=== PATIENT | female | born 1965 | race Caucasian/White ===

== ENCOUNTER 2019-02-07 20:24 | Inpatient (IN) | payer MEDICAID, SELFPAY ==
[2019-02-07 20:27] VITALS: BP 121/75; PULSE 89; RESP 16; TEMP 36.8; O2SAT 100; BMI 13.4
[2019-02-07 20:48] VITALS: BP 118/61; PULSE 85; RESP 13; O2SAT 96
[2019-02-07 21:01] LABS: Bedside Glucose > 500 mg/dL (70-110)
--- NOTE | 2019-02-07 21:29 | EKG12_ITS ---
Test Reason : Blood Pressure : / mmHG Vent. Rate : 074 BPM Atrial Rate : 074 BPM P-R Int : 138 ms QRS Dur : 074 ms QT Int : 354 ms P-R-T Axes : 085 -16 -35 degrees QTc Int : 392 ms Normal sinus rhythm Biatrial enlargement Septal infarct , age undetermined Abnormal ECG Confirmed by LEWIS NICOLAS, DIVYA ([id number]), communications editor BRYON LIU ([id number]) on 02/09/2019 10:47:04 AM Referred By: Caty Alvarez Confirmed By:JODY SAUCEDO MD
--- NOTE | 2019-02-07 21:52 | ED.VISSUMM ---
- ER Visit Summary Date of Service: 02/07/19 Chief Complaint: Weakness History of Present Illness: The patient is a 54 F who presents emerged part with generalized weakness. She has a history of type 2 diabetes diagnosed in 2013 and tells me that she is out of her insulin. She has been off for several weeks because she lost her insurance. She recently moved from [place] to [facility]. She notes progressive weakness. She notes that she now has thrush in her mouth. She has had some nausea and vomiting for the past several days. Polyuria and polydipsia. She has been unable to eat. She states all of her troubles began in 2008 when she had a gallbladder surgery. She states she cannot gain any weight. Patient is a heavy smoker and admits to recreational methamphetamine use. She does not have a primary care physician anymore. Physical Examination: Afebrile vital signs are stable Gen: Patient is cachectic Head: Normocephalic atraumatic Eyes: Perrl EOMI ENT: TMs clear no rhinorrhea dry mucous membranes. Evidence of thrush in the oropharynx Neck: Supple no lymphadenopathy no JVD nontender CVS: Regular rate rhythm no murmurs normal S1-S2 Respiratory: No distress clear to auscultation bilaterally chest nontender Abdomen: Soft nontender nondistended normal bowel sounds no masses Back: Nontender Extremity: Nontender no edema Skin: Normal color no rash Neuro: alert orientated ?3 CN II-XII intact normal strength sensation Psych: Tearful Test Results: EKG shows a normal sinus rhythm and rate is 74. Sodium 123. Chloride of 86. Glucose of 827. BUN 26 with creatinine 1.07 transaminases are slightly elevated ALT 212 AST of 80 alk phos 45. Troponin negative ketones negative. Chest x-ray is emphysematous changes. Urine drug screen was obtained. Emergency Department Course and Treatment: In speaking with the patient she has never had an HIV test. She consents to having one performed. Patient received IV fluids and nystatin. She was also started on insulin drip. Social work was contacted. Plan will be admission into the hospital. Impression: 1. Hyperosmolar hyperglycemic state 2. Thrush This note was generated with [employer] dictation software. It may contain incorrect words, spelling, and punctuation that were not noted in review of the chart prior to signing ED Disposition - Plan for ED Patient: Referrals: Judy Roque MD [Primary Care Provider] -
--- NOTE | 2019-02-07 21:57 | CM.ED ---
Social Work Assessment Referral Date: 02/07/19 Date of Assessment: 02/07/19 Informant: NURSING AND DR. HALL Reason for Consult: RESOURCES- SELF PAY, NO PCP Information obtained from: PATIENT Living Arrangements: PATIENT REPORTS LIVES HOME WITH [facility] IN A 2 STORY HOME WITH 1ST FLOOR SET UP. DME: DIABETIC SUPPLIES Employment/Financial: UNEMPLOYED/ PATIENT REPORTS HAD [employer] PREVIOUSLY AND LOST IT. PATIENT UNSURE WHY SHE LOST HER INSURANCE. Supports: PATIENT REPORTS GOOD SUPPORT FROM EX- Social/Family Stressors: PATIENT HAS NOT HAD INSULIN IN WEEKS, NO INSURANCE, NO PCP. Mental Health History: PATIENT ADMITS TO HX OF ANXIETY AND DEPRESSION. PATIENT STATES WAS TREATED WITH MEDICATION AT ONE POINT AND THEN STOPPED TAKING MEDICATION ON HER OWN. Substance Abuse History: PATIENT REPORTS HX OF METH USE. PATIENT STATES I SELF MEDICATE. PATIENT REPORTS LAST USE MIGHT HAVE BEEN A FEW WEEKS AGO. Interventions: SOCIAL SERVICE ASSESSMENT EDUCATION ON MEDICAID. PATIENT PROVIDED WITH MEDICAID CONTACT NUMBER TO DISCUSS COVERAGE. PATIENT GIVEN RESOURCES ON LOCAL PRIMARY CARE, FREE CLINIC, AND PEOPLE TO PEOPLE. Assessment: PATIENT IS A 54 FEMALE WHO PRESENTS TO ED WITH GENERAL ILLNESS. PATIENT REPORTS HAS BEEN DECLINING FOR SEVERAL YEARS AND HAS BEEN FEELING WORSE. PATIENT STATES LIVES HOME WITH EX IN A 2 STORY HOME. PATIENT STATES LOST INSURANCE AND HAS NOT BEEN ABLE TO AFFORD INSULIN. DISCUSSED MEDICAID AND PATIENT WAS PROVIDED WITH CONTACT NUMBER TO RE-APPLY. PATIENT GIVEN INFORMATION ON FREE CLINIC, LOCAL PCP'S, AND PEOPLE TO PEOPLE. DISCUSSED PATIENT'S MENTAL HEALTH. PATIENT REPORTS HX OF ANXIETY AND DEPRESSION AND STATES WAS TREATED WITH MEDICATION AT ONE TIME. PATIENT REPORTS TO RECENT HX OF METH USE. PATIENT BELIEVES LAST USE TO HAVE BEEN A FEW WEEKS AGO. PATIENT STATES HAS BEEN TRYING TO EAT SMALL PORTIONS OF FOOD, BUT HAS ISSUES WITH KEEPING THE FOOD DOWN. EMOTIONAL SUPPORT PROVIDED. UPDATED DR. HALL ON THIS WORKER'S ASSESSMENT AND RESOURCES PROVIDED. ANTICIPATE ADMISSION. PLAN: TBD- RESOURCES PROVIDED.
[2019-02-07 21:59] LABS: Bacteria 0 SEEN /hpf (None Seen); Mucous, Urine 0 SEEN /hpf (<or=2+); Red Blood Cells-Urine 0 SEEN /hpf (0-5); Squamous Epithelial Cells - UA 0 SEEN /hpf (5-10); White Blood Cells 0 SEEN /hpf (0-5)
--- NOTE | 2019-02-07 22:00 | RAD_ITS ---
STUDY: X-RAY CHEST REASON FOR EXAM: Female, 54 years old. Nausea and vomiting. Loss of appetite. Dehydration and recent weight loss. TECHNIQUE: PA and lateral views of the chest. COMPARISON: None. FINDINGS: There is hyperinflation of the lungs consistent with chronic obstructive lung disease (COPD). No acute infiltrate or mass. There is no demonstrated pleural abnormality. Normal size heart. Normal mediastinum and karsten. Normal visualized pulmonary arteries. Normal visualized aortic arch and descending thoracic aorta. There are diffuse degenerative changes of the visualized thoracic spine. Normal visualized ribs, clavicles, and shoulders. There is no demonstrated abnormality of the visualized soft tissue structures of the upper abdomen. RAD/Chest PA and Lateral IMPRESSION: Question COPD without acute cardiopulmonary disease. Electronically Signed: Manjinder Rosario DO at 22:21 EDT Tel [phone], Service support ,
[2019-02-07 22:03] LABS: Absolute Lymphocyte Count 1.44 X10^3/ul (0.83-4.51); Absolute Neutrophil Count 8.4 X10^3/uL (2.0-7.7); Basophil# 0.02 X10^3/uL; Basophil% 0.2 % (0-1); Eosinophil# 0.04 X10^3/uL; Eosinophils% 0.4 % (0-5); Hematocrit 39.5 % (37-47); Hemoglobin 13.7 g/dl (12.0-15.0); Lymphocyte # 1.44 X10^3/ul (4.0); Lymphocyte % 13.2 % (19-41); Mean Corp Hgb Conc 34.7 g/gl (32-36); Mean Corpuscular Volume 89.4 fL (81-99); Mean Platelet Vol. 12.1 fl (6.2-12.0); Monocyte# 0.94 X10^3/uL; Monocyte% 8.6 % (0-10); Neutrophil # 8.43 X10^3/uL (2.7-7.7); Neutrophil % 77.2 % (47-70); Platelet Count 217 K/mm3 (150-450); RBC Distribution Width CV 13.2 % (11.6-14.6); RBC Distribution Width SD 42.5 fl (35.1-43.9); Red Blood Count 4.42 M/mm3 (4.2-5.4); White Blood Count 10.9 K/mm3 (4.4-11.0)
[2019-02-07 22:05] LABS: Color, Urine Straw (Yellow); Glucose, Dipstick 1000 mg/dl (Normal); Ketone-Dipstick 50 mg/dl (Negative); Leukocyte Esterase-Dipstick Negative /ul (Negative); Nitrite-Dipstick Negative (Negative); Occult Blood-Urine Negative /ul (Negative); Protein-Dipstick Negative (Negative); Urine Bilirubin Dipstick Negative (Negative); Urine Clarity Clear (Clear); Urine Urobilinogen Normal (Normal)
[2019-02-07 22:05] LABS: POSITIVE COUNT NO; POSITIVE DIFFERENTIAL NO; POSITIVE MORPHOLOGY NO
[2019-02-07 22:19] VITALS: BP 115/50; PULSE 72; RESP 17; O2SAT 100
[2019-02-07] MEDS: 0.9% Normal Saline 1,000 ML 999 ML IV (22:19)
[2019-02-07 22:26] LABS: AST(SGOT) 80 U/L (15-37); Alanine Aminotransfer ALT/SGPT 212 U/L (13-56); Albumin, Serum 3.5 g/dL (3.2-5.0); Alkaline Phosphatase 485 U/L (45-117); Anion Gap 10 (5-15); BUN 26 mg/dL (7-18); BUN/Creat Ratio 24.3 RATIO (10-20); Bilirubin, Direct 0.16 mg/dL (0.00-0.30); Calcium,Total 9.1 mg/dL (8.5-10.1); Chloride 86 mmol/L (98-107); Creatinine, Serum 1.07 mg/dL (0.55-1.02); EST Glomerular Filtration Rate 57 mL/min (>60); Est Glom Filt Rate - Afr Amer 69 mL/min (>60); Estimated Creatinine Clearance 31.69 ml/min; Globulin 3.5 g/dL (2.2-4.2); Glucose 827 mg/dL (74-106); Magnesium 1.9 mg/dL (1.6-2.6); Potassium 4.1 mmol/L (3.5-5.1); Sodium Level 123 mmol/L (136-145)
--- NOTE | 2019-02-07 22:26 | ED.RN ---
notified Dr. Schofield of glucose 827
[2019-02-07 23:03] VITALS: BP 121/77; PULSE 77; RESP 22; O2SAT 99
[2019-02-07 23:08] LABS: Amphetamine Urine VISTA NEGATIVE (<1000 ng/mL); Barbiturate Urine VISTA NEGATIVE (< 200 ng/mL); Benzodiazepine Urine VISTA NEGATIVE (< 200 ng/mL); Cocaine Urine VISTA NEGATIVE (< 300 ng/mL); Ecstacy Urine VISTA NEGATIVE (< 500 ng/mL); Methadone Urine VISTA NEGATIVE (< 300 ng/mL); PCP Urine VISTA NEGATIVE (< 25 ng/mL); THC Urine VISTA NEGATIVE (< 50 ng/mL); Vista UDS pH Range 5
[2019-02-07 23:11] LABS: HIV - WCH Non-Reactive (Nonreactive)
[2019-02-07 23:11] LABS: Bedside Glucose > 500 mg/dL (70-110)
[2019-02-07] MEDS: NYSTATIN 500,000 UNIT/5 ML UDC 500000 UNIT PO (23:13)
--- NOTE | 2019-02-07 23:44 | HP.PCM_ITS ---
Problem List (1) Oral thrush Status: Acute (2) Hyperglycemic hyperosmolar state Status: Acute (3) Smoking addiction Status: Chronic (4) COPD (chronic obstructive pulmonary disease) Status: Chronic (5) Uncontrolled type 2 diabetes mellitus Status: Chronic History of Present Illness Date of Admission: 02/07/19 Chief Complaint: Weakness. The patient is a 54 year old F with past medical history as mentioned above presented to the emergency room because of generalized weakness. The patient is a very poor informant and was not able to provide detailed history. She has a history of type 2 diabetes mellitus diagnosed 2013, has been taking insulin but because she lost her insurance, she has been off insulin for several weeks and she did not see her PCP in almost 2 years. She has a history of hypertension and according to the patient, she has been on treatment and also she has not been taking her medication for long time. Her main presenting complaint today was generalized weakness that has been going on for 2 weeks and today she was not able to stand up because of profound weakness which was progressive. She complained of nausea and vomiting for the past several days, got worse yesterday, associated with polyuria and thirst and without aggravating or relieving factors. She has not been able to eat or drink for the last couple of days. She complains of oral thrush as well. She is a longtime smoker and she is currently smokes around one pack daily and she admitted using methamphetamine occasionally. In the emergency department, her vital signs were stable. Her routine blood work was remarkable for sodium of 123, BUN of 26, creatinine of one 0.7, glucose was 827, serum bicarb was 27 anion gap was 10. LFT revealed normal direct and direct bilirubin, elevated liver transaminases as well as alkaline phosphatase. EKG revealed normal sinus rhythm without evidence of acute ischemic changes. Troponin was negative. Urine analysis reviewed, no evidence of acute infection. Urine drug screen was negative. Acetone level was negative. HIV 1 and 2 antibodies were nonreactive. Chest x-ray showed no acute findings. She is being admitted for hyperglycemic hyperosmolar state, dehydration, hyponatremia, elevated LFT and oral thrush. 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 - *Family History Maternal History Items: No pertinent history, - - No coronary artery disease Paternal History Items: No pertinent history, - - No coronary artery disease Review of Systems Constitutional: Reports: Anorexia, Weakness, Fatigue. Denies: Chills, Fever Eyes: Denies: Blurred vision, Double vision, Drainage, Redness HEENT: Denies: Difficulty Hearing, Ear Pain, Eye Pain, Nasal Congestion, Sore Throat Cardiovascular: Denies: Chest Pain, Claudication, Chest Pressure, Edema, Heaviness, Palpitations, Syncope Respiratory: Denies: Cough, Pleuritic Pain, Shortness of Breath, Sputum production, Wheezing Gastrointestinal: Reports: Nausea, Vomiting. Denies: Abdominal Pain, Constipation, Diarrhea Genitourinary: Denies: Dysuria, Frequency, Hematuria Musculoskeletal: Denies: Arm Pain, Back Pain, Foot Pain Skin: Denies: Dryness, Rash Neurological: Denies: Balance problems, Double vision, Change in Speech, Slurred speech, Confusion, Focal weakness, Headaches, Incoordination Psychiatric: Denies: Anxiety, Depression Endocrine: Denies: Change in Body Habitus, Polydipsia, Polyuria VTE Information - Inpt Only VTE Present on Admission: No VTE Mechan Device Prophylaxis: None VTE Pharm Prophylaxis ordered?: Yes - Physical Exam General: Alert, Oriented x3, Cooperative, No apparent distress HEENT: Atraumatic, PERRLA, EOMI, Normocephalic Oral: Moist Mucosa, - - Diffuse oral thrush. Neck: Supple, No JVD, Negative Carotid Bruits, Trachea Midline, Thyroid Normal Size and Texture Lungs: Clear to auscultation, Normal air movement, No rhonchi, No wheeze, No rales, Diminished Cardiovascular: Regular rate, Regular Rhythm, Normal S1, Normal S2, No murmurs, PMI Normal Abdomen: Soft, Non Tender, Non-Distended, No Hepato-splenomegaly Extremities: No clubbing, No cyanosis, No edema Skin: No rashes, No breakdown Lymphatic: No Cervical, Supraclavicular, or Inguinal Adenopathy Neurological: Cranial nerves II-XII grossly intact, Motor Exam 5/5 strength throughout Psych/Mental Status: Flat Affect, Alert and oriented to time, place, person, mood and affect Vital Signs Temp Pulse Resp BP Pulse Ox 98.3 F 77 22 H 121/77 H 99 02/07/19 20:27 02/07/19 23:03 02/07/19 23:03 02/07/19 23:03 02/07/19 23:03 Oxygen Delivery Method Room Air Weight: 73 lb 10.15 oz Body Mass Index (BMI) 13.4 Finger Stick Blood Glucose 600 Laboratory Tests Past 24 Hrs 02/07/19 02/07/19 02/07/19 21:45 21:45 21:55 WBC 10.9 RBC 4.42 Hgb 13.7 Hct 39.5 MCV 89.4 MCH 31.0 MCHC 34.7 RDW 13.2 RDW Differential 42.5 Plt Count 217 MPV 12.1 H Immature Gran % (Auto) 0.400 Neut % (Auto) 77.2 H Lymph % (Auto) 13.2 L Preston % (Auto) 8.6 Eos % (Auto) 0.4 Baso % (Auto) 0.2 Absolute Neuts (auto) 8.4 H Absolute Lymphs (auto) 1.44 Total Counted Not Reportable Sodium Potassium Chloride Carbon Dioxide Anion Gap BUN Creatinine Estim Creat Clear Calc Est GFR (MDRD) Af Amer Est GFR (MDRD) Non-Af BUN/Creatinine Ratio Glucose Calcium Magnesium Total Bilirubin Direct Bilirubin AST ALT Alkaline Phosphatase Troponin I Total Protein Albumin Globulin Urine Color Straw Urine Clarity Clear Urine pH 6.0 Ur Specific [place] 1.010 Urine Protein Negative Urine Glucose (UA) 1000 H Urine Ketones 50 H Urine Occult Blood Negative Urine Nitrite Negative Urine Bilirubin Negative Urine Urobilinogen Normal Ur Leukocyte Esterase Negative Urine RBC 0 SEEN Urine WBC 0 SEEN Ur Squamous Epith Cells 0 SEEN Urine Bacteria 0 SEEN Urine Mucus 0 SEEN Urine Opiates Screen NEGATIVE Urine Methadone Screen NEGATIVE Ur Barbiturates Screen NEGATIVE Ur Phencyclidine Scrn NEGATIVE Ur Amphetamines Screen NEGATIVE U Methamphetamin-MDMA NEGATIVE U Benzodiazepines Scrn NEGATIVE Urine Cocaine Screen NEGATIVE U Cannabinoids Screen NEGATIVE Ur Drug Screen Comment Acetone Level HIV 1&2 Antibody 02/07/19 02/07/19 02/07/19 21:55 21:55 21:55 WBC RBC Hgb Hct MCV MCH MCHC RDW RDW Differential Plt Count MPV Immature Gran % (Auto) Neut % (Auto) Lymph % (Auto) Preston % (Auto) Eos % (Auto) Baso % (Auto) Absolute Neuts (auto) Absolute Lymphs (auto) Total Counted Sodium 123 L Potassium 4.1 Chloride 86 L Carbon Dioxide 27.0 Anion Gap 10 BUN 26 H Creatinine 1.07 H Estim Creat Clear Calc 31.69 Est GFR (MDRD) Af Amer 69 Est GFR (MDRD) Non-Af 57 L BUN/Creatinine Ratio 24.3 H Glucose 827 H* Calcium 9.1 Magnesium 1.9 Total Bilirubin 0.40 Direct Bilirubin 0.16 AST 80 H ALT 212 H Alkaline Phosphatase 485 H Troponin I < 0.015 Total Protein 7.0 Albumin 3.5 Globulin 3.5 Urine Color Urine Clarity Urine pH Ur Specific [place] Urine Protein Urine Glucose (UA) Urine Ketones Urine Occult Blood Urine Nitrite Urine Bilirubin Urine Urobilinogen Ur Leukocyte Esterase Urine RBC Urine WBC Ur Squamous Epith Cells Urine Bacteria Urine Mucus Urine Opiates Screen Urine Methadone Screen Ur Barbiturates Screen Ur Phencyclidine Scrn Ur Amphetamines Screen U Methamphetamin-MDMA U Benzodiazepines Scrn Urine Cocaine Screen U Cannabinoids Screen Ur Drug Screen Comment Acetone Level NEGATIVE HIV 1&2 Antibody Non-Reactive POC Glucose 02/07/19 02/07/19 22:52 20:42 POC Glucose > 500 H* > 500 H* Clinical Impression(s) from Imaging Studies Chest X-Ray 02/07/19 22:00 IMPRESSION: Question COPD without acute cardiopulmonary disease. Electronically Signed: Manjinder Rosario DO at 22:21 EDT Tel [phone], Service support , Assessment/Plan All Active Problems Oral thrush (Acute) Hyperglycemic hyperosmolar state (Acute) This is a 54 years old female patient presented to the emergency room because of weakness, nausea and vomiting and she was found to have hyperglycemic hyperosmolar state, hyponatremia, dehydration, oral thrush and elevated LFTs and she is being admitted for treatment. #1 hyperglycemic hyperosmolar state: Blood sugar is 827. Serum bicarb is 27 anion gap is 10. Acetone level is negative. Patient started on insulin drip. This is because of noncompliance, patient has been off oxygen for several weeks because she lost her insurance. Chest x-ray and urinalysis were unremarkable. Plan: Admit to ICU, keep on n.p.o., continue IV insulin drip, BMP every 4 hours, Accu-Cheks per protocol every 1 hour, IV fluids with potassium replacement, repeat CBC and BMP tomorrow morning, hemoglobin A1c, consult nutrition, critical care consult, PT OT evaluation and treatment. #2 oral thrush: She has extensive oral thrush. HIV 1 and 2 were nonreactive. Plan: Start oral nystatin suspension 4 times a day. #3 dehydration/hyponatremia: Secondary to hyperosmolar state. BUN is 26, creatinine 1.07. Sodium is 123 which is likely due to pseudohyponatremia secondary to hyperglycemia. Plan as above, IV fluids with normal saline in place for placement, repeat BMP tomorrow morning. #4 elevated LFT: Pancreatitis, denies any right upper quadrant abdominal pain, she had a cholecystectomy. Patient admitted using methamphetamines. HIV was nonreactive. Plan: Hepatitis serology, repeat LFT tomorrow morning. #5 uncontrolled type 1 diabetes mellitus: Plan as above, patient has been off insulin for several weeks. Will check A1c and TSH. #6 hypertension: Blood pressure stable, patient has not been taking her medication for several weeks. Plan to monitor for now. #7 DVT prophylaxis: Subcu Lovenox. This note was generated with [employer] dictation software. It may contain incorrect words, spelling, and punctuation that were not noted in checking the note before signing. Code Visit Inpatient E&M: 41795 Init Hosp L3
[2019-02-07 23:55] VITALS: BMI 14.3; BMI 14.4
[2019-02-08] VITALS (25 sets, daily range): BP systolic 94–154; BP diastolic 46–84; PULSE 64–95; RESP 9–23; TEMP 36.3–37.4; O2SAT 96–100
[2019-02-08 00:16] LABS: Bedside Glucose 470 mg/dL (70-110)
[2019-02-08] MEDS: 0.9% NaCl Peripheral Flush Adult/Peds IV ×2 (00:17→18:13)
[2019-02-08 01:02] LABS: Hemoglobin A1c 15.5 % (4.2-6.3)
[2019-02-08 01:05] LABS: Anion Gap 8 (5-15); BUN 22 mg/dL (7-18); BUN/Creat Ratio 27.1 RATIO (10-20); Calcium,Total 7.8 mg/dL (8.5-10.1); Chloride 100 mmol/L (98-107); Creatinine, Serum 0.81 mg/dL (0.55-1.02); EST Glomerular Filtration Rate 78 mL/min (>60); Est Glom Filt Rate - Afr Amer 95 mL/min (>60); Estimated Creatinine Clearance 44.62 ml/min; Glucose 481 mg/dL (74-106); Potassium 3.2 mmol/L (3.5-5.1); Sodium Level 133 mmol/L (136-145); Thyroid Stim Hormone (TSH) 0.31 uIU/mL (0.358-3.74)
[2019-02-08 01:07] LABS: Bedside Glucose 396 mg/dL (70-110)
[2019-02-08] MEDS: Potassium Chloride 10mEq/100mL 10 MEQ/100 ML IV.SOLN. 100 MEQ IV BOLUS (02:02)
[2019-02-08 02:06] LABS: Bedside Glucose 314 mg/dL (70-110)
[2019-02-08 03:15] LABS: Bedside Glucose 289 mg/dL (70-110)
[2019-02-08 04:31] LABS: Bedside Glucose 250 mg/dL (70-110)
[2019-02-08 04:38] LABS: Absolute Lymphocyte Count 1.91 X10^3/ul (0.83-4.51); Absolute Neutrophil Count 6.4 X10^3/uL (2.0-7.7); Basophil# 0.03 X10^3/uL; Basophil% 0.3 % (0-1); Eosinophil# 0.11 X10^3/uL; Eosinophils% 1.2 % (0-5); Hemoglobin 11.9 g/dl (12.0-15.0); Lymphocyte # 1.91 X10^3/ul (4.0); Lymphocyte % 20.1 % (19-41); Mean Corpuscular Hgb 31.1 pg (27.0-32.0); Mean Corpuscular Volume 88.8 fL (81-99); Mean Platelet Vol. 11.7 fl (6.2-12.0); Monocyte% 10.5 % (0-10); Neutrophil # 6.38 X10^3/uL (2.7-7.7); Neutrophil % 67.3 % (47-70); Platelet Count 182 K/mm3 (150-450); RBC Distribution Width SD 40.6 fl (35.1-43.9); Red Blood Count 3.83 M/mm3 (4.2-5.4); White Blood Count 9.5 K/mm3 (4.4-11.0)
[2019-02-08 04:39] LABS: International Normalized Ratio 0.9
[2019-02-08 04:44] LABS: POSITIVE COUNT NO; POSITIVE DIFFERENTIAL NO; POSITIVE MORPHOLOGY NO
[2019-02-08 04:51] LABS: AST(SGOT) 52 U/L (15-37); Alanine Aminotransfer ALT/SGPT 148 U/L (13-56); Albumin, Serum 2.6 g/dL (3.2-5.0); Alkaline Phosphatase 325 U/L (45-117); Anion Gap 8 (5-15); BUN 18 mg/dL (7-18); BUN/Creat Ratio 32.6 RATIO (10-20); Calcium,Total 7.3 mg/dL (8.5-10.1); Chloride 107 mmol/L (98-107); Creatinine, Serum 0.55 mg/dL (0.55-1.02); EST Glomerular Filtration Rate 122 mL/min (>60); Est Glom Filt Rate - Afr Amer 148 mL/min (>60); Estimated Creatinine Clearance 65.72 ml/min; Globulin 2.5 g/dL (2.2-4.2); Glucose 255 mg/dL (74-106); Potassium 3.6 mmol/L (3.5-5.1); Protein, Total 5.1 g/dL (6.4-8.2); Sodium Level 142 mmol/L (136-145)
[2019-02-08 05:10] LABS: Bedside Glucose 265 mg/dL (70-110)
[2019-02-08 06:10] LABS: Bedside Glucose 245 mg/dL (70-110)
--- NOTE | 2019-02-08 07:09 | CON.PCM_ITS ---
Problem List (1) Oral thrush Status: Acute (2) Hyperglycemic hyperosmolar state Status: Acute (3) Smoking addiction Status: Chronic (4) COPD (chronic obstructive pulmonary disease) Status: Suspected Qualifiers: COPD type: emphysema Emphysema type: centrilobular Qualified Code(s): J43.2 - Centrilobular emphysema (5) Uncontrolled type 2 diabetes mellitus Status: Chronic Reason for Consult Date of Consultation: 02/08/19 Reason for Consultation: Hyperosmolar non-ketosis History of Present Illness: The patient is a 54 year old F, with past medical history listed below, who presented to [facility] on 02/07/2019 secondary to a a sensation of generalized weakness. Patient does have a history of type 2 diabetes mellitus that was diagnosed in 2013 and states that she has had issues over the last month with obtaining insulin. Patient recently moved from [place] to [facility] and stated she had some issues with her Medicaid. Patient had some nausea and vomiting over the last couple days along with polyuria and polydipsia. Patient states she is been unable to eat secondary to the nausea and vomiting. Patient is a heavy smoker and does admit to recreational methamphetamine use. Patient does not have a primary care physician. In the emergency room, patient was noted to be significantly dehydrated with oral thrush. Patient had a glucose of 827 with creatinine of 1.07 and sodium of 123. Troponins were negative and chest x-ray showed only hyperinflation. Patient did have an HIV test performed secondary to the oral thrush. Patient was also placed on an insulin drip and admitted to the intensive care unit for further monitoring. Since being in the intensive care unit, patient states that she is much improved. Patient states she still feels fatigued, but overall the nausea has completely resolved and she just feels sore. Patient denies any headache, meningismus, change in cough or shortness of breath. Patient has not had any recent URIs. Patient states that she was compliant with insulin prior to her insurance issues. Patient does report that Lantus did not work well for me in the past. Patient states she has attempted to rectify her Medicaid situation, but has been unsuccessful to this point. Review of systems otherwise negative x10 systems. Past Medical History Past Medical History (Chronic Problems): Chronic Problems Smoking addiction (Chronic) Uncontrolled type 2 diabetes mellitus (Chronic) Allergies diphenhydramine [From Benadryl] Allergy (Verified 02/07/19 20:27) Hives Surgical History: cholecystectomy, hysterectomy Psychiatric History: No pertinent psych hx COUNSELING CENTER DIRECTOR History: No pertinent COUNSELING CENTER DIRECTOR history Lives: Spouse/ Significant Other Smoking Status: Current every day smoker Tobacco Use: Cigarettes Alcohol: None Drugs: - - Methamphetamine. - *Family History Maternal History Items: No pertinent history, - - No coronary artery disease Paternal History Items: No pertinent history, - - No coronary artery disease Review of Systems Comment: See HPI Objective: Chest x-ray was personally reviewed and showed no acute infiltrate, but hyperinflation. - Physical Exam General: Alert, Oriented x3, Cooperative, No apparent distress, - - Cachectic. Appears older than stated age. HEENT: Atraumatic, PERRLA, EOMI, Normocephalic, - - No scleral icterus or injection noted. Oral: Dry Mucosa, - - Thrush present Neck: Supple, No JVD, No Nodes, Trachea Midline Lungs: No rhonchi, No wheeze, No rales, Diminished, - - Symmetric expansion. No dullness to percussion. Cardiovascular: Regular rate, Regular Rhythm, Normal S1, Normal S2, No murmurs, No rub noted, No Gallop Abdomen: Bowel Sounds Present, Soft, Non Tender, Non-Distended Extremities: No cyanosis, No edema, Capillary Refill Less than 3 Seconds, Clubbing Skin: No rashes, No breakdown Musculoskeletal: No Tenderness to Palpation of Joints or Extremities Lymphatic: No Cervical, Supraclavicular, or Inguinal Adenopathy Neurological: Cranial nerves II-XII grossly intact, Neuro grossly intact, Motor Exam 5/5 strength throughout Psych/Mental Status: Alert and oriented to time, place, person, mood and affect Vital Signs Temp Pulse Resp BP Pulse Ox 37.0 C 79 9 L 116/63 100 02/08/19 04:00 02/08/19 06:00 02/08/19 06:00 02/08/19 06:00 02/08/19 06:00 Oxygen Delivery Method Room Air Weight: 36.8 kg Body Mass Index (BMI) 14.3 Finger Stick Blood Glucose 245 Intake and Output for Last 24 Hours 02/06/19 02/07/19 02/08/19 23:59 23:59 23:59 Intake Total 983.6 / 983.6 Balance 983.6 / 983.6 Laboratory Tests Past 24 Hrs 02/07/19 02/07/19 02/07/19 21:45 21:45 21:55 WBC 10.9 RBC 4.42 Hgb 13.7 Hct 39.5 MCV 89.4 MCH 31.0 MCHC 34.7 RDW 13.2 RDW Differential 42.5 Plt Count 217 MPV 12.1 H Immature Gran % (Auto) 0.400 Neut % (Auto) 77.2 H Lymph % (Auto) 13.2 L [place] % (Auto) 8.6 Eos % (Auto) 0.4 Baso % (Auto) 0.2 Absolute Neuts (auto) 8.4 H Absolute Lymphs (auto) 1.44 Total Counted Not Reportable PT INR Sodium Potassium Chloride Carbon Dioxide Anion Gap BUN Creatinine Estim Creat Clear Calc Est GFR (MDRD) Af Amer Est GFR (MDRD) Non-Af BUN/Creatinine Ratio Glucose Hemoglobin A1c Calcium Magnesium Total Bilirubin Direct Bilirubin AST ALT Alkaline Phosphatase Troponin I Total Protein Albumin Globulin Albumin/Globulin Ratio TSH Urine Color Straw Urine Clarity Clear Urine pH 6.0 Ur Specific [place] 1.010 Urine Protein Negative Urine Glucose (UA) 1000 H Urine Ketones 50 H Urine Occult Blood Negative Urine Nitrite Negative Urine Bilirubin Negative Urine Urobilinogen Normal Ur Leukocyte Esterase Negative Urine RBC 0 SEEN Urine WBC 0 SEEN Ur Squamous Epith Cells 0 SEEN Urine Bacteria 0 SEEN Urine Mucus 0 SEEN Urine Opiates Screen NEGATIVE Urine Methadone Screen NEGATIVE Ur Barbiturates Screen NEGATIVE Ur Phencyclidine Scrn NEGATIVE Ur Amphetamines Screen NEGATIVE U Methamphetamin-MDMA NEGATIVE U Benzodiazepines Scrn NEGATIVE Urine Cocaine Screen NEGATIVE U Cannabinoids Screen NEGATIVE Ur Drug Screen Comment Acetone Level Hep Bs Antigen Hep B Core IgM Ab Hepatitis C Antibody HIV 1&2 Antibody 02/07/19 02/07/19 02/07/19 21:55 21:55 21:55 WBC RBC Hgb Hct MCV MCH MCHC RDW RDW Differential Plt Count MPV Immature Gran % (Auto) Neut % (Auto) Lymph % (Auto) [place] % (Auto) Eos % (Auto) Baso % (Auto) Absolute Neuts (auto) Absolute Lymphs (auto) Total Counted PT INR Sodium 123 L Potassium 4.1 Chloride 86 L Carbon Dioxide 27.0 Anion Gap 10 BUN 26 H Creatinine 1.07 H Estim Creat Clear Calc 31.69 Est GFR (MDRD) Af Amer 69 Est GFR (MDRD) Non-Af 57 L BUN/Creatinine Ratio 24.3 H Glucose 827 H* Hemoglobin A1c Calcium 9.1 Magnesium 1.9 Total Bilirubin 0.40 Direct Bilirubin 0.16 AST 80 H ALT 212 H Alkaline Phosphatase 485 H Troponin I < 0.015 Total Protein 7.0 Albumin 3.5 Globulin 3.5 Albumin/Globulin Ratio TSH Urine Color Urine Clarity Urine pH Ur Specific [place] Urine Protein Urine Glucose (UA) Urine Ketones Urine Occult Blood Urine Nitrite Urine Bilirubin Urine Urobilinogen Ur Leukocyte Esterase Urine RBC Urine WBC Ur Squamous Epith Cells Urine Bacteria Urine Mucus Urine Opiates Screen Urine Methadone Screen Ur Barbiturates Screen Ur Phencyclidine Scrn Ur Amphetamines Screen U Methamphetamin-MDMA U Benzodiazepines Scrn Urine Cocaine Screen U Cannabinoids Screen Ur Drug Screen Comment Acetone Level NEGATIVE Hep Bs Antigen Hep B Core IgM Ab Hepatitis C Antibody HIV 1&2 Antibody Non-Reactive 02/07/19 02/07/19 02/07/19 21:55 21:55 21:55 WBC RBC Hgb Hct MCV MCH MCHC RDW RDW Differential Plt Count MPV Immature Gran % (Auto) Neut % (Auto) Lymph % (Auto) [place] % (Auto) Eos % (Auto) Baso % (Auto) Absolute Neuts (auto) Absolute Lymphs (auto) Total Counted PT INR Sodium Potassium Chloride Carbon Dioxide Anion Gap BUN Creatinine Estim Creat Clear Calc Est GFR (MDRD) Af Amer Est GFR (MDRD) Non-Af BUN/Creatinine Ratio Glucose Hemoglobin A1c 15.5 H Calcium Magnesium Total Bilirubin Direct Bilirubin AST ALT Alkaline Phosphatase Troponin I Total Protein Albumin Globulin Albumin/Globulin Ratio TSH Urine Color Urine Clarity Urine pH Ur Specific [place] Urine Protein Urine Glucose (UA) Urine Ketones Urine Occult Blood Urine Nitrite Urine Bilirubin Urine Urobilinogen Ur Leukocyte Esterase Urine RBC Urine WBC Ur Squamous Epith Cells Urine Bacteria Urine Mucus Urine Opiates Screen Urine Methadone Screen Ur Barbiturates Screen Ur Phencyclidine Scrn Ur Amphetamines Screen U Methamphetamin-MDMA U Benzodiazepines Scrn Urine Cocaine Screen U Cannabinoids Screen Ur Drug Screen Comment Acetone Level Hep Bs Antigen Pending Hep B Core IgM Ab Pending Hepatitis C Antibody Pending HIV 1&2 Antibody 02/08/19 02/08/19 02/08/19 00:10 04:20 04:20 WBC 9.5 RBC 3.83 L Hgb 11.9 L Hct 34.0 L MCV 88.8 MCH 31.1 MCHC 35.0 RDW 13.0 RDW Differential 40.6 Plt Count 182 MPV 11.7 Immature Gran % (Auto) 0.600 Neut % (Auto) 67.3 Lymph % (Auto) 20.1 [place] % (Auto) 10.5 H Eos % (Auto) 1.2 Baso % (Auto) 0.3 Absolute Neuts (auto) 6.4 Absolute Lymphs (auto) 1.91 Total Counted Not Reportable PT 12.0 INR 0.9 Sodium 133 L Potassium 3.2 L Chloride 100 Carbon Dioxide 25.0 Anion Gap 8 BUN 22 H Creatinine 0.81 Estim Creat Clear Calc 44.62 Est GFR (MDRD) Af Amer 95 Est GFR (MDRD) Non-Af 78 BUN/Creatinine Ratio 27.1 H Glucose 481 H* Hemoglobin A1c Calcium 7.8 L Magnesium Total Bilirubin Direct Bilirubin AST ALT Alkaline Phosphatase Troponin I Total Protein Albumin Globulin Albumin/Globulin Ratio TSH 0.31 L Urine Color Urine Clarity Urine pH Ur Specific [place] Urine Protein Urine Glucose (UA) Urine Ketones Urine Occult Blood Urine Nitrite Urine Bilirubin Urine Urobilinogen Ur Leukocyte Esterase Urine RBC Urine WBC Ur Squamous Epith Cells Urine Bacteria Urine Mucus Urine Opiates Screen Urine Methadone Screen Ur Barbiturates Screen Ur Phencyclidine Scrn Ur Amphetamines Screen U Methamphetamin-MDMA U Benzodiazepines Scrn Urine Cocaine Screen U Cannabinoids Screen Ur Drug Screen Comment Acetone Level Hep Bs Antigen Hep B Core IgM Ab Hepatitis C Antibody HIV 1&2 Antibody 02/08/19 04:20 WBC RBC Hgb Hct MCV MCH MCHC RDW RDW Differential Plt Count MPV Immature Gran % (Auto) Neut % (Auto) Lymph % (Auto) [place] % (Auto) Eos % (Auto) Baso % (Auto) Absolute Neuts (auto) Absolute Lymphs (auto) Total Counted PT INR Sodium 142 Potassium 3.6 Chloride 107 Carbon Dioxide 27.0 Anion Gap 8 BUN 18 Creatinine 0.55 Estim Creat Clear Calc 65.72 Est GFR (MDRD) Af Amer 148 Est GFR (MDRD) Non-Af 122 BUN/Creatinine Ratio 32.6 H Glucose 255 H Hemoglobin A1c Calcium 7.3 L Magnesium Total Bilirubin 0.30 Direct Bilirubin AST 52 H ALT 148 H Alkaline Phosphatase 325 H Troponin I Total Protein 5.1 L Albumin 2.6 L Globulin 2.5 Albumin/Globulin Ratio 1.0 TSH Urine Color Urine Clarity Urine pH Ur Specific [place] Urine Protein Urine Glucose (UA) Urine Ketones Urine Occult Blood Urine Nitrite Urine Bilirubin Urine Urobilinogen Ur Leukocyte Esterase Urine RBC Urine WBC Ur Squamous Epith Cells Urine Bacteria Urine Mucus Urine Opiates Screen Urine Methadone Screen Ur Barbiturates Screen Ur Phencyclidine Scrn Ur Amphetamines Screen U Methamphetamin-MDMA U Benzodiazepines Scrn Urine Cocaine Screen U Cannabinoids Screen Ur Drug Screen Comment Acetone Level Hep Bs Antigen Hep B Core IgM Ab Hepatitis C Antibody HIV 1&2 Antibody POC Glucose 02/08/19 02/08/19 02/08/19 05:57 05:03 04:18 POC Glucose 245 H 265 H 250 H 02/08/19 02/08/19 02/08/19 03:06 02:00 01:01 POC Glucose 289 H 314 H 396 H 02/07/19 02/07/19 02/07/19 23:53 22:52 20:42 POC Glucose 470 H* > 500 H* > 500 H* Clinical Impression(s) from Imaging Studies Chest X-Ray 02/07/19 22:00 IMPRESSION: Question COPD without acute cardiopulmonary disease. Electronically Signed: Manjinder Rosario DO at 22:21 EDT Tel [phone], Service support , Assessment/Plan RECOMMENDATIONS: 1. Transition from insulin drip to Lantus 2. Consult social work for medication issues 3. Okay to continue current bag of IV fluids then discontinue 4. Reinitiate p.o. diet 5. Potential discharge later today IMPRESSIONS: 1. Hyperglycemic hyperosmolar state secondary to insulin noncompliance Patient reports a barrier to compliance secondary to insurance issues. Patient states she has not been able to use insulin in over a month, but hemoglobin A1c of 15.5 indicates poor control prior to the last month. P atient's blood sugar is acceptable at this time, so will initiate subcu insulin. Social work will be consulted for medication issues. Patient does need to establish with a primary care physician. 2. Oral thrush Patient reportedly does not use any inhaled corticosteroids. Patient does have significantly elevated blood sugars, which may have led to this condition. Patient can continue with nystatin. HIV negative. Patient is not reporting any odynophagia to suggest candidal esophagitis. 3. Uncontrolled diabetes mellitus/hypertension/elevated LFT/protein calorie malnutrition Complicates care, management, recovery and prognosis. Likely reinitiate baseline medications in a stepwise fashion. Unclear if patient is developing pulmonary cachexia versus malnutrition secondary to decreased p.o. given social issues. Case management and social work will be involved. Code Visit Inpatient E&M: 47104 Init Hosp L2
--- NOTE | 2019-02-08 07:36 | PCM.PN.HOSP ---
Subjective: Patient was seen and examined. Admitted last night with [facility]. Blood sugars have remained uncontrolled. Patient states she ran out of insulin. Case management, drug abuse social worker, pharmacist consulted. Prescriptions written for 1 month free medications written out. Patient's blood sugars remain uncontrolled. HbA1c is 15.5, will continue to keep patient overnight for better blood glucose control prior to discharge. She denied any dizziness or palpitations or shortness of breath. She complains of feeling foggy Vitals/I&O's: Vital Signs Temp Pulse Resp BP Pulse Ox 98.6 F 68 14 94/64 100 02/08/19 04:00 02/08/19 07:00 02/08/19 07:00 02/08/19 07:00 02/08/19 07:00 Oxygen Delivery Method Room Air Weight: 36.8 kg Body Mass Index (BMI) 14.3 Finger Stick Blood Glucose 245 Intake and Output for Last 24 Hours 02/06/19 02/07/19 02/08/19 23:59 23:59 23:59 Intake Total 983.6 / 983.6 Balance 983.6 / 983.6 General: Alert, Oriented x3, Cooperative, No apparent distress HEENT: Atraumatic, PERRLA, EOMI, Normocephalic Oral: Moist Mucosa Neck: Supple, No JVD, Negative Carotid Bruits Lungs: Clear to auscultation, Normal air movement Cardiovascular: Regular rate, Regular Rhythm, Normal S1, Normal S2, No murmurs Abdomen: Bowel Sounds Present, Soft, Non Tender, Non-Distended, No Hepato-splenomegaly Extremities: No edema Skin: No rashes, No breakdown Musculoskeletal: No Tenderness to Palpation of Joints or Extremities Lymphatic: No Cervical, Supraclavicular, or Inguinal Adenopathy Neurological: Cranial nerves II-XII grossly intact Psych/Mental Status: Normal Affect, Appropriate Laboratory Results 02/07/19 20:42: POC Glucose > 500 H* 02/07/19 21:45: Urine Color Straw, Urine Clarity Clear, Urine pH 6.0, Ur Specific [place] 1.010, Urine Protein Negative, Urine Glucose (UA) 1000 H, Urine Ketones 50 H, Urine Occult Blood Negative, Urine Nitrite Negative, Urine Bilirubin Negative, Urine Urobilinogen Normal, Ur Leukocyte Esterase Negative, Urine RBC 0 SEEN, Urine WBC 0 SEEN, Ur Squamous Epith Cells 0 SEEN, Urine Bacteria 0 SEEN, Urine Mucus 0 SEEN 02/07/19 21:45: Urine Opiates Screen NEGATIVE, Urine Methadone Screen NEGATIVE, Ur Barbiturates Screen NEGATIVE, Ur Phencyclidine Scrn NEGATIVE, Ur Amphetamines Screen NEGATIVE, U Methamphetamin-MDMA NEGATIVE, U Benzodiazepines Scrn NEGATIVE, Urine Cocaine Screen NEGATIVE, U Cannabinoids Screen NEGATIVE, Ur Drug Screen Comment 02/07/19 21:55: WBC 10.9, RBC 4.42, Hgb 13.7, Hct 39.5, MCV 89.4, MCH 31.0, MCHC 34.7, RDW 13.2, RDW Differential 42.5, Plt Count 217, MPV 12.1 H, Immature Gran % (Auto) 0.400, Neut % (Auto) 77.2 H, Lymph % (Auto) 13.2 L, [place] % (Auto) 8.6, Eos % (Auto) 0.4, Baso % (Auto) 0.2, Absolute Neuts (auto) 8.4 H, Absolute Lymphs (auto) 1.44, Total Counted Not Reportable 02/07/19 21:55: Sodium 123 L, Potassium 4.1, Chloride 86 L, Carbon Dioxide 27.0, Anion Gap 10, BUN 26 H, Creatinine 1.07 H, Estim Creat Clear Calc 31.69, Est GFR (MDRD) Af Amer 69, Est GFR (MDRD) Non-Af 57 L, BUN/Creatinine Ratio 24.3 H, Glucose 827 H*, Calcium 9.1, Magnesium 1.9, Total Bilirubin 0.40, Direct Bilirubin 0.16, AST 80 H, ALT 212 H, Alkaline Phosphatase 485 H, Troponin I < 0.015, Total Protein 7.0, Albumin 3.5, Globulin 3.5 02/07/19 21:55: Acetone Level NEGATIVE 02/07/19 21:55: HIV 1&2 Antibody Non-Reactive 02/07/19 21:55: Hemoglobin A1c 15.5 H 02/07/19 21:55: Hep B Core IgM Ab Pending 02/07/19 21:55: Hep Bs Antigen Pending, Hepatitis C Antibody Pending 02/07/19 22:52: POC Glucose > 500 H* 02/07/19 23:53: POC Glucose 470 H* 02/08/19 00:10: Sodium 133 L, Potassium 3.2 L, Chloride 100, Carbon Dioxide 25.0, Anion Gap 8, BUN 22 H, Creatinine 0.81, Estim Creat Clear Calc 44.62, Est GFR (MDRD) Af Amer 95, Est GFR (MDRD) Non-Af 78, BUN/Creatinine Ratio 27.1 H, Glucose 481 H*, Calcium 7.8 L, TSH 0.31 L 02/08/19 01:01: POC Glucose 396 H 02/08/19 02:00: POC Glucose 314 H 02/08/19 03:06: POC Glucose 289 H 02/08/19 04:18: POC Glucose 250 H 02/08/19 04:20: WBC 9.5, RBC 3.83 L, Hgb 11.9 L, Hct 34.0 L, MCV 88.8, MCH 31.1, MCHC 35.0, RDW 13.0, RDW Differential 40.6, Plt Count 182, MPV 11.7, Immature Gran % (Auto) 0.600, Neut % (Auto) 67.3, Lymph % (Auto) 20.1, [place] % (Auto) 10.5 H, Eos % (Auto) 1.2, Baso % (Auto) 0.3, Absolute Neuts (auto) 6.4, Absolute Lymphs (auto) 1.91, Total Counted Not Reportable 02/08/19 04:20: PT 12.0, INR 0.9 02/08/19 04:20: Sodium 142, Potassium 3.6, Chloride 107, Carbon Dioxide 27.0, Anion Gap 8, BUN 18, Creatinine 0.55, Estim Creat Clear Calc 65.72, Est GFR (MDRD) Af Amer 148, Est GFR (MDRD) Non-Af 122, BUN/Creatinine Ratio 32.6 H, Glucose 255 H, Calcium 7.3 L, Total Bilirubin 0.30, AST 52 H, ALT 148 H, Alkaline Phosphatase 325 H, Total Protein 5.1 L, Albumin 2.6 L, Globulin 2.5, Albumin/Globulin Ratio 1.0 02/08/19 05:03: POC Glucose 265 H 02/08/19 05:57: POC Glucose 245 H Current Medications Acetaminophen (Tylenol) 650 mg PO Q6H PRN PRN PRN Reason: Mild Pain (1-3)/Temp > 100.7 F Albuterol Sulfate (Ventolin Aerosols) 2.5 mg INHALATION Q4H PRN PRN PRN Reason: Shortness of breath, wheezing Dextrose (D50w Syringe) 0 gm IV X1 PRN; Protocol PRN Reason: Hypoglycemia Enoxaparin Sodium (Lovenox) 40 mg SC DAILY CHRISTINA Glucagon () 1 mg IM .X1 PRN PRN Reason: Hypoglycemia Sodium Chloride () 1,000 mls @ 999 mls/hr IV .Q1H1M ONE Last Admin: 02/07/19 22:19 Dose: 999 mls/hr Documented by: Insulin Human Lispro 100 unit/ (Sodium Chloride) 100 mls @ 3.34 mls/hr IV .[id number] [facility]; Protocol Last Admin: 02/07/19 22:55 Dose: 3.34 mls/hr Documented by: Potassium Chloride/Sodium Chloride () 1,000 mls @ 100 mls/hr IV .Q10H CHRISTINA Last Admin: 02/08/19 00:17 Dose: 100 mls/hr Documented by: Sodium Chloride () 250 mls @ 15 mls/hr IV .[id number] PRN PRN Reason: SALINE FLUSH Insulin Glargine (Lantus (Bkc)) 15 units SC DAILY [facility] Last Admin: 02/08/19 06:54 Dose: 15 u Documented by: Insulin Human Lispro (Humalog Kwikpen (Bkc)) 0 unit SC ACHS [facility]; Protocol Nystatin (Nystatin) 500,000 unit PO 4X/DAY [facility] Ondansetron HCl (Zofran) 4 mg IV Q8H PRN PRN PRN Reason: NAUSEA/VOMITING Sodium Chloride () 5 - 15 ml IV UD PRN PRN Reason: SALINE FLUSH Last Admin: 02/08/19 00:17 Dose: 10 ml Documented by: Medical Necessity - Tobacco Use Smoking Status: Current every day smoker Tobacco Use: Cigarettes Assessment/Plan All Active Problems Oral thrush (Acute) Hyperglycemic hyperosmolar state (Acute) 54-year-old female past medical history of type 2 DM admitted with nausea, vomiting and generalized weakness and found to have HHS and hyponatremia. 1. HHS, and known type 2 DM, on insulin, noncompliance with insulin, sugars improved but not controlled, HgbA1c is 15.5 Plan: Continue on Lantus 40 units daily, pre-meal lispro 5 units 3 times daily, medium to high insulin sliding scale, dietitian to educate, monitor vitals closely 2. Oral thrush, HIV 1 and 2-, on oral nystatin, continue same 3. Pseudohyponatremia/dehydration secondary to HHS, resolved\\ 4. Hypokalemia, transient, replaced 5. Elevated liver function test, history of cholecystectomy, HIV negative, hepatitis screen negative, aspirin and salicylate levels negative we will trend LFTs 6. Hypertension, not on medication, continue to monitor 7. DVT PPx- Lovenox SC 8. Disposition: Discharge possibly tomorrow Code Visit Inpatient E&M: 59639 Subs Hosp L2
[2019-02-08] MEDS: Enoxaparin 40 MG/0.4 ML Syringe SC (08:29)
[2019-02-08] MEDS: NYSTATIN 500,000 UNIT/5 ML UDC 500000 UNIT PO ×4 (08:30→22:32)
[2019-02-08 08:35] LABS: Acetaminophen (Tylenol) Level < 2.0 ug/mL (10.0-30.0); Salicylate < 1.7 mg/dL (2.8-20.0)
[2019-02-08 09:12] LABS: Hepatitis B Surface Antigen Non-Reactive (Nonreactive)
--- NOTE | 2019-02-08 09:31 | PCM.DC ---
- Discharge Diagnoses Reason(s) for Visit for Discharge Instructions: Elevated blood glucose You will use the following diet at home:: Calorie/Carbohydrate Controlled (specify 1200, 1400, etc), Cardiac Your food should be the consistency of: Regular Your liquids should be the consistency of: Regular/Thin Discharge Activity: Return to Normal Activity Weight Bearing Status: Weight bearing as tolerated Pending Tests on Discharge: Continue to Allergies/Adverse Reactions: Allergies diphenhydramine [From Benadryl] Allergy (Verified 02/07/19 20:27) Hives Medications to take at Discharge Acetaminophen [Tylenol Tablet] 650 mg PO Q6H PRN PRN tab 02/08/19 Glucerna Shake 120 ml PO 4X/DAY #120 liquid 02/08/19 Insulin Glargine [Lantus SoloStar Pen] 40 units SUBCUT DAILY #1 pen 02/08/19 Insulin Lispro [Humalog KwikPen] 5 unit SUBCUT TIDAC #1 insuln.pen 02/08/19 Nystatin 500,000 unit PO 4X/DAY #1 bottle 02/08/19 The following prescriptions were given: Glucerna Shake 120 ml PO 4X/DAY #120 liquid Transmission Status: Received by [facility] Insulin Lispro [Humalog KwikPen] 5 unit SUBCUT TIDAC #1 insuln.pen Transmission Status: Pending to [facility] Insulin Glargine [Lantus SoloStar Pen] 40 units SUBCUT DAILY #1 pen Transmission Status: Pending to [facility] Nystatin 500,000 unit PO 4X/DAY #1 bottle Transmission Status: Received by [facility] Orders to be completed after discharge: Glucometer Location: None Selected Primary Care Physician: Judy Roque MD [STAFF PHYSICIAN] - Please follow up with your Primary Care Physician in: within 1-2 weeks Test Results: Test results from this visit will be discussed in further detail at your follow-up appointment, if applicable. Proposed Discharge Date: 02/08/19
--- NOTE | 2019-02-08 09:39 | US_ITS ---
STUDY: ABDOMINAL ULTRASOUND - RIGHT UPPER QUADRANT REASON FOR VISIT: Female, 54 years old. Elevated LFTs TECHNIQUE: Ultrasound evaluation of the right upper quadrant was performed with real-time and static rodney-scale imaging. TECHNICAL QUALITY: Adequate. COMPARISON: None. FINDINGS: Liver: The liver measures 14 cm. There is normal echogenicity of the liver. The bile ducts are within normal limits. There is hepatic color flow. The direction of portal flow is hepatopetal. There is no demonstrated mass lesion. Gallbladder: Removed. Common Bile Duct (C.B.D.): The common bile duct measures 6 mm. Pancreas: Normal size of the head, body and tail of the pancreas. There is normal echogenicity of the pancreas. There is no demonstrated pancreatic mass or cyst. Right Kidney: Normal size of the right kidney. The right kidney measures 11 cm. Normal renal cortex. There is no demonstrated renal mass or cyst. There is no right hydronephrosis. US/Liver IMPRESSION: Normal right upper quadrant ultrasound examination. Status post cholecystectomy. Electronically Signed: Parth Rascon, at 18:40 EDT Tel , Service support ,
--- NOTE | 2019-02-08 09:39 | CASEMGMT ---
TESSY MONTESINOS Assessment Presentation: Hyperglycemic hyperosmolar state. Blood Glucose 827 Intro role of CM and purpose of RN YAMEL assessment to patient in ICU. Pt is alert, oriented and able to participate. Pt appears to have difficulty with complex decisions and instructions. TESSY MONTESINOS spoke with pt re: importance of checking blood sugars. Pt has glucometer and Dr. Kumar will give script for glucometer strips. Pt will fill this @ [facility] and states cost is approximately $15.00. Demographics, PCP and Pharmacy verified- see PCP note below. Pt plans to return to address listed where she is living @ present. PCP: Lise Garcia, RAS @ [facility] in [place]. Pt had Dr. Browning listed, but has not established with [facility] in [place]. Per their office, pt would need to apply as new pt. TESSY MONTESINOS made appointment with [place] office where pt has been seen in past and appt made. Tuesday,02/19/19 @ 11:30. Copy with address and telephone # given to patient and explained she can change to Dr. Browning as new pt. TESSY MONTESINOS also explained if pt considers Dr. Lau, [facility] transportation can provide ride to providers associated with hospital. Specialists: none Preferred Pharmacy: [facility]. Medications will be self pay. SW will evaluate need for [facility] assistance for medications on dc. Insurance: Self Pay. Pt did not change from [place] Medicaid to [facility]. Pt states I just didn't get to it. TESSY MONTESINOS let pt know SW will be speaking with her re: this and what CM can assist with. Discussed importance of physician f/u and being able to take medications which would be covered under her medicaid. Prescription Benefit: None LNOK: Ex , [address] Living Arrangements: Lives with family in [place]. Pt states she is independent and does not need assist with ADL. Transportation: Brochure given for [facility] assistance and explained. DME: glucometer. Pt needs strips- script will be provided. HHC: none Patient DC goals: Return to [place] Home. DC PLAN: Home. Appt made for f/u. Script for glucometer strips will be given, Pharmacy assist for home going medications, SW assisting with [facility] application information. TESSY MONTESINOS Phone # given to pt and explained if she has questions after dc, TESSY MONTESINOS will assist. Tayler SAVAGE RN ACM
[2019-02-08 12:01] LABS: Bedside Glucose 476 mg/dL (70-110)
--- NOTE | 2019-02-08 12:01 | CASEMGMT ---
Social Work Referral received as pt has no insurance. Per pt, she did have Medicaid but not currently. Phone call to [facility] and pt did not submit her renewal paperwork in November and therefore case has been closed. SW met with pt and explained the above SW assisted pt in completing new application. PT does not have all needed information. Instructions have been given on areas that need completed and address and hours of [facility] as pt has moved to [facility]. Pt is agreeable to complete and submit application as soon as she returns home. Pt unable to afford prescriptions at this time. [facility] prescription assistance program to be utilized. Form completed and sent to outpt pharmacy and pharmacy called and notified. Dr. Xie states she will escribe needed scripts. No further SW needs. EMILIE Rios
[2019-02-08] MEDS: Insulin Lispro 100 UNIT/ML INSULN.PEN SC ×3 (12:31→22:32)
[2019-02-08] MEDS: Glucerna Shake 120 ML LIQUID PO ×3 (13:33→22:31)
[2019-02-08 14:41] LABS: Bedside Glucose > 500 mg/dL (70-110)
--- NOTE | 2019-02-08 14:44 | PCM.DC.SUM ---
Discharge Date and Diagnosis Date of Admission: 02/07/19 Date of Discharge: 02/08/19 - Primary Discharge Diagnosis HHS Uncontrolled type 2 DM Hypokalemia Pseudohyponatremia - Secondary Discharge Diagnosis Chronic Problems Smoking addiction (Chronic) Uncontrolled type 2 diabetes mellitus (Chronic) Hospital Course and Treatment Imaging Results: 02/08/19 09:39 Liver [US] Urgent Clinical Impression(s) from Imaging Studies Chest X-Ray 02/07/19 22:00 IMPRESSION: Question COPD without acute cardiopulmonary disease. Electronically Signed: Manjinder Rosario DO at 22:21 EDT Tel [phone], Service support , None Operations: None Procedures: None Summary of Care Provided: 54-year-old female past medical history of type 2 DM admitted with nausea, vomiting and generalized weakness and found to have HHS and hyponatremia. Patient had moved from [facility] to [facility] and had run out of insurance as well as medications. She was yet to be re-instated in Medicaid. Patient was found also to have oral thrush, and then started on oral nystatin. She was then managed initially in ICU on insulin drip with improvement in his sugar. HbA1c is 15.5. She was discharged on Lantus 40 units daily as well as pre-meal lispro 5 units 3 times daily. Dietitian saw the patient did the patient. Of note is that she had transient elevation in her liver enzymes which are trending. She was given a list of primary care doctors and she will follow-up with one within 1 to 2 weeks. She was advised to keep a log of her blood sugars. Patient received assistance with medications from the Pharmacy with forensic social worker/case management assistance. Subjective: The day of discharge, patient was seen and examined. Denies any new complaints. She was eager to be discharged. - Physical Exam General: Alert, Oriented x3, Cooperative, No apparent distress HEENT: Atraumatic, PERRLA, EOMI, Normocephalic Neck: Supple Lungs: Clear to auscultation, Normal air movement Cardiovascular: Regular rate, Regular Rhythm, Normal S1, Normal S2, No murmurs Abdomen: Bowel Sounds Present, Soft, Non Tender, Non-Distended, No Hepato-splenomegaly Extremities: No edema Skin: No rashes, No breakdown Musculoskeletal: No Tenderness to Palpation of Joints or Extremities Lymphatic: No Cervical, Supraclavicular, or Inguinal Adenopathy Neurological: Cranial nerves II-XII grossly intact, Neuro grossly intact Psych/Mental Status: Normal Affect, Appropriate Vital Signs Temp Pulse Resp BP Pulse Ox 97.9 F 80 16 127/46 H 100 02/08/19 12:00 02/08/19 12:00 02/08/19 12:00 02/08/19 12:00 02/08/19 12:00 Oxygen Delivery Method Room Air Weight: 36.8 kg Body Mass Index (BMI) 14.3 Finger Stick Blood Glucose 245 Intake and Output for Last 24 Hours 02/06/19 02/07/19 02/08/19 23:59 23:59 23:59 Intake Total 1683.6 / 1683.6 Output Total 2 / 2 Balance 1681.6 / 1681.6 Laboratory Tests Past 24 Hrs 02/07/19 02/07/19 02/07/19 21:45 21:45 21:55 WBC 10.9 RBC 4.42 Hgb 13.7 Hct 39.5 MCV 89.4 MCH 31.0 MCHC 34.7 RDW 13.2 RDW Differential 42.5 Plt Count 217 MPV 12.1 H Immature Gran % (Auto) 0.400 Neut % (Auto) 77.2 H Lymph % (Auto) 13.2 L [place] % (Auto) 8.6 Eos % (Auto) 0.4 Baso % (Auto) 0.2 Absolute Neuts (auto) 8.4 H Absolute Lymphs (auto) 1.44 Total Counted Not Reportable PT INR Sodium Potassium Chloride Carbon Dioxide Anion Gap BUN Creatinine Estim Creat Clear Calc Est GFR (MDRD) Af Amer Est GFR (MDRD) Non-Af BUN/Creatinine Ratio Glucose Hemoglobin A1c Calcium Magnesium Total Bilirubin Direct Bilirubin AST ALT Alkaline Phosphatase Troponin I Total Protein Albumin Globulin Albumin/Globulin Ratio TSH Urine Color Straw Urine Clarity Clear Urine pH 6.0 Ur Specific [place] 1.010 Urine Protein Negative Urine Glucose (UA) 1000 H Urine Ketones 50 H Urine Occult Blood Negative Urine Nitrite Negative Urine Bilirubin Negative Urine Urobilinogen Normal Ur Leukocyte Esterase Negative Urine RBC 0 SEEN Urine WBC 0 SEEN Ur Squamous Epith Cells 0 SEEN Urine Bacteria 0 SEEN Urine Mucus 0 SEEN Salicylates Urine Opiates Screen NEGATIVE Urine Methadone Screen NEGATIVE Acetaminophen Ur Barbiturates Screen NEGATIVE Ur Phencyclidine Scrn NEGATIVE Ur Amphetamines Screen NEGATIVE U Methamphetamin-MDMA NEGATIVE U Benzodiazepines Scrn NEGATIVE Urine Cocaine Screen NEGATIVE U Cannabinoids Screen NEGATIVE Ur Drug Screen Comment Acetone Level Hep Bs Antigen Hep B Core IgM Ab Hepatitis C Antibody HIV 1&2 Antibody 02/07/19 02/07/19 02/07/19 21:55 21:55 21:55 WBC RBC Hgb Hct MCV MCH MCHC RDW RDW Differential Plt Count MPV Immature Gran % (Auto) Neut % (Auto) Lymph % (Auto) [place] % (Auto) Eos % (Auto) Baso % (Auto) Absolute Neuts (auto) Absolute Lymphs (auto) Total Counted PT INR Sodium 123 L Potassium 4.1 Chloride 86 L Carbon Dioxide 27.0 Anion Gap 10 BUN 26 H Creatinine 1.07 H Estim Creat Clear Calc 31.69 Est GFR (MDRD) Af Amer 69 Est GFR (MDRD) Non-Af 57 L BUN/Creatinine Ratio 24.3 H Glucose 827 H* Hemoglobin A1c Calcium 9.1 Magnesium 1.9 Total Bilirubin 0.40 Direct Bilirubin 0.16 AST 80 H ALT 212 H Alkaline Phosphatase 485 H Troponin I < 0.015 Total Protein 7.0 Albumin 3.5 Globulin 3.5 Albumin/Globulin Ratio TSH Urine Color Urine Clarity Urine pH Ur Specific [place] Urine Protein Urine Glucose (UA) Urine Ketones Urine Occult Blood Urine Nitrite Urine Bilirubin Urine Urobilinogen Ur Leukocyte Esterase Urine RBC Urine WBC Ur Squamous Epith Cells Urine Bacteria Urine Mucus Salicylates Urine Opiates Screen Urine Methadone Screen Acetaminophen Ur Barbiturates Screen Ur Phencyclidine Scrn Ur Amphetamines Screen U Methamphetamin-MDMA U Benzodiazepines Scrn Urine Cocaine Screen U Cannabinoids Screen Ur Drug Screen Comment Acetone Level NEGATIVE Hep Bs Antigen Hep B Core IgM Ab Hepatitis C Antibody HIV 1&2 Antibody Non-Reactive 02/07/19 02/07/19 02/07/19 21:55 21:55 21:55 WBC RBC Hgb Hct MCV MCH MCHC RDW RDW Differential Plt Count MPV Immature Gran % (Auto) Neut % (Auto) Lymph % (Auto) [place] % (Auto) Eos % (Auto) Baso % (Auto) Absolute Neuts (auto) Absolute Lymphs (auto) Total Counted PT INR Sodium Potassium Chloride Carbon Dioxide Anion Gap BUN Creatinine Estim Creat Clear Calc Est GFR (MDRD) Af Amer Est GFR (MDRD) Non-Af BUN/Creatinine Ratio Glucose Hemoglobin A1c 15.5 H Calcium Magnesium Total Bilirubin Direct Bilirubin AST ALT Alkaline Phosphatase Troponin I Total Protein Albumin Globulin Albumin/Globulin Ratio TSH Urine Color Urine Clarity Urine pH Ur Specific [place] Urine Protein Urine Glucose (UA) Urine Ketones Urine Occult Blood Urine Nitrite Urine Bilirubin Urine Urobilinogen Ur Leukocyte Esterase Urine RBC Urine WBC Ur Squamous Epith Cells Urine Bacteria Urine Mucus Salicylates Urine Opiates Screen Urine Methadone Screen Acetaminophen Ur Barbiturates Screen Ur Phencyclidine Scrn Ur Amphetamines Screen U Methamphetamin-MDMA U Benzodiazepines Scrn Urine Cocaine Screen U Cannabinoids Screen Ur Drug Screen Comment Acetone Level Hep Bs Antigen Non-Reactive Hep B Core IgM Ab Pending Hepatitis C Antibody Pending HIV 1&2 Antibody 02/08/19 02/08/19 02/08/19 00:10 04:20 04:20 WBC 9.5 RBC 3.83 L Hgb 11.9 L Hct 34.0 L MCV 88.8 MCH 31.1 MCHC 35.0 RDW 13.0 RDW Differential 40.6 Plt Count 182 MPV 11.7 Immature Gran % (Auto) 0.600 Neut % (Auto) 67.3 Lymph % (Auto) 20.1 [place] % (Auto) 10.5 H Eos % (Auto) 1.2 Baso % (Auto) 0.3 Absolute Neuts (auto) 6.4 Absolute Lymphs (auto) 1.91 Total Counted Not Reportable PT 12.0 INR 0.9 Sodium 133 L Potassium 3.2 L Chloride 100 Carbon Dioxide 25.0 Anion Gap 8 BUN 22 H Creatinine 0.81 Estim Creat Clear Calc 44.62 Est GFR (MDRD) Af Amer 95 Est GFR (MDRD) Non-Af 78 BUN/Creatinine Ratio 27.1 H Glucose 481 H* Hemoglobin A1c Calcium 7.8 L Magnesium Total Bilirubin Direct Bilirubin AST ALT Alkaline Phosphatase Troponin I Total Protein Albumin Globulin Albumin/Globulin Ratio TSH 0.31 L Urine Color Urine Clarity Urine pH Ur Specific [place] Urine Protein Urine Glucose (UA) Urine Ketones Urine Occult Blood Urine Nitrite Urine Bilirubin Urine Urobilinogen Ur Leukocyte Esterase Urine RBC Urine WBC Ur Squamous Epith Cells Urine Bacteria Urine Mucus Salicylates Urine Opiates Screen Urine Methadone Screen Acetaminophen Ur Barbiturates Screen Ur Phencyclidine Scrn Ur Amphetamines Screen U Methamphetamin-MDMA U Benzodiazepines Scrn Urine Cocaine Screen U Cannabinoids Screen Ur Drug Screen Comment Acetone Level Hep Bs Antigen Hep B Core IgM Ab Hepatitis C Antibody HIV 1&2 Antibody 02/08/19 02/08/19 04:20 07:55 WBC RBC Hgb Hct MCV MCH MCHC RDW RDW Differential Plt Count MPV Immature Gran % (Auto) Neut % (Auto) Lymph % (Auto) [place] % (Auto) Eos % (Auto) Baso % (Auto) Absolute Neuts (auto) Absolute Lymphs (auto) Total Counted PT INR Sodium 142 Potassium 3.6 Chloride 107 Carbon Dioxide 27.0 Anion Gap 8 BUN 18 Creatinine 0.55 Estim Creat Clear Calc 65.72 Est GFR (MDRD) Af Amer 148 Est GFR (MDRD) Non-Af 122 BUN/Creatinine Ratio 32.6 H Glucose 255 H Hemoglobin A1c Calcium 7.3 L Magnesium Total Bilirubin 0.30 Direct Bilirubin AST 52 H ALT 148 H Alkaline Phosphatase 325 H Troponin I Total Protein 5.1 L Albumin 2.6 L Globulin 2.5 Albumin/Globulin Ratio 1.0 TSH Urine Color Urine Clarity Urine pH Ur Specific [place] Urine Protein Urine Glucose (UA) Urine Ketones Urine Occult Blood Urine Nitrite Urine Bilirubin Urine Urobilinogen Ur Leukocyte Esterase Urine RBC Urine WBC Ur Squamous Epith Cells Urine Bacteria Urine Mucus Salicylates < 1.7 L Urine Opiates Screen Urine Methadone Screen Acetaminophen < 2.0 L Ur Barbiturates Screen Ur Phencyclidine Scrn Ur Amphetamines Screen U Methamphetamin-MDMA U Benzodiazepines Scrn Urine Cocaine Screen U Cannabinoids Screen Ur Drug Screen Comment Acetone Level Hep Bs Antigen Hep B Core IgM Ab Hepatitis C Antibody HIV 1&2 Antibody POC Glucose 02/08/19 02/08/19 02/08/19 14:35 11:55 05:57 POC Glucose > 500 H* 476 H* 245 H 02/08/19 02/08/19 02/08/19 05:03 04:18 03:06 POC Glucose 265 H 250 H 289 H 02/08/19 02/08/19 02/07/19 02:00 01:01 23:53 POC Glucose 314 H 396 H 470 H* 02/07/19 02/07/19 22:52 20:42 POC Glucose > 500 H* > 500 H* Discharge Diet: Low fat/ Low Cholesterol, 2000 mg Sodium Diet, Carb Control Diet Discharge Activity: Return to Normal Activity Weight Bearing Status: Weight bearing as tolerated Home Medications: Medications to take at Discharge Acetaminophen [Tylenol Tablet] 650 mg PO Q6H PRN PRN tab 02/08/19 Glucerna Shake 120 ml PO 4X/DAY #120 liquid 02/08/19 Insulin Glargine [Lantus SoloStar Pen] 40 units SUBCUT DAILY #1 pen 02/08/19 Insulin Lispro [Humalog KwikPen] 5 unit SUBCUT TIDAC #1 insuln.pen 02/08/19 Nystatin 500,000 unit PO 4X/DAY #1 bottle 02/08/19 Following Prescrptions Were Given to Patient: Glucerna Shake 120 ml PO 4X/DAY #120 liquid Transmission Status: Received by [facility] Insulin Lispro [Humalog KwikPen] 5 unit SUBCUT TIDAC #1 insuln.pen Transmission Status: Received by [facility] Insulin Glargine [Lantus SoloStar Pen] 40 units SUBCUT DAILY #1 pen Transmission Status: Received by [facility] Nystatin 500,000 unit PO 4X/DAY #1 bottle Transmission Status: Received by [facility] Other Amb Orders: Glucometer Location: None Selected Primary Care Physician: Judy Roque MD [STAFF PHYSICIAN] - Please follow up with your Primary Care Physician in: within 1-2 weeks Please Follow Up With: Lise Garcia NP-C When: Tuesday Disposition: Home Minutes spent on discharge:: 55 Patient Condition:: Stable Medical Necessity - Tobacco Use Smoking Status: Current every day smoker Tobacco Use: Cigarettes Meaningful Use Info Meaningful Use Diagnoses (Choose all that apply): None applicable Code Visit Inpatient E&M: 01741 Disch Hosp
[2019-02-08] MEDS: Insulin Lispro 100 UNIT/ML INSULN.PEN 10 UNIT SC ×2 (15:22→16:51)
[2019-02-08 16:00] LABS: Bedside Glucose 489 mg/dL (70-110)
[2019-02-08 16:17] LABS: Free T3 0.7 pg/mL (2.18-3.98); T4 Free Direct 0.61 ng/dL (0.76-1.46)
[2019-02-08 23:05] LABS: Bedside Glucose 385 mg/dL (70-110)
[2019-02-09 03:00] VITALS: PULSE 62
[2019-02-09 04:20] VITALS: BP 112/70; PULSE 69; RESP 16; TEMP 36.5; O2SAT 100
[2019-02-09 06:55] LABS: Bedside Glucose 275 mg/dL (70-110)
[2019-02-09 07:00] VITALS: PULSE 72
[2019-02-09 07:32] VITALS: O2SAT 99
[2019-02-09] MEDS: Insulin Lispro 100 UNIT/ML INSULN.PEN SC ×4 (08:25→11:43)
[2019-02-09] MEDS: NYSTATIN 500,000 UNIT/5 ML UDC 500000 UNIT PO (08:26)
[2019-02-09] MEDS: Enoxaparin 40 MG/0.4 ML Syringe SC (08:26)
[2019-02-09] MEDS: Glucerna Shake 120 ML LIQUID PO (08:29)
[2019-02-09 08:48] VITALS: BP 132/77; PULSE 75; RESP 16; TEMP 36.9; O2SAT 100
[2019-02-09 11:16] LABS: Hepatitis B Core AB IgM Negative (Negative)
[2019-02-09 11:50] LABS: Bedside Glucose 430 mg/dL (70-110)
[2019-02-11 11:35] LABS: Hepatitis C Antibody Non-Reactive (Nonreactive)
== END 2019-02-09 13:37 | disposition home or self-care (01) | DRG 638 ==
LOC: ED 21:35 → ICU 02-08 02:57 → PCU 02-08 17:33
PROVIDERS: Admitting Provider Hospitalist; Emergency Provider Emergency Medicine; Family Provider Nurse Practitioner Family; PCP Nurse Practitioner Family; Referring Provider Hospitalist; Visit Provider Internal Medicine
DX: E11.00 Type 2 diabetes mellitus with hyperosmolarity without nonketotic hyperglycemic-hyperosmolar coma (NKHHC) (principal); E87.1 Hypo-osmolality and hyponatremia; B37.0 Candidal stomatitis; R64 Cachexia; Z68.1 Body mass index [BMI] 19.9 or less, adult; E46 Unspecified protein-calorie malnutrition; E86.0 Dehydration; I10 Essential (primary) hypertension; E87.6 Hypokalemia; R79.89 Other specified abnormal findings of blood chemistry; F17.210 Nicotine dependence, cigarettes, uncomplicated; E11.65 Type 2 diabetes mellitus with hyperglycemia; T38.3X6A Underdosing of insulin and oral hypoglycemic [antidiabetic] drugs, initial encounter; Z91.120 Patient's intentional underdosing of medication regimen due to financial hardship; Z90.49 Acquired absence of other specified parts of digestive tract
CPT/HCPCS: 71046; 76705; 80048; 80053; 80076; 80307; 80329; 81001; 82009; 82962; 83036; 83735; 84439; 84443; 84481; 84484; 85025; 85610; 86703; 86705; 86803; 87340; 93005; 97802; 99285; 99406; J7030; A4216; G0480

== ENCOUNTER 2021-08-30 09:58 | Inpatient (IN) | payer MEDICAID, SELFPAY ==
[2021-08-30] VITALS (11 sets, daily range): BP systolic 107–150; BP diastolic 56–79; PULSE 79–96; RESP 14–21; TEMP 36.3–37.1; O2SAT 94–99; BMI 12.3; BMI 12.4
--- NOTE | 2021-08-30 10:00 | EKG12_ITS ---
Test Reason : HG Blood Pressure : / mmHG Vent. Rate : 086 BPM Atrial Rate : 086 BPM P-R Int : 144 ms QRS Dur : 076 ms QT Int : 368 ms P-R-T Axes : 086 059 207 degrees QTc Int : 440 ms Normal sinus rhythm Septal infarct , age undetermined Abnormal ECG Confirmed by DEE NICOLAS, BRADLEY ([id number]), editor news TOMY BARROW ([id number]) on 08/31/2021 1:01:03 PM Referred By: LEXUS Confirmed By:BRADLEY PRICE MD
--- NOTE | 2021-08-30 10:04 | EDS_ITS ---
HPI History of Present Illness Chief Complaint: Hypoglycemia Detail of Chief Complaint: Unresponsive Informant: patient and EMS Narrative Narrative: Patient presents via EMS after being called for unresponsive patient. They noted her initial blood sugar was in the low 20s. They gave her dextrose which increased her blood sugar to 120s but she remained unresponsive and they were bagging in route to the hospital. Just prior to arrival at the ER they rechecked her sugar and it dropped back. As they were rolling into the emergency room patient is blinking her eyes and trying to become more responsive. She is able to tell me her name and age. Patient does tell nursing staff that she had a positive home COVID test sometime in the last 2 weeks. [facility] Medical History COPD (chronic obstructive pulmonary disease) Diabetes Home Medications acetaminophen 650 mg PO Q6H PRN PRN tab 02/08/19 [Rx Last Taken Unknown] insulin glargine 40 units SUBCUT DAILY #1 pen 02/08/19 [Rx Last Taken Unknown] insulin lispro 5 unit SUBCUT TIDAC #1 insuln.pen 02/08/19 [Rx Last Taken Unknown] nut.tx.gluc.intol,lac-free,soy 120 ml PO 4X/DAY #120 liquid 02/08/19 [Rx Last Taken Unknown] nystatin 500,000 unit PO 4X/DAY #1 bottle 02/08/19 [Rx Last Taken Unknown] Allergy/AdvReac Type Severity Reaction Status Date / Time diphenhydramine Allergy Hives Verified 08/30/21 09:59 [From Benadryl] Social History Smoking Status: Current every day smoker tobacco type: cigarettes and e- cigarettes ROS ROS ED Review of Systems ROS Unobtainable: other Details: Limited due to confusion. Patient denies pain or shortness of breath. EXAM Physical Exam Const Vital Signs: 08/30/21 10:00 08/30/21 10:07 08/30/21 10:08 Temperature 97.3 F L 97.3 F L Temperature Source Temporal Temporal Pulse Rate 86 87 Respiratory Rate 21 H 21 H Respiratory Effort Normal Non-Labored Blood Pressure 141/72 H 141/72 H Blood Pressure Mean 95 95 Pulse Ox 98 99 Oxygen Delivery Method Room Air Room Air Positive cachectic General Appearance ED: cachectic Nutritional Appearance: cachectic Neck supple Lymph Lymphatic: other Chest Wall inspection of chest normal and palpation of chest normal Resp normal respiratory effort and clear to auscultation bilaterally Cardio regular rate and regular rhythm GI non-tender Palpation: soft Neuro Neuro Narrative: Moves all 4 extremities to command. Sensorium / Orientation: alert Psych Psych Narrative: Sleepy but arouses to voice and answers questions. MDM MDM MDM Narrative Medical decision making narrative: Patient was started on D5 normal saline at 60 mls per hour. She is given a diet tray. EKG, chest x-ray, lab work obtained. Rapid COVID test ordered. Lab Data Attestation: I reviewed the patient's lab results. Labs: Laboratory Results - last 24 hr 08/30/21 08/30/21 08/30/21 10:10 10:10 10:10 WBC 20.2 H RBC 3.55 L Hgb 11.2 L Hct 33.8 L MCV 95.2 MCH 31.5 MCHC 33.1 RDW Std Deviation 51.6 H RDW Coeff of Danie 15.1 H Plt Count 392 MPV 10.7 Immature Gran % (Auto) 0.600 Neut % (Auto) 89.0 H Lymph % (Auto) 5.7 L [place] % (Auto) 4.4 Eos % (Auto) 0.1 Baso % (Auto) 0.2 Absolute Neuts (auto) 18.0 H Absolute Lymphs (auto) 1.15 Nucleated RBC % 0 Sodium 142 Potassium 2.7 L* Chloride 102 Carbon Dioxide 35.0 H Anion Gap 5 BUN 34 H Creatinine 0.60 Estim Creat Clear Calc 52.23 Est GFR (MDRD) Af Amer 132 Est GFR (MDRD) Non-Af 109 BUN/Creatinine Ratio 56.3 H Glucose 92 Calcium 9.0 Magnesium 1.8 Total Bilirubin 0.20 Direct Bilirubin 0.15 AST 114 H ALT 286 H Alkaline Phosphatase 1139 H Total Protein 6.6 Albumin 2.1 L Globulin 4.5 H POC Glucose 08/30/21 11:13 WBC RBC Hgb Hct MCV MCH MCHC RDW Std Deviation RDW Coeff of Danie Plt Count MPV Immature Gran % (Auto) Neut % (Auto) Lymph % (Auto) [place] % (Auto) Eos % (Auto) Baso % (Auto) Absolute Neuts (auto) Absolute Lymphs (auto) Nucleated RBC % Sodium Potassium Chloride Carbon Dioxide Anion Gap BUN Creatinine Estim Creat Clear Calc Est GFR (MDRD) Af Amer Est GFR (MDRD) Non-Af BUN/Creatinine Ratio Glucose Calcium Magnesium Total Bilirubin Direct Bilirubin AST ALT Alkaline Phosphatase Total Protein Albumin Globulin POC Glucose 111 H Radiography Chest X-Ray - ED: 1 View, Read by ED Physician and - (Hyperinflation with no focal infiltrate.) Diagnostic Testing: Clinical Impression(s) from Imaging Studies Chest X-Ray 08/30/21 10:30 IMPRESSION: COPD changes. No active pulmonary disease. Electronically Signed: Jamal Song, at 11:08 EST Tel , Service support , EKG Initial EKG: Attestation: I personally reviewed and interpreted this EKG as follows: Interpretation: Sinus Rhythm (Sinus at 86 with no acute ischemia.) Treatment and Re-Evaluation Comments:: Patient's white blood cell count is elevated at 20.2. 89% neutrophils noted. Chemistry studies significant for low potassium at 2.7. Magnesium is normal at 1.8. Renal function is normal. ALT, AST, alk phos significantly elevated. She has had elevations in these labs in the past, but not to this degree. Last lab work was obtained 2 and half years ago. Patient's blood sugar was 90 on blood work. In spite of the D5 normal saline and eating a breakfast tray, her repeat blood sugar was 111. She will remain on D5 normal saline. Discharge Plan Dx/Rx/DC Orders Clinical Impression: Hypoglycemia, Acute hypokalemia Disposition Disposition: Acute Care Hospital [facility]
[2021-08-30 10:24] LABS: Absolute Lymphocyte Count 1.15 X10^3/uL (0.83-4.51); Basophil# 0.04 X10^3/uL; Basophil% 0.2 % (0-1); Eosinophil# 0.03 X10^3/uL; Eosinophils% 0.1 % (0-5); Hematocrit 33.8 % (37-47); Hemoglobin 11.2 g/dL (12.0-15.0); Lymphocyte # 1.15 X10^3/ul (0.83-4.51); Lymphocyte % 5.7 % (19-41); Mean Corp Hgb Conc 33.1 g/dL (32-36); Mean Corpuscular Hgb 31.5 pg (27.0-32.0); Mean Corpuscular Volume 95.2 fL (81-99); Mean Platelet Vol. 10.7 fl (6.2-12.0); Monocyte# 0.89 X10^3/uL; Monocyte% 4.4 % (0-10); NRBC Flagged by Analyzer 0 % (0-5); Neutrophil # 17.95 X10^3/uL (2.7-7.7); Platelet Count 392 K/mm3 (150-450); RBC Distribution Width CV 15.1 % (11.6-14.6); RBC Distribution Width SD 51.6 fl (35.1-43.9); Red Blood Count 3.55 M/mm3 (4.2-5.4); White Blood Count 20.2 K/mm3 (4.4-11.0)
[2021-08-30] MEDS: Dextrose 5%/0.9% NaCl 1,000 ML 60 ML IV (10:28)
--- NOTE | 2021-08-30 10:30 | RAD_ITS ---
STUDY: X-RAY CHEST REASON FOR EXAM: Female, 56 years old. Shortness of breath TECHNIQUE: Single AP portable view of the chest. COMPARISON: 02/07/2019 FINDINGS: There is hyperinflation of the lungs consistent with chronic obstructive lung disease (COPD). Well-defined nodular densities overlying both midlung zones likely representing the nipple shadows. No focal infiltrate is seen. There is no demonstrated pleural abnormality. Normal size heart. Normal mediastinum and krasten. Normal visualized pulmonary arteries. Normal visualized aortic arch and descending thoracic aorta. Normal visualized thoracic spine. Normal visualized ribs, clavicles, and shoulders. There is no demonstrated abnormality of the visualized soft tissue structures of the upper abdomen. RAD/Chest 1 View (Portable) IMPRESSION: COPD changes. No active pulmonary disease. Electronically Signed: Jamal Song, at 11:08 EST Tel , Service support ,
[2021-08-30 10:51] LABS: AST(SGOT) 114 U/L (15-37); Alanine Aminotransfer ALT/SGPT 286 U/L (13-56); Albumin, Serum 2.1 g/dL (3.2-5.0); Alkaline Phosphatase 1139 U/L (45-117); Anion Gap 5 (5-15); BUN 34 mg/dL (7-18); BUN/Creat Ratio 56.3 RATIO (10-20); Bilirubin, Direct 0.15 mg/dL (0.00-0.30); Chloride 102 mmol/L (98-107); EST Glomerular Filtration Rate 109 mL/min (>60); Est Glom Filt Rate - Afr Amer 132 mL/min (>60); Estimated Creatinine Clearance 52.23 ml/min; Globulin 4.5 g/dL (2.2-4.2); Glucose 92 mg/dL (74-106); Protein, Total 6.6 g/dL (6.4-8.2); Sodium Level 142 mmol/L (136-145)
[2021-08-30 10:52] LABS: Potassium 2.7 mmol/L (3.5-5.1)
[2021-08-30 11:26] LABS: Bedside Glucose 111 mg/dL (70-110)
[2021-08-30 11:27] LABS: Magnesium 1.8 mg/dL (1.6-2.6)
--- NOTE | 2021-08-30 11:53 | HP.PCM.HOS_ITS ---
HPI - General General Date of Admission: 08/30/21 HPI Narrative SARWAT LEY, is a 56 F with a PMH as outlined who presented via the ED on 08/30/2021 with a complaint of altered mental status. Her family couldnt wake her up this morning, so EMS was called and she was found to be hypoglycemic, with blood sugar down in the 20s. She admitted to a significant weight loss in the last few months. She said she has also been having some pain with eating, and feels like food gets stuck in her throat. Review of systems otherwise negative. Vitals were BP of 143/56, DC of 87, RR of 16 and temp of 98.7F, wth her saturating at 99% on room air. CBC showed hemoglobin of 11.2 with WBC of 20.2 and platelets of 392. Chemistry showed sodium of 142 with potassium of 2.7 and creatinine of 0.6 with AST of 114, ALT of 286 and ALP of 1139. Hepatitis panel was ordered and was pending at time of discharge. She was given 50% dextrose, but blood sugars didn come up and she remained unresponsive. She was brought in to the ED, and she started being more responsive. She was started on D5 normal saline in the ED and she was able to eat a good meal in the ED as well. She has been admitted to be managed for hypoglycemia likely due to insulin use as well as patient not eating much as well as abnormal liver enzymes. Of note, I requested the ED physician to do a CT of the abdomen and pelvis in light of elevated liver enzymes and this showed irregular right lung middle lobe density which could reflect atelectasis and tumor could not be excluded. She also had pneumobilia which was unchanged and nonspecific fluid-filled small bowel loops without evidence of bowel obstruction. She has been admitted and managed for hypoglycemia as well as elevated liver enzymes with a possible liver mass. [facility] Medical History (Updated 08/30/21 @ 16:[address] Caryn Hernandez MD) Anxiety COPD (chronic obstructive pulmonary disease) Depression Diabetes Hypertension Smoker Substance abuse Home Medications acetaminophen 650 mg PO Q6H PRN PRN tab 02/08/19 [Rx Last Taken Unknown] insulin glargine 40 units SUBCUT DAILY #1 pen 02/08/19 [Rx Last Taken Unknown] insulin lispro 5 unit SUBCUT TIDAC #1 insuln.pen 02/08/19 [Rx Last Taken Unknown] nut.tx.gluc.intol,lac-free,soy 120 ml PO 4X/DAY #120 liquid 02/08/19 [Rx Last Taken Unknown] albuterol sulfate 1 - 2 puff INHALATION Q6H PRN PRN 08/30/21 [History Last Taken Unknown] empagliflozin [Jardiance] 25 mg PO DAILY 08/30/21 [History Last Taken Unknown] lisinopril 10 mg PO DAILY 08/30/21 [History Last Taken Unknown] sertraline 50 mg PO DAILY 08/30/21 [History Last Taken Unknown] Allergy/AdvReac Type Severity Reaction Status Date / Time diphenhydramine Allergy Hives Verified 08/30/21 09:59 [From Jake] Social History Smoking Status: Current every day smoker tobacco type: cigarettes and e- cigarettes ROS Constitutional Constitutional: Reports anorexia, change in weight, fatigue, malaise and weakness; Denies chills or fever(s) Eyes Eyes: Denies change in vision ENT HEENT: Reports dysphagia; Denies headache(s), nasal congestion or sore throat Cardiovascular Cardiovascular: Denies chest pain, dyspnea on exertion, edema, lightheadedness, orthopnea, palpitations, paroxysmal nocturnal dyspnea or rapid heart rate Respiratory/Chest Respiratory/Chest: Denies cough, dyspnea, hemoptysis, productive cough, shortnes s of breath at rest or shortness of breath with exertion Gastrointestinal Gastrointestinal: Reports abdominal pain and nausea; Denies constipation, diarrhea, dyspepsia, hematemesis, hematochezia, loose stools or vomiting Genitourinary Genitourinary: Denies burning urination Musculoskeletal Musculoskeletal: Denies back pain or joint pain Neurologic Neurologic: Denies confusion, dizziness, focal weakness, headache(s) or numbness Psychiatric Psychiatric: Denies anxiety or depression Endocrine Endocrinology: Denies change in body appearance Hematologic/Lymphatic Hematologic/Lymphatic: Denies anemia Vital Signs Vital Signs Vital Signs: 08/30/21 10:00 08/30/21 10:07 08/30/21 10:08 Temperature 97.3 F L 97.3 F L Temperature Source Temporal Temporal Pulse Rate 86 87 Respiratory Rate 21 H 21 H Respiratory Effort Normal Non-Labored Blood Pressure 141/72 H 141/72 H Blood Pressure Mean 95 95 Pulse Ox 98 99 Oxygen Delivery Method Room Air Room Air Weight Weight: 69 lb 10.657 oz Body Mass Index (BMI) 12.3 Physical Exam Const alert and oriented x3 Constitutional Narrative: Patient is very cachectic, flat affect. HEENT normocephalic, head/scalp atraumatic and hearing grossly normal bilaterally HEENT Narrative: dry mucosal membranes Eyes PERRL, EOMs intact bilaterally and conjunctivae normal Neck no lymphadenopathy, supple and no JVD Resp normal respiratory effort, no retractions, no use of accessory muscles and clear to auscultation bilaterally Auscultation: crackles Cardio regular rate, regular rhythm, S1 normal heart sound, S2 normal heart sound and no murmurs GI normal to inspection, nondistended, normoactive bowel sounds and soft to palpation Results Lab / Micro Data Result Diagrams: 08/30/21 10:10 08/30/21 10:10 Labs: Laboratory Results - last 24 hr 08/30/21 10:10: WBC 20.2 H, RBC 3.55 L, Hgb 11.2 L, Hct 33.8 L, MCV 95.2, MCH 31.5, MCHC 33.1, RDW Std Deviation 51.6 H, RDW Coeff of Danie 15.1 H, Plt Count 392, MPV 10.7, Immature Gran % (Auto) 0.600, Neut % (Auto) 89.0 H, Lymph % (Auto) 5.7 L, Laurel % (Auto) 4.4, Eos % (Auto) 0.1, Baso % (Auto) 0.2, Absolute Neuts (auto) 18.0 H, Absolute Lymphs (auto) 1.15, Nucleated RBC % 0 08/30/21 10:10: Sodium 142, Potassium 2.7 L*, Chloride 102, Carbon Dioxide 35.0 H, Anion Gap 5, BUN 34 H, Creatinine 0.60, Estim Creat Clear Calc 52.23, Est GFR (MDRD) Af Amer 132, Est GFR (MDRD) Non-Af 109, BUN/Creatinine Ratio 56.3 H, Glucose 92, Calcium 9.0, Total Bilirubin 0.20, Direct Bilirubin 0.15, AST 114 H, ALT 286 H, Alkaline Phosphatase 1139 H, Total Protein 6.6, Albumin 2.1 L, Globulin 4.5 H 08/30/21 10:10: Magnesium 1.8 08/30/21 11:13: POC Glucose 111 H Micro: Microbiology 08/30/21 11:20 Nasal Secretion SARS-CoV-2 Antigen (Rapid) - Final Radiology Impression Chest X-Ray 08/30/21 10:30 IMPRESSION: COPD changes. No active pulmonary disease. Electronically Signed: Jamal Song, at 11:08 EST Tel , Service support , Assessment & Plan Assessment/Plan (1) Hypoglycemia: (2) Acute hypokalemia: (3) Transaminitis: PLAN: #Acute metabolic encephalopathy due to hypoglycemia * Patient admits to not eating and drinking well recently but still taking her insulin. Was noted to be profoundly hypoglycemic when the EMS arrived with blood sugar in the 20s. * She did respond to dextrose administration and is now on 5% normal saline dextrose infusion * Was also able to eat a good meal in the ED. * Admit to PCU. Hold insulin. Continue D5 NS administration. * Check A1c. Consult elementary educator and top executive. * #Hypokalemia: Potassium is 2.7. Will replace and trend. Check magnesium #Transaminitis * Liver enzymes markedly deranged and shows an obstructive pattern. However total bilirubin is not elevated. CT of the abdomen and pelvis showed a 3 cm irregular heterogeneous density versus mass in the right middle lobe of the lung which is new since previous exam * will get CT of the chest to evaluate. * GI consulted in light of abnormal liver enzymes, patient;s complaint of dysphagia and remarkable weight loss. * spoke to Dr Friend; will keep NPO past midnight. * #Severe malnutrition * Patient's BMI is only 12 and she weighs only 68 pounds. She admits to profound weight loss but cannot give a time period Within which she has lost so much weight. * GI consulted. * consult nutrition. * #Type 2 diabetes mellitus: hold insulin and Jardiance in light of severe h ypoglycemia. Check A1C. Continue with D5NS infusion. #Hypertension: On lisinopril #DEpression: on sertraline DVT prophylaxis: lovenox 30mg sc daily Code status: DNRCCA no intubation * Patient counseled extensively about different types of CODE STATUS including full code, DNR CCA and DNR CCA. Patient elects to be DNRCCA no intubation and stated that she wouldn want CPR, or want to be intubated * Total [id number] time 18 minutes. Charges/Coding Visit Charges Inpatient E&M: 58103 Init Hosp L3 Multi Select Codes Hospitalists' Procedures Procedures: 69665 Advncd Care Plan 30 Min
--- NOTE | 2021-08-30 11:58 | CT_ITS ---
STUDY: CT ABDOMEN AND PELVIS WITH CONTRAST REASON FOR EXAM: Female, 56 years old. Abnormal LFTs RADIATION DOSAGE (If Supplied By Facility): CTDIvol = ( 8.68 ) mGy, DLP = ( 188.07 ) mGycm TECHNIQUE: Transaxial images were obtained from the dome of the diaphragm to the symphysis pubis without oral contrast. IV 100mL Isovue-300 was administered. Sagittal and coronal images were reconstructed. Individualized dose optimization techniques were used for this CT. COMPARISON: 08/05/2016. FINDINGS: 3 cm irregular heterogeneous density/mass in the right middle lobe new since the previous exam. Tumor cannot be excluded. The visualized portions of the heart are within normal limits. Normal liver. The gallbladder is not visualized. Pneumobilia in the left lobe of the unchanged. Small lesion in the anterior spleen could represent small cyst. Normal pancreas. Normal bilateral adrenal glands. Normal right kidney. Normal left kidney. Suboptimal enhancement due to arterial phase of scanning. Distended stomach. Nonspecific fluid-filled small bowel loops. No evidence of small bowel obstruction. Fecal retention. Suboptimal evaluation due to lack of intra-abdominal fat and without oral contrast. There is non-visualization of the appendix. There is diffuse atherosclerotic calcification of the abdominal aorta, without a demonstrated aneurysm. Normal inferior vena cava. Normal retroperitoneum. Normal urinary bladder. Irregular soft tissues of the buttock regions could be positional Normal abdominal wall. No demonstrated acute osseous changes. CT/Abdomen/Pelvis W IV Cont ONLY IMPRESSION: 1. Irregular right middle lobe density could reflect atelectasis. Tumor can''t be excluded. Correlation with CT scan of the chest and PET scan are recommended. 2. Pneumobilia unchanged. 3. Nonspecific fluid-filled small bowel loops without evidence of bowel obstruction. 4. No focal acute inflammatory process. Electronically Signed: Jamal Song, at 12:59 EST Tel , Service support ,
[2021-08-30] MEDS: Potassium Chloride 10mEq/100mL 10 MEQ/100 ML IV.SOLN. 100 MEQ IV BOLUS ×4 (12:01→15:23)
[2021-08-30 15:40] LABS: Bedside Glucose 124 mg/dL (70-110)
--- NOTE | 2021-08-30 17:15 | CON.PCM.GI_ITS ---
HPI Consult Data Date of Consult: 08/30/21 HPI Narrative HPI Narrative: SARWAT LEY, is a 56 F who presents from home after being found unresponsive. She was discovered to have severe hypoglycemia with a blood sugar into the 20s. 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 She does have a history of substance abuse in the past. She is she was diagnosed with diabetes 10 years ago and she has been losing weight ever since. She said prior to her diagnosis of diabetes her mother was diagnosed with lung cancer and it really affected her. She also says that due to her inability to swallow solids she has stopped eating. She only eats 1 meal a day and is mostly at night. She has not eaten solid food in several months. She says that she is lost about 75 pounds. Currently her BMI is 12.5 and she weighs approximately 68 pounds. Biochemical analysis in ED did discover severely elevated alkaline phosphatase with an increase in transaminitis. CT scan had shown a lung mass along with pneumobilia. She she says that she has never had any ERCP. [facility] Medical History (Updated 08/30/21 @ 17:[address] Ernst Friend, DO) Anxiety COPD (chronic obstructive pulmonary disease) Depression Diabetes Hypertension Smoker Substance abuse Home Medications acetaminophen 650 mg PO Q6H PRN PRN tab 02/08/19 [Rx Last Taken Unknown] insulin glargine 40 units SUBCUT DAILY #1 pen 02/08/19 [Rx Last Taken Unknown] insulin lispro 5 unit SUBCUT TIDAC #1 insuln.pen 02/08/19 [Rx Last Taken Unknown] nut.tx.gluc.intol,lac-free,soy 120 ml PO 4X/DAY #120 liquid 02/08/19 [Rx Last Taken Unknown] albuterol sulfate 1 - 2 puff INHALATION Q6H PRN PRN 08/30/21 [History Last Taken Unknown] empagliflozin [Jardiance] 25 mg PO DAILY 08/30/21 [History Last Taken Unknown] lisinopril 10 mg PO DAILY 08/30/21 [History Last Taken Unknown] sertraline 50 mg PO DAILY 08/30/21 [History Last Taken Unknown] Allergy/AdvReac Type Severity Reaction Status Date / Time diphenhydramine Allergy Hives Verified 08/30/21 09:59 [From Jake] Social History Smoking Status: Current every day smoker tobacco type: cigarettes and e- cigarettes ROS Review of Systems ROS Unobtainable: other Constitutional Constitutional: Reports weight loss; Denies fatigue, fever(s), poor appetite or weight gain ENT HEENT: Denies mouth lesions Cardiovascular Cardiovascular: Denies abdominal bloating, abdominal edema or abdominal pain Respiratory/Chest Respiratory/Chest: Denies change in mental status, change in phlegm color, chest congestion or chest tightness Gastrointestinal Gastrointestinal: Denies belching, bloating, change in bowel habits, change in stool character, chewing difficulty, coffee ground emesis, constipation, cramping, diarrhea, dyspepsia, dysphagia, early satiety, excessive flatus, fecal incontinence, heartburn, hematemesis, hematochezia, hemorrhoids, loose stools, melena, nausea, odynophagia, rectal bleeding, tenesmus, vomiting or weight changes Genitourinary Genitourinary: Denies abdominal discomfort, burning urination or itching Musculoskeletal Musculoskeletal: Reports as per HPI; Denies muscle weakness or myalgias Integumentary Integumentary: Denies jaundice Neurologic Neurologic: Denies lack of coordination or weakness Psychiatric Psychiatric: Denies confusion, depression, memory loss, mood swings, paranoia or suicidal ideation Endocrine Endocrinology: Denies systems reviewed and no addt'l complaints, except as documented Hematologic/Lymphatic Hematologic/Lymphatic: Denies anemia, easy bleeding, easy bruising or lymphadenopathy Allergic/Immunologic Allergic/Immunologic: Denies systems reviewed and no addt'l complaints, except as documented Physical Exam Const alert General Appearance: cooperative Orientation / Consciousness: oriented to person HEENT hearing grossly normal bilaterally Head and Scalp: normal to inspection Face and Sinus: face symmetric Nose: external nose normal Mouth: oral and palatal mucosa normal Eyes conjunctivae normal General Eye: normal appearance of both eyes Neck full ROM General: normal visual inspection Lymph Lymphatic: no lymphadenopathy noted Chest inspection of chest normal and palpation of chest normal Chest: symmetrical chest wall rise Resp normal respiratory effort Effort and Inspection: able to speak in complete sentences Cardio regular rate GI non-distended Percussion: normal to percussion Rectal Exam: deferred Neuro Speech: speech normal Gait (Neuro): normal gait Lab / Micro Data Result Diagrams: 08/30/21 10:10 08/30/21 10:10 Labs: Laboratory Results - last 24 hr 08/30/21 10:10: WBC 20.2 H, RBC 3.55 L, Hgb 11.2 L, Hct 33.8 L, MCV 95.2, MCH 31.5, MCHC 33.1, RDW Std Deviation 51.6 H, RDW Coeff of Danie 15.1 H, Plt Count 392, MPV 10.7, Immature Gran % (Auto) 0.600, Neut % (Auto) 89.0 H, Lymph % (Auto) 5.7 L, [place]ette % (Auto) 4.4, Eos % (Auto) 0.1, Baso % (Auto) 0.2, Absolute Neuts (auto) 18.0 H, Absolute Lymphs (auto) 1.15, Nucleated RBC % 0 08/30/21 10:10: Sodium 142, Potassium 2.7 L*, Chloride 102, Carbon Dioxide 35.0 H, Anion Gap 5, BUN 34 H, Creatinine 0.60, Estim Creat Clear Calc 52.23, Est GFR (MDRD) Af Amer 132, Est GFR (MDRD) Non-Af 109, BUN/Creatinine Ratio 56.3 H, Glucose 92, Calcium 9.0, Total Bilirubin 0.20, Direct Bilirubin 0.15, AST 114 H, ALT 286 H, Alkaline Phosphatase 1139 H, Total Protein 6.6, Albumin 2.1 L, Globulin 4.5 H 08/30/21 10:10: Magnesium 1.8 08/30/21 11:13: POC Glucose 111 H 08/30/21 15:36: POC Glucose 124 H Micro: Microbiology 08/30/21 11:20 Nasal Secretion SARS-CoV-2 Antigen (Rapid) - Final Radiology Impression Chest X-Ray 08/30/21 10:30 IMPRESSION: COPD changes. No active pulmonary disease. Electronically Signed: Jamal Song, at 11:08 EST Tel , Service support , Abdomen/Pelvis CT 08/30/21 11:58 IMPRESSION: 1. Irregular right middle lobe density could reflect atelectasis. Tumor can''t be excluded. Correlation with CT scan of the chest and PET scan are recommended. 2. Pneumobilia unchanged. 3. Nonspecific fluid-filled small bowel loops without evidence of bowel obstruction. 4. No focal acute inflammatory process. Electronically Signed: Jamal Song, at 12:59 EST Tel , Service support , Assessment & Plan Assessment/Plan (1) Dysphagia: PLAN: The differential diagnosis and smoker with esophageal dysphagia would be Benavides's esophagus progressing to adenocarcinoma of the esophagus, Alethea esophagitis, esophageal stricture, eosinophilic esophagitis or squamous cell carcinoma. She has agreed to undergo EGD with possible dilation and biopsy of the esophagus. (2) Transaminitis: PLAN: Elevated alkaline phosphatase. Differential diagnosis would be primary bili cirrhosis or primary sclerosing cholangitis, alkaline phosphatase also comes from the lung, small bowel, placenta and bone. She also could have severe osteoporosis or bone metastasis from a possible underlying lung cancer. 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 Also she has never had a colonoscopy and does not want one at this time. Charges/Coding Visit Charges Inpatient E&M: 84678 Init Hosp L3
[2021-08-30] MEDS: Enoxaparin 30 MG/0.3 ML Syringe SC (18:20)
[2021-08-31] VITALS (21 sets, daily range): BP systolic 90–154; BP diastolic 36–80; PULSE 78–98; RESP 14–18; TEMP 36.2–36.9; O2SAT 91–100; BMI 12.4
--- NOTE | 2021-08-31 | ESO_PTH ---
PATIENT: SARWAT LEY LOC: [facility] U#:[id number] AGE/SX: 56/F ROOM: [facility] RE08/30/[address]: Dr. Ld Gonsalez MD : 1965 BED: 1 DIS: 09/07/2021 SPEC #: [id number] RECD: 08/31/21 13:36 STATUS: JEANNETTE REQ #: [id number] RICARDO: 08/31/21 00:[address]: Klever Carrasco DEPT: SURGICAL PATHOLOGY RECD BY: Arley Mcqueen ENTERED: 09/01/21 08:23 SP TYPE: ESOPH BX OTHR DR: MD Dr. Nikos Evans MD Danielle Byler, COMMODITY MANAGEMENT SPECIALIST-C Tissues: A - Esophagus, NOS B - Duodenum, NOS Procedures: Special Stain Group I Surgery Specimen Level IV GMS Stain (control) Comments: @ Ordering doctor for SUIV edited from to @ by PRANAV at 09/01/21 1423 @ Submitting doctor edited from to @ by VICENTEOD at 09/01/21 1423 HEADER OPERATION: EGD ([facility] [place]) PRE-OP DIAGNOSIS: Dysphagia, transaminitis, weight loss TISSUE SUBMITTED: A ? Distal esophagus biopsy, B ? Duodenum biopsy MICROSCOPIC DIAGNOSIS A. Distal esophagus, biopsy: Fragments of squamous mucosa with focal ulceration, moderate acute and chronic inflammation. See comment. B. Duodenum, biopsy: Fragments of duodenal mucosa, no pathologic diagnosis. SJ:michelle 09/02/2021 COMMENT A. Special stain for fungi shows numerous organisms (yeast and pseudohyphae), consistent with Alethea species; matched control is appropriate. MICROSCOPIC DESCRIPTION Slides are reviewed. GROSS DESCRIPTION A - Received in fixative is one container labeled with the patient's name and designated distal esophagus. The specimen consists of multiple irregular fragments of light mercer soft tissue that in aggregate measure 0.6 x 0.5 x 0.1 cm. The specimen is totally submitted in one cassette. B - Received in fixative is one container labeled with the patient's name and designated duodenum. The specimen consists of multiple irregular fragments of light mercer soft tissue that in aggregate measure 1 x 0.4 x 0.1 cm. The specimen is totally submitted in one cassette. / SJ:rg 09/01/2021 TC:2 CPT: 13083 x2, 27053
[2021-08-31 00:16] LABS: Bedside Glucose 206 mg/dL (70-110)
[2021-08-31] MEDS: Dextrose 5%/0.9% NaCl 1,000 ML 60 ML IV ×2 (05:49→15:10)
[2021-08-31 05:51] LABS: Bedside Glucose 72 mg/dL (70-110)
--- NOTE | 2021-08-31 05:55 | CT_ITS ---
HISTORY: right lung nodule EXAMINATION: CT Chest W/O Contrast Injection TECHNIQUE: Helically acquired images were obtained of the chest, without IV contrast. A radiation dose optimization technique was used for this scan. COMPARISON: Contrast-enhanced CT abdomen and pelvis from one day prior. FINDINGS: LUNGS, PLEURA AND LARGE AIRWAYS: Hyperexpanded lungs with centrilobular and paraseptal emphysematous changes. Biapical lung scarring. Multifocal bilateral patchy groundglass alveolar opacities present with several nodular and ill-defined patchy foci of airspace consolidation. Largest foci of consolidation are located within inferior right middle lobe and posteromedial left lower lobe. Airways are patent. No significant pleural effusion. No pneumothorax. HEART AND PERICARDIUM: Heart size within normal limits. Trace pericardial effusion. VESSELS: Thoracic aorta is not dilated. Scattered atherosclerotic calcifications. MEDIASTINUM AND KENNETH: No pathologically enlarged mediastinal or hilar lymph nodes. Small amount of gas and fluid within proximal esophagus, not significantly dilated. OTHER SOFT TISSUES: Patient appears cachectic. Visualized thyroid gland is unremarkable. UPPER ABDOMEN: Mild residual intrahepatic pneumobilia, improved. Heterogeneous dense residual nephrograms with no hydronephrosis (partially imaged kidneys). Sutures adjacent to distal stomach. BONES: No acute findings. CT/Chest without Contrast IMPRESSION: 1. Pulmonary emphysema with multifocal bilateral pulmonary airspace disease and patchy consolidation. Favor infectious process but pulmonary malignancy not excluded. Recommend clinical correlation and follow-up to document clearing. If findings persist or worsen, suggest further evaluation with PET/CT. 2. Residual nephrograms. Correlate with renal function. 3. Other nonurgent findings within body of report. Individualized dose optimization techniques were used for this CT. at 0622 Reported and signed by: Helder Duque MD Electronically Signed: Helder Duque MD at 6:21 EST Tel , Service support ,
[2021-08-31 06:43] LABS: Absolute Lymphocyte Count 1.66 X10^3/uL (0.83-4.51); Absolute Neutrophil Count 11.2 X10^3/uL (2.0-7.7); Basophil# 0.03 X10^3/uL; Basophil% 0.2 % (0-1); Eosinophil# 0.14 X10^3/uL; Hematocrit 31.9 % (37-47); Hemoglobin 10.4 g/dL (12.0-15.0); Lymphocyte # 1.66 X10^3/ul (0.83-4.51); Lymphocyte % 11.6 % (19-41); Mean Corp Hgb Conc 32.6 g/dL (32-36); Mean Corpuscular Hgb 31.8 pg (27.0-32.0); Mean Corpuscular Volume 97.6 fL (81-99); Monocyte# 1.14 X10^3/uL; NRBC Flagged by Analyzer 0 % (0-5); Neutrophil # 11.21 X10^3/uL (2.7-7.7); Neutrophil % 78.6 % (47-70); Platelet Count 333 K/mm3 (150-450); RBC Distribution Width CV 15.1 % (11.6-14.6); RBC Distribution Width SD 53.9 fl (35.1-43.9); Red Blood Count 3.27 M/mm3 (4.2-5.4); White Blood Count 14.3 K/mm3 (4.4-11.0)
[2021-08-31 07:23] LABS: ALB/GLOB Ratio 0.5 RATIO (0.9-2.4); AST(SGOT) 215 U/L (15-37); Alanine Aminotransfer ALT/SGPT 285 U/L (13-56); Albumin, Serum 1.9 g/dL (3.2-5.0); Alkaline Phosphatase 1111 U/L (45-117); Anion Gap 5 (5-15); BUN 27 mg/dL (7-18); BUN/Creat Ratio 55.7 RATIO (10-20); Calcium,Total 8.3 mg/dL (8.5-10.1); Chloride 107 mmol/L (98-107); Creatinine, Serum 0.48 mg/dL (0.55-1.02); EST Glomerular Filtration Rate 140 mL/min (>60); Est Glom Filt Rate - Afr Amer 170 mL/min (>60); Estimated Creatinine Clearance 63.84 ml/min; Globulin 4.2 g/dL (2.2-4.2); Glucose 73 mg/dL (74-106); Potassium 3.3 mmol/L (3.5-5.1); Protein, Total 6.1 g/dL (6.4-8.2); Sodium Level 141 mmol/L (136-145)
--- NOTE | 2021-08-31 07:46 | NURSING ---
PT WAS IN THE BATHROOM WITH EXTENSION EDUCATOR. PT WENT TO GET OFF THE TOILET AND SLIPPED AND FELL. PT REPORTS HER LEGS ARE WEAK. VSS. DIME SIZED ABRASION NOTED TO LEFT KNEE. BGT 72. NO LOC. PT DENIES C/O . DR PADILLA MADE AWARE AND FALL INVESTIGATION WORKSHEET COMPLETED.
[2021-08-31 08:26] LABS: Bedside Glucose 112 mg/dL (70-110)
[2021-08-31] MEDS: Dextrose 50%-Water 25 GM/50 ML DISP.SYRIN IV (11:55)
--- NOTE | 2021-08-31 12:17 | CASEMGMT ---
This RN CM to room to complete CM assessment and pt is out of dept for testing at this time. CM to follow. SStaten RN CM
[2021-08-31 12:21] LABS: Bedside Glucose 34 mg/dL (70-110)
[2021-08-31 12:21] LABS: Bedside Glucose 229 mg/dL (70-110)
--- NOTE | 2021-08-31 13:22 | OP.EGD_ITS ---
Patient Name: Artis Lane Procedure Date: 08/31/2021 12:45 PM Date of : 1965 Age: 56 Procedure: Upper GI endoscopy Indications: Dysphagia Providers: Klever Carrasco DO Medicines: See the Anesthesia note for documentation of the administered medications Patient Profile: This is a 56 year old female. Refer to note in patient chart for documentation of history and physical. Patient has symptoms of dysphagia with both liquids and solids. The symptoms first began January. Complications: No immediate complications. Procedure: Pre-Anesthesia Assessment: - Prior to the procedure, a History and Physical was performed, and patient medications and allergies were reviewed. The patient is competent. The risks and benefits of the procedure and the sedation options and risks were discussed with the patient. All questions were answered and informed consent was obtained. Patient identification and proposed procedure were verified by the physician in the pre-procedure area. Mental Status Examination: alert and oriented. Airway Examination: normal oropharyngeal airway and neck mobility. Respiratory Examination: clear to auscultation. CV Examination: normal. Prophylactic Antibiotics: The patient does not require prophylactic antibiotics. Prior Anticoagulants: The patient has taken no previous anticoagulant or antiplatelet agents. After reviewing the risks and benefits, the patient was deemed in satisfactory condition to undergo the procedure. The anesthesia plan was to use moderate sedation / analgesia (conscious sedation). Immediately prior to administration of medications, the patient was re-assessed for adequacy to receive sedatives. The heart rate, respiratory rate, oxygen saturations, blood pressure, adequacy of pulmonary ventilation, and response to care were monitored throughout the procedure. The physical status of the patient was re-assessed after the procedure. After obtaining informed consent, the endoscope was passed under direct vision. Throughout the procedure, the patient's blood pressure, pulse, and oxygen saturations were monitored continuously. The Endoscope was introduced through the mouth, and advanced to the second part of duodenum. The upper GI endoscopy was accomplished without difficulty. The patient tolerated the procedure well. Moderate Sedation: Moderate (conscious) sedation was administered by the endoscopy nurse and supervised by the endoscopist. The following parameters were monitored: oxygen saturation, heart rate, blood pressure, and response to care. Total physician intraservice time was 15 minutes. Scope In: 1:01:50 PM Scope Out: 1:13:02 PM Total Procedure Duration Time 0 hours 11 minutes 12 seconds Findings: Diffuse, white plaques were found in the entire esophagus. Biopsies were taken with a cold forceps for histology. Verification of patient identification for the specimen was done. Estimated blood loss was minimal. A moderate Schatzki ring was found in the lower third of the esophagus. A guidewire was placed and the scope was withdrawn. Dilation was performed with a Savary dilator with no resistance at 33 Fr. The dilation site was examined and showed moderate improvement in luminal narrowing. A medium-sized hiatal hernia was present. Diffuse moderately erythematous mucosa without active bleeding and with no stigmata of bleeding was found in the entire duodenum. Biopsies were taken with a cold forceps for histology. Verification of patient identification for the specimen was done. Estimated blood loss was minimal. Impression: - Esophageal plaques were found, consistent with candidiasis. Biopsied. - Moderate Schatzki ring. Dilated. - Medium-sized hiatal hernia. - Erythematous duodenopathy. Biopsied. Recommendation: - [facility] care. - Advance diet as tolerated. - Diflucan (fluconazole) 100 mg PO daily for 2 weeks. - Nystatin suspension 100,000 units PO QID for 2 weeks. - Continue present medications. Procedure Code(s): --- Professional --- 75703, Esophagogastroduodenoscopy, flexible, transoral; with insertion of guide wire followed by passage of dilator(s) through esophagus over guide wire 40097, 59, Esophagogastroduodenoscopy, flexible, transoral; with biopsy, single or multiple 93312, 59, Moderate sedation services provided by the same physician or other qualified health home visit field care manager performing the diagnostic or therapeutic service that the sedation supports, requiring the presence of an independent trained observer to assist in the monitoring of the patient's level of consciousness and physiological status; initial 15 minutes of intraservice time, patient age 5 years or older CPT copyright 2017 [employer]. All rights reserved. The codes documented in this report are preliminary and upon outside cutter review may be revised to meet current compliance requirements. Klever Carrasco DO 08/31/2021 1:22:29 PM This report has been signed electronically. Number of Addenda: 1 Note Initiated On: 08/31/2021 12:45 PM Addendum Number: 1 Addendum Date: 04/22/2022 6:14:44 AM MAC was used instead of moderate sedation for the patient. Klever Carrasco DO 04/22/2022 6:14:48 AM This report has been signed electronically.
--- NOTE | 2021-08-31 13:23 | OP.CCLET_ITS ---
04/22/2022 Connor De La Cruz Re : Upper GI endoscopy procedure for Artis Lane Dear Radha This procedure was performed on Tuesday, August 31, 2021. My impressions and recommendations are as follows: Impressions : - Esophageal plaques were found, consistent with candidiasis. Biopsied. - Moderate Schatzki ring. Dilated. - Medium-sized hiatal hernia. - Erythematous duodenopathy. Biopsied. Recommendations : - Return patient to [facility] for [facility] care. - Advance diet as tolerated. - Diflucan (fluconazole) 100 mg PO daily for 2 weeks. - Nystatin suspension 100,000 units PO QID for 2 weeks. - Continue present medications. My findings are described in the full procedure note, which is enclosed. If I can be of further assistance, please feel free to contact me at . Sincerely, Klever Carrasco, 08/31/2021 1:22:29 PM This report has been signed electronically.
[2021-08-31 13:35] LABS: Bedside Glucose 225 mg/dL (70-110)
[2021-08-31] MEDS: levoFLOXacin 750 MG Tablet PO (15:08)
[2021-08-31] MEDS: Fluconazole 100 MG Tablet PO (15:08)
[2021-08-31] MEDS: NYSTATIN 500,000 UNIT/5 ML UDC 500000 UNIT PO ×3 (15:08→21:00)
--- NOTE | 2021-08-31 15:55 | CASEMGMT ---
TESSY MONTESINOS assessment: Face to Face with patient for initial transition planning/care coordination assessment. TESSY MONTESINOS introduced self and role at [facility], pt voices understanding and consents to assessment. Pt is sitting up in bed in no distress on room air. Pt is A/Ox4 and answers all questions appropriately. Care providers, pharmacy, and demographics verified. Presentation: Unresponsive, blood sugar 26, bagged by EMS Admitting dx: Hypoglycemia, hypokalemia, tranaminitis PCP: Radha Specialists: Eye Preferred [facility]acy: [facility] Insurance: [facility] Prescription Benefit: [facility] Living Will/HPOA: Pt states does not have LW/HPOA and declines AD info. LNOK: Johnathon Lane, ex- Living Arrangements: Pt lives with [id number]-law on main level of 2 story home and states no concerns at home. Pt states is independent with ADL's. Transportation: Pt states is home-bound and ex- gets them what they need. DME/HHC: Pt states no current DME but therapy is recommending [facility] and pt states would like shower chair, states no preference for DME company. Pt states no hx of HHC or SNF. Pt states no concerns with going home at time of discharge. Pt is unemployed. Pt states smokes 1/2 pack cigarettes daily and does not drink ETOH. Pt states no further concerns/needs. CM to follow for therapy recommendations and any further discharge planning/needs. Advised pt to ask for CM if any further questions/concerns/needs arise, voices understanding. Pt Goal: Home Plan: [place] TESSY MONTESINOS
--- NOTE | 2021-08-31 16:13 | PN.HOSP_ITS ---
Subjective Subjective Doing okay after the EGD, she continues to have some shortness of breath and cough does not appear to be requiring any oxygen at the moment. She has been endorsing having a difficulty in swallowing for about the last year and she has repeated issues with thrush. EGD today found what appeared to be candidal esophagitis Objective Data Objective Data Vital Signs: Vital Signs Temp Pulse Resp BP Pulse Ox 97.8 F 81 16 140/69 H 97 08/31/21 14:44 08/31/21 14:44 08/31/21 14:44 08/31/21 14:44 08/31/21 14:44 Oxygen Flow Rate (L/min) 2 Oxygen Delivery Method Room Air Weight: 68 lb 1.965 oz Body Mass Index (BMI) 12.4 Intake & Output: Intake and Output for Last 24 Hours 08/30/21 08/31/21 09/01/21 03:59 03:59 03:59 Intake Total 940 / 940 1561 / 1561 Balance 940 / 940 1561 / 1561 Medical Nutrition Assessment Dietitian: Malnutrition Criteria Met Start: 08/31/21 15:22 Freq: Status: Active Protocol: Document 08/31/21 15:23 SHEILA (Rec: 08/31/21 15:[address] [facility] [id number]) Nutrition Malnutrition Evidence of Malnutrition Exists Yes Malnutrition (severe): Chronic Evidenced By Suboptimal Energy Intake ( Severe),Weight Loss (Severe), Physical Changes (Severe) Clinical Problem Chronic Disease or Condition Related Malnutrition Etiology related to COPD/ smoking addiction and issues swallowing foods making it difficult to consume adequate nutrition to meet est nutritional needs Signs/Symptoms as evidenced by <75% po intake and 47.6% wt loss in past year. Pt is cachectic with obvious fat/muscle loss w/ protruding bones -appears to be severely emaciated. Status Active Problem Recommendation Dietitian Recommendations/Changes Provide full liquid diet to advance as tolerated to Regular. Provide 8 oz ensure enlive ( farheen) w/ meals Provide fortified foods and ensure pudding or magic cup w/ meals. Lab / Micro Data Result Diagrams: 08/31/21 06:19 08/31/21 06:19 Labs: Laboratory Results - last 24 hr 08/30/21 10:01: POC Glucose 112 H 08/31/21 00:06: POC Glucose 206 H 08/31/21 05:43: POC Glucose 72 08/31/21 06:19: WBC 14.3 H, RBC 3.27 L, Hgb 10.4 L, Hct 31.9 L, MCV 97.6, MCH 31.8, MCHC 32.6, RDW Std Deviation 53.9 H, RDW Coeff of Danie 15.1 H, Plt Count 333, MPV 11.0, Immature Gran % (Auto) 0.600, Neut % (Auto) 78.6 H, Lymph % (Auto) 11.6 L, [place] % (Auto) 8.0, Eos % (Auto) 1.0, Baso % (Auto) 0.2, Absolute Neuts (auto) 11.2 H, Absolute Lymphs (auto) 1.66, Nucleated RBC % 0 08/31/21 06:19: Sodium 141, Potassium 3.3 L, Chloride 107, Carbon Dioxide 29.0, Anion Gap 5, BUN 27 H, Creatinine 0.48 L, Estim Creat Clear Calc 63.84, Est GFR (MDRD) Af Amer 170, Est GFR (MDRD) Non-Af 140, BUN/Creatinine Ratio 55.7 H, Glucose 73 L, Calcium 8.3 L, Total Bilirubin 0.40, AST 215 H, ALT 285 H, Alkaline Phosphatase 1111 H, Total Protein 6.1 L, Albumin 1.9 L, Globulin 4.2, Albumin/Globulin Ratio 0.5 L 08/31/21 11:43: POC Glucose 34 L* 08/31/21 12:10: POC Glucose 229 H 08/31/21 13:30: POC Glucose 225 H Micro: Microbiology 08/30/21 11:20 Nasal Secretion SARS-CoV-2 Antigen (Rapid) - Final Radiography Diagnostic Testing: Radiology Impression Chest CT 08/31/21 05:55 IMPRESSION: 1. Pulmonary emphysema with multifocal bilateral pulmonary airspace disease and patchy consolidation. Favor infectious process but pulmonary malignancy not excluded. Recommend clinical correlation and follow-up to document clearing. If findings persist or worsen, suggest further evaluation with PET/CT. 2. Residual nephrograms. Correlate with renal function. 3. Other nonurgent findings within body of report. Individualized dose optimization techniques were used for this CT. at 0622 Reported and signed by: Helder Duque MD Electronically Signed: Helder Duque MD at 6:21 EST Tel , Service support , Physical Exam Const alert, oriented x3 and no apparent distress General Appearance: cooperative Nutritional Appearance: cachectic HEENT normocephalic and moist oral mucous membranes Eyes PERRL, EOMs intact bilaterally and conjunctivae normal Neck supple and no JVD Resp normal respiratory effort, no retractions, no use of accessory muscles and clear to auscultation bilaterally Auscultation: diminished lung sounds; Negative for crackles, rales, rhonchi or wheezes Cardio regular rate, regular rhythm, S1 normal heart sound, S2 normal heart sound and no murmurs GI soft to palpation, non-tender and non-distended; Negative for hepatosplenomegaly Extremity no clubbing, cyanosis or edema Skin no rashes or lesions noted Neuro no focal motor deficits and no sensory deficits noted Psych affect normal Appearance: appropriate Assessment & Plan Assessment/Plan (1) Hypoglycemia: (2) Acute hypokalemia: (3) Transaminitis: PLAN: #Acute metabolic encephalopathy due to hypoglycemia/candidal esophagitis * Patient admits to not eating and drinking well recently but still taking her insulin. Was noted to be profoundly hypoglycemic when the EMS arrived with blood sugar in the 20s. * She did respond to dextrose administration and is now on 5% normal saline dextrose infusion * Was also able to eat a good meal in the ED. * Admit to PCU. Hold insulin. Continue D5 NS administration. * Check A1c. Consult crew team member and palliative care nurse. * Encephalopathy has resolved, will advance her diet and lift any carb controlled restrictions * EGD today with a dilation of a Schatzki's ring, biopsied white plaques cons istent with candidal esophagitis * Will start on p.o. Diflucan as well as nystatin swish and swallow #Hypokalemia: Potassium is 2.7. Will replace and trend. Check magnesium #Transaminitis * Liver enzymes markedly deranged and shows an obstructive pattern. However total bilirubin is not elevated. CT of the abdomen and pelvis showed a 3 cm irregular heterogeneous density versus mass in the right middle lobe of the lung which is new since previous exam * She does have pneumobilia but this appears to be a chronic finding with a nontender abdomen * CT of the chest confirmed CT of the abdomen and pelvis finding * GI consulted in light of abnormal liver enzymes, patient;s complaint of dysphagia and remarkable weight loss. * spoke to Dr Friend * Will start on Levaquin given her history of COPD the possibility of a pneumonia especially given her elevated white count #Severe protein calorie malnutrition * Patient's BMI is only 12 and she weighs only 68 pounds. She admits to profound weight loss but cannot give a time period Within which she has lost so much weight. * GI consulted. * consult nutrition. #Type 2 diabetes mellitus: hold insulin and Jardiance in light of severe hypoglycemia. Check A1C. Continue with D5NS infusion. #Hypertension: On lisinopril #Depression: on sertraline DVT: lovenox Charges/Coding Visit Charges Inpatient E&M: 73568 Subs Hosp L2
--- NOTE | 2021-08-31 16:37 | CHAPLAIN ---
Type of Pastoral Visit _x__ Initial Visit ___ Follow-up Visit ___ On-call Visit ___ General Patient Visit _x__ Spiritual Assessment ___ Family Conference ___ Bereavement ___ Rapid Response ___ Code Blue ___ Other (describe below) Pastoral Care Referral From _x__ Patient ___ Family ___ Nurse ___ Physician ___ Log Hauler ___ Residential Sales Manager ___ Other (describe below) Sacrament/Intervention _x__ Active listening ___ Anointing ___ Holiness ___ Bereavement ___ Communion _x__ Antoinette exploration ___ _x__ Life review _x__ Prayer ___ Reconciliation ___ Sacrament of Sick _x__ Supportive presence ___ Wedding ___ Other (describe below) Pastoral Comments patient has significant questions about her spiritual life and her future when comes to her; long discussion to answer questions and hear her needs; prayer given; patient would like a Bible and one was given to her
[2021-08-31 17:01] LABS: Bedside Glucose 279 mg/dL (70-110)
[2021-09-01] VITALS (10 sets, daily range): BP systolic 109–146; BP diastolic 47–94; PULSE 82–108; RESP 16–22; TEMP 36.6–37.7; O2SAT 93–98
[2021-09-01 00:56] LABS: Bedside Glucose > 500 mg/dL (70-110)
[2021-09-01] MEDS: Insulin Lispro 100 UNIT/ML INSULN.PEN 8 UNIT SC ×2 (01:11→03:50)
[2021-09-01 01:39] LABS: Glucose 710 mg/dL (74-106)
--- NOTE | 2021-09-01 01:52 | PCM.PN.BLA ---
Progress Note With hyperglycemia confirmed by a venous blood blood glucose of 710. A one-time dose of insulin given. Stop dextrose infusion. Repeat Accu-Chek.
[2021-09-01 03:41] LABS: Bedside Glucose > 500 mg/dL (70-110)
[2021-09-01] MEDS: levoFLOXacin 750 MG Tablet PO (06:19)
[2021-09-01 07:00] LABS: Bedside Glucose 298 mg/dL (70-110)
[2021-09-01 07:07] LABS: HEPATITIS B SURFACE AG Negative (Negative); Hepatitis A IgM Antibody Negative (Negative); Hepatitis B Core AB IgM Negative (Negative)
[2021-09-01 07:17] LABS: Absolute Lymphocyte Count 1.36 X10^3/uL (0.83-4.51); Absolute Neutrophil Count 10.7 X10^3/uL (2.0-7.7); Basophil# 0.04 X10^3/uL; Basophil% 0.3 % (0-1); Eosinophil# 0.09 X10^3/uL; Eosinophils% 0.7 % (0-5); Hemoglobin 11.1 g/dL (12.0-15.0); Lymphocyte # 1.36 X10^3/ul (0.83-4.51); Lymphocyte % 10.2 % (19-41); Mean Corp Hgb Conc 32.6 g/dL (32-36); Mean Corpuscular Hgb 32.6 pg (27.0-32.0); Mean Platelet Vol. 10.9 fl (6.2-12.0); Monocyte# 1.06 X10^3/uL; Monocyte% 7.9 % (0-10); NRBC Flagged by Analyzer 0 % (0-5); Neutrophil # 10.68 X10^3/uL (2.7-7.7); Platelet Count 361 K/mm3 (150-450); RBC Distribution Width CV 15.2 % (11.6-14.6); White Blood Count 13.4 K/mm3 (4.4-11.0)
[2021-09-01 07:46] LABS: Anion Gap 6 (5-15); BUN 18 mg/dL (7-18); Calcium,Total 8.5 mg/dL (8.5-10.1); Chloride 104 mmol/L (98-107); Creatinine, Serum 0.69 mg/dL (0.55-1.02); EST Glomerular Filtration Rate 93 mL/min (>60); Est Glom Filt Rate - Afr Amer 113 mL/min (>60); Estimated Creatinine Clearance 44.41 ml/min; Glucose 291 mg/dL (74-106); Magnesium 1.7 mg/dL (1.6-2.6); Phosphorus 2.3 mg/dL (2.5-4.9); Potassium 3.4 mmol/L (3.5-5.1); Sodium Level 139 mmol/L (136-145)
[2021-09-01] MEDS: NYSTATIN 500,000 UNIT/5 ML UDC 500000 UNIT PO ×4 (09:01→20:34)
[2021-09-01] MEDS: Enoxaparin 30 MG/0.3 ML Syringe SC (09:02)
[2021-09-01] MEDS: Fluconazole 100 MG Tablet PO (09:02)
--- NOTE | 2021-09-01 10:36 | CASEMGMT ---
Per therapy, pt would benefit from HHC at discharge. Pt is agreeable to HHC and pt was provided a list of HHC providers including quality and resource use data and consistent with the patient?s preferred geographic region, medical needs, and insurance network. Advised pt to pick several and list in order, voices understanding. Pt also would like [facility] and shower chair/bench and states no preference for DME provider. [facility] is only local provider that carries both and script to be faxed to them once signed by physician. YAMEL to follow for HHC. Alfredo STILL CM
--- NOTE | 2021-09-01 10:37 | PN.HOSP_ITS ---
Subjective Subjective No issues overnight, feels better today. She is eating breakfast and denies any significant pain with swallowing Objective Data Objective Data Vital Signs: Vital Signs Temp Pulse Resp BP Pulse Ox 98.7 F 98 16 146/47 H 98 09/01/21 08:54 09/01/21 08:54 09/01/21 08:54 09/01/21 08:54 09/01/21 10:06 Oxygen Flow Rate (L/min) 2 Oxygen Delivery Method Room Air Weight: 68 lb 1.965 oz Body Mass Index (BMI) 12.4 Intake & Output: Intake and Output for Last 24 Hours 08/31/21 09/01/21 09/02/21 03:59 03:59 03:59 Intake Total 940 / 940 2561 / 2561 Balance 940 / 940 2561 / 2561 Medical Nutrition Assessment Dietitian: Malnutrition Criteria Met Start: 08/31/21 15:22 Freq: Status: Active Protocol: Document 08/31/21 15:23 SHEILA (Rec: 08/31/21 15:23 [facility] [id number]) Nutrition Malnutrition Evidence of Malnutrition Exists Yes Malnutrition (severe): Chronic Evidenced By Suboptimal Energy Intake ( Severe),Weight Loss (Severe), Physical Changes (Severe) Clinical Problem Chronic Disease or Condition Related Malnutrition Etiology related to COPD/ smoking addiction and issues swallowing foods making it difficult to consume adequate nutrition to meet est nutritional needs Signs/Symptoms as evidenced by <75% po intake and 47.6% wt loss in past year. Pt is cachectic with obvious fat/muscle loss w/ protruding bones -appears to be severely emaciated. Status Active Problem Recommendation Dietitian Recommendations/Changes Provide full liquid diet to advance as tolerated to Regular. Provide 8 oz ensure enlive ( farheen) w/ meals Provide fortified foods and ensure pudding or magic cup w/ meals. Lab / Micro Data Result Diagrams: 09/01/21 06:54 09/01/21 06:54 Labs: Laboratory Results - last 24 hr 08/31/21 11:43: POC Glucose 34 L* 08/31/21 12:10: POC Glucose 229 H 08/31/21 13:30: POC Glucose 225 H 08/31/21 16:58: POC Glucose 279 H 09/01/21 00:48: POC Glucose > 500 H* 09/01/21 01:04: Glucose 710 H* 09/01/21 03:36: POC Glucose > 500 H* 09/01/21 06:54: WBC 13.4 H, RBC 3.40 L, Hgb 11.1 L, Hct 34.0 L, MCV 100.0 H, MCH 32.6 H, MCHC 32.6, RDW Std Deviation 56.0 H, RDW Coeff of Danie 15.2 H, Plt Count 361, MPV 10.9, Immature Gran % (Auto) 0.900, Neut % (Auto) 80.0 H, Lymph % (Auto) 10.2 L, [place] % (Auto) 7.9, Eos % (Auto) 0.7, Baso % (Auto) 0.3, Absolute Neuts (auto) 10.7 H, Absolute Lymphs (auto) 1.36, Nucleated RBC % 0 09/01/21 06:54: Sodium 139, Potassium 3.4 L, Chloride 104, Carbon Dioxide 29.0, Anion Gap 6, BUN 18, Creatinine 0.69, Estim Creat Clear Calc 44.41, Est GFR (MDRD) Af Amer 113, Est GFR (MDRD) Non-Af 93, BUN/Creatinine Ratio 26.0 H, Glucose 291 H, Calcium 8.5, Phosphorus 2.3 L, Magnesium 1.7 09/01/21 06:56: POC Glucose 298 H Micro: Microbiology 08/30/21 11:20 Nasal Secretion SARS-CoV-2 Antigen (Rapid) - Final Physical Exam Narrative Const alert, oriented x3 and no apparent distress General Appearance: cooperative Nutritional Appearance: cachectic HEENT normocephalic and moist oral mucous membranes Eyes PERRL, EOMs intact bilaterally and conjunctivae normal Neck supple and no JVD Resp normal respiratory effort, no retractions, no use of accessory muscles and clear to auscultation bilaterally Auscultation: diminished lung sounds; Negative for crackles, rales, rhonchi or wheezes Cardio regular rate, regular rhythm, S1 normal heart sound, S2 normal heart sound and no murmurs GI soft to palpation, non-tender and non-distended; Negative for hepatosplenomegaly Extremity no clubbing, cyanosis or edema Skin no rashes or lesions noted Neuro no focal motor deficits and no sensory deficits noted Psych affect normal Appearance: appropriate Assessment & Plan Assessment/Plan (1) Hypoglycemia: (2) Acute hypokalemia: (3) Transaminitis: PLAN: #Acute metabolic encephalopathy due to hypoglycemia/candidal esophagitis/possible community-acquired pneumonia * Patient admits to not eating and drinking well recently but still taking her insulin. Was noted to be profoundly hypoglycemic when the EMS arrived with blood sugar in the 20s. * She did respond to dextrose administration and is now on 5% normal saline dextrose infusion * Was also able to eat a good meal in the ED. * Episode of hypoglycemia overnight, will place her back on a sliding scale insulin as she does appear to be eating, discontinue her D5 infusion * Check A1c. Consult hematology nurse educator and senior climate advisor. * Encephalopathy has resolved, will advance her diet and lift any carb controlled restrictions * EGD 08/31/2021 with a dilation of a Schatzki's ring, biopsied white plaques consistent with candidal esophagitis * Will start on p.o. Diflucan as well as nystatin swish and swallow #Hypokalemia: We will monitor and replace as well as replacing any magnesium and phosphorus that might be low #Transaminitis * Liver enzymes markedly deranged and shows an obstructive pattern. However total bilirubin is not elevated. CT of the abdomen and pelvis showed a 3 cm irregular heterogeneous density versus mass in the right middle lobe of the lung which is new since previous exam * She does have pneumobilia but this appears to be a chronic finding with a nontender abdomen * CT of the chest confirmed CT of the abdomen and pelvis finding * GI consulted in light of abnormal liver enzymes, patient;s complaint of dysphagia and remarkable weight loss. * spoke to Dr Friend * Will start on Levaquin given her history of COPD the possibility of a pneumonia especially given her elevated white count as well as findings on CT scan #Severe protein calorie malnutrition * Patient's BMI is only 12 and she weighs only 68 pounds. She admits to profound weight loss but cannot give a time period Within which she has lost so much weight. * GI consulted. * consult nutrition. #Type 2 diabetes mellitus: hold insulin and Jardiance in light of severe hypoglycemia. Check A1C. Continue with D5NS infusion. #Hypertension: On lisinopril #Depression: on sertraline DVT: lovenox Charges/Coding Visit Charges Inpatient E&M: 86885 Subs Hosp L2
[2021-09-01 11:45] LABS: Bedside Glucose > 500 mg/dL (70-110)
[2021-09-01] MEDS: Insulin Lispro 100 UNIT/ML INSULN.PEN SC ×3 (11:54→20:32)
[2021-09-01 12:01] LABS: Bedside Glucose > 500 mg/dL (70-110)
--- NOTE | 2021-09-01 15:53 | PCS.PANDOC ---
PANDEMIC DOCUMENTATION INITIATED: Date: 03/30/2021 Time: 190
[2021-09-01] MEDS: Insulin Lispro 100 UNIT/ML INSULN.PEN 10 UNIT SC (16:16)
[2021-09-01 16:26] LABS: Bedside Glucose 324 mg/dL (70-110)
--- NOTE | 2021-09-01 16:46 | CHAPLAIN ---
Type of Pastoral Visit ___ Initial Visit _x__ Follow-up Visit ___ On-call Visit ___ General Patient Visit ___ Spiritual Assessment ___ Family Conference ___ Bereavement ___ Rapid Response ___ Code Blue ___ Other (describe below) Pastoral Care Referral From _x__ Patient ___ Family ___ Nurse ___ Physician ___ Livestock Yard Supervisor ___ Microfabrication Engineer Manager ___ Other (describe below) Sacrament/Intervention _x__ Active listening ___ Anointing ___ Jew ___ Bereavement ___ Communion ___ Antoinette exploration ___ ___ Life review _x__ Prayer ___ Reconciliation ___ Sacrament of Sick _x__ Supportive presence ___ Wedding ___ Other (describe below) Pastoral Comments patient reports her boyfriend of 40 years is cheating on her as she discovered just today; pt is upset and states my parents are gone and I have no one; patient is encouraged to accept further help in the future and let people into her life for assistance; prayer welcomed
[2021-09-01 17:05] LABS: Hep C Antibodies 0.1 s/co ratio (0.0-0.9)
--- NOTE | 2021-09-01 17:25 | PCM.PROGNOTE ---
Subjective Subjective Patient underwent EGD yesterday for severe esophageal dysphagia. She was found to have profound esophageal candidiasis with esophageal stricture that was dilated. She was also found to have very thin mucosa of the stomach and small bowel. Biopsies were taken of the small bowel. She has been significantly hyperglycemic today. She has been eating well today without any trouble swallowing. Objective Data Objective Data Vital Signs: Vital Signs Temp Pulse Resp BP Pulse Ox 99.9 F H 99 16 145/50 H 97 09/01/21 15:00 09/01/21 15:00 09/01/21 15:00 09/01/21 15:00 09/01/21 15:00 Oxygen Flow Rate (L/min) 2 Oxygen Delivery Method Room Air Weight: 68 lb 1.965 oz Body Mass Index (BMI) 12.4 Intake & Output: Intake and Output for Last 24 Hours 08/30/21 08/31/21 09/01/21 23:59 23:59 23:59 Intake Total 740 / 940 1761 / 1761 1824 / 1824 Balance 740 / 940 1761 / 1761 1824 / 1824 Medical Nutrition Assessment Dietitian: Malnutrition Criteria Met Start: 08/31/21 15:22 Freq: Status: Active Protocol: Document 08/31/21 15:23 SHEILA (Rec: 08/31/21 15:23 [facility] [id number]) Nutrition Malnutrition Evidence of Malnutrition Exists Yes Malnutrition (severe): Chronic Evidenced By Suboptimal Energy Intake ( Severe),Weight Loss (Severe), Physical Changes (Severe) Clinical Problem Chronic Disease or Condition Related Malnutrition Etiology related to COPD/ smoking addiction and issues swallowing foods making it difficult to consume adequate nutrition to meet est nutritional needs Signs/Symptoms as evidenced by <75% po intake and 47.6% wt loss in past year. Pt is cachectic with obvious fat/muscle loss w/ protruding bones -appears to be severely emaciated. Status Active Problem Recommendation Dietitian Recommendations/Changes Provide full liquid diet to advance as tolerated to Regular. Provide 8 oz ensure enlive ( farheen) w/ meals Provide fortified foods and ensure pudding or magic cup w/ meals. Lab / Micro Data Result Diagrams: 09/01/21 06:54 09/01/21 06:54 Labs: Laboratory Results - last 24 hr 08/30/21 11:20: Hepatitis A IgM Ab Negative, Hep Bs Antigen Negative, Hep B Core IgM Ab Negative, Hepatitis C Ab (EIA) 0.1 09/01/21 00:48: POC Glucose > 500 H* 09/01/21 01:04: Glucose 710 H* 09/01/21 03:36: POC Glucose > 500 H* 09/01/21 06:54: WBC 13.4 H, RBC 3.40 L, Hgb 11.1 L, Hct 34.0 L, MCV 100.0 H, MCH 32.6 H, MCHC 32.6, RDW Std Deviation 56.0 H, RDW Coeff of Danie 15.2 H, Plt Count 361, MPV 10.9, Immature Gran % (Auto) 0.900, Neut % (Auto) 80.0 H, Lymph % (Auto) 10.2 L, [place] % (Auto) 7.9, Eos % (Auto) 0.7, Baso % (Auto) 0.3, Absolute Neuts (auto) 10.7 H, Absolute Lymphs (auto) 1.36, Nucleated RBC % 0 09/01/21 06:54: Sodium 139, Potassium 3.4 L, Chloride 104, Carbon Dioxide 29.0, Anion Gap 6, BUN 18, Creatinine 0.69, Estim Creat Clear Calc 44.41, Est GFR (MDRD) Af Amer 113, Est GFR (MDRD) Non-Af 93, BUN/Creatinine Ratio 26.0 H, Glucose 291 H, Calcium 8.5, Phosphorus 2.3 L, Magnesium 1.7 09/01/21 06:56: POC Glucose 298 H 09/01/21 11:22: POC Glucose > 500 H* 09/01/21 11:29: POC Glucose > 500 H* 09/01/21 16:04: POC Glucose 324 H Micro: Microbiology 08/30/21 11:20 Nasal Secretion SARS-CoV-2 Antigen (Rapid) - Final Physical Exam Const alert General Appearance: cooperative Orientation / Consciousness: oriented to person HEENT hearing grossly normal bilaterally Head and Scalp: normal to inspection Face and Sinus: face symmetric Nose: external nose normal Mouth: oral and palatal mucosa normal Eyes conjunctivae normal General Eye: normal appearance of both eyes Neck full ROM General: normal visual inspection Lymph Lymphatic: no lymphadenopathy noted Chest inspection of chest normal and palpation of chest normal Chest: symmetrical chest wall rise Resp normal respiratory effort Effort and Inspection: able to speak in complete sentences Cardio regular rate GI non-distended Percussion: normal to percussion Rectal Exam: deferred Neuro Speech: speech normal Gait (Neuro): normal gait Assessment & Plan Assessment/Plan (1) Cachexia: PLAN: Cachexia is likely multifactorial. We are checking her for celiac disease, protein-losing enteropathy with alpha 1 antitrypsin. She should get a nutrition consult along with a prealbumin and urine urea nitrogen. 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 I am concerned that she has not had a colonoscopy and there is the possibility of an underlying malignancy in her lung or colon. As of now the patient does not want to have a colonoscopy. (2) Dysphagia: PLAN: Dysphagia secondary to severe esophageal candidiasis. She should be on nystatin swish and swallow x7 days and fluconazole x14 days (3) Transaminitis: PLAN: Severely elevated alkaline phosphatase. Differential diagnosis does include primary bili cirrhosis, severe vitamin D deficiency, COPD as alkaline phosphatase is made in the bile duct, bone, lungs and small bowel. Charges/Coding Visit Charges Inpatient E&M: 33706 Subs Hosp L3
[2021-09-01 22:00] LABS: Bedside Glucose 363 mg/dL (70-110)
[2021-09-02] VITALS (10 sets, daily range): BP systolic 109–145; BP diastolic 59–71; PULSE 89–113; RESP 16–18; TEMP 36.7–37.6; O2SAT 94–100
[2021-09-02] MEDS: levoFLOXacin 750 MG Tablet PO (06:17)
[2021-09-02 06:30] LABS: Absolute Neutrophil Count 9.3 X10^3/uL (2.0-7.7); Basophil# 0.06 X10^3/uL; Basophil% 0.5 % (0-1); Eosinophil# 0.13 X10^3/uL; Hematocrit 31.2 % (37-47); Hemoglobin 10.1 g/dL (12.0-15.0); Lymphocyte % 13.7 % (19-41); Mean Corp Hgb Conc 32.4 g/dL (32-36); Mean Corpuscular Hgb 31.9 pg (27.0-32.0); Mean Corpuscular Volume 98.4 fL (81-99); Mean Platelet Vol. 10.9 fl (6.2-12.0); Monocyte# 1.22 X10^3/uL; Monocyte% 9.8 % (0-10); NRBC Flagged by Analyzer 0 % (0-5); Neutrophil # 9.25 X10^3/uL (2.7-7.7); Neutrophil % 74.3 % (47-70); Platelet Count 350 K/mm3 (150-450); RBC Distribution Width CV 15.1 % (11.6-14.6); RBC Distribution Width SD 54.2 fl (35.1-43.9); Red Blood Count 3.17 M/mm3 (4.2-5.4); White Blood Count 12.5 K/mm3 (4.4-11.0)
[2021-09-02 06:36] LABS: Bedside Glucose 151 mg/dL (70-110)
[2021-09-02 07:11] LABS: ALB/GLOB Ratio 0.4 RATIO (0.9-2.4); AST(SGOT) 247 U/L (15-37); Alanine Aminotransfer ALT/SGPT 316 U/L (13-56); Albumin, Serum 1.8 g/dL (3.2-5.0); Alkaline Phosphatase 1064 U/L (45-117); Anion Gap 3 (5-15); BUN 20 mg/dL (7-18); Calcium,Total 8.2 mg/dL (8.5-10.1); Chloride 103 mmol/L (98-107); Creatinine, Serum 0.54 mg/dL (0.55-1.02); EST Glomerular Filtration Rate 124 mL/min (>60); Est Glom Filt Rate - Afr Amer 150 mL/min (>60); Estimated Creatinine Clearance 56.75 ml/min; Globulin 4.4 g/dL (2.2-4.2); Glucose 163 mg/dL (74-106); Potassium 3.7 mmol/L (3.5-5.1); Protein, Total 6.2 g/dL (6.4-8.2); Sodium Level 137 mmol/L (136-145)
[2021-09-02] MEDS: Fluconazole 100 MG Tablet PO (08:57)
[2021-09-02] MEDS: Enoxaparin 30 MG/0.3 ML Syringe SC (08:58)
[2021-09-02] MEDS: Insulin Lispro 100 UNIT/ML INSULN.PEN 10 UNIT SC ×3 (08:58→16:40)
[2021-09-02] MEDS: NYSTATIN 500,000 UNIT/5 ML UDC 500000 UNIT PO ×4 (08:58→20:44)
--- NOTE | 2021-09-02 09:31 | CASEMGMT ---
Addendum entered by Arpita Evangelista 09/02/21 13:30: Call back from [facility] and Margarita states that 3 of the 4 [facility]'s that she sent referral to have denied pt and she will let this RN CM know when she hears from the 4th. Referral faxed to [facility] and [facility] at this time. CM to follow. Alfredo STILL CM Addendum entered by Arpita Evangelista 09/02/21 10:29: Call from Nancy De La Cruz at [facility] and she states they do not have any nurses available in pt's area at this time. Alfredo RN YAMEL Addendum entered by Arpita Evangelista 09/02/21 09:59: Call from [facility] and they cannot take [facility] but will forward to their partners who do. CM to follow. Alfredo STILL CM Addendum entered by Arpita Evangelista 09/02/21 09:46: HHC referrals faxed to [facility], [facility], and [facility] for SN, PT/OT. CM to follow. Alfredo STILL CM Original Note: This RN CM to room and pt states no preference for [facility] as long as they are in-network. Pt was provided list but states did not pick any and doesn't care which company, 'as long as they come help me.' CM to fax referrals to [facility] and script for WW/shower chair/bench to [facility]. CM to follow. Alfredo STILL CM
[2021-09-02 11:07] LABS: CPK Total, Creatine Kinase 39 U/L (26-192)
[2021-09-02 11:41] LABS: Bedside Glucose 377 mg/dL (70-110)
[2021-09-02] MEDS: Insulin Lispro 100 UNIT/ML INSULN.PEN SC ×3 (12:14→22:18)
[2021-09-02 12:45] LABS: GGTP 687 U/L (5-55)
--- NOTE | 2021-09-02 14:12 | PN.HOSP_ITS ---
Subjective Subjective Doing well today, she is eating much better, denies any significant pain with swallowing Objective Data Objective Data Vital Signs: Vital Signs Temp Pulse Resp BP Pulse Ox 98.0 F 89 16 109/71 100 09/02/21 09:02 09/02/21 09:02 09/02/21 09:02 09/02/21 09:02 09/02/21 09:02 Oxygen Flow Rate (L/min) 2 Oxygen Delivery Method Room Air Weight: 68 lb 1.965 oz Body Mass Index (BMI) 12.4 Intake & Output: Intake and Output for Last 24 Hours 09/01/21 09/02/21 09/03/21 03:59 03:59 03:59 Intake Total 2561 / 2561 184 / 184 Balance 2561 / 2561 1840 / 1840 Medical Nutrition Assessment Dietitian: Malnutrition Criteria Met Start: 08/31/21 15:22 Freq: Status: Active Protocol: Document 08/31/21 15:23 SHEILA (Rec: 08/31/21 15:23 [facility] [id number]) Nutrition Malnutrition Evidence of Malnutrition Exists Yes Malnutrition (severe): Chronic Evidenced By Suboptimal Energy Intake ( Severe),Weight Loss (Severe), Physical Changes (Severe) Clinical Problem Chronic Disease or Condition Related Malnutrition Etiology related to COPD/ smoking addiction and issues swallowing foods making it difficult to consume adequate nutrition to meet est nutritional needs Signs/Symptoms as evidenced by <75% po intake and 47.6% wt loss in past year. Pt is cachectic with obvious fat/muscle loss w/ protruding bones -appears to be severely emaciated. Status Active Problem Recommendation Dietitian Recommendations/Changes Provide full liquid diet to advance as tolerated to Regular. Provide 8 oz ensure enlive ( farheen) w/ meals Provide fortified foods and ensure pudding or magic cup w/ meals. Lab / Micro Data Result Diagrams: 09/02/21 05:43 09/02/21 05:43 Labs: Laboratory Results - last 24 hr 08/30/21 11:20: Hepatitis A IgM Ab Negative, Hep Bs Antigen Negative, Hep B Core IgM Ab Negative, Hepatitis C Ab (EIA) 0.1 09/01/21 16:04: POC Glucose 324 H 09/01/21 20:31: POC Glucose 363 H 09/02/21 05:43: Sodium 137, Potassium 3.7, Chloride 103, Carbon Dioxide 31.0, Anion Gap 3 L, BUN 20 H, Creatinine 0.54 L, Estim Creat Clear Calc 56.75, Est GFR (MDRD) Af Amer 150, Est GFR (MDRD) Non-Af 124, BUN/Creatinine Ratio 37.0 H, Glucose 163 H, Calcium 8.2 L, Total Bilirubin 0.30, AST 247 H, ALT 316 H, Alkaline Phosphatase 1064 H, Total Protein 6.2 L, Albumin 1.8 L, Globulin 4.4 H, Albumin/Globulin Ratio 0.4 L 09/02/21 05:43: WBC 12.5 H, RBC 3.17 L, Hgb 10.1 L, Hct 31.2 L, MCV 98.4, MCH 31.9, MCHC 32.4, RDW Std Deviation 54.2 H, RDW Coeff of Danie 15.1 H, Plt Count 350, MPV 10.9, Immature Gran % (Auto) 0.700, Neut % (Auto) 74.3 H, Lymph % (Au to) 13.7 L, [place] % (Auto) 9.8, Eos % (Auto) 1.0, Baso % (Auto) 0.5, Absolute Neuts (auto) 9.3 H, Absolute Lymphs (auto) 1.70, Nucleated RBC % 0 09/02/21 05:43: Total Creatine Kinase 39 09/02/21 05:43: GGT 687 H 09/02/21 06:13: POC Glucose 151 H 09/02/21 11:36: POC Glucose 377 H Micro: Microbiology 08/30/21 11:20 Nasal Secretion SARS-CoV-2 Antigen (Rapid) - Final Physical Exam Narrative Const alert, oriented x3 and no apparent distress General Appearance: cooperative Nutritional Appearance: cachectic HEENT normocephalic and moist oral mucous membranes Eyes PERRL, EOMs intact bilaterally and conjunctivae normal Neck supple and no JVD Resp normal respiratory effort, no retractions, no use of accessory muscles and clear to auscultation bilaterally Auscultation: diminished lung sounds; Negative for crackles, rales, rhonchi or wheezes Cardio regular rate, regular rhythm, S1 normal heart sound, S2 normal heart sound and no murmurs GI soft to palpation, non-tender and non-distended; Negative for hepatosplenomegaly Extremity no clubbing, cyanosis or edema Skin no rashes or lesions noted Neuro no focal motor deficits and no sensory deficits noted Psych affect normal Appearance: appropriate Assessment & Plan Assessment/Plan (1) Hypoglycemia: (2) Acute hypokalemia: (3) Transaminitis: PLAN: #Acute metabolic encephalopathy due to hypoglycemia/candidal es ophagitis/possible community-acquired pneumonia * Patient admits to not eating and drinking well recently but still taking her insulin. Was noted to be profoundly hypoglycemic when the EMS arrived with blood sugar in the 20s. * Discontinued D5 normal saline * Consult risk control field representative and salesperson pets and pet supplies. * Encephalopathy has resolved, will advance her diet and lift any carb controlled restrictions * EGD 08/31/2021 with a dilation of a Schatzki's ring, biopsied white plaques consistent with candidal esophagitis * Will start on p.o. Diflucan as well as nystatin swish and swallow * Continue with Levaquin #Hypokalemia: We will monitor and replace as well as replacing any magnesium and phosphorus that might be low #Transaminitis * Liver enzymes markedly deranged and shows an obstructive pattern. However total bilirubin is not elevated. CT of the abdomen and pelvis showed a 3 cm irregular heterogeneous density versus mass in the right middle lobe of the lung which is new since previous exam * She does have pneumobilia but this appears to be a chronic finding with a nontender abdomen * CT of the chest confirmed CT of the abdomen and pelvis finding * GI consulted in light of abnormal liver enzymes, patient;s complaint of dysphagia and remarkable weight loss. * spoke to Dr Friend * Will start on Levaquin given her history of COPD the possibility of a pneumonia especially given her elevated white count as well as findings on CT scan #Severe protein calorie malnutrition * Patient's BMI is only 12 and she weighs only 68 pounds. She admits to profound weight loss but cannot give a time period Within which she has lost so much weight. * GI consulted. * consult nutrition. #Type 2 diabetes mellitus: She will restart on insulin secondary to episodes of hypoglycemia now that she is eating. A1c in 2019 was 15.5 #Hypertension: On lisinopril #Depression: on sertraline DVT: lovenox Charges/Coding Visit Charges Inpatient E&M: 85663 Subs Hosp L2
[2021-09-02 16:45] LABS: Bedside Glucose 437 mg/dL (70-110)
[2021-09-02 17:55] LABS: Hemoglobin A1c > 14.0 % (3.8-5.6)
[2021-09-02 22:35] LABS: Bedside Glucose 397 mg/dL (70-110)
[2021-09-03] VITALS (8 sets, daily range): BP systolic 116–126; BP diastolic 55–65; PULSE 93–112; RESP 16–20; TEMP 37.1–37.5; O2SAT 93–100
[2021-09-03] MEDS: oxyCODONE 5 MG Tablet PO ×2 (01:22→21:07)
[2021-09-03] MEDS: levoFLOXacin 750 MG Tablet PO (06:53)
[2021-09-03 06:55] LABS: Bedside Glucose 223 mg/dL (70-110)
[2021-09-03 07:33] LABS: Absolute Lymphocyte Count 1.79 X10^3/uL (0.83-4.51); Absolute Neutrophil Count 8.8 X10^3/uL (2.0-7.7); Basophil# 0.09 X10^3/uL; Basophil% 0.7 % (0-1); Eosinophil# 0.09 X10^3/uL; Eosinophils% 0.7 % (0-5); Hematocrit 32.9 % (37-47); Hemoglobin 10.4 g/dL (12.0-15.0); Lymphocyte # 1.79 X10^3/ul (0.83-4.51); Lymphocyte % 14.5 % (19-41); Mean Corp Hgb Conc 31.6 g/dL (32-36); Mean Corpuscular Hgb 31.4 pg (27.0-32.0); Mean Corpuscular Volume 99.4 fL (81-99); Mean Platelet Vol. 10.7 fl (6.2-12.0); Monocyte# 1.47 X10^3/uL; Monocyte% 11.9 % (0-10); NRBC Flagged by Analyzer 0 % (0-5); Neutrophil % 71.1 % (47-70); Platelet Count 359 K/mm3 (150-450); RBC Distribution Width CV 15.3 % (11.6-14.6); RBC Distribution Width SD 56.2 fl (35.1-43.9); Red Blood Count 3.31 M/mm3 (4.2-5.4); White Blood Count 12.4 K/mm3 (4.4-11.0)
[2021-09-03 07:58] LABS: Anion Gap 4 (5-15); BUN 23 mg/dL (7-18); BUN/Creat Ratio 33.7 RATIO (10-20); Chloride 103 mmol/L (98-107); Creatinine, Serum 0.68 mg/dL (0.55-1.02); EST Glomerular Filtration Rate 95 mL/min (>60); Est Glom Filt Rate - Afr Amer 115 mL/min (>60); Estimated Creatinine Clearance 50.75 ml/min; Glucose 215 mg/dL (74-106); Magnesium 1.7 mg/dL (1.6-2.6); Potassium 3.7 mmol/L (3.5-5.1); Sodium Level 138 mmol/L (136-145)
[2021-09-03 08:13] LABS: Phosphorus 2.1 mg/dL (2.5-4.9)
[2021-09-03] MEDS: Insulin Lispro 100 UNIT/ML INSULN.PEN 10 UNIT SC ×2 (08:17→11:42)
[2021-09-03] MEDS: Insulin Lispro 100 UNIT/ML INSULN.PEN SC ×3 (08:17→21:08)
[2021-09-03] MEDS: Enoxaparin 30 MG/0.3 ML Syringe SC (08:17)
[2021-09-03] MEDS: Fluconazole 100 MG Tablet PO (08:18)
[2021-09-03] MEDS: NYSTATIN 500,000 UNIT/5 ML UDC 500000 UNIT PO ×4 (08:18→21:28)
--- NOTE | 2021-09-03 11:38 | CASEMGMT ---
Addendum entered by Arpita Evangelista 09/03/21 14:20: CC updated to cancel referral, voices understanding. Alfredo STILL CM Addendum entered by Arpita Evangelista 09/03/21 11:52: [facility] updated pt is now set up with [facility], voices understanding. Alfredo STILL CM Original Note: This RN YAMEL never received calls back from [facility], [facility] or [facility]. Call to [facility] and they state they will call this RN YAMEL back once they review referal that was faxed yesterday. Call to [facility] and after reviewing referral, she states she can accept pt and aware that pt to discharge today. D/C summ/instructions to be faxed to [facility] once obtained. Alfredo STILL CM
[2021-09-03 11:50] LABS: Bedside Glucose 198 mg/dL (70-110)
--- NOTE | 2021-09-03 12:08 | CASEMGMT ---
This RN CM to room to update pt on HHC and pt now states she is not sure that she should go back to living with [id number] because her ex- barely talks to her for 15min/day and 'if you knew how mean she is to me(meaning her [id number]).' Pt states has 3 children but 'they are all pieces of shit and they don't even act like I exist.' This RN CM asks pt where else she could go and pt states 'I don't have anyone or anywhere else to go.' RN CM advised pt that she needs to be at a residence for HHC to be set up, voices understanding. Pt asks about possible shelters and Erika COLLNIS updated, voices understanding. CM to follow. SStaten TESSY MONTESINOS
--- NOTE | 2021-09-03 12:44 | CASEMGMT ---
Per RN CM patient is stating she does not want to go back to where she was living. She did not know where she was going to go. SW met with patient, introduced self and role at [facility]. SW asked patient if she would like phone numbers for [facility] and [facility]. She said she would like the numbers. SW gave both numbers to her and told her she will have to call them. SW will check back in a bit. Selma DOWD
--- NOTE | 2021-09-03 14:32 | DCINST_ITS ---
Discharge Instructions Diet Discharge Diet: Carb Control Diet Activity Discharge Activity: Return to Normal Activity Dressing / Incision Call your doctor if you observe: Fever of 101 or Higher, Shortness of breath, Dizziness, Fainting spells, Swelling in the ankles, Chest pain and Increased palpitations (irregular heartbeat) Follow Up Care Test Results: Test results from this visit will be discussed in further detail at your follow-up appointment, if applicable. Discharge Plan Admission Admit Date/Time: 08/30/21 11:53 Attending Provider: Nikos Padron Primary Care Provider: Lise Garcia NP Discharge Orders/Prescriptions Prescriptions: New fluconazole 100 mg Tablet 100 mg PO DAILY Qty: 10 RF: 0 nystatin 100,000 unit/mL Suspension 500,000 unit PO 4X/DAY 3 Days Qty: 60 RF: 0 levofloxacin 750 mg Tablet 750 mg PO DAILY@0600 Qty: 3 RF: 0 Continued acetaminophen 325 MG tablet 650 mg PO Q6H PRN PRN (Reason: Mild Pain (1-3)/Temp > 100.7 F) RF: 0 nut.tx.gluc.intol,lac-free,soy 120 ML liquid 120 ml PO 4X/DAY Qty: 120 RF: 0 insulin lispro 100 UNIT/ML insulin pen 5 unit subcut TIDAC Qty: 1 RF: 0 insulin glargine 100 UNITS/ML insulin pen 40 units subcut DAILY Qty: 1 RF: 0 lisinopril 10 mg tablet 10 mg PO DAILY RF: 0 albuterol sulfate 90 mcg/actuation HFA aerosol inhaler 1 - 2 puff INHALATION Q6H PRN PRN (Reason: wheezing) RF: 0 sertraline 50 mg tablet 50 mg PO DAILY RF: 0 Jardiance 25 mg tablet 25 mg PO DAILY RF: 0 Referrals / Follow Up: Klever Carrasco DO [STAFF PHYSICIAN] - Within 2 Weeks Lise Garcia NP, [employer] [Primary Care Provider] - Within 1 Week Disposition Disposition (needs filled in before D/C Order can be placed): Home Health Service
--- NOTE | 2021-09-03 14:52 | PCM.DC.SUM ---
Providers Date of Admission: 08/30/21 Primary Care Physician: TINO De La Cruz Consultations 08/30/21 14:42 Consult: Gastroenterology Routine Consulting Provider: Teressa Gastroenterology Reason for Consult: elevated liver enzymes, CT abdomen shows 3 irregular densities in liver EMERGENT Consult: No MD Notified: Yes Date Notified: 08/30/21 Time Notified: 14:42 Method of Notification: Text Reason For Visit: HYPOGLYCEMIA, HYPOKALEMIA, TRANSAMINITIS Diagnosis Discharge Diagnosis (1) Hypoglycemia: Status: Acute Code(s): E16.2 - Hypoglycemia, unspecified (2) Acute hypokalemia: Status: Acute Code(s): E87.6 - Hypokalemia (3) Transaminitis: Status: Acute Code(s): R74.01 - Elevation of levels of liver transaminase levels Medications at Discharge Home Medications acetaminophen 650 mg PO Q6H PRN PRN tab 02/08/19 insulin glargine 40 units SUBCUT DAILY #1 pen 02/08/19 insulin lispro 5 unit SUBCUT TIDAC #1 insuln.pen 02/08/19 nut.tx.gluc.intol,lac-free,soy 120 ml PO 4X/DAY #120 liquid 02/08/19 Jardiance 25 mg PO DAILY 08/30/21 albuterol sulfate 1 - 2 puff INHALATION Q6H PRN PRN 08/30/21 lisinopril 10 mg PO DAILY 08/30/21 sertraline 50 mg PO DAILY 08/30/21 fluconazole 100 mg PO DAILY #10 tab 09/03/21 levofloxacin 750 mg PO DAILY@0600 #3 tab 09/03/21 nystatin 500,000 unit PO 4X/DAY 3 Days #60 ml 09/03/21 Hospital Course Operations None Procedures EGD Summary of Care Provided Minutes Spent on Discharge: 37 Hospital Course: Per HPI: SARWAT LEY, is a 56 F with a PMH as outlined who presented via the ED on 08/30/2021 with a complaint of altered mental status. Her family couldnt wake her up this morning, so EMS was called and she was found to be hypoglycemic, with blood sugar down in the 20s. She admitted to a significant weight loss in the last few months. She said she has also been having some pain with eating, and feels like food gets stuck in her throat. Review of systems otherwise negative. Vitals were BP of 143/56, GA of 87, RR of 16 and temp of 98.7F, wth her saturating at 99% on room air. CBC showed hemoglobin of 11.2 with WBC of 20.2 and platelets of 392. Chemistry showed sodium of 142 with potassium of 2.7 and creatinine of 0.6 with AST of 114, ALT of 286 and ALP of 1139. Hepatitis panel was ordered and was pending at time of discharge. She was given 50% dextrose, but blood sugars didn come up and she remained unresponsive. She was brought in to the ED, and she started being more responsive. She was started on D5 normal saline in the ED and she was able to eat a good meal in the ED as well. She has been admitted to be managed for hypoglycemia likely due to insulin use as well as patient not eating much as well as abnormal liver enzymes. Of note, I requested the ED physician to do a CT of the abdomen and pelvis in light of elevated liver enzymes and this showed irregular right lung middle lobe density which could reflect atelectasis and tumor could not be excluded. She also had pneumobilia which was unchanged and nonspecific fluid-filled small bowel loops without evidence of bowel obstruction. She has been admitted and managed for hypoglycemia as well as elevated liver enzymes with a possible liver mass. Hospital Course: #Acute metabolic encephalopathy due to hypoglycemia/candidal esophagitis/possible community-acquired pneumonia Patient admits to not eating and drinking well recently but still taking her insulin. Was noted to be profoundly hypoglycemic when the EMS arrived with blood sugar in the 20s. Discontinued D5 normal saline Consult healthcare educator and applied anthropologist. Encephalopathy has resolved, will advance her diet and lift any carb controlled restrictions EGD 08/31/2021 with a dilation of a Schatzki's ring, biopsied white plaques consistent with candidal esophagitis Will start on p.o. Diflucan as well as nystatin swish and swallow Continue with Levaquin 09/03/2021: We will continue with Diflucan for another 10 days secondary to her esophageal candidiasis as well as nystatin swish and swallow for another 3 days. We will also continue her Levaquin for the possible community-acquired pneumonia though we do not have any culture data, but given her COPD history, will continue with Levaquin for another 3 days to complete a total course of 7 days. I discussed with her the plan for discharge today she expressed understanding the risk benefits of going home and would like to go home today. #Hypokalemia: We will monitor and replace as well as replacing any magnesium and phosphorus that might be low #Transaminitis Liver enzymes markedly deranged and shows an obstructive pattern. However total bilirubin is not elevated. CT of the abdomen and pelvis showed a 3 cm irregular heterogeneous density versus mass in the right middle lobe of the lung which is new since previous exam She does have pneumobilia but this appears to be a chronic finding with a nontender abdomen CT of the chest confirmed CT of the abdomen and pelvis finding GI consulted in light of abnormal liver enzymes, patient;s complaint of dysphagia and remarkable weight loss. spoke to Dr Friend 09/03/2021: She will need to follow-up with gastroenterology as an outpatient for her abnormal liver function tests at this time she is feeling much better and tolerating a diet and denies any abdominal pain #Severe protein calorie malnutrition Patient's BMI is only 12 and she weighs only 68 pounds. She admits to profound weight loss but cannot give a time period Within which she has lost so much weight. GI consulted. consult nutrition. #Type 2 diabetes mellitus: She will restart on insulin secondary to episodes of hypoglycemia now that she is eating. A1c in 2019 was 15.5, currently greater than 14. We will resume her home insulin regiment and encourage a carb controlled diet with appropriate monitoring. I do recommend that she follow-up with her manager client service as an outpatient #Hypertension: On lisinopril #Depression: on sertraline Physical Exam Narrative Const alert, oriented x3 and no apparent distress General Appearance: cooperative Nutritional Appearance: cachectic HEENT normocephalic and moist oral mucous membranes Eyes PERRL, EOMs intact bilaterally and conjunctivae normal Neck supple and no JVD Resp normal respiratory effort, no retractions, no use of accessory muscles and clear to auscultation bilaterally Auscultation: diminished lung sounds; Negative for crackles, rales, rhonchi or wheezes Cardio regular rate, regular rhythm, S1 normal heart sound, S2 normal heart sound and no murmurs GI soft to palpation, non-tender and non-distended; Negative for hepatosplenomegaly Extremity no clubbing, cyanosis or edema Skin no rashes or lesions noted Neuro no focal motor deficits and no sensory deficits noted Psych affect normal Appearance: appropriate Medical Records Data Medical Nutrition Assessment Dietitian: Malnutrition Criteria Met Start: 08/31/21 15:22 Freq: Status: Active Protocol: Document 09/02/21 15:39 (Rec: 09/02/21 15:39 [id number]) Nutrition Malnutrition Evidence of Malnutrition Exists Yes Malnutrition (severe): Chronic Evidenced By Suboptimal Energy Intake ( Severe),Physical Changes ( Severe) Clinical Problem Chronic Disease or Condition Related Malnutrition Etiology severe, chronic malnutrition r /t inadequate energy intake d/ t esophageal stricture w/ increased nutrient needs d/t COPD Signs/Symptoms as evidenced by severe muscle wasting/fat loss upon physical exam, estimated PO intake meeting <75% of estimated energy needs >3 months, BMI 12 .5 Status Active Problem Recommendation Dietitian Recommendations/Changes Regular diet w/ fortified foods; will limit to 4 CHO servings/meal in effort to improve glycemic control. Will continue Ensure 8oz w/ breakfast and dinner; will offer smoothie, magic cup, or ensure pudding at lunch. Significant risk for refeeding syndrome given severe malnutrition. Will continue to monitor electrolytes. Weight / BMI Weight Weight: 76 lb 11.534 oz Body Mass Index (BMI) 12.4 ABG / Lab / Microbiology Data Result Diagrams: 09/03/21 07:07 09/03/21 07:07 Laboratory: Laboratory Results - last 24 hr 09/02/21 05:43: Hemoglobin A1c > 14.0 H 09/02/21 16:25: POC Glucose 437 H 09/02/21 22:13: POC Glucose 397 H 09/03/21 06:49: POC Glucose 223 H 09/03/21 07:07: WBC 12.4 H, RBC 3.31 L, Hgb 10.4 L, Hct 32.9 L, MCV 99.4 H, MCH 31.4, MCHC 31.6 L, RDW Std Deviation 56.2 H, RDW Coeff of Danie 15.3 H, Plt Count 359, MPV 10.7, Immature Gran % (Auto) 1.100 H, Neut % (Auto) 71.1 H, Lymph % (Auto) 14.5 L, [place] % (Auto) 11.9 H, Eos % (Auto) 0.7, Baso % (Auto) 0.7, Absolute Neuts (auto) 8.8 H, Absolute Lymphs (auto) 1.79, Nucleated RBC % 0 09/03/21 07:07: Sodium 138, Potassium 3.7, Chloride 103, Carbon Dioxide 31.0, Anion Gap 4 L, BUN 23 H, Creatinine 0.68, Estim Creat Clear Calc 50.75, Est GFR (MDRD) Af Amer 115, Est GFR (MDRD) Non-Af 95, BUN/Creatinine Ratio 33.7 H, Glucose 215 H, Calcium 8.0 L, Magnesium 1.7 09/03/21 07:07: Phosphorus 2.1 L 09/03/21 11:40: POC Glucose 198 H Microbiology: Microbiology 08/30/21 11:20 Nasal Secretion SARS-CoV-2 Antigen (Rapid) - Final D/C Instructions Discharge Diet: Carb Control Diet Call your doctor if you observe: Fever of 101 or Higher, Shortness of breath, Dizziness, Fainting spells, Swelling in the ankles, Chest pain and Increased palpitations (irregular heartbeat) Meaningful Use Info Meaningful Use Diagnoses (Choose all that apply): None applicable Discharge Plan Admission Admit Date/Time: 08/30/21 11:53 Attending Provider: Nikos Padron Primary Care Provider: Lise Garcia NP Discharge Orders/Prescriptions Prescriptions: New fluconazole 100 mg Tablet 100 mg PO DAILY Qty: 10 RF: 0 nystatin 100,000 unit/mL Suspension 500,000 unit PO 4X/DAY 3 Days Qty: 60 RF: 0 levofloxacin 750 mg Tablet 750 mg PO DAILY@0600 Qty: 3 RF: 0 Continued acetaminophen 325 MG tablet 650 mg PO Q6H PRN PRN (Reason: Mild Pain (1-3)/Temp > 100.7 F) RF: 0 nut.tx.gluc.intol,lac-free,soy 120 ML liquid 120 ml PO 4X/DAY Qty: 120 RF: 0 insulin lispro 100 UNIT/ML insulin pen 5 unit subcut TIDAC Qty: 1 RF: 0 insulin glargine 100 UNITS/ML insulin pen 40 units subcut DAILY Qty: 1 RF: 0 lisinopril 10 mg tablet 10 mg PO DAILY RF: 0 albuterol sulfate 90 mcg/actuation HFA aerosol inhaler 1 - 2 puff INHALATION Q6H PRN PRN (Reason: wheezing) RF: 0 sertraline 50 mg tablet 50 mg PO DAILY RF: 0 Jardiance 25 mg tablet 25 mg PO DAILY RF: 0 Referrals / Follow Up: Klever Carrasco DO [STAFF PHYSICIAN] - Within 2 Weeks Lise Garcia NP, HEARING THERAPIST-C [Primary Care Provider] - Within 1 Week Disposition Disposition (needs filled in before D/C Order can be placed): Home Health Service Charges/Coding Visit Charges Inpatient E&M: 58791 Disch Hosp
--- NOTE | 2021-09-03 15:04 | CASEMGMT ---
SW has checked back in with patient several times now. Patient asked for hotels in the area and a number for [employer]. SW gave her names, addresses, and phone numbers for 4 local hotels. SW also gave her the phone number for [employer]. SW checked back with patient. Patient cannot get a hold of any of her family members to come and get her. She left voice mails. SW asked patient if she wanted to take a cab. Patient said she does not have any money with her. SW encouraged patient to call [facility] as they are connected with [facility] and they have a housing program. SW will check back again. Selma DOWD
--- NOTE | 2021-09-03 15:57 | PN.HOSP_ITS ---
Subjective Subjective Doing well, no issues overnight Objective Data Objective Data Vital Signs: Vital Signs Temp Pulse Resp BP Pulse Ox 99.1 F 101 H 18 126/65 H 95 09/03/21 14:00 09/03/21 14:59 09/03/21 14:00 09/03/21 14:00 09/03/21 14:00 Oxygen Flow Rate (L/min) 2 Oxygen Delivery Method Room Air Weight: 76 lb 11.534 oz Body Mass Index (BMI) 12.4 Intake & Output: Intake and Output for Last 24 Hours 09/02/21 09/03/21 09/04/21 03:59 03:59 03:59 Intake Total 1841 / 1841 1200 / 1200 Balance 1841 / 1841 1200 / 1200 Medical Nutrition Assessment Dietitian: Malnutrition Criteria Met Start: 08/31/21 15:22 Freq: Status: Active Protocol: Document 09/02/21 15:39 AG (Rec: 09/02/21 15:39 AG [id number]) Nutrition Malnutrition Evidence of Malnutrition Exists Yes Malnutrition (severe): Chronic Evidenced By Suboptimal Energy Intake ( Severe),Physical Changes ( Severe) Clinical Problem Chronic Disease or Condition Related Malnutrition Etiology severe, chronic malnutrition r /t inadequate energy intake d/ t esophageal stricture w/ increased nutrient needs d/t COPD Signs/Symptoms as evidenced by severe muscle wasting/fat loss upon physical exam, estimated PO intake meeting <75% of estimated energy needs >3 months, BMI 12 .5 Status Active Problem Recommendation Dietitian Recommendations/Changes Regular diet w/ fortified foods; will limit to 4 CHO servings/meal in effort to improve glycemic control. Will continue Ensure 8oz w/ breakfast and dinner; will offer smoothie, magic cup, or ensure pudding at lunch. Significant risk for refeeding syndrome given severe malnutrition. Will continue to monitor electrolytes. Lab / Micro Data Result Diagrams: 09/03/21 07:07 09/03/21 07:07 Labs: Laboratory Results - last 24 hr 09/02/21 05:43: Hemoglobin A1c > 14.0 H 09/02/21 16:25: POC Glucose 437 H 09/02/21 22:13: POC Glucose 397 H 09/03/21 06:49: POC Glucose 223 H 09/03/21 07:07: WBC 12.4 H, RBC 3.31 L, Hgb 10.4 L, Hct 32.9 L, MCV 99.4 H, MCH 31.4, MCHC 31.6 L, RDW Std Deviation 56.2 H, RDW Coeff of Danie 15.3 H, Plt Count 359, MPV 10.7, Immature Gran % (Auto) 1.100 H, Neut % (Auto) 71.1 H, Lymph % (Auto) 14.5 L, [place] % (Auto) 11.9 H, Eos % (Auto) 0.7, Baso % (Auto) 0.7, Abs olute Neuts (auto) 8.8 H, Absolute Lymphs (auto) 1.79, Nucleated RBC % 0 09/03/21 07:07: Sodium 138, Potassium 3.7, Chloride 103, Carbon Dioxide 31.0, Anion Gap 4 L, BUN 23 H, Creatinine 0.68, Estim Creat Clear Calc 50.75, Est GFR (MDRD) Af Amer 115, Est GFR (MDRD) Non-Af 95, BUN/Creatinine Ratio 33.7 H, Glucose 215 H, Calcium 8.0 L, Magnesium 1.7 09/03/21 07:07: Phosphorus 2.1 L 09/03/21 11:40: POC Glucose 198 H Micro: Microbiology 08/30/21 11:20 Nasal Secretion SARS-CoV-2 Antigen (Rapid) - Final Physical Exam Narrative Const alert, oriented x3 and no apparent distress General Appearance: cooperative Nutritional Appearance: cachectic HEENT normocephalic and moist oral mucous membranes Eyes PERRL, EOMs intact bilaterally and conjunctivae normal Neck supple and no JVD Resp normal respiratory effort, no retractions, no use of accessory muscles and clear to auscultation bilaterally Auscultation: diminished lung sounds; Negative for crackles, rales, rhonchi or wheezes Cardio regular rate, regular rhythm, S1 normal heart sound, S2 normal heart sound and no murmurs GI soft to palpation, non-tender and non-distended; Negative for hepatosplenomegaly Extremity no clubbing, cyanosis or edema Skin no rashes or lesions noted Neuro no focal motor deficits and no sensory deficits noted Psych affect normal Appearance: appropriate Assessment & Plan Assessment/Plan (1) Hypoglycemia: (2) Acute hypokalemia: (3) Transaminitis: PLAN: #Acute metabolic encephalopathy due to hypoglycemia/candidal esophagitis/possib le community-acquired pneumonia * Patient admits to not eating and drinking well recently but still taking her insulin. Was noted to be profoundly hypoglycemic when the EMS arrived with blood sugar in the 20s. * Discontinued D5 normal saline * Consult informatics educator and debt collector. * Encephalopathy has resolved, will advance her diet and lift any carb controlled restrictions * EGD 08/31/2021 with a dilation of a Schatzki's ring, biopsied white plaques consistent with candidal esophagitis * Will start on p.o. Diflucan as well as nystatin swish and swallow * Continue with Levaquin #Hypokalemia: We will monitor and replace as well as replacing any magnesium and phosphorus that might be low #Transaminitis * Liver enzymes markedly deranged and shows an obstructive pattern. However total bilirubin is not elevated. CT of the abdomen and pelvis showed a 3 cm irregular heterogeneous density versus mass in the right middle lobe of the lung which is new since previous exam * She does have pneumobilia but this appears to be a chronic finding with a nontender abdomen * CT of the chest confirmed CT of the abdomen and pelvis finding * GI consulted in light of abnormal liver enzymes, patient;s complaint of dysphagia and remarkable weight loss. * spoke to Dr Friend #Severe protein calorie malnutrition * Patient's BMI is only 12 and she weighs only 68 pounds. She admits to profound weight loss but cannot give a time period Within which she has lost so much weight. * GI consulted. * consult nutrition. #Type 2 diabetes mellitus: She will restart on insulin secondary to episodes of hypoglycemia now that she is eating. A1c in 2019 was 15.5 #Hypertension: On lisinopril #Depression: on sertraline DVT: lovenox Charges/Coding Visit Charges Inpatient E&M: 28765 Subs Hosp L2
--- NOTE | 2021-09-03 15:58 | CASEMGMT ---
Call to [facility] to notify that pt will not be leaving today, voices understanding. Alfredo STILL CM
--- NOTE | 2021-09-03 16:02 | CASEMGMT ---
SW spoke with patient and she agreed to call [facility]. SW assisted patient in calling [facility]. They asked SW to call back in 15 minutes. SW spoke with patient a little more. She was tearful. Patient states she feels weak. Patient wants to be stronger mentally and physically so she can be on her own. SW asked patient if she feels like harming herself or any thoughts of suicide. Patient stated, Not right now. When asked when was the last time she had these thoughts patient said they come and go. Patient has had these thoughts off and on since she was 14 years old. Patient said she used to have her sons, but she doesn't have them anymore. Patient again brought up that she wants to get stronger. SW asked patient about going to a senior care. Patient was hesitant then she said she would try. SW asked patient if she knows where she would want to go. Patient did not know. SW went over the list with patient and she was agreeable to try [facility]. KARINA called Katt with both of these facilities and left her a message to call SW back. Selma Lee HVAC TECHNICIAN RESIDENTIAL NILE
--- NOTE | 2021-09-03 16:42 | CASEMGMT ---
KARINA called Katt back and she is still meeting with someone. KARINA did fax referral. KARINA will follow up in the am. Selma DOWD
[2021-09-03 17:16] LABS: Bedside Glucose 138 mg/dL (70-110)
[2021-09-03 21:21] LABS: Bedside Glucose 406 mg/dL (70-110)
[2021-09-04] MEDS: oxyCODONE 5 MG Tablet PO (01:23)
[2021-09-04] MEDS: Ondansetron 4 MG/2 ML Vial IV (01:38)
[2021-09-04 01:45] LABS: Bedside Glucose 320 mg/dL (70-110)
--- NOTE | 2021-09-04 01:45 | NURSING ---
DIRECTOR OF USER EXPERIENCE notified this RN that pt stated she couldn't breathe. Pt is sitting up in bed, pt appears anxious. Oxygen saturation 98% on RA. Pt then says my jaw feels like it's going to fall off. Neuro assessment negative, vital signs WNL. PRN oxycodone given. Pt states she feels like she's going to throw up. IV zofran given, cool washcloth provided, hot tea provided. Pt is stable at this time.
[2021-09-04 02:47] VITALS: BP 98/64; PULSE 100; RESP 18; TEMP 37.3; O2SAT 96
[2021-09-04 05:38] LABS: Magnesium 1.6 mg/dL (1.6-2.6); Phosphorus 2.9 mg/dL (2.5-4.9)
[2021-09-04] MEDS: levoFLOXacin 750 MG Tablet PO (06:42)
[2021-09-04 07:39] VITALS: BP 118/54; PULSE 94; RESP 16; TEMP 37.1; O2SAT 97
[2021-09-04] MEDS: Insulin Lispro 100 UNIT/ML INSULN.PEN 10 UNIT SC ×2 (07:42→16:01)
[2021-09-04] MEDS: Insulin Lispro 100 UNIT/ML INSULN.PEN SC ×3 (07:42→21:09)
[2021-09-04 07:46] LABS: Bedside Glucose 187 mg/dL (70-110)
[2021-09-04] MEDS: Fluconazole 100 MG Tablet PO (09:14)
[2021-09-04] MEDS: Enoxaparin 30 MG/0.3 ML Syringe SC (09:14)
[2021-09-04] MEDS: NYSTATIN 500,000 UNIT/5 ML UDC 500000 UNIT PO ×2 (09:14→21:11)
--- NOTE | 2021-09-04 09:35 | CASEMGMT ---
KARINA spoke with Katt from [facility]. Katt said they can take patient at either place, however patient smokes. She can smoke at [facility], but not [facility]. Katt said that because patient's therapy notes are not that bad she would prefer to get insurance authorization. Katt will start the pre-cert now. SW went to patient's room. She was sitting in the chair. Patient asked KARINA to come back after she has had her breakfast. Selma DOWD
--- NOTE | 2021-09-04 10:48 | CASEMGMT ---
SW spoke with patient letting her know that [facility] can take her and they allow smoking. Patient was happy about that. SW let patient know that her insurance has to approve her first. SW will let her know when SW hears more information. Selma Lee BUSSER NILE
[2021-09-04 10:50] LABS: Bedside Glucose 108 mg/dL (70-110)
--- NOTE | 2021-09-04 12:14 | CASEMGMT ---
Addendum entered by Selma Lee 09/04/21 14:39: SW called [facility]. Their regular usp is not accepting patients right now as they had a COVID outbreak. Their emergency usp is open tonight from 6p to Tuesday. Individuals can be at the usp from 6p to 8a the next day. They must leave at 8a and can return 6p that evening. They do get fed a couple of meals. The entrance is on [facility]. Selma DOWD Original Note: KARINA spoke with patient and let her know that if her insurance denies her to go to a shelter she will need to have a back up plan. Patient said she would go to [facility]. KARINA will check in with [facility] regarding the usp. Selma DOWD
[2021-09-04 14:21] VITALS: BP 123/65; PULSE 86; RESP 16; TEMP 36.6; O2SAT 97
--- NOTE | 2021-09-04 16:06 | CASEMGMT ---
Call to [facility] to cancel referral for pt at this time as she will either go to SNF or assisted and not be able to have [facility] set up. Alfredo STILL CM
[2021-09-04 16:10] LABS: Bedside Glucose 464 mg/dL (70-110)
--- NOTE | 2021-09-04 16:49 | CASEMGMT ---
KARINA called Katt at [facility] and left her a voice mail. KARINA then notified patient that we have not heard from insurance. KARINA let patient know that it is possible to get a response tomorrow, but if not SW will see her on Tuesday. Green sheet is on patient's chart in the even Katt from [facility] calls and has approval. Plan: [facility] pending pre-cert. Selma DOWD
--- NOTE | 2021-09-04 17:06 | PN.HOSP_ITS ---
Subjective Subjective Doing well today, no issues overnight. She is eating and gaining some weight we will be adjusting her insulin. Objective Data Objective Data Vital Signs: Vital Signs Temp Pulse Resp BP Pulse Ox 97.8 F 86 16 123/65 H 97 09/04/21 14:21 09/04/21 14:21 09/04/21 14:21 09/04/21 14:21 09/04/21 14:21 Oxygen Flow Rate (L/min) 2 Oxygen Delivery Method Room Air Weight: 80 lb 0.445 oz Body Mass Index (BMI) 12.4 Intake & Output: Intake and Output for Last 24 Hours 09/03/21 09/04/21 09/05/21 03:59 03:59 03:59 Intake Total 1200 / 1200 754 / 754 Balance 1200 / 1200 754 / 754 Medical Nutrition Assessment Dietitian: Malnutrition Criteria Met Start: 08/31/21 15:22 Freq: Status: Active Protocol: Document 09/04/21 13:22 SHEILA (Rec: 09/04/21 13:22 SHEILA [id number]) Nutrition Malnutrition Evidence of Malnutrition Exists Yes Malnutrition (severe): Chronic Evidenced By Suboptimal Energy Intake ( Severe),Weight Loss (Severe), Physical Changes (Severe) Clinical Problem Chronic Disease or Condition Related Malnutrition Etiology severe, chronic malnutrition r /t inadequate energy intake d/ t esophageal stricture w/ increased nutrient needs d/t COPD Signs/Symptoms as evidenced by severe muscle wasting/fat loss upon physical exam, estimated PO intake meeting <75% of estimated energy needs >3 months, BMI 12 .5 Status Active Problem Recommendation Dietitian Recommendations/Changes Regular diet w/ fortified foods; continue to limit to 4 CHO servings/meal in effort to improve glycemic control. Will continue Ensure 8oz w/ breakfast and dinner; will continue to offer smoothie, magic cup, or ensure pudding at lunch. Significant risk for refeeding syndrome given severe malnutrition. Will continue to monitor electrolytes. Lab / Micro Data Result Diagrams: 09/03/21 07:07 09/03/21 07:07 Labs: Laboratory Results - last 24 hr 09/03/21 17:06: POC Glucose 138 H 09/03/21 21:04: POC Glucose 406 H 09/04/21 01:43: POC Glucose 320 H 09/04/21 05:01: Phosphorus 2.9, Magnesium 1.6 09/04/21 07:38: POC Glucose 187 H 09/04/21 10:44: POC Glucose 108 09/04/21 15:59: POC Glucose 464 H* Micro: Microbiology 08/30/21 11:20 Nasal Secretion SARS-CoV-2 Antigen (Rapid) - Final Physical Exam Narrative Const alert, oriented x3 and no apparent distress General Appearance: cooperative Nutritional Appearance: cachectic HEENT normocephalic and moist oral mucous membranes Eyes PERRL, EOMs intact bilaterally and conjunctivae normal Neck supple and no JVD Resp normal respiratory effort, no retractions, no use of accessory muscles and clear to auscultation bilaterally Auscultation: diminished lung sounds; Negative for crackles, rales, rhonchi or wheezes Cardio regular rate, regular rhythm, S1 normal heart sound, S2 normal heart sound and no murmurs GI soft to palpation, non-tender and non-distended; Negative for hepatosplenomegaly Extremity no clubbing, cyanosis or edema Skin no rashes or lesions noted Neuro no focal motor deficits and no sensory deficits noted Psych affect normal Appearance: appropriate Assessment & Plan Assessment/Plan (1) Hypoglycemia: (2) Acute hypokalemia: (3) Transaminitis: PLAN: #Acute metabolic encephalopathy due to hypoglycemia/candidal esophagitis/possible community-acquired pneumonia * Patient admits to not eating and drinking well recently but still taking her insulin. Was noted to be profoundly hypoglycemic when the EMS arrived with blood sugar in the 20s. * Consult nurse emergency and day care supervisor. * Encephalopathy has resolved, will advance her diet and lift any carb controlled restrictions * EGD 08/31/2021 with a dilation of a Schatzki's ring, biopsied white plaques consistent with candidal esophagitis * Continue with p.o. Diflucan as well as nystatin swish and swallow * Continue with Levaquin #Hypokalemia: We will monitor and replace as well as replacing any magnesium and phosphorus that might be low #Transaminitis * Liver enzymes markedly deranged and shows an obstructive pattern. However total bilirubin is not elevated. CT of the abdomen and pelvis showed a 3 cm irregular heterogeneous density versus mass in the right middle lobe of the lung which is new since previous exam * She does have pneumobilia but this appears to be a chronic finding with a nontender abdomen * CT of the chest confirmed CT of the abdomen and pelvis finding * GI consulted in light of abnormal liver enzymes, patient;s complaint of dysphagia and remarkable weight loss. #Severe protein calorie malnutrition * Patient's BMI is only 12 and she weighs only 68 pounds. She admits to profound weight loss but cannot give a time period Within which she has lost so much weight. * GI consulted. * consult nutrition. #Type 2 diabetes mellitus: She will restart on insulin secondary to episodes of hypoglycemia now that she is eating. A1c in 2019 was 15.5 #Hypertension: On lisinopril #Depression: on sertraline DVT: lovenox Charges/Coding Visit Charges Inpatient E&M: 51863 Subs Hosp L2
[2021-09-04 20:20] VITALS: BP 117/63; PULSE 95; RESP 18; TEMP 37.5; O2SAT 95
[2021-09-04 21:20] LABS: Bedside Glucose 322 mg/dL (70-110)
[2021-09-05] VITALS (7 sets, daily range): BP systolic 116–132; BP diastolic 54–73; PULSE 90–95; RESP 12–16; TEMP 36.7–37.6; O2SAT 96–99
[2021-09-05] MEDS: oxyCODONE 5 MG Tablet PO ×3 (00:54→20:57)
[2021-09-05 03:26] LABS: Bedside Glucose > 500 mg/dL (70-110)
[2021-09-05] MEDS: Insulin Lispro 100 UNIT/ML INSULN.PEN 8 UNIT SC (03:34)
[2021-09-05 06:13] LABS: Absolute Lymphocyte Count 1.56 X10^3/uL (0.83-4.51); Absolute Neutrophil Count 6.6 X10^3/uL (2.0-7.7); Basophil# 0.09 X10^3/uL; Basophil% 0.8 % (0-1); Eosinophil# 0.08 X10^3/uL; Eosinophils% 0.7 % (0-5); Hematocrit 29.3 % (37-47); Hemoglobin 9.5 g/dL (12.0-15.0); Lymphocyte # 1.56 X10^3/ul (0.83-4.51); Lymphocyte % 14.5 % (19-41); Mean Corp Hgb Conc 32.4 g/dL (32-36); Mean Corpuscular Hgb 32.4 pg (27.0-32.0); Mean Platelet Vol. 10.5 fl (6.2-12.0); Monocyte# 2.36 X10^3/uL; Monocyte% 21.9 % (0-10); NRBC Flagged by Analyzer 0 % (0-5); Neutrophil # 6.57 X10^3/uL (2.7-7.7); POSITIVE DIFFERENTIAL YES; Platelet Count 315 K/mm3 (150-450); RBC Distribution Width CV 15.7 % (11.6-14.6); RBC Distribution Width SD 56.8 fl (35.1-43.9); Red Blood Count 2.93 M/mm3 (4.2-5.4); White Blood Count 10.8 K/mm3 (4.4-11.0)
[2021-09-05 06:16] LABS: Differential Indicated SCAN CRITERIA MET
[2021-09-05] MEDS: levoFLOXacin 750 MG Tablet PO (06:36)
[2021-09-05 06:37] LABS: Anion Gap 4 (5-15); BUN 27 mg/dL (7-18); BUN/Creat Ratio 39.9 RATIO (10-20); Calcium,Total 8.4 mg/dL (8.5-10.1); Chloride 100 mmol/L (98-107); Creatinine, Serum 0.68 mg/dL (0.55-1.02); EST Glomerular Filtration Rate 96 mL/min (>60); Est Glom Filt Rate - Afr Amer 116 mL/min (>60); Estimated Creatinine Clearance 51.92 ml/min; Glucose 378 mg/dL (74-106); Phosphorus 3.5 mg/dL (2.5-4.9); Potassium 3.9 mmol/L (3.5-5.1); Sodium Level 135 mmol/L (136-145)
[2021-09-05 06:39] LABS: Differential Comment SCANNED
[2021-09-05] MEDS: Insulin Lispro 100 UNIT/ML INSULN.PEN 10 UNIT SC ×3 (07:38→16:48)
[2021-09-05] MEDS: Insulin Lispro 100 UNIT/ML INSULN.PEN SC ×4 (07:38→21:58)
[2021-09-05 08:26] LABS: Bedside Glucose 358 mg/dL (70-110)
[2021-09-05] MEDS: Fluconazole 100 MG Tablet PO (08:43)
[2021-09-05] MEDS: NYSTATIN 500,000 UNIT/5 ML UDC 500000 UNIT PO ×4 (08:43→20:53)
[2021-09-05] MEDS: Enoxaparin 30 MG/0.3 ML Syringe SC (08:43)
[2021-09-05 11:35] LABS: Bedside Glucose 367 mg/dL (70-110)
--- NOTE | 2021-09-05 16:04 | PN.HOSP_ITS ---
Subjective Subjective Doing well, no issues overnight. White count is improving with her antibiotics. She denies any pain with eating and is tolerating the Diflucan and swish and swallow. Objective Data Objective Data Vital Signs: Vital Signs Temp Pulse Resp BP Pulse Ox 98.6 F 93 12 130/63 H 97 09/05/21 13:49 09/05/21 13:49 09/05/21 13:49 09/05/21 13:49 09/05/21 13:49 Oxygen Flow Rate (L/min) 2 Oxygen Delivery Method Room Air Weight: 78 lb 7.753 oz Body Mass Index (BMI) 12.4 Intake & Output: Intake and Output for Last 24 Hours 09/04/21 09/05/21 09/06/21 03:59 03:59 03:59 Intake Total 1314 / 1314 730 / 730 Output Total 0 / 0 Balance 1314 / 1314 730 / 730 Medical Nutrition Assessment Dietitian: Malnutrition Criteria Met Start: 08/31/21 15:22 Freq: Status: Active Protocol: Document 09/04/21 13:22 SHEILA (Rec: 09/04/21 13:22 [facility] [id number]) Nutrition Malnutrition Evidence of Malnutrition Exists Yes Malnutrition (severe): Chronic Evidenced By Suboptimal Energy Intake ( Severe),Weight Loss (Severe), Physical Changes (Severe) Clinical Problem Chronic Disease or Condition Related Malnutrition Etiology severe, chronic malnutrition r /t inadequate energy intake d/ t esophageal stricture w/ increased nutrient needs d/t COPD Signs/Symptoms as evidenced by severe muscle wasting/fat loss upon physical exam, estimated PO intake meeting <75% of estimated energy needs >3 months, BMI 12 .5 Status Active Problem Recommendation Dietitian Recommendations/Changes Regular diet w/ fortified foods; continue to limit to 4 CHO servings/meal in effort to improve glycemic control. Will continue Ensure 8oz w/ breakfast and dinner; will continue to offer smoothie, magic cup, or ensure pudding at lunch. Significant risk for refeeding syndrome given severe malnutrition. Will continue to monitor electrolytes. Lab / Micro Data Result Diagrams: 09/05/21 05:51 09/05/21 05:51 Labs: Laboratory Results - last 24 hr 09/04/21 15:59: POC Glucose 464 H* 09/04/21 21:08: POC Glucose 322 H 09/05/21 03:18: POC Glucose > 500 H* 09/05/21 05:51: Sodium 135 L, Potassium 3.9, Chloride 100, Carbon Dioxide 31.0, Anion Gap 4 L, BUN 27 H, Creatinine 0.68, Estim Creat Clear Calc 51.92, Est GFR (MDRD) Af Amer 116, Est GFR (MDRD) Non-Af 96, BUN/Creatinine Ratio 39.9 H, Glucose 378 H, Calcium 8.4 L, Phosphorus 3.5, Magnesium 2.0 09/05/21 05:51: WBC 10.8, RBC 2.93 L, Hgb 9.5 L, Hct 29.3 L, MCV 100.0 H, MCH 32.4 H, MCHC 32.4, RDW Std Deviation 56.8 H, RDW Coeff of Danie 15.7 H, Plt Count 315, MPV 10.5, Immature Gran % (Auto) 1.100 H, Neut % (Auto) 61.0, Lymph % (Auto) 14.5 L, [place] % (Auto) 21.9 H, Eos % (Auto) 0.7, Baso % (Auto) 0.8, Absolute Neuts (auto) 6.6, Absolute Lymphs (auto) 1.56, Nucleated RBC % 0, Differential Comment SCANNED 09/05/21 07:36: POC Glucose 358 H 09/05/21 11:22: POC Glucose 367 H Micro: Microbiology 08/30/21 11:20 Nasal Secretion SARS-CoV-2 Antigen (Rapid) - Final Physical Exam Narrative Const alert, oriented x3 and no apparent distress General Appearance: cooperative Nutritional Appearance: cachectic HEENT normocephalic and moist oral mucous membranes Eyes PERRL, EOMs intact bilaterally and conjunctivae normal Neck supple and no JVD Resp normal respiratory effort, no retractions, no use of accessory muscles and clear to auscultation bilaterally Auscultation: diminished lung sounds; Negative for crackles, rales, rhonchi or wheezes Cardio regular rate, regular rhythm, S1 normal heart sound, S2 normal heart sound and no murmurs GI soft to palpation, non-tender and non-distended; Negative for hepatosplenomegaly Extremity no clubbing, cyanosis, trace pitting edema Skin no rashes or lesions noted Neuro no focal motor deficits and no sensory deficits noted Psych affect normal Appearance: appropriate Assessment & Plan Assessment/Plan (1) Hypoglycemia: (2) Acute hypokalemia: (3) Transaminitis: PLAN: #Acute metabolic encephalopathy due to hypoglycemia/candidal esophagitis/possible community-acquired pneumonia * Patient admits to not eating and drinking well recently but still taking her insulin. Was noted to be profoundly hypoglycemic when the EMS arrived with blood sugar in the 20s. * Consult plastic hospital products assembler and tours hostess. * Encephalopathy has resolved, will advance her diet and lift any carb controlled restrictions * EGD 08/31/2021 with a dilation of a Schatzki's ring, biopsied white plaques consistent with candidal esophagitis * Continue with p.o. Diflucan as well as nystatin swish and swallow * Continue with Levaquin * Awaiting pre-CERT for SNF placement #Transaminitis * Liver enzymes markedly deranged and shows an obstructive pattern. However total bilirubin is not elevated. CT of the abdomen and pelvis showed a 3 cm irregular heterogeneous density versus mass in the right middle lobe of the lung which is new since previous exam * She does have pneumobilia but this appears to be a chronic finding with a no ntender abdomen * CT of the chest confirmed CT of the abdomen and pelvis finding * GI consulted in light of abnormal liver enzymes, patient;s complaint of dysphagia and remarkable weight loss. #Severe protein calorie malnutrition * Patient's BMI is only 12 and she weighs only 68 pounds. She admits to profound weight loss but cannot give a time period Within which she has lost so much weight. * GI consulted. * consult nutrition. #Type 2 diabetes mellitus: She will restart on insulin secondary to episodes of hypoglycemia now that she is eating. A1c in 2019 was 15.5 #Hypertension: On lisinopril #Depression: on sertraline DVT: lovenox Charges/Coding Visit Charges Inpatient E&M: 51353 Subs Hosp L2
[2021-09-05 16:55] LABS: Bedside Glucose 285 mg/dL (70-110)
--- NOTE | 2021-09-05 19:08 | CM.ED ---
SW Note SW was NOT advised of precert being obtained by [facility]. Thus patient will continue to stay on PCU. Plan: [facility] when precert is obtained Amy DOWD
[2021-09-05 22:06] LABS: Bedside Glucose 281 mg/dL (70-110)
[2021-09-05] MEDS: LORazepam 0.5 MG Tablet PO (23:51)
[2021-09-06 04:00] VITALS: BP 127/67; PULSE 80; PULSE 84; RESP 15; TEMP 37.2; O2SAT 97; O2SAT 98
[2021-09-06] MEDS: levoFLOXacin 750 MG Tablet PO (05:50)
[2021-09-06] MEDS: Insulin Lispro 100 UNIT/ML INSULN.PEN SC ×4 (08:31→21:30)
[2021-09-06] MEDS: Insulin Lispro 100 UNIT/ML INSULN.PEN 10 UNIT SC ×3 (08:32→16:57)
[2021-09-06] MEDS: Enoxaparin 30 MG/0.3 ML Syringe SC (08:32)
[2021-09-06] MEDS: Sertraline 50 MG Tablet PO (08:33)
[2021-09-06] MEDS: NYSTATIN 500,000 UNIT/5 ML UDC 500000 UNIT PO ×2 (08:33→13:31)
[2021-09-06] MEDS: Lisinopril 10 MG Tablet PO (08:33)
[2021-09-06] MEDS: Fluconazole 100 MG Tablet PO (08:35)
[2021-09-06] MEDS: oxyCODONE 5 MG Tablet PO (08:38)
[2021-09-06 08:46] VITALS: BP 138/60; PULSE 95; RESP 16; TEMP 36.7; O2SAT 97
[2021-09-06 08:56] LABS: Bedside Glucose 473 mg/dL (70-110)
[2021-09-06 11:00] LABS: Bedside Glucose > 500 mg/dL (70-110)
[2021-09-06 11:45] LABS: Glucose 543 mg/dL (74-106)
[2021-09-06 13:31] VITALS: BP 105/52; PULSE 93; RESP 18; TEMP 36.6; O2SAT 98
[2021-09-06 13:41] LABS: Bedside Glucose 403 mg/dL (70-110)
--- NOTE | 2021-09-06 16:20 | PN.HOSP_ITS ---
Subjective Subjective Doing well, no issues overnight. She would like nicotine gum today as well. Objective Data Objective Data Vital Signs: Vital Signs Temp Pulse Resp BP Pulse Ox 97.9 F 93 18 105/52 L 98 09/06/21 13:31 09/06/21 13:31 09/06/21 13:31 09/06/21 13:31 09/06/21 13:31 Oxygen Flow Rate (L/min) 2 Oxygen Delivery Method Room Air Weight: 79 lb 5.863 oz Body Mass Index (BMI) 12.4 Intake & Output: Intake and Output for Last 24 Hours 09/05/21 09/06/21 09/07/21 03:59 03:59 03:59 Intake Total 1314 / 1314 1210 / 1210 640 / 640 Output Total 0 / 0 Balance 1314 / 1314 1210 / 1210 640 / 640 Medical Nutrition Assessment Dietitian: Malnutrition Criteria Met Start: 08/31/21 15:22 Freq: Status: Active Protocol: Document 09/04/21 13:22 SHEILA (Rec: 09/04/21 13:22 SHEILA [id number]) Nutrition Malnutrition Evidence of Malnutrition Exists Yes Malnutrition (severe): Chronic Evidenced By Suboptimal Energy Intake ( Severe),Weight Loss (Severe), Physical Changes (Severe) Clinical Problem Chronic Disease or Condition Related Malnutrition Etiology severe, chronic malnutrition r /t inadequate energy intake d/ t esophageal stricture w/ increased nutrient needs d/t COPD Signs/Symptoms as evidenced by severe muscle wasting/fat loss upon physical exam, estimated PO intake meeting <75% of estimated energy needs >3 months, BMI 12 .5 Status Active Problem Recommendation Dietitian Recommendations/Changes Regular diet w/ fortified foods; continue to limit to 4 CHO servings/meal in effort to improve glycemic control. Will continue Ensure 8oz w/ breakfast and dinner; will continue to offer smoothie, magic cup, or ensure pudding at lunch. Significant risk for refeeding syndrome given severe malnutrition. Will continue to monitor electrolytes. Lab / Micro Data Result Diagrams: 09/05/21 05:51 09/06/21 11:15 Labs: Laboratory Results - last 24 hr 09/05/21 16:46: POC Glucose 285 H 09/05/21 21:55: POC Glucose 281 H 09/06/21 08:28: POC Glucose 473 H* 09/06/21 10:53: POC Glucose > 500 H* 09/06/21 11:15: Glucose 543 H* 09/06/21 13:26: POC Glucose 403 H Micro: Microbiology 08/30/21 11:20 Nasal Secretion SARS-CoV-2 Antigen (Rapid) - Final Physical Exam Narrative Const alert, oriented x3 and no apparent distress General Appearance: cooperative Nutritional Appearance: cachectic HEENT normocephalic and moist oral mucous membranes Eyes PERRL, EOMs intact bilaterally and conjunctivae normal Neck supple and no JVD Resp normal respiratory effort, no retractions, no use of accessory muscles and clear to auscultation bilaterally Auscultation: diminished lung sounds; Negative for crackles, rales, rhonchi or wheezes Cardio regular rate, regular rhythm, S1 normal heart sound, S2 normal heart sound and no murmurs GI soft to palpation, non-tender and non-distended; Negative for hepatosplenomegaly Extremity no clubbing, cyanosis, trace pitting edema Skin no rashes or lesions noted Neuro no focal motor deficits and no sensory deficits noted Psych affect normal Appearance: appropriate Assessment & Plan Assessment/Plan (1) Hypoglycemia: (2) Acute hypokalemia: (3) Transaminitis: PLAN: #Acute metabolic encephalopathy due to hypoglycemia/candidal esophagitis/possible community-acquired pneumonia * Patient admits to not eating and drinking well recently but still taking her insulin. Was noted to be profoundly hypoglycemic when the EMS arrived with blood sugar in the 20s. * Consult clinical document improvement educator and surface supply breathing apparatus. * Encephalopathy has resolved, will advance her diet and lift any carb controlled restrictions * EGD 08/31/2021 with a dilation of a Schatzki's ring, biopsied white plaques consistent with candidal esophagitis * Continue with p.o. Diflucan for another 7 days * She completed her Levaquin as well as her nystatin swish and swallow. * Awaiting pre-CERT for SNF placement #Transaminitis * Liver enzymes markedly deranged and shows an obstructive pattern. However total bilirubin is not elevated. CT of the abdomen and pelvis showed a 3 cm irregular heterogeneous density versus mass in the right middle lobe of the lung which is new since previous exam * She does have pneumobilia but this appears to be a chronic finding with a nontender abdomen * CT of the chest confirmed CT of the abdomen and pelvis finding * GI consulted in light of abnormal liver enzymes, patient;s complaint of dysphagia and remarkable weight loss. #Severe protein calorie malnutrition * Patient's BMI is only 12 and she weighs only 68 pounds. She admits to profound weight loss but cannot give a time period Within which she has lost so much weight. * GI consulted. * consult nutrition. #Type 2 diabetes mellitus: She will restart on insulin secondary to episodes of hypoglycemia now that she is eating. A1c in 2019 was 15.5 #Hypertension: On lisinopril #Depression: on sertraline DVT: lovenox Charges/Coding Visit Charges Inpatient E&M: 52800 Subs Hosp L2
[2021-09-06] MEDS: Nicotine Polacrilex 2 MG GUM PO (16:56)
[2021-09-06 16:59] VITALS: BP 116/67; PULSE 86; RESP 14; TEMP 36.6; O2SAT 95
[2021-09-06 17:06] LABS: Bedside Glucose 161 mg/dL (70-110)
[2021-09-06 21:40] LABS: Bedside Glucose 159 mg/dL (70-110)
[2021-09-06 22:05] VITALS: BP 96/80; PULSE 85; RESP 18; TEMP 36.6; O2SAT 97
[2021-09-07 02:35] VITALS: BP 100/72; PULSE 88; RESP 16; TEMP 36.5; O2SAT 98
[2021-09-07 06:00] LABS: Absolute Lymphocyte Count 1.67 X10^3/uL (0.83-4.51); Absolute Neutrophil Count 6.4 X10^3/uL (2.0-7.7); Basophil# 0.06 X10^3/uL; Basophil% 0.6 % (0-1); Eosinophil# 0.07 X10^3/uL; Eosinophils% 0.7 % (0-5); Hemoglobin 9.5 g/dL (12.0-15.0); Lymphocyte # 1.67 X10^3/ul (0.83-4.51); Lymphocyte % 17.5 % (19-41); Mean Corp Hgb Conc 31.7 g/dL (32-36); Mean Corpuscular Hgb 31.8 pg (27.0-32.0); Mean Corpuscular Volume 100.3 fL (81-99); Mean Platelet Vol. 10.7 fl (6.2-12.0); Monocyte# 1.31 X10^3/uL; Monocyte% 13.7 % (0-10); NRBC Flagged by Analyzer 0 % (0-5); Neutrophil # 6.36 X10^3/uL (2.7-7.7); Neutrophil % 66.8 % (47-70); Platelet Count 367 K/mm3 (150-450); RBC Distribution Width CV 15.4 % (11.6-14.6); RBC Distribution Width SD 56.3 fl (35.1-43.9); Red Blood Count 2.99 M/mm3 (4.2-5.4); White Blood Count 9.5 K/mm3 (4.4-11.0)
[2021-09-07 06:56] LABS: ALB/GLOB Ratio 0.3 RATIO (0.9-2.4); AST(SGOT) 69 U/L (15-37); Alanine Aminotransfer ALT/SGPT 127 U/L (13-56); Albumin, Serum 1.6 g/dL (3.2-5.0); Alkaline Phosphatase 773 U/L (45-117); Anion Gap 4 (5-15); BUN 22 mg/dL (7-18); BUN/Creat Ratio 39.1 RATIO (10-20); Calcium,Total 8.1 mg/dL (8.5-10.1); Chloride 100 mmol/L (98-107); Creatinine, Serum 0.56 mg/dL (0.55-1.02); EST Glomerular Filtration Rate 118 mL/min (>60); Est Glom Filt Rate - Afr Amer 143 mL/min (>60); Estimated Creatinine Clearance 63.04 ml/min; Globulin 4.6 g/dL (2.2-4.2); Glucose 165 mg/dL (74-106); Potassium 4.1 mmol/L (3.5-5.1); Protein, Total 6.2 g/dL (6.4-8.2); Sodium Level 136 mmol/L (136-145)
[2021-09-07] MEDS: Insulin Lispro 100 UNIT/ML INSULN.PEN SC ×2 (07:35→12:08)
[2021-09-07] MEDS: Insulin Lispro 100 UNIT/ML INSULN.PEN 10 UNIT SC ×2 (07:35→12:08)
[2021-09-07 07:45] LABS: Bedside Glucose 271 mg/dL (70-110)
[2021-09-07 08:44] VITALS: BP 114/53; PULSE 104; RESP 16; TEMP 37.4; O2SAT 97
[2021-09-07] MEDS: Lisinopril 10 MG Tablet PO (08:49)
[2021-09-07] MEDS: Sertraline 50 MG Tablet PO (08:49)
[2021-09-07] MEDS: Fluconazole 100 MG Tablet PO (08:49)
[2021-09-07] MEDS: Enoxaparin 30 MG/0.3 ML Syringe SC (08:49)
[2021-09-07] MEDS: Ondansetron 4 MG/2 ML Vial IV (08:59)
--- NOTE | 2021-09-07 09:28 | CASEMGMT ---
KARINA called Katt at [facility]. She has not heard from insurance yet. Patient walked even further over the weekend so she may not get approved. KARINA will check with [facility]. [place] DOWD
[2021-09-07] MEDS: Acetaminophen 325 MG Tablet 650 MG PO (09:42)
--- NOTE | 2021-09-07 09:50 | CASEMGMT ---
KARINA received a call from [facility] and she received approval for patient. SW notified physician and Physician Slat Basket Maker Machine. SW notified RN and also asked that she get a rapid COVID test. Await orders. [place] DOWD
--- NOTE | 2021-09-07 10:29 | PCM.TXEXTCAR ---
Diet 08/31/21 18:30 Diet: Regular - General Dietary Modifications:: Fortified Foods Type of Dietary Supplement:: Ensure Enlive Is pt able to select menu?: Yes Diet Comments: 8 oz farheen enlive B&D; MC/MILTON/smoothie@L; not to exceed 4 CHO servings/meal Wound(s) LEFT KNEE: Wound Type: Abrasion Therapies Physical Therapy: Eval and Treat Occupational Therapy: Eval and Treat Speech Therapy: Eval and Treat Problem/Diagnosis (1) Hypoglycemia: Status: Acute (2) Acute hypokalemia: Status: Acute (3) Transaminitis: Status: Acute Allergies/Procedures Done in Hospital Allergies diphenhydramine [From Benadryl] Allergy (Verified 08/30/21 09:59) Hives Type of Care/Length of Stay Estimated LOS: Convalescent Care Less Than 30 days Type of Care Needed: Skilled Rehab Potential: Fair Prognosis: Fair Additional Orders/Day of Discharge Day of Discharge: 09/07/21 Dietary and Speech Recommendations Dietitian Recommendations/Changes: Regular diet w/ fortified foods; continue to limit to 4 CHO servings/meal in effort to improve glycemic control. Will continue Ensure 8oz w/ breakfast and dinner; will continue to offer smoothie, magic cup, or ensure pudding at lunch. Significant risk for refeeding syndrome given severe malnutrition. Will continue to monitor electrolytes. Discharge Plan Admission Admit Date/Time: 08/30/21 11:53 Primary Reason for Your Visit: Confusion due to hypoglycemia. Attending Provider: Ld Gonsalez Primary Care Provider: Lise Garcia ESTHETICIAN AND MANAGER [facility] [facility] Discharge Orders/Prescriptions Prescriptions: Continued acetaminophen 325 MG tablet 650 mg PO Q6H PRN PRN (Reason: Mild Pain (1-3)/Temp > 100.7 F) RF: 0 nut.tx.gluc.intol,lac-free,soy 120 ML liquid 120 ml PO 4X/DAY Qty: 120 RF: 0 insulin lispro 100 UNIT/ML insulin pen 5 unit subcut TIDAC Qty: 1 RF: 0 insulin glargine 100 UNITS/ML insulin pen 40 units subcut DAILY Qty: 1 RF: 0 lisinopril 10 mg tablet 10 mg PO DAILY RF: 0 albuterol sulfate 90 mcg/actuation HFA aerosol inhaler 1 - 2 puff INHALATION Q6H PRN PRN (Reason: wheezing) RF: 0 sertraline 50 mg tablet 50 mg PO DAILY RF: 0 Jardiance 25 mg tablet 25 mg PO DAILY RF: 0 Referrals / Follow Up: Klever Carrasco DO [STAFF PHYSICIAN] - Within 2 Weeks Lise Garcia NP, ESTHETICIAN AND MANAGER [facility] [facility] [Primary Care Provider] - Within 1 Week Disposition Disposition (needs filled in before D/C Order can be placed): Shelter Facility
[2021-09-07 11:21] LABS: Bedside Glucose 403 mg/dL (70-110)
--- NOTE | 2021-09-07 11:39 | CASEMGMT ---
KARINA arranged for patient to get picked up at 130 via wc van by [facility]. KARINA faxed orders, negative COVID test, and olive picker time to Katt with [facility]. KARINA notified RN, patient, and Katt with [facility]. [id number] was completed in [place]. Plan: d/c to [place] under intermediate level of care on a convalescent stay. [facility] transported via wc van. [place] DOWD
--- NOTE | 2021-09-07 12:22 | NURSING ---
Report called to TESSY Akbar at [facility] at this time.
--- NOTE | 2021-09-07 14:37 | DS.PCM_ITS ---
Documented by User: Phu LAKHANI 09/07/21 14:44 Providers Date of Admission: 08/30/21 Primary Care Physician: TINO De La Cruz Consultations 08/30/21 14:42 Consult: Gastroenterology Routine Consulting Provider: Teressa Gastroenterology Reason for Consult: elevated liver enzymes, CT abdomen shows 3 irregular densities in liver EMERGENT Consult: No MD Notified: Yes Date Notified: 08/30/21 Time Notified: 14:42 Method of Notification: Text Reason For Visit: HYPOGLYCEMIA, HYPOKALEMIA, TRANSAMINITIS Diagnosis Discharge Diagnosis (1) Hypoglycemia: Status: Acute Code(s): E16.2 - Hypoglycemia, unspecified (2) Acute hypokalemia: Status: Acute Code(s): E87.6 - Hypokalemia (3) Transaminitis: Status: Acute Code(s): R74.01 - Elevation of levels of liver transaminase levels Medications at Discharge Home Medications acetaminophen 650 mg PO Q6H PRN PRN tab 02/08/19 insulin glargine 40 units SUBCUT DAILY #1 pen 02/08/19 insulin lispro 5 unit SUBCUT TIDAC #1 insuln.pen 02/08/19 nut.tx.gluc.intol,lac-free,soy 120 ml PO 4X/DAY #120 liquid 02/08/19 Jardiance 25 mg PO DAILY 08/30/21 albuterol sulfate 1 - 2 puff INHALATION Q6H PRN PRN 08/30/21 lisinopril 10 mg PO DAILY 08/30/21 sertraline 50 mg PO DAILY 08/30/21 fluconazole [Diflucan] 100 mg PO DAILY #14 tab 09/07/21 nystatin 1 ml PO Q6H #250 ml 09/07/21 Hospital Course Summary of Care Provided Minutes Spent on Discharge: 20 Hospital Course: Patient is a 56-year-old female who was admitted to the hospital on 08/30/2021 for acute metabolic encephalopathy secondary to hypoglycemia. Hypoglycemia is all believed due to poor oral intake, as patient admitted that she had not been eating and drinking well, but still being compliant with her insulin. Patient was given dextrose and insulin was held on admission. Enterprise Software Developer and diabetic counselor was also ordered on admission du e to patient's BMI only being 12 and patient was 68 pounds on admission. EGD was obtained and findings as above. Due to significant esophageal plaques consistent with candidiasis found on EGD, patient was started on regimen of fluconazole and nystatin, biopsies were also taken throughout the duodenum and esophagus. Patient's overall course was complicated by candidal esophagitis as well as possible community-acquired pneumonia, which was treated with 7 days of Levaquin. Fluconazole, nystatin and Levaquin regimens were continued. Due to elevated liver enzymes, CT of the abdomen pelvis was obtained which demonstrated a 3 cm irregular heterogenous mass in the right upper lobe along which was not seen on previous examinations. Patient is to follow-up with Dr. Carrasco within the next 3 months for observation. Patient is to follow-up with primary care provider within the next 2 weeks. Patient seen by Phu Benson PA-C, under the supervision of Dr. Gonsalez. Physical Exam Narrative Patient is a 56-year-old female lying in bed, alert and orient x3. Patient denies development of any new symptoms overnight. Does not appear in acute distress. Const alert, oriented x3 and no apparent distress Nutritional Appearance: cachectic and other HEENT normocephalic, head/scalp atraumatic and hearing grossly normal bilaterally Eyes PERRL, EOMs intact bilaterally and conjunctivae normal Neck no lymphadenopathy, supple and no JVD Resp normal respiratory effort, no retractions and no use of accessory muscles Cardio regular rate, regular rhythm, no murmurs and no JVD GI normal to inspection, nondistended, normoactive bowel sounds, soft to palpation and non-tender Extremity normal to inspection, full ROM and no clubbing, cyanosis or edema Skin no rashes or lesions noted, no wounds and skin turgor normal Neuro CN's II-XII intact bilaterally Psych affect normal Weight / BMI Weight Weight: 78 lb 7.753 oz Body Mass Index (BMI) 12.4 ABG / Lab / Microbiology Data Result Diagrams: 09/07/21 04:55 09/07/21 04:55 Laboratory: Laboratory Results - last 24 hr 09/06/21 16:55: POC Glucose 161 H 09/06/21 21:29: POC Glucose 159 H 09/07/21 04:55: WBC 9.5, RBC 2.99 L, Hgb 9.5 L, Hct 30.0 L, MCV 100.3 H, MCH 31.8, MCHC 31.7 L, RDW Std Deviation 56.3 H, RDW Coeff of Danie 15.4 H, Plt Count 367, MPV 10.7, Immature Gran % (Auto) 0.700, Neut % (Auto) 66.8, Lymph % (Auto) 17.5 L, Yancey % (Auto) 13.7 H, Eos % (Auto) 0.7, Baso % (Auto) 0.6, Absolute Neuts (auto) 6.4, Absolute Lymphs (auto) 1.67, Nucleated RBC % 0 09/07/21 04:55: Sodium 136, Potassium 4.1, Chloride 100, Carbon Dioxide 32.0, Anion Gap 4 L, BUN 22 H, Creatinine 0.56, Estim Creat Clear Calc 63.04, Est GFR (MDRD) Af Amer 143, Est GFR (MDRD) Non-Af 118, BUN/Creatinine Ratio 39.1 H, Glucose 165 H, Calcium 8.1 L, Total Bilirubin 0.40, AST 69 H, ALT 127 H, Alkaline Phosphatase 773 H, Total Protein 6.2 L, Albumin 1.6 L, Globulin 4.6 H, Albumin/Globulin Ratio 0.3 L 09/07/21 07:34: POC Glucose 271 H 09/07/21 11:16: POC Glucose 403 H Microbiology: Microbiology 09/07/21 10:55 Nasal Secretion SARS-CoV-2 Antigen (Rapid) - Final 08/30/21 11:20 Nasal Secretion SARS-CoV-2 Antigen (Rapid) - Final D/C Instructions Discharge Diet: Carb Control Diet Call your doctor if you observe: Fever of 101 or Higher, Shortness of breath, Dizziness, Fainting spells, Swelling in the ankles, Chest pain and Increased palpitations (irregular heartbeat) Meaningful Use Info Meaningful Use Diagnoses (Choose all that apply): None applicable Discharge Plan Admission Admit Date/Time: 08/30/21 11:53 Primary Reason for Your Visit: Confusion due to hypoglycemia. Attending Provider: Ld Gonsalez Primary Care Provider: Lise Garcia NP Discharge Orders/Prescriptions Prescriptions: New fluconazole [Diflucan] 100 mg tablet 100 mg PO DAILY Qty: 14 RF: 0 nystatin 100,000 unit/mL suspension 1 ml PO Q6H Qty: 250 RF: 0 Continued acetaminophen 325 MG tablet 650 mg PO Q6H PRN PRN (Reason: Mild Pain (1-3)/Temp > 100.7 F) RF: 0 nut.tx.gluc.intol,lac-free,soy 120 ML liquid 120 ml PO 4X/DAY Qty: 120 RF: 0 insulin lispro 100 UNIT/ML insulin pen 5 unit subcut TIDAC Qty: 1 RF: 0 insulin glargine 100 UNITS/ML insulin pen 40 units subcut DAILY Qty: 1 RF: 0 lisinopril 10 mg tablet 10 mg PO DAILY RF: 0 albuterol sulfate 90 mcg/actuation HFA aerosol inhaler 1 - 2 puff INHALATION Q6H PRN PRN (Reason: wheezing) RF: 0 sertraline 50 mg tablet 50 mg PO DAILY RF: 0 Jardiance 25 mg tablet 25 mg PO DAILY RF: 0 Referrals / Follow Up: Klever Carrasco DO [STAFF PHYSICIAN] - Within 2 Weeks Lies Garcia NP, CHROME TANNING DRUM OPERATOR-C [Primary Care Provider] - Within 1 Week Disposition Disposition (needs filled in before D/C Order can be placed): [facility] Facility Documented by User: Dr. Ld Gonsalez MD 09/07/21 14:52 Providers Date of Admission: 08/30/21 Reason For Visit: HYPOGLYCEMIA, HYPOKALEMIA, TRANSAMINITIS Medications at Discharge Home Medications acetaminophen 650 mg PO Q6H PRN PRN tab 02/08/19 insulin glargine 40 units SUBCUT DAILY #1 pen 02/08/19 insulin lispro 5 unit SUBCUT TIDAC #1 insuln.pen 02/08/19 nut.tx.gluc.intol,lac-free,soy 120 ml PO 4X/DAY #120 liquid 02/08/19 Jardiance 25 mg PO DAILY 08/30/21 albuterol sulfate 1 - 2 puff INHALATION Q6H PRN PRN 08/30/21 lisinopril 10 mg PO DAILY 08/30/21 sertraline 50 mg PO DAILY 08/30/21 fluconazole [Diflucan] 100 mg PO DAILY #14 tab 09/07/21 nystatin 1 ml PO Q6H #250 ml 09/07/21 Hospital Course Procedures EGD Summary of Care Provided Minutes Spent on Discharge: 40 Hospital Course: This patient was seen in conjunction with Phu Benson PA-C. I have independently interviewed and examined the patient and reviewed pertinent historical, laboratory, and other data. Please refer to Phu Benson PA-C's n ote for details of this patient's presentation, findings, and recommendations. I have reviewed Phu Benson PA-C's note and concur with documented findings. In brief, patient is a 56-year-old lady with severe protein calorie malnutrition with BMI of 14.4 admitted with altered mental status. An assessment of acute metabolic encephalopathy secondary to hypoglycemia with superimposed esophagitis and community-acquired pneumonia made admitted to monitored bed for subsequent management Physical Examination: GENERAL: cooperative HEENT: Atraumatic; EYES; Anicteric, Normal Conjunctiva NECK; supple, normal thyroid, RESPIRATORY: Diminished to auscultation CARDIOVASCULAR: Regular S1 S2, GI: soft, normoactive bowel sounds, : No Renal angle tenderness; EXTREMITIES: No edema, no clubbing, MUSCULOSKELETAL: Significant muscle wasting NEURO: Awake; no lateralizing signs. SKIN: No Rash PSYCH; Flat affect Assessment: 1. Acute metabolic encephalopathy 2. Hypoglycemia 3. Cholecystitis 4. Suspected community-acquired pneumonia 5. Transaminitis 6. Severe protein calorie malnutrition 7. Cachexia 8. Diabetes mellitus type 2 9. Depression 10. Essential hypertension Recommendations: 1. I have discussed the results of my overview and impressions with the patient 2. Options for management were reviewed Total time spent by myself and the advanced practice practitioner evaluating patient, reviewing labs, subsequent management decisions, discussion with patient as well as other providers 40 minutes ( 25 of which was spent by myself) ABG / Lab / Microbiology Data Result Diagrams: 09/07/21 04:55 09/07/21 04:55 Discharge Plan Admission Admit Date/Time: 08/30/21 11:53 Primary Reason for Your Visit: Confusion due to hypoglycemia. Attending Provider: Ld Gonsalez Primary Care Provider: Lise Garcia NP Discharge Orders/Prescriptions Prescriptions: New fluconazole [Diflucan] 100 mg tablet 100 mg PO DAILY Qty: 14 RF: 0 nystatin 100,000 unit/mL suspension 1 ml PO Q6H Qty: 250 RF: 0 Continued acetaminophen 325 MG tablet 650 mg PO Q6H PRN PRN (Reason: Mild Pain (1-3)/Temp > 100.7 F) RF: 0 nut.tx.gluc.intol,lac-free,soy 120 ML liquid 120 ml PO 4X/DAY Qty: 120 RF: 0 insulin lispro 100 UNIT/ML insulin pen 5 unit subcut TIDAC Qty: 1 RF: 0 insulin glargine 100 UNITS/ML insulin pen 40 units subcut DAILY Qty: 1 RF: 0 lisinopril 10 mg tablet 10 mg PO DAILY RF: 0 albuterol sulfate 90 mcg/actuation HFA aerosol inhaler 1 - 2 puff INHALATION Q6H PRN PRN (Reason: wheezing) RF: 0 sertraline 50 mg tablet 50 mg PO DAILY RF: 0 Jardiance 25 mg tablet 25 mg PO DAILY RF: 0 Referrals / Follow Up: Klever Carrasco DO [STAFF PHYSICIAN] - Within 2 Weeks Lise Garcia CHROME TANNING DRUM OPERATOR, CHROME TANNING DRUM OPERATOR-C [Primary Care Provider] - Within 1 Week Disposition Disposition (needs filled in before D/C Order can be placed): [facility] Facility Charges/Coding Visit Charges Inpatient E&M: 68941 Disch Hosp Hospital Course Consultations Consultations: Consultations 08/30/21 14:42 Consult: Gastroenterology Routine Consulting Provider: Teressa Gastroenterology Reason for Consult: elevated liver enzymes, CT abdomen shows 3 irregular densities in liver EMERGENT Consult: No MD Notified: Yes Date Notified: 08/30/21 Time Notified: 14:42 Method of Notification: Text Procedures Procedures: EGD
== END 2021-09-07 14:00 | disposition skilled nursing facility (03) | DRG 420 ==
LOC: ED 11:36 → PCU 16:38
PROVIDERS: Family Medicine; Hospitalist; Internal Medicine Gastroenterology; Admitting Provider Student in an Organized Health Care Education/Training Program; Emergency Provider Emergency Medicine; PCP Nurse Practitioner Family; Visit Provider Internal Medicine
PROC: 0DJ08ZZ Inspection of Upper Intestinal Tract, Via Natural or Artificial Opening Endoscopic (ICD-10-PCS; CPT 43235; principal; 2021-08-31 12:25)
DX: E11.649 Type 2 diabetes mellitus with hypoglycemia without coma (principal); G93.41 Metabolic encephalopathy; E43 Unspecified severe protein-calorie malnutrition; B37.81 Candidal esophagitis; J18.9 Pneumonia, unspecified organism; J44.0 Chronic obstructive pulmonary disease with (acute) lower respiratory infection; K22.2 Esophageal obstruction; J44.9 Chronic obstructive pulmonary disease, unspecified; Z79.4 Long term (current) use of insulin; I10 Essential (primary) hypertension; E87.6 Hypokalemia; F17.210 Nicotine dependence, cigarettes, uncomplicated; K44.9 Diaphragmatic hernia without obstruction or gangrene; E55.9 Vitamin D deficiency, unspecified; R74.01 Elevation of levels of liver transaminase levels; Z66 Do not resuscitate; R13.10 Dysphagia, unspecified; F32.A Depression, unspecified; Z80.1 Family history of malignant neoplasm of trachea, bronchus and lung; Z68.1 Body mass index [BMI] 19.9 or less, adult; R91.8 Other nonspecific abnormal finding of lung field
CPT/HCPCS: 36415; 71045; 71250; 74177; 80048; 80053; 80074; 80076; 82550; 82947; 82962; 82977; 83036; 83735; 84100; 85025; 87426; 88305; 88312; 93005; 97110; 97116; 97162; 97166; 97530; 97535; 97802; 97803; 99285; 99406; J7050; Q9967; A4216; J2405

== ENCOUNTER 2021-11-13 07:53 | Inpatient (IN) | payer MEDICAID, SELFPAY ==
[2021-11-13] VITALS (12 sets, daily range): BP systolic 91–144; BP diastolic 46–82; PULSE 70–95; RESP 16–23; TEMP 35.8–37.2; O2SAT 95–100; BMI 16.0; BMI 13.3
[2021-11-13 08:11] LABS: Bedside Glucose 15 mg/dL (74-106)
--- NOTE | 2021-11-13 08:14 | RAD_ITS ---
STUDY: X-RAY CHEST REASON FOR EXAM: Female, 56 years old. weakness TECHNIQUE: AP COMPARISON: 08/30/2021 FINDINGS: EKG leads project over the chest. Right hemidiaphragm is elevated, new. Mild atelectasis in the left lung base. Rounded nodules overlying the bilateral lung bases likely nipple shadows. There is no demonstrated pleural abnormality. Normal size heart. Normal mediastinum and karsten. Normal visualized pulmonary arteries. Normal visualized aortic arch and descending thoracic aorta. No acute bony process. There is no demonstrated abnormality of the visualized soft tissue structures of the upper abdomen. RAD/Chest 1 View (Portable) IMPRESSION: No airspace consolidation or pleural effusion. Elevated right hemidiaphragm, new. Electronically Signed: London Parks MD (Brooks) at 10:04 EDT ,
--- NOTE | 2021-11-13 08:16 | EDS_ITS ---
HPI History of Present Illness Chief Complaint: Hypoglycemia Informant: patient and EMS Onset/Context/Timing Onset: Today Narrative Narrative: Patient was apparently found seizing this morning with a very low blood sugar. EMS was called. Her blood sugar was 29. They gave her an amp of D 25, came up to 129, and upon arrival to the ER her blood sugar is 15. She is very lethargic and a poor historian as a result. She states though that she has not been ill lately and she felt fine when she went to bed last night, she took her insulins, and she remembers eating something. She has a history of poorly controlled diabetes. [facility] Medical History (Updated 11/13/21 @ 10:[address] Zen Olivares MD) Anxiety COPD (chronic obstructive pulmonary disease) Depression Diabetes Dysphagia Hypertension Smoker Substance abuse Uncontrolled type 2 diabetes mellitus Home Medications acetaminophen 650 mg PO Q6H PRN PRN tab 02/08/19 [Rx Last Taken Unknown] insulin glargine 40 units SUBCUT DAILY #1 pen 02/08/19 [Rx Last Taken Unknown] insulin lispro 5 unit SUBCUT TIDAC #1 insuln.pen 02/08/19 [Rx Last Taken Unknown] nut.tx.gluc.intol,lac-free,soy 120 ml PO 4X/DAY #120 liquid 02/08/19 [Rx Last Taken Unknown] Jardiance 25 mg PO DAILY 08/30/21 [History Last Taken Unknown] albuterol sulfate 1 - 2 puff INHALATION Q6H PRN PRN 08/30/21 [History Last Taken Unknown] lisinopril 10 mg PO DAILY 08/30/21 [History Last Taken Unknown] sertraline 50 mg PO DAILY 08/30/21 [History Last Taken Unknown] fluconazole [Diflucan] 100 mg PO DAILY #14 tab 09/07/21 [Rx Last Taken Unknown] nystatin 1 ml PO Q6H #250 ml 09/07/21 [Rx Last Taken Unknown] Allergy/AdvReac Type Severity Reaction Status Date / Time diphenhydramine Allergy Hives Verified 11/13/21 07:54 [From Benadryl] Social History Smoking Status: Current every day smoker tobacco type: cigarettes and e- cigarettes ROS ROS ED Review of Systems ROS Unobtainable: due to mental status Constitutional Constitutional ED: Reports malaise and weakness Cardiovascular Cardiovascular: Denies chest pain Respiratory/Chest Respiratory/Chest: Denies dyspnea Gastrointestinal Gastrointestinal: Reports nausea EXAM Physical Exam Const Vital Signs: 11/13/21 07:55 11/13/21 08:17 Temperature 96.5 F L Temperature Source Temporal Pulse Rate 78 Respiratory Rate 23 H Respiratory Effort Normal Non-Labored Respiratory Pattern Normal Blood Pressure 143/60 H Blood Pressure Mean 87 Pulse Ox 95 Oxygen Delivery Method Room Air Positive well nourished and well developed Constitutional Narrative: Lethargic. Opens eyes to voice and follows commands. General Appearance ED: well developed and NAD Exam Limitations: altered mental status HEENT Reports moist mucous membranes normocephalic and atraumatic Eyes PERRL and EOMs intact bilaterally Neck full ROM and supple Resp normal respiratory effort and clear to auscultation bilaterally Cardio regular rate, regular rhythm and no murmurs Jugular Venous Distention: Negative for JVD Rate: Negative for tachycardic GI non-tender and non-distended Auscultation: normoactive bowel sounds Palpation: soft Back/Spine no CVA tenderness General Back: other FROM Extremity normal to inspection General Extremety ED: Negative for edema, pulses abnormal or tenderness General Extremity: Negative for edema or pulses abnormal Neuro CN's II-XII intact bilaterally and no sensory deficits noted Neuro Narrative: Moves all 4 extremities, symmetrically weak everywhere Sensorium / Orientation: awake and lethargic Skin no rashes or lesions noted and no wounds MDM MDM MDM Narrative Medical decision making narrative: After getting a bolus of D10 and then starting D5 half-normal saline, patient became much more alert and felt much better, repeat sugar is 123, and her labs are noted. She is severely hypokalemic. IV potassium is ordered. She had CT to ensure she does not have any signs of cerebral edema, it is negative. 1 view chest x-ray on my interpretation negative, radiology in agreement. Plan is to admit her to the hospital for further treatment. Lab Data Attestation: I reviewed the patient's lab results. Labs: Laboratory Results - last 24 hr 11/13/21 11/13/21 11/13/21 08:00 08:00 08:02 WBC 18.0 H RBC 3.94 L Hgb 11.8 L Hct 34.9 L MCV 88.6 MCH 29.9 MCHC 33.8 RDW Std Deviation 42.8 RDW Coeff of Danie 13.2 Plt Count 409 MPV 10.0 Immature Gran % (Auto) 0.700 Neut % (Auto) 77.6 H Lymph % (Auto) 11.5 L [place] % (Auto) 9.0 Eos % (Auto) 0.8 Baso % (Auto) 0.4 Absolute Neuts (auto) 14.0 H Absolute Lymphs (auto) 2.07 Nucleated RBC % 0 Diff Path Review May foll Sodium 143 Potassium 2.0 L* Chloride 105 Carbon Dioxide 34.0 H Anion Gap 4 L BUN 15 Creatinine 0.53 L Estim Creat Clear Calc 74.66 Est GFR (MDRD) Af Amer 152 Est GFR (MDRD) Non-Af 126 BUN/Creatinine Ratio 28.1 H Glucose 23 L* Calcium 7.7 L Total Bilirubin 0.10 L AST 23 ALT 29 Alkaline Phosphatase 360 H Total Protein 6.7 Albumin 2.3 L Globulin 4.4 H Albumin/Globulin Ratio 0.5 L Lipase 33 L POC Glucose 15 L* 11/13/21 11/13/21 08:22 08:49 WBC RBC Hgb Hct MCV MCH MCHC RDW Std Deviation RDW Coeff of Danie Plt Count MPV Immature Gran % (Auto) Neut % (Auto) Lymph % (Auto) [place] % (Auto) Eos % (Auto) Baso % (Auto) Absolute Neuts (auto) Absolute Lymphs (auto) Nucleated RBC % Diff Path Review Sodium Potassium Chloride Carbon Dioxide Anion Gap BUN Creatinine Estim Creat Clear Calc Est GFR (MDRD) Af Amer Est GFR (MDRD) Non-Af BUN/Creatinine Ratio Glucose Calcium Total Bilirubin AST ALT Alkaline Phosphatase Total Protein Albumin Globulin Albumin/Globulin Ratio Lipase POC Glucose 210 H 125 H Radiography Diagnostic Testing: Clinical Impression(s) from Imaging Studies Chest X-Ray 11/13/21 08:14 IMPRESSION: No airspace consolidation or pleural effusion. Elevated right hemidiaphragm, new. Electronically Signed: London Parks MD (Brooks) at 10:04 EDT Reading Location ID and State: [address] [place] [address] , Service support , Brain CT 04/01/22 08:17 IMPRESSION: Chronic involutional changes of the brain. Electronically Signed: Zen Johnson MD at 10:13 EDT Reading Location ID and State: [facility] / [place] , Service support , Rhythm Strip Rhythm Strip: Sinus Rhythm Rate: 75 Ectopy: None EKG Initial EKG: Attestation: I personally reviewed and interpreted this EKG as follows: Interpretation: Sinus Rhythm, No Acute Injury Pattern and Non-Specific ST Changes Discharge Plan Dx/Rx/DC Orders Clinical Impression: Hypoglycemia associated with type 2 diabetes mellitus, Acute hypokalemia, Seizure due to hypoglycemia, Uncontrolled type 2 diabetes mellitus Disposition Disposition: Acute Care Hospital [facility]
--- NOTE | 2021-11-13 08:17 | CT_ITS ---
STUDY: CT BRAIN WITHOUT CONTRAST REASON FOR EXAM: Female, 56 years old. Altered MS. RADIATION DOSAGE (If Supplied By Facility): CTDIvol = ( 44.99 ) mGy, DLP = ( 731.43 ) mGycm TECHNIQUE: Transaxial CT imaging of the brain was performed without administration of intravenous contrast material. Individualized dose optimization techniques were used for this CT. COMPARISON: December 05, 2016. FINDINGS: Normal soft tissue structures. Normal calvarium. There is mild cerebral atrophy with widening of the extra-axial spaces and ventricular dilatation. Normal white matter tracts of the cerebral hemispheres. Normal basal ganglia and thalami. Normal brainstem. Normal cerebellum. There is no intracranial hemorrhage. There are no findings of an acute ischemic infarction. Normal visualized paranasal sinuses. CT/Brain/Head without Contrast IMPRESSION: Chronic involutional changes of the brain. Electronically Signed: Zen Johnson MD at 10:13 EDT ,
--- NOTE | 2021-11-13 08:22 | EKG12_ITS ---
Test Reason : HYPOGLYCEMIC Blood Pressure : / mmHG Vent. Rate : 072 BPM Atrial Rate : 072 BPM P-R Int : 154 ms QRS Dur : 084 ms QT Int : 428 ms P-R-T Axes : 085 040 194 degrees QTc Int : 468 ms Normal sinus rhythm Septal infarct (cited on or before 07-FEB-2019) Non Specific T wave abnormality Abnormal ECG Confirmed by WILLIE NICOLAS, MOOSE ([id number]), design editor PJ SPAIN ([id number]) on 11/17/2021 11:18:02 AM Referred By: ABRAHAN Confirmed By:MOOSE TAPIA MD
[2021-11-13] MEDS: Ondansetron 4 MG/2 ML Vial IV (08:24)
[2021-11-13 08:25] LABS: Absolute Lymphocyte Count 2.07 X10^3/uL (0.83-4.51); Basophil# 0.07 X10^3/uL; Basophil% 0.4 % (0-1); Eosinophil# 0.14 X10^3/uL; Eosinophils% 0.8 % (0-5); Hematocrit 34.9 % (37-47); Hemoglobin 11.8 g/dL (12.0-15.0); Lymphocyte # 2.07 X10^3/ul (0.83-4.51); Lymphocyte % 11.5 % (19-41); Mean Corp Hgb Conc 33.8 g/dL (32-36); Mean Corpuscular Hgb 29.9 pg (27.0-32.0); Mean Corpuscular Volume 88.6 fL (81-99); Monocyte# 1.62 X10^3/uL; NRBC Flagged by Analyzer 0 % (0-5); Neutrophil # 14.01 X10^3/uL (2.7-7.7); Neutrophil % 77.6 % (47-70); POSITIVE DIFFERENTIAL YES; Platelet Count 409 K/mm3 (150-450); RBC Distribution Width CV 13.2 % (11.6-14.6); RBC Distribution Width SD 42.8 fl (35.1-43.9); Red Blood Count 3.94 M/mm3 (4.2-5.4)
[2021-11-13 08:26] LABS: Bedside Glucose 210 mg/dL (74-106)
[2021-11-13 08:30] LABS: Differential Indicated SCAN CRITERIA MET
[2021-11-13] MEDS: Dext 5%-0.45% NS 1,000 ML 200 ML IV ×2 (08:35→14:49)
[2021-11-13 08:54] LABS: ALB/GLOB Ratio 0.5 RATIO (0.9-2.4); AST(SGOT) 23 U/L (15-37); Alanine Aminotransfer ALT/SGPT 29 U/L (13-56); Albumin, Serum 2.3 g/dL (3.2-5.0); Alkaline Phosphatase 360 U/L (45-117); Anion Gap 4 (5-15); BUN 15 mg/dL (7-18); BUN/Creat Ratio 28.1 RATIO (10-20); Calcium,Total 7.7 mg/dL (8.5-10.1); Chloride 105 mmol/L (98-107); Creatinine, Serum 0.53 mg/dL (0.55-1.02); EST Glomerular Filtration Rate 126 mL/min (>60); Est Glom Filt Rate - Afr Amer 152 mL/min (>60); Estimated Creatinine Clearance 74.66 ml/min; Globulin 4.4 g/dL (2.2-4.2); Glucose 23 mg/dL (74-106); Lipase 33 U/L (73-393); Protein, Total 6.7 g/dL (6.4-8.2); Sodium Level 143 mmol/L (136-145)
[2021-11-13 08:55] LABS: Bedside Glucose 125 mg/dL (74-106)
--- NOTE | 2021-11-13 09:14 | ED.RN ---
Pt able to stay awake and eat jerardo crackers. Son at bedside.
--- NOTE | 2021-11-13 10:15 | NURSING ---
DR THOMAS FOR DR GAUTHIER
--- NOTE | 2021-11-13 10:24 | NURSING ---
PCU MARTHA RECURRENT HYPOGLYCEMIA, UNCONTROLLED TYPE 2 DM, HYPOKALEMIA
[2021-11-13] MEDS: Potassium Chloride 10mEq/100mL 10 MEQ/100 ML IV.SOLN. 100 MEQ IV BOLUS (10:37)
[2021-11-13 10:45] LABS: Bedside Glucose 205 mg/dL (74-106)
--- NOTE | 2021-11-13 10:46 | CM.ED ---
RN CM Assessment Introduced role of RN CM to patient Jhonatan Lane #[phone] at bedside.? Patient is alert, oriented and able?to participate in RN CM Assessment. ?Care providers, pharmacy, and demographics verified. Admit Dx: Hypoglycemia Re-Admit: No, was admitted 08/30-09/07/21 for Hypoglycemia, Hypokalemia, Transaminitis and Dc'd to [facility]. Barriers/Issues: None. Patient Evens [place], Ex Johnathon, Patient mother- Whom recently went to go help another family member out all live with patient. PCP: MANAGER BUSINESS PROCESSJasbir Garcia Specialists: None. MANAGER BUSINESS PROCESS manages patient's Diabetes Preferred Pharmacy: [facility] Insurance: [employer] Benefit: Yes? LNOK: Ex Johnathon Lane and evens Lane LW/HPOA: None, AD information with SW rack card provided and informed can complete as an inpatient or outpatient. Living Arrangements:?Lives with evens Israel, Ex Johnathon, and patient mother was living there but not currently there. ADL?s: Patient requires assistance to get up but ambulates independently. Requires assistance in/out of shower but can bathe and dress self. Assistance with Med management and meals. Independent with feeding self and continence. Transportation: Family DME: [employer] HHC: None SNF: [facility] August 2021 Goal: SNF to regain more strength. Aware RNCM and SW will continue to follow. DC PLAN: SNF- will need in network list and to check on preference. SAMMY Arredondo
--- NOTE | 2021-11-13 11:39 | HP.PCM.HOS_ITS ---
HPI - General General Date of Admission: 11/13/21 Date of Service: 11/13/21 Chief Complaint: hypoglycemia HPI Narrative SARWAT LEY, is a 56 F who presents after being found unresponsive. Patient was awake but unresponsive to any stimuli. She eventually came to and EMS was contacted. Blood sugar was noted to be 23. By the time she arrived emergency room she was noted to be 15 but not actively seizing. Patient's family member did not see any obvious seizures but patient was vacant when he had evaluated her. Last night, the patient was feeling well. Patient utilizes a insulin pen and knows how much insulin she administers based on the clicks not by site. She has been doing this for a period of time due to diminished vision due to her diabetes. Patient in the emergency room was given dextrose, potassium and IV fluids. Blood sugars have improved and. Patient has been continued on the D5 drip. [facility] Medical History Anxiety COPD (chronic obstructive pulmonary disease) Depression Diabetes Dysphagia Hypertension Smoker Substance abuse Uncontrolled type 2 diabetes mellitus Home Medications acetaminophen 650 mg PO Q6H PRN PRN tab 02/08/19 [Rx Last Taken Unknown] insulin glargine 40 units SUBCUT DAILY #1 pen 02/08/19 [Rx Last Taken Unknown] insulin lispro 5 unit SUBCUT TIDAC #1 insuln.pen 02/08/19 [Rx Last Taken Unknown] nut.tx.gluc.intol,lac-free,soy 120 ml PO 4X/DAY #120 liquid 02/08/19 [Rx Last Taken Unknown] Jardiance 25 mg PO DAILY 08/30/21 [History Last Taken Unknown] albuterol sulfate 1 - 2 puff INHALATION Q6H PRN PRN 08/30/21 [History Last Taken Unknown] lisinopril 10 mg PO DAILY 08/30/21 [History Last Taken Unknown] sertraline 50 mg PO DAILY 08/30/21 [History Last Taken Unknown] fluconazole [Diflucan] 100 mg PO DAILY #14 tab 09/07/21 [Rx Last Taken Unknown] nystatin 1 ml PO Q6H #250 ml 09/07/21 [Rx Last Taken Unknown] Allergy/AdvReac Type Severity Reaction Status Date / Time diphenhydramine Allergy Hives Verified 11/13/21 07:54 [From [facility]] Social History Smoking Status: Current every day smoker tobacco type: cigarettes and e- cigarettes ROS ROS Narrative Patient has lost considerable weight over the past several months. She does eat but does not eat much. Does have some foul-smelling urine that is concerning for being feculent. Has had diarrhea for the past few days. All review of systems were negative except as mentioned above in the history of present illness and the other review of systems. Vital Signs Vital Signs Vital Signs: 11/13/21 07:55 11/13/21 08:17 11/13/21 08:30 Temperature 35.8 C L Temperature Source Temporal Pulse Rate 78 72 Respiratory Rate 23 H Respiratory Effort Normal Non-Labored Respiratory Pattern Normal Blood Pressure 143/60 H 114/46 L Blood Pressure Mean 87 68 Pulse Ox 95 Oxygen Delivery Method Room Air 11/13/21 09:00 11/13/21 10:00 11/13/21 10:35 Temperature 36.7 C Temperature Source Temporal Pulse Rate 70 76 79 Respiratory Rate 18 18 18 Respiratory Effort Respiratory Pattern Blood Pressure 96/82 H 118/67 91/58 L Blood Pressure Mean 86 84 69 Pulse Ox 98 100 100 Oxygen Delivery Method Room Air Room Air Room Air Weight Weight: 39.9 kg Body Mass Index (BMI) 16.0 Physical Exam Const Constitutional Narrative: Cachectic. Afebrile. Nontoxic. HEENT HEENT Narrative: Temporal wasting. Mucous membranes moist. Eyes Eyes Narrative: No icterus Neck no lymphadenopathy Resp normal respiratory effort, no retractions, no use of accessory muscles and clear to auscultation bilaterally Cardio regular rate, regular rhythm, S1 normal heart sound and S2 normal heart sound GI normal to inspection, nondistended, normoactive bowel sounds, soft to palpation, non-tender and non-distended Extremity normal to inspection Extremity Narrative: Profound muscle wasting throughout Skin no rashes or lesions noted and no wounds Neuro CN's II-XII intact bilaterally and moves all extremities Sensorium / Orientation: awake and alert Motor Exam: strength 5/5 throughout Psych affect normal Results Lab / Micro Data Attestation: I reviewed the patient's lab results. Result Diagrams: 11/13/21 08:00 11/13/21 08:00 Labs: Laboratory Results - last 24 hr 11/13/21 08:00: WBC 18.0 H, RBC 3.94 L, Hgb 11.8 L, Hct 34.9 L, MCV 88.6, MCH 29.9, MCHC 33.8, RDW Std Deviation 42.8, RDW Coeff of Danie 13.2, Plt Count 409, MPV 10.0, Immature Gran % (Auto) 0.700, Neut % (Auto) 77.6 H, Lymph % (Auto) 11.5 L, [place] % (Auto) 9.0, Eos % (Auto) 0.8, Baso % (Auto) 0.4, Absolute Neuts (auto) 14.0 H, Absolute Lymphs (auto) 2.07, Nucleated RBC % 0, Diff Path Review December11/13/21 08:00: Sodium 143, Potassium 2.0 L*, Chloride 105, Carbon Dioxide 34.0 H, Anion Gap 4 L, BUN 15, Creatinine 0.53 L, Estim Creat Clear Calc 74.66, Est GFR (MDRD) Af Amer 152, Est GFR (MDRD) Non-Af 126, BUN/Creatinine Ratio 28.1 H, Glucose 23 L*, Calcium 7.7 L, Total Bilirubin 0.10 L, AST 23, ALT 29, Alkaline Phosphatase 360 H, Total Protein 6.7, Albumin 2.3 L, Globulin 4.4 H, Album in/Globulin Ratio 0.5 L, Lipase 33 L 11/13/21 08:02: POC Glucose 15 L* 11/13/21 08:22: POC Glucose 210 H 11/13/21 08:49: POC Glucose 125 H 11/13/21 10:34: POC Glucose 205 H Rhythm Strip Rhythm Strip: Sinus Rhythm Rate: 75 Ectopy: None EKG Initial EKG: Attestation: I personally reviewed and interpreted this EKG as follows: Prior EKG tracings: available for review EKG Rhythm Intrepretation: Sinus Rhythm Radiology Impression Chest X-Ray 11/13/21 08:14 IMPRESSION: No airspace consolidation or pleural effusion. Elevated right hemidiaphragm, new. Electronically Signed: London Parks MD (Brooks) at 10:04 EDT Reading Location ID and State: [address] [place] [address] , Service support , Brain CT 11/13/21 08:17 IMPRESSION: Chronic involutional changes of the brain. Electronically Signed: Zen Johnson MD at 10:13 EDT , Assessment & Plan Assessment/Plan (1) Hypoglycemia associated with type 2 diabetes mellitus: (2) Acute hypokalemia: (3) Seizure due to hypoglycemia: (4) Cachexia: (5) Weight loss: (6) Transaminitis: PLAN: 1. Hypoglycemia * Iatrogenic due to insulin glargine, and Jardiance. Less likely due to lispro but certainly contributing factor. Compounding this is patient is poor nutritional intake. Patient states that her blood sugars been fine prior to this. I am concerned the patient may have potentially administered too much Lantus as she does advise sound not by site. * Continue with the D5 infusion and once blood sugars have been remained stable then hopefully build to wean that off and then slowly introduce her diabetic regimen. I would hold her Jardiance, however. * Check an A1c to make sure that patient is not chronically low. 2. Seizure * Not witnessed according to the family but patient had what sounds like a postictal period * No additional work-up at this time unless patient does have seizures while her blood sugars are either normal or elevated. 3. Hypokalemia * Replaced the emergency room * Recheck * Check magnesium 4. Severe protein malnutrition * Supplements * Nutritional consult 5. Debility * Due to her chronic medical illnesses and severe protein calorie malnutrition. * PT OT evaluate and treat 6. VTE prophylaxis: Moderate risk. Enoxaparin. 7. CODE STATUS: Addressed with patient. Patient was to be full code. 8. COVID-19 vaccination status: Patient is unvaccinated. Patient states that she did have Covid 19 last year. Did offer the patient the opportunity to receive the Covid and if influenza vaccine if she wished. She did not answer in the affirmative either way. Charges/Coding Visit Charges Inpatient E&M: 37127 Init Hosp L3
--- NOTE | 2021-11-13 12:07 | CASEMGMT ---
Social Work Consult: Possible care home placement Referral source: RN YAMEL Met with patient in room. Introduced self and psychotherapist social worker role. Patient agreeable to speak with this psychotherapist social worker. This psychotherapist social worker broached topic of care home placement. Patient states to be open to care home placement if I need to go. This psychotherapist social worker communicating that therapy will evaluate patient and assess patient need for care home and then referral/plan can be established from there. Patient is open to this psychotherapist social worker providing patient with list of in-network jail facilities in the event that care home is recommended by medical team. This psychotherapist social worker provided patient with list. Patient voices that patient ex-, Johnathon is main person to contact in regards to patient and is okay with medical team talking with Johnathon about discharge plan and patient care. PLAN: SNF vs. Home. Social Work to continue to follow. Terrence BARON, NILE-S
[2021-11-13 13:41] LABS: Anion Gap 5 (5-15); BUN 14 mg/dL (7-18); BUN/Creat Ratio 21.7 RATIO (10-20); Calcium,Total 7.9 mg/dL (8.5-10.1); Chloride 103 mmol/L (98-107); Creatinine, Serum 0.65 mg/dL (0.55-1.02); EST Glomerular Filtration Rate 101 mL/min (>60); Est Glom Filt Rate - Afr Amer 122 mL/min (>60); Estimated Creatinine Clearance 52.02 ml/min; Glucose 112 mg/dL (74-106); Magnesium 1.6 mg/dL (1.6-2.6); Potassium 2.6 mmol/L (3.5-5.1); Sodium Level 140 mmol/L (136-145)
--- NOTE | 2021-11-13 13:58 | EKG12_ITS ---
Test Reason : Blood Pressure : / mmHG Vent. Rate : 084 BPM Atrial Rate : 084 BPM P-R Int : 132 ms QRS Dur : 072 ms QT Int : 380 ms P-R-T Axes : 089 048 268 degrees QTc Int : 449 ms Somatic/Motion Artifact Sinus rhythm with Premature supraventricular complexes Septal infarct , age undetermined , cannot be excluded Abnormal ECG Confirmed by WILLIE NICOLAS, MOOSE ([id number]), news video editor TOMY BARROW ([id number]) on 11/26/2021 1:40:53 PM Referred By: OREN Confirmed By:MOOSE TAPIA MD
[2021-11-13] MEDS: Potassium Chloride Oral Tablet 20 MEQ 40 MEQ PO (14:48)
[2021-11-13] MEDS: Ensure Clear 120 ML Liquid PO ×3 (14:55→21:45)
[2021-11-13 15:03] LABS: Bacteria 0 SEEN /hpf (None Seen); Mucous, Urine 0 SEEN /hpf (<or=2+); White Blood Cells 0 SEEN /hpf (0-5)
[2021-11-13 15:06] LABS: Bedside Glucose 166 mg/dL (74-106)
[2021-11-13 15:08] LABS: Color, Urine Yellow (Yellow); Glucose, Dipstick 1000 mg/dl (Normal); Ketone-Dipstick Negative (Negative); Leukocyte Esterase-Dipstick 25 /ul (Negative); Nitrite-Dipstick Negative (Negative); Occult Blood-Urine 150 /ul (Negative); Protein-Dipstick 15 mg/dl (Negative); Urine Bilirubin Dipstick Negative (Negative); Urine Clarity Clear (Clear); Urine Urobilinogen Normal (Normal)
[2021-11-13 15:39] LABS: Red Blood Cells-Urine 0-5 SEEN /hpf (0-5); Squamous Epithelial Cells - UA 0-5 SEEN /hpf (5-10)
[2021-11-13 16:41] LABS: Bedside Glucose 309 mg/dL (74-106)
[2021-11-13 22:01] LABS: Bedside Glucose 333 mg/dL (74-106)
[2021-11-13] MEDS: Acetaminophen 325 MG Tablet 650 MG PO (23:22)
[2021-11-14] VITALS (9 sets, daily range): BP systolic 143–175; BP diastolic 81–93; PULSE 90–104; RESP 16–18; TEMP 36.9–37.7; O2SAT 96–98
[2021-11-14 06:31] LABS: Absolute Lymphocyte Count 2.04 X10^3/uL (0.83-4.51); Absolute Neutrophil Count 9.2 X10^3/uL (2.0-7.7); Basophil# 0.05 X10^3/uL; Basophil% 0.4 % (0-1); Eosinophil# 0.07 X10^3/uL; Eosinophils% 0.6 % (0-5); Hematocrit 32.4 % (37-47); Hemoglobin 10.7 g/dL (12.0-15.0); Lymphocyte # 2.04 X10^3/ul (0.83-4.51); Lymphocyte % 16.1 % (19-41); Mean Corpuscular Hgb 29.1 pg (27.0-32.0); Mean Platelet Vol. 10.5 fl (6.2-12.0); Monocyte# 1.17 X10^3/uL; Monocyte% 9.2 % (0-10); NRBC Flagged by Analyzer 0 % (0-5); Neutrophil # 9.24 X10^3/uL (2.7-7.7); Neutrophil % 73.1 % (47-70); Platelet Count 369 K/mm3 (150-450); RBC Distribution Width CV 13.2 % (11.6-14.6); RBC Distribution Width SD 42.3 fl (35.1-43.9); Red Blood Count 3.68 M/mm3 (4.2-5.4); White Blood Count 12.7 K/mm3 (4.4-11.0)
[2021-11-14] MEDS: Insulin Lispro 100 UNIT/ML INSULN.PEN SC ×2 (06:38→11:11)
[2021-11-14 06:46] LABS: Bedside Glucose 303 mg/dL (74-106)
[2021-11-14 06:59] LABS: ALB/GLOB Ratio 0.5 RATIO (0.9-2.4); AST(SGOT) 22 U/L (15-37); Alanine Aminotransfer ALT/SGPT 27 U/L (13-56); Albumin, Serum 2.1 g/dL (3.2-5.0); Alkaline Phosphatase 360 U/L (45-117); Anion Gap 4 (5-15); BUN 13 mg/dL (7-18); BUN/Creat Ratio 14.2 RATIO (10-20); Calcium,Total 7.8 mg/dL (8.5-10.1); Chloride 102 mmol/L (98-107); Creatinine, Serum 0.91 mg/dL (0.55-1.02); EST Glomerular Filtration Rate 67 mL/min (>60); Est Glom Filt Rate - Afr Amer 82 mL/min (>60); Estimated Creatinine Clearance 37.16 ml/min; Globulin 4.1 g/dL (2.2-4.2); Glucose 363 mg/dL (74-106); Magnesium 1.9 mg/dL (1.6-2.6); Potassium 3.2 mmol/L (3.5-5.1); Protein, Total 6.2 g/dL (6.4-8.2); Sodium Level 137 mmol/L (136-145)
[2021-11-14] MEDS: Ensure Clear 120 ML Liquid PO ×2 (08:37→13:21)
[2021-11-14] MEDS: Enoxaparin 40 MG/0.4 ML Syringe SC (08:38)
[2021-11-14] MEDS: 0.9% Saline Lock 10 ML Syringe IV ×2 (08:38→20:37)
--- NOTE | 2021-11-14 09:05 | CASEMGMT ---
Addendum entered by Rosa Gallardo 11/14/21 14:25: Notified by Amy COLLINS that pt would like HHC at home. Noted pt did well ambulating with OT this date. TESSY MONTESINOS in to room. Pt lying in bed with son at bedside. Pt states she is agreeable to dcing home. Patient was provided a list of HHC/DME providers including quality and resource use data and consistent with the patient?s preferred geographic region, medical needs, and insurance network. Pt states she does not have preference for DME company for [facility]. She is agreeabl to [employer]. Pt lists [facility] and [facility] for HHC, but denies any real preference. She is aware that TESSY MONTESINOS will work on HHC set up on Tuesday. She states she lives with her ex mil and she is fiesty. She is not sure how long her mil will allow HHC in. Original Note: TESSY MONTESINOS in to pt room, pt sitting up in bed. Discussed how pt did with therapy. She states they got her a walker. Pt states she felt good at [place] and she built her strength up. She states when she went home, it all went straight to [facility]. Pt states she would like to return to [place] for some further therapy post hospital stay. TESSY MONTESINOS to notify SENIOR BUSINESS DEVELOPMENT ANALYST.
[2021-11-14 09:09] LABS: Hemoglobin A1c 9.5 % (3.8-5.6)
[2021-11-14 11:06] LABS: Bedside Glucose 486 mg/dL (74-106)
--- NOTE | 2021-11-14 13:19 | CM.ED ---
SW Note Referral Source: TESSY MONTESINOS Referral Reason: SNF SW spoke with Artis and her ex /contact, Johnathon Lane, (who patient gave SW on 11/13/21 permission to speak to).Artis said that she can either go home or [place]. Artis said that when she left [place] and went home she was supposed to have home health but did not get home health. Patient voiced that if she goes home she would like to have home health. Johnathon said that patient did good on insulin at [facility] but the insurance won't pay for it. Patient said that her doctor said that she called [employer] to get it approved but it has not been approved. Johnathon said that it is like night and day . SW inquired [facility] and Artis and Johnathon said no. SW advised that it may be beneficial to call [employer] and request a child care centre manager. Sw wrote down on paper how to request a child care centre manager. KARINA updated Rosa STILL/YAMEL. Plan: To be determined Amy CURIEL
--- NOTE | 2021-11-14 13:46 | PN.HOSP_ITS ---
Subjective Subjective Complains of intermittent back pain. Objective Data Objective Data Vital Signs: Vital Signs Temp Pulse Resp BP Pulse Ox 37.6 C H 99 18 175/82 H 97 11/14/21 13:17 11/14/21 13:17 11/14/21 13:17 11/14/21 13:17 11/14/21 13:17 Oxygen Delivery Method Room Air Weight: 34.1 kg Body Mass Index (BMI) 13.3 Intake & Output: Intake and Output for Last 24 Hours 11/12/21 11/13/21 11/14/21 23:59 23:59 23:59 Intake Total 2100.67 / 2420.67 1020 / 1020 Balance 2100.67 / 2420.67 1020 / 1020 Medical Nutrition Assessment Dietitian: Malnutrition Criteria Met Start: 11/13/21 13:39 Freq: Status: Active Protocol: Document 11/13/21 13:39 SHEILA (Rec: 11/13/21 13:39 SLA [id number]) Nutrition Malnutrition Evidence of Malnutrition Exists Yes Malnutrition (severe): Chronic Evidenced By Suboptimal Energy Intake ( Severe),Physical Changes ( Severe) Clinical Problem Chronic Disease or Condition Related Malnutrition Etiology severe, chronic malnutrition r /t inadequate energy intake w/ increased energy needs d/t COPD Signs/Symptoms as evidenced by chronically low body wt and failure to gain to healthy wt despite claims of eating good at meals and snacks; severe muscle wasting/fat loss evident in orbital, temporal, clavicle, acromion, and lower extremities per physical exam; BMI 13.3 Status Active Problem Recommendation Dietitian Recommendations/Changes Continue regular diet - fortified foods and 1/2 cup CIB w/ meals Change ONS from ensure enlive to ensure clear per pt request Provide extra snack on meal trays for pt to save and eat between meals Lab / Micro Data Result Diagrams: 11/14/21 05:32 11/14/21 05:32 Labs: Laboratory Results - last 24 hr 11/13/21 14:57: POC Glucose 166 H 11/13/21 15:00: Urine Color Yellow, Urine Clarity Clear, Urine pH 7.0, Ur Specific [place] 1.010, Urine Protein 15 H, Urine Glucose (UA) 1000 H, Urine Ketones Negative, Urine Occult Blood 150 H, Urine Nitrite Negative, Urine Bilirubin Negative, Urine Urobilinogen Normal, Ur Leukocyte Esterase 25 H, Urine RBC 0-5 SEEN, Urine WBC 0 SEEN, Ur Squamous Epith Cells 0-5 SEEN, Urine Bacteria 0 SEEN, Urine Mucus 0 SEEN 11/13/21 16:26: POC Glucose 309 H 11/13/21 21:41: POC Glucose 333 H 11/14/21 05:32: WBC 12.7 H, RBC 3.68 L, Hgb 10.7 L, Hct 32.4 L, MCV 88.0, MCH 29.1, MCHC 33.0, RDW Std Deviation 42.3, RDW Coeff of Danie 13.2, Plt Count 369, MPV 10.5, Immature Gran % (Auto) 0.600, Neut % (Auto) 73.1 H, Lymph % (Auto) 16.1 L, [place] % (Auto) 9.2, Eos % (Auto) 0.6, Baso % (Auto) 0.4, Absolute Neuts (auto) 9.2 H, Absolute Lymphs (auto) 2.04, Nucleated RBC % 0 11/14/21 05:32: Sodium 137, Potassium 3.2 L, Chloride 102, Carbon Dioxide 31.0, Anion Gap 4 L, BUN 13, Creatinine 0.91, Estim Creat Clear Calc 37.16, Est GFR (MDRD) Af Amer 82, Est GFR (MDRD) Non-Af 67, BUN/Creatinine Ratio 14.2, Glucose 363 H, Calcium 7.8 L, Magnesium 1.9, Total Bilirubin 0.20, AST 22, ALT 27, Alkaline Phosphatase 360 H, Total Protein 6.2 L, Albumin 2.1 L, Globulin 4.1, Albumin/Globulin Ratio 0.5 L 11/14/21 05:32: Hemoglobin A1c 9.5 H 11/14/21 06:36: POC Glucose 303 H 11/14/21 10:54: POC Glucose 486 H* Rhythm Strip Rhythm Strip: Sinus Rhythm Rate: 75 Ectopy: None Physical Exam Const alert and no apparent distress Constitutional Narrative: Up at side of bed with therapy. Cachectic. Afebrile. Resp normal respiratory effort, no retractions, no use of accessory muscles and clear to auscultation bilaterally Cardio regular rate, regular rhythm, S1 normal heart sound and S2 normal heart sound GI normal to inspection, nondistended, normoactive bowel sounds, soft to palpation, non-tender and non-distended Extremity normal to inspection Extremity Narrative: no reproducible point tenderness back pain. Neuro Sensorium / Orientation: awake and alert Assessment & Plan Assessment/Plan (1) Hypoglycemia associated with type 2 diabetes mellitus: (2) Acute hypokalemia: (3) Seizure due to hypoglycemia: (4) Cachexia: (5) Weight loss: (6) Transaminitis: PLAN: 1. Hypoglycemia * Resolved * iatrogenic due to insulin glargine, and Jardiance. Less likely due to lispro but certainly contributing factor. Compounding this is patient is poor nutritional intake. Patient states that her blood sugars been fine prior to this. I am concerned the patient may have potentially administered too much Lantus as she does advise sound not by site. * D5 infusion discontinued 2. Seizure * Not witnessed according to the family but patient had what sounds like a postictal period * No additional work-up at this time unless patient does have seizures while her blood sugars are either normal or elevated. * No further events. No additional work-up. 3. Hypokalemia * Replaced the emergency room * Recheck * Check magnesium 4. Severe protein malnutrition * Supplements * Nutritional consult 5. Debility * Due to her chronic medical illnesses and severe protein calorie malnutrition. * PT OT evaluate and treat 6. Diabetes mellitus type 2 * A1c 9.5 * No plan at this time to resume Jardiance * Will resume insulin glargine but I reduced dose for now and lispro. I am concerned that the patient may not be able to adequately see the numbers on her pen and potentially may have administered too much Lantus. This is not definitive but a suspicion but patient is also on Jardiance which will be held. 7. VTE prophylaxis: Moderate risk. Enoxaparin. 8. CODE STATUS: Addressed with patient. Patient was to be full code. 9. COVID-19 vaccination status: Patient is unvaccinated. Patient states that she did have Covid 19 last year. Did offer the patient the opportunity to receive the Covid and if influenza vaccine if she wished. She did not answer in the affirmative either way. Charges/Coding Visit Charges Inpatient E&M: 88388 Subs Hosp L2
--- NOTE | 2021-11-14 14:32 | CASEMGMT ---
TESSY MONTESINOS noted that patient did well today with PT. KARINA advised that patient said that she would like home health at home if discharged home. TESSY Shahty will meet with patient to discuss home health options. KARINA called and left voice mail message for Katt alfaro [place]. KARINA said that at this time the plan is for patient to return home. Plan: Home with Home Health Care Amy CURIEL
[2021-11-14 16:02] LABS: Bedside Glucose > 500 mg/dL (74-106)
[2021-11-14 16:31] LABS: Glucose 616 mg/dL (74-106)
[2021-11-14] MEDS: Insulin Glargine-YFGN 100 UNIT/ML Pen 35 UNIT SC (16:50)
[2021-11-14] MEDS: Insulin Lispro 100 UNIT/ML INSULN.PEN 20 UNIT SC (16:52)
[2021-11-14] MEDS: Acetaminophen 325 MG Tablet 650 MG PO (20:35)
[2021-11-14] MEDS: Ondansetron 4 MG/2 ML Vial IV (20:36)
[2021-11-15] VITALS (8 sets, daily range): BP systolic 129–164; BP diastolic 61–84; PULSE 85–99; RESP 16–20; TEMP 36.8–37.6; O2SAT 96–99
[2021-11-15 01:16] LABS: Bedside Glucose 99 mg/dL (74-106)
[2021-11-15 02:31] LABS: Bedside Glucose 70 mg/dL (74-106)
[2021-11-15 06:31] LABS: Bedside Glucose 62 mg/dL (74-106)
--- NOTE | 2021-11-15 06:40 | NURSING ---
Blood sugar 62, pt given milk and Reyna Dune cookies per pt request.
[2021-11-15 07:26] LABS: Anion Gap 3 (5-15); BUN 15 mg/dL (7-18); BUN/Creat Ratio 26.3 RATIO (10-20); Calcium,Total 8.2 mg/dL (8.5-10.1); Chloride 105 mmol/L (98-107); Creatinine, Serum 0.57 mg/dL (0.55-1.02); EST Glomerular Filtration Rate 116 mL/min (>60); Est Glom Filt Rate - Afr Amer 140 mL/min (>60); Estimated Creatinine Clearance 59.33 ml/min; Glucose 79 mg/dL (74-106); Potassium 2.9 mmol/L (3.5-5.1); Sodium Level 141 mmol/L (136-145)
[2021-11-15 08:10] LABS: Bedside Glucose 79 mg/dL (74-106)
[2021-11-15] MEDS: Enoxaparin 40 MG/0.4 ML Syringe SC (09:56)
[2021-11-15] MEDS: Ensure Clear 120 ML Liquid PO (09:56)
[2021-11-15] MEDS: Lisinopril 10 MG Tablet PO (09:56)
[2021-11-15] MEDS: Sertraline 50 MG Tablet PO (09:56)
[2021-11-15] MEDS: Insulin Lispro 100 UNIT/ML INSULN.PEN SC ×4 (11:28→16:36)
--- NOTE | 2021-11-15 11:30 | PN.HOSP_ITS ---
Subjective Subjective Does not feel well today. Still complaining of foul-smelling urine. Objective Data Objective Data Vital Signs: Vital Signs Temp Pulse Resp BP Pulse Ox 37.6 C H 99 20 H 131/61 H 99 11/15/21 09:48 11/15/21 09:48 11/15/21 09:48 11/15/21 09:48 11/15/21 09:48 Oxygen Delivery Method Room Air Weight: 34.1 kg Body Mass Index (BMI) 13.3 Intake & Output: Intake and Output for Last 24 Hours 11/13/21 11/14/21 11/15/21 23:59 23:59 23:59 Intake Total 2100.67 / 2420.67 1440 / 1920 720 / 720 Balance 2100.67 / 2420.67 1440 / 1920 720 / 720 Medical Nutrition Assessment Dietitian: Malnutrition Criteria Met Start: 11/13/21 13:39 Freq: Status: Active Protocol: Document 11/13/21 13:39 SHEILA (Rec: 11/13/21 13:39 SHEILA [id number]) Nutrition Malnutrition Evidence of Malnutrition Exists Yes Malnutrition (severe): Chronic Evidenced By Suboptimal Energy Intake ( Severe),Physical Changes ( Severe) Clinical Problem Chronic Disease or Condition Related Malnutrition Etiology severe, chronic malnutrition r /t inadequate energy intake w/ increased energy needs d/t COPD Signs/Symptoms as evidenced by chronically low body wt and failure to gain to healthy wt despite claims of eating good at meals and snacks; severe muscle wasting/fat loss evident in orbital, temporal, clavicle, acromion, and lower extremities per physical exam; BMI 13.3 Status Active Problem Recommendation Dietitian Recommendations/Changes Continue regular diet - fortified foods and 1/2 cup CIB w/ meals Change ONS from ensure enlive to ensure clear per pt request Provide extra snack on meal trays for pt to save and eat between meals Lab / Micro Data Result Diagrams: 11/14/21 05:32 11/15/21 05:37 Labs: Laboratory Results - last 24 hr 11/14/21 15:55: POC Glucose > 500 H* 11/14/21 16:06: Glucose 616 H* 11/14/21 22:28: POC Glucose 99 11/15/21 02:24: POC Glucose 70 L 11/15/21 05:37: Sodium 141, Potassium 2.9 L, Chloride 105, Carbon Dioxide 33.0 H , Anion Gap 3 L, BUN 15, Creatinine 0.57, Estim Creat Clear Calc 59.33, Est GFR (MDRD) Af Amer 140, Est GFR (MDRD) Non-Af 116, BUN/Creatinine Ratio 26.3 H, G lucose 79, Calcium 8.2 L 11/15/21 06:25: POC Glucose 62 L 11/15/21 07:58: POC Glucose 79 Micro: Microbiology 11/13/21 15:00 Urine, Clean Catch Urine Culture - Final Mixed Gram Positive Organisms Rhythm Strip Rhythm Strip: Sinus Rhythm Rate: 75 Ectopy: None Physical Exam Const alert and no apparent distress Constitutional Narrative: Cachectic. Afebrile. Appears much older than stated age. Resp normal respiratory effort, no retractions, no use of accessory muscles and clear to auscultation bilaterally Cardio regular rate, regular rhythm, S1 normal heart sound and S2 normal heart sound GI normal to inspection, nondistended, normoactive bowel sounds, soft to palpation, non-tender and non-distended Extremity normal to inspection Skin no rashes or lesions noted and no wounds Neuro Sensorium / Orientation: awake and alert Assessment & Plan Assessment/Plan (1) Hypoglycemia associated with type 2 diabetes mellitus: (2) Acute hypokalemia: (3) Seizure due to hypoglycemia: (4) Cachexia: (5) Weight loss: (6) Transaminitis: PLAN: 1. Hypoglycemia * Resolved * iatrogenic due to insulin glargine, and Jardiance. Less likely due to lispro but certainly contributing factor. Compounding this is patient is poor nutritional intake. * Patient states that her blood sugars been fine prior to this. Patient tells me that she has trouble seeing concerned that patient may inaction or blood sugars are and she may not be able to see what the numbers are on the FlexPen. I am concerned the patient may have potentially administered too much Lantus as she does advise sound not by site. * D5 infusion discontinued 2. Seizure * Hypoglycemia-induced * not witnessed according to the family but patient had what sounds like a postictal period * No additional work-up at this time unless patient does have seizures while her blood sugars are either normal or elevated. * No further events. No additional work-up. 3. Hypokalemia * Ongoing * Replace 4. Severe protein malnutrition * Supplements * Nutritional consult 5. Debility * Due to her chronic medical illnesses and severe protein calorie malnutrition. * PT OT evaluate and treat 6. Diabetes mellitus type 2 * A1c 9.5 * No plan at this time to resume Jardiance * Will resume insulin glargine but I reduced dose for now and lispro. I am concerned that the patient may not be able to adequately see the numbers on her pen and potentially may have administered too much Lantus. This is not definitive but a suspicion but patient is also on Jardiance which will be held. 7. VTE prophylaxis: Moderate risk. Enoxaparin. 8. CODE STATUS: Addressed with patient. Patient was to be full code. 9. COVID-19 vaccination status: Patient is unvaccinated. Patient states that she did have Covid 19 last year. Did offer the patient the opportunity to receive the Covid and if influenza vaccine if she wished. She did not answer in the affirmative either way. Charges/Coding Visit Charges Inpatient E&M: 01172 Subs Hosp L2
[2021-11-15 11:41] LABS: Bedside Glucose 238 mg/dL (74-106)
[2021-11-15] MEDS: Acetaminophen 325 MG Tablet 650 MG PO (13:50)
[2021-11-15] MEDS: Potassium Chloride Oral Tablet 20 MEQ 40 MEQ PO (14:36)
[2021-11-15 17:21] LABS: Bedside Glucose 166 mg/dL (74-106)
--- NOTE | 2021-11-15 18:45 | NURSING ---
Reviewed charting with Jason Riddle RN
[2021-11-15] MEDS: Insulin Glargine-YFGN 100 UNIT/ML Pen 30 UNIT SC (22:37)
[2021-11-15 22:46] LABS: Bedside Glucose 326 mg/dL (74-106)
[2021-11-16] VITALS (11 sets, daily range): BP systolic 125–185; BP diastolic 77–87; PULSE 89–106; RESP 12–18; TEMP 36.7–37.2; O2SAT 96–100
[2021-11-16] MEDS: hydrALAZINE 20 MG/ML Vial 5 MG IV (04:33)
[2021-11-16] MEDS: 0.9% Saline Lock 10 ML Syringe IV (04:34)
[2021-11-16 05:12] LABS: Anion Gap 3 (5-15); BUN 19 mg/dL (7-18); BUN/Creat Ratio 26.2 RATIO (10-20); Calcium,Total 7.8 mg/dL (8.5-10.1); Chloride 101 mmol/L (98-107); Creatinine, Serum 0.72 mg/dL (0.55-1.02); EST Glomerular Filtration Rate 88 mL/min (>60); Est Glom Filt Rate - Afr Amer 107 mL/min (>60); Estimated Creatinine Clearance 46.97 ml/min; Glucose 366 mg/dL (74-106); Sodium Level 136 mmol/L (136-145)
--- NOTE | 2021-11-16 07:59 | PCM.PN.HOSP ---
Subjective Subjective Follow-up for hypoglycemia with hypoglycemic seizures. Currently hyperglycemic. Patient is also cachectic. Objective Data Objective Data Vital Signs: Vital Signs Temp Pulse Resp BP Pulse Ox 99.0 F 92 18 185/87 H 97 11/16/21 03:10 11/16/21 07:19 11/16/21 03:10 11/16/21 04:33 11/16/21 03:10 Oxygen Delivery Method Room Air Weight: 75 lb 2.842 oz Body Mass Index (BMI) 13.3 Intake & Output: Intake and Output for Last 24 Hours 11/14/21 11/15/21 11/16/21 23:59 23:59 23:59 Intake Total 1440 / 1920 1720 / 1720 220 / 220 Balance 1440 / 1920 1720 / 1720 220 / 220 Medical Nutrition Assessment Dietitian: Malnutrition Criteria Met Start: 11/13/21 13:39 Freq: Status: Active Protocol: Document 11/13/21 13:39 SHEILA (Rec: 11/13/21 13:39 SHEILA [id number]) Nutrition Malnutrition Evidence of Malnutrition Exists Yes Malnutrition (severe): Chronic Evidenced By Suboptimal Energy Intake ( Severe),Physical Changes ( Severe) Clinical Problem Chronic Disease or Condition Related Malnutrition Etiology severe, chronic malnutrition r /t inadequate energy intake w/ increased energy needs d/t COPD Signs/Symptoms as evidenced by chronically low body wt and failure to gain to healthy wt despite claims of eating good at meals and snacks; severe muscle wasting/fat loss evident in orbital, temporal, clavicle, acromion, and lower extremities per physical exam; BMI 13.3 Status Active Problem Recommendation Dietitian Recommendations/Changes Continue regular diet - fortified foods and 1/2 cup CIB w/ meals Change ONS from ensure enlive to ensure clear per pt request Provide extra snack on meal trays for pt to save and eat between meals Lab / Micro Data Result Diagrams: 11/14/21 05:32 11/16/21 04:32 Labs: Laboratory Results - last 24 hr 11/15/21 07:58: POC Glucose 79 11/15/21 11:26: POC Glucose 238 H 11/15/21 16:34: POC Glucose 166 H 11/15/21 22:35: POC Glucose 326 H 11/16/21 04:32: Sodium 136, Potassium 4.0, Chloride 101, Carbon Dioxide 32.0, Anion Gap 3 L, BUN 19 H, Creatinine 0.72, Estim Creat Clear Calc 46.97, Est GFR (MDRD) Af Amer 107, Est GFR (MDRD) Non-Af 88, BUN/Creatinine Ratio 26.2 H, Glucose 366 H, Calcium 7.8 L Micro: Microbiology 11/13/21 15:00 Urine, Clean Catch Urine Culture - Final Mixed Gram Positive Organisms Rhythm Strip Rhythm Strip: Sinus Rhythm Rate: 75 Ectopy: None Physical Exam Narrative General: Alert, Oriented x3, Cooperative HEENT: Legally blind. Perceives hand movement only. Atraumatic, PERRLA, EOMI Oral: No Gingival or Mucosal Lesions/ Ulcerations Neck: Supple, No JVD, Negative Carotid Bruits Lungs: Air entry diminished in bilateral lung bases. No crepitation/rhonchi Cardiovascular: Regular rate, Regular Rhythm, Normal S1, Normal S2, No murmurs Abdomen: Bowel Sounds Present, Soft, Non Tender, Non-Distended : No renal angle tenderness. No suprapubic tenderness. Extremities: No edema, Capillary Refill Less than 3 Seconds Skin: No rashes, No breakdown Musculoskeletal: No Tenderness to Palpation of Joints or Extremities. Moderate muscle atrophy of extremities. Neurological: Cranial nerves II-XII grossly intact, DTR 2/4 and Symmetrical, muscle strength 4/5 at major joints. Psych/Mental Status: Flat affect. Assessment & Plan Assessment/Plan (1) Hypoglycemia associated with type 2 diabetes mellitus: (2) Acute hypokalemia: (3) Seizure due to hypoglycemia: (4) Cachexia: (5) Weight loss: (6) Transaminitis: PLAN: 1. Admitted with hypoglycemia but now hyperglycemia. Patient admitted in PCU. Hypoglycemia resolved. It is mainly iatrogenic as patient cannot read insulin pen, dosages and administration. She is legally blind. security sales manager and social work associate working on it. 2. Seizure most likely due to hypoglycemia. It was not witnessed. Family member history seems like a postictal. No seizure episode during hospital course. 3. Hypokalemia, was persistent. It was replaced. Resolved today is 4.0. Serum magnesium 1.9 on 11/14 4. Severe protein malnutrition with loss of subcutaneous fat and atrophy of muscles of extremities, intervertebral intercostal muscles. Flame Cutting Machine Operator is consulted. Patient does not want to take Glucerna. 5. Debility Due to her chronic medical illnesses and severe protein calorie malnutrition. PT OT evaluate and treat 6. Diabetes mellitus type 2 A1c 9.5 Hold Jardiance. Premeal Humalog increased to 8 units 3 times daily AC. At home, patient needs someone to administer insulin 7. VTE prophylaxis: Moderate risk. Enoxaparin. 8. CODE STATUS: Patient was to be full code. 9. COVID-19 vaccination status: Patient is unvaccinated. Patient states that she did have Covid 19 last year. Charges/Coding Visit Charges Inpatient E&M: 41074 Subs Hosp L2
[2021-11-16 08:06] LABS: Bedside Glucose 309 mg/dL (74-106)
[2021-11-16] MEDS: Insulin Lispro 100 UNIT/ML INSULN.PEN SC ×5 (08:09→17:43)
[2021-11-16] MEDS: Sertraline 50 MG Tablet PO (08:10)
[2021-11-16] MEDS: Enoxaparin 40 MG/0.4 ML Syringe SC (08:10)
[2021-11-16] MEDS: Lisinopril 10 MG Tablet PO (08:11)
[2021-11-16] MEDS: NYSTATIN 500,000 UNIT/5 ML UDC 500000 UNIT PO ×3 (09:55→21:04)
[2021-11-16] MEDS: Acetaminophen 325 MG Tablet 650 MG PO (09:57)
--- NOTE | 2021-11-16 11:52 | CASEMGMT ---
Social Work SW met with pt and introduced self and role of SW. SW discussed discharge plan with pt. Pt stating that she was previously at [facility] and returned home recently. Pt states that she lives with her ex mother in law who is feisty and causes much stress on pt. Pt requesting to go to [facility] at time of discharge. SW called Katt at [facility] and they do have a bed available. Updated clinicals faxed and requested that precert be started. SW will continue to follow. Plan: [facility], pending precert. EMILIE Rios
[2021-11-16 12:16] LABS: Bedside Glucose 286 mg/dL (74-106)
[2021-11-16 12:49] LABS: Pathologist Review Reviewed
[2021-11-16] MEDS: Insulin Lispro 100 UNIT/ML INSULN.PEN 8 UNIT SC (17:43)
[2021-11-16 18:26] LABS: Bedside Glucose 450 mg/dL (74-106)
[2021-11-16] MEDS: Insulin Glargine-YFGN 100 UNIT/ML Pen 30 UNIT SC (21:04)
[2021-11-16 22:00] LABS: Bedside Glucose 203 mg/dL (74-106)
[2021-11-17 03:10] VITALS: BP 151/91; PULSE 98; RESP 12; TEMP 36.8; O2SAT 96
[2021-11-17 04:00] VITALS: PULSE 97
[2021-11-17 07:19] VITALS: PULSE 85
--- NOTE | 2021-11-17 07:47 | PCM.PN.HOSP ---
Objective Data Objective Data Vital Signs: Vital Signs Temp Pulse Resp BP Pulse Ox 98.2 F 85 12 151/91 H 96 11/17/21 03:10 11/17/21 07:19 11/17/21 03:10 11/17/21 03:10 11/17/21 03:10 Oxygen Delivery Method Room Air Weight: 75 lb 2.842 oz Body Mass Index (BMI) 13.3 Intake & Output: Intake and Output for Last 24 Hours 11/15/21 11/16/21 11/17/21 23:59 23:59 23:59 Intake Total 1720 / 1720 1145 / 1505 480 / 480 Balance 1720 / 1720 1145 / 1505 480 / 480 Medical Nutrition Assessment Dietitian: Malnutrition Criteria Met Start: 11/13/21 13:39 Freq: Status: Active Protocol: Document 11/16/21 14:12 SHEILA (Rec: 11/16/21 14:12 SLA [id number]) Nutrition Malnutrition Evidence of Malnutrition Exists Yes Malnutrition (severe): Chronic Evidenced By Suboptimal Energy Intake ( Severe),Physical Changes ( Severe) Clinical Problem Chronic Disease or Condition Related Malnutrition Etiology severe, chronic malnutrition r /t inadequate energy intake w/ increased energy needs d/t COPD Signs/Symptoms as evidenced by chronically low body wt and failure to gain to healthy wt despite claims of eating good at meals and snacks; severe muscle wasting/fat loss evident in orbital, temporal, clavicle, acromion, and lower extremities per physical exam; BMI 13.3 Status Active Problem Recommendation Dietitian Recommendations/Changes Continue regular diet - fortified foods and 1/2 cup CIB w/ Breakfast and ensure clear w/ lunch and dinner Provide extra snack on meal trays for pt to save and eat between meals Lab / Micro Data Result Diagrams: 11/14/21 05:32 11/16/21 04:32 Labs: Laboratory Results - last 24 hr 11/13/21 08:00: Diff Path Review Reviewed 11/16/21 07:54: POC Glucose 309 H 11/16/21 12:08: POC Glucose 286 H 11/16/21 17:27: POC Glucose 450 H 11/16/21 21:00: POC Glucose 203 H Micro: Microbiology 11/13/21 15:00 Urine, Clean Catch Urine Culture - Final Mixed Gram Positive Organisms Rhythm Strip Rhythm Strip: Sinus Rhythm Rate: 75 Ectopy: None Physical Exam Narrative General: Alert, Oriented x3, Cooperative HEENT: Legally blind. Perceives hand movement only. Atraumatic, PERRLA, EOMI Oral: No Gingival or Mucosal Lesions/ Ulcerations Neck: Supple, No JVD, Negative Carotid Bruits Lungs: Air entry diminished in bilateral lung bases. No crepitation/rhonchi Cardiovascular: Regular rate, Regular Rhythm, Normal S1, Normal S2, No murmurs Abdomen: Bowel Sounds Present, Soft, Non Tender, Non-Distended : No renal angle tenderness. No suprapubic tenderness. Extremities: No edema, Capillary Refill Less than 3 Seconds Skin: No rashes, No breakdown Musculoskeletal: No Tenderness to Palpation of Joints or Extremities. Moderate muscle atrophy of extremities. Neurological: Cranial nerves II-XII grossly intact, DTR 2/4 and Symmetrical, muscle strength 4/5 at major joints. Psych/Mental Status: Flat affect. Assessment & Plan Assessment/Plan (1) Hypoglycemia associated with type 2 diabetes mellitus: (2) Acute hypokalemia: (3) Seizure due to hypoglycemia: (4) Cachexia: (5) Weight loss: (6) Transaminitis: PLAN: 1. Admitted with hypoglycemia but now hyperglycemia. Patient admitted in PCU. Hypoglycemia resolved. It is mainly iatrogenic as patient cannot read insulin pen, dosages and administration. She is legally blind. manager union and social security specialist working on it. 2. Seizure most likely due to hypoglycemia. It was not witnessed. Family member history seems like a postictal. No seizure episode during hospital course. 3. Hypokalemia, was persistent. It was replaced. Resolved today is 4.0. Serum magnesium 1.9 on 11/14 4. Severe protein malnutrition with loss of subcutaneous fat and atrophy of muscles of extremities, intervertebral intercostal muscles. Vacuum Cleaner Repair Person is consulted. Patient does not want to take Glucerna. 5. Debility Due to her chronic medical illnesses and severe protein calorie malnutrition. PT OT evaluate and treat 6. Diabetes mellitus type 2 A1c 9.5 Hold Jardiance. Premeal Humalog increas
[2021-11-17 08:00] VITALS: BP 123/79; PULSE 80; RESP 13; TEMP 36.7; O2SAT 100
[2021-11-17 08:11] LABS: Bedside Glucose 48 mg/dL (74-106)
[2021-11-17] MEDS: NYSTATIN 500,000 UNIT/5 ML UDC 500000 UNIT PO ×2 (08:53→14:39)
[2021-11-17] MEDS: Enoxaparin 40 MG/0.4 ML Syringe SC (08:53)
[2021-11-17] MEDS: Sertraline 50 MG Tablet PO (08:54)
[2021-11-17] MEDS: Lisinopril 10 MG Tablet PO (08:54)
[2021-11-17 09:20] LABS: Bedside Glucose 115 mg/dL (74-106)
[2021-11-17 11:00] LABS: Bedside Glucose 325 mg/dL (74-106)
--- NOTE | 2021-11-17 11:31 | PCM.TXEXTCAR ---
Diet 11/13/21 11:41 Diet: Regular - General Food consistency:: Regular Liquid Consistency:: Regular/Thin Type of Dietary Supplement:: 1/2 cup CIB w/ meals Diet Comments: fortified foods; fort oatmeal @B daily, send extra snack w/ meal trays Problem/Diagnosis (1) Hypoglycemia associated with type 2 diabetes mellitus: Status: Acute (2) Acute hypokalemia: Status: Acute (3) Seizure due to hypoglycemia: Status: Acute (4) Cachexia: Status: Acute (5) Weight loss: Status: Acute (6) Transaminitis: Status: Acute Allergies/Procedures Done in Hospital Allergies diphenhydramine [From Benadryl] Allergy (Verified 11/13/21 07:54) Hives Type of Care/Length of Stay Estimated LOS: Convalescent Care Less Than 30 days Type of Care Needed: Skilled Rehab Potential: Good Prognosis: Good Additional Orders/Day of Discharge Day of Discharge: 11/17/21 Dietary and Speech Recommendations Dietitian Recommendations/Changes: Continue regular diet - fortified foods and 1/2 cup CIB w/ Breakfast and ensure clear w/ lunch and dinner Provide extra snack on meal trays for pt to save and eat between meals Discharge Plan Admission Admit Date/Time: 11/13/21 11:31 Primary Reason for Your Visit: Hold if glucose less than 130 mg/dl Attending Provider: Vinod Cuevas Primary Care Provider: Lise Garcia RESOLUTION REP Instructions Additional Instructions / Restrictions: Patient dose of Lantus decreased to 15 units subcutaneous at bedtime daily. Jardiance 25 mg daily. Hold insulin and Jardiance if glucose is less than 130 mg/dL. Advised Accu-Chek before meals and at bedtime. Discharge Orders/Prescriptions Prescriptions: Continued acetaminophen 325 MG tablet 650 mg PO Q6H PRN PRN (Reason: Mild Pain (1-3)/Temp > 100.7 F) RF: 0 albuterol sulfate 90 mcg/actuation HFA aerosol inhaler 1 - 2 puff INHALATION Q6H PRN PRN (Reason: wheezing) RF: 0 sertraline 50 mg tablet 50 mg PO DAILY RF: 0 insulin lispro 100 UNIT/ML insulin pen 5 unit SC TIDAC RF: 0 lisinopril 10 mg tablet 10 mg PO DAILY Qty: 0 RF: 0 Jardiance 25 mg tablet 25 mg PO DAILY Qty: 0 RF: 0 Changed insulin glargine 100 UNITS/ML insulin pen 15 units SC DAILY Qty: 0 RF: 0 Referrals / Follow Up: Lise Garcia NP, RESOLUTION REP-C [Primary Care Provider] - In 1 Week (For wide swing in glucose, diabetes mellitus type 2.) Disposition Disposition (needs filled in before D/C Order can be placed): [facility]
--- NOTE | 2021-11-17 12:27 | DS.PCM_ITS ---
Providers Date of Admission: 11/13/21 Date of Discharge: 11/17/21 Primary Care Physician: TINO De La Cruz Reason For Visit: HYPOGLYCEMIA Diagnosis Discharge Diagnosis (1) Hypoglycemia associated with type 2 diabetes mellitus: Status: Acute Code(s): E11.649 - Type 2 diabetes mellitus with hypoglycemia without coma (2) Acute hypokalemia: Status: Acute Code(s): E87.6 - Hypokalemia (3) Seizure due to hypoglycemia: Status: Acute Code(s): R56.9 - Unspecified convulsions; E16.2 - Hypoglycemia, unspecified (4) Cachexia: Status: Acute Code(s): R64 - Cachexia (5) Weight loss: Status: Acute Code(s): R63.4 - Abnormal weight loss (6) Transaminitis: Status: Acute Code(s): R74.01 - Elevation of levels of liver transaminase levels Medications at Discharge Home Medications acetaminophen 650 mg PO Q6H PRN PRN tab 02/08/19 albuterol sulfate 1 - 2 puff INHALATION Q6H PRN PRN 08/30/21 sertraline 50 mg PO DAILY 08/30/21 insulin lispro 5 unit SC TIDAC 11/13/21 Jardiance 25 mg PO DAILY #0 tab 11/17/21 insulin glargine 15 units SC DAILY #0 ml 11/17/21 lisinopril 10 mg PO DAILY #0 tab 11/17/21 Hospital Course Summary of Care Provided Hospital Course: This 56-year-old female was admitted with unresponsiveness secondary to hypoglycemia. Blood sugar was found 23. Patient also had blank look and since patient had seizure. 1. Labile diabetes mellitus type 2 with hypoglycemia and hyperglycemia, wide fluctuation of glucose. Patient admitted in PCU. Hypoglycemia resolved. It is mainly iatrogenic as patient cannot read insulin pen, dosages and administration and patient dietary habit of taking dessert, pies and Ensure. She is legally blind. Lantus dose was decreased to 15 units subcutaneous daily. Humalog insulin 5 units subcutaneous with diet. Jardiance 25 mg daily. Hold insulin and Jardiance if blood glucose is less than 130 mg/dL. 2. Seizure most likely due to hypoglycemia. It was not witnessed. Family member history seems like a postictal. No seizure episode during hospital course. 3. Hypokalemia, was persistent. It was replaced. Resolved today is 4.0. Serum magnesium 1.9 on 11/14 4. Severe protein malnutrition with loss of subcutaneous fat and atrophy of muscles of extremities, intervertebral intercostal muscles. Sealing And Canceling Machine Operator is consulted. Patient does not want to take Glucerna. 5. Debility Due to her chronic medical illnesses and severe protein calorie malnutrition. PT OT evaluate and treat 6. Diabetes mellitus type 2 A1c 9.5. Jardiance was held during hospital course. 7. VTE prophylaxis: Moderate risk. Enoxaparin. 8. CODE STATUS: Patient was to be full code. 9. COVID-19 vaccination status: Patient is unvaccinated. Patient states that she did have Covid 19 last year. Discharge medication reconciliation done. Discharge follow-up instructions completed. Discharge process discussed with the patient and all questions were answered to patient's satisfaction. Discharged to SNF Total time spent, exact 35 minutes on discharge meds reconciliation, examination, coordination of care with nurses and ancillary staff, review of imaging and blood test and discussion with the patient on follow-up ins tructions. Physical Exam Narrative Seen and examined. Patient had episode or progress in the morning. She was not aware of s urroundings, confused and disoriented. She was oriented and back to normal after hypoglycemic correction. General: Alert, Oriented x3, Cooperative HEENT: Legally blind. Perceives hand movement only. Atraumatic, PERRLA, EOMI Oral: No Gingival or Mucosal Lesions/ Ulcerations Neck: Supple, No JVD, Negative Carotid Bruits Lungs: Air entry diminished in bilateral lung bases. No crepitation/rhonchi Cardiovascular: Regular rate, Regular Rhythm, Normal S1, Normal S2, No murmurs Abdomen: Bowel Sounds Present, Soft, Non Tender, Non-Distended : No renal angle tenderness. No suprapubic tenderness. Extremities: No edema, Capillary Refill Less than 3 Seconds Skin: No rashes, No breakdown Musculoskeletal: No Tenderness to Palpation of Joints or Extremities. Moderate muscle atrophy of extremities. Neurological: Cranial nerves II-XII grossly intact, DTR 2/4 and Symmetrical, muscle strength 4/5 at major joints. Psych/Mental Status: Flat affect. Medical Records Data Medical Nutrition Assessment Dietitian: Malnutrition Criteria Met Start: 11/13/21 13:39 Freq: Status: Active Protocol: Document 11/17/21 11:50 AG (Rec: 11/17/21 11:50 AG [id number]) Nutrition Malnutrition Evidence of Malnutrition Exists Yes Malnutrition (severe): Chronic Evidenced By Suboptimal Energy Intake ( Severe),Physical Changes ( Severe) Clinical Problem Chronic Disease or Condition Related Malnutrition Etiology severe, chronic malnutrition r /t inadequate energy intake w/ increased energy needs d/t COPD Signs/Symptoms as evidenced by severe, muscle wasting and fat loss evident per physical exam in orbital, temporal, clavicle, acromion areas; estimated energy intake meeting <75% of estimated energy intake >3 months; BMI 13.3 Status Active Problem Recommendation Dietitian Recommendations/Changes Will adjust diet to carbohydrate controlled to assist w/ blood glucose management; will adjust ONS to Ensure Clear per pt preference and fortify foods when able Weight / BMI Weight Weight: 75 lb 2.842 oz Body Mass Index (BMI) 13.3 ABG / Lab / Microbiology Data Result Diagrams: 11/14/21 05:32 11/16/21 04:32 Laboratory: Laboratory Results - last 24 hr 11/13/21 08:00: Diff Path Review Reviewed 11/16/21 17:27: POC Glucose 450 H 11/16/21 21:00: POC Glucose 203 H 11/17/21 07:54: POC Glucose 48 L 11/17/21 08:50: POC Glucose 115 H 11/17/21 10:53: POC Glucose 325 H Microbiology: Microbiology 11/13/21 15:00 Urine, Clean Catch Urine Culture - Final Mixed Gram Positive Organisms Meaningful Use Info Meaningful Use Diagnoses (Choose all that apply): None applicable Discharge Plan Admission Admit Date/Time: 11/13/21 11:31 Primary Reason for Your Visit: Hold if glucose less than 130 mg/dl Attending Provider: Vinod Cuevas Primary Care Provider: Lise Garcia PATENT DRAFTER Instructions Additional Instructions / Restrictions: Patient dose of Lantus decreased to 15 units subcutaneous at bedtime daily. Jardiance 25 mg daily. Hold insulin and Jardiance if glucose is less than 130 mg/dL. Advised Accu-Chek before meals and at bedtime. Discharge Orders/Prescriptions Prescriptions: Continued acetaminophen 325 MG tablet 650 mg PO Q6H PRN PRN (Reason: Mild Pain (1-3)/Temp > 100.7 F) RF: 0 albuterol sulfate 90 mcg/actuation HFA aerosol inhaler 1 - 2 puff INHALATION Q6H PRN PRN (Reason: wheezing) RF: 0 sertraline 50 mg tablet 50 mg PO DAILY RF: 0 insulin lispro 100 UNIT/ML insulin pen 5 unit SC TIDAC RF: 0 lisinopril 10 mg tablet 10 mg PO DAILY Qty: 0 RF: 0 Jardiance 25 mg tablet 25 mg PO DAILY Qty: 0 RF: 0 Changed insulin glargine 100 UNITS/ML insulin pen 15 units SC DAILY Qty: 0 RF: 0 Referrals / Follow Up: Lise Garcia PATENT DRAFTER, PATENT DRAFTER-C [Primary Care Provider] - In 1 Week (For wide swing in glucose, diabetes mellitus type 2.) Disposition Disposition (needs filled in before D/C Order can be placed): [facility] Charges/Coding Visit Charges Inpatient E&M: 46593 Disch Hosp
[2021-11-17] MEDS: Insulin Lispro 100 UNIT/ML INSULN.PEN SC (12:39)
[2021-11-17] MEDS: Insulin Lispro 100 UNIT/ML INSULN.PEN 8 UNIT SC (12:39)
--- NOTE | 2021-11-17 13:53 | CASEMGMT ---
Social Work Pt is ready for discharge today. Pt notified and agreeable to discharge. Pt requesting SW call her ex [facility] and inform of discharge. Call to [facility] but no answer and VM is full and cannot leave a message. Pt updated of this. Orders with time of discharge faxed to Katt at [facility]. VM left with Katt for discharge time. 7000 convalescent form completed in [facility] system. Transportation arranged with [facility] for a wheel chair van transport at 3:00. Nursing updated. Plan: [facility] level of care under convalescent stay EMILIE Rios
[2021-11-17 14:26] VITALS: BP 132/74; PULSE 100; RESP 16; TEMP 37.3; O2SAT 99
[2021-11-17 14:26] LABS: Bedside Glucose 450 mg/dL (74-106)
--- NOTE | 2021-11-17 15:29 | NURSING ---
Report given to nurse at [facility].
--- NOTE | 2021-11-17 15:55 | NURSING ---
reviewed and agree with documentation of student nurse Nanda Corley with student for medication pass and assessment
== END 2021-11-17 15:17 | disposition skilled nursing facility (03) | DRG 420 ==
LOC: ED 09:46 → PCU 13:15
PROVIDERS: Emergency Provider Emergency Medicine; PCP Nurse Practitioner Family; Visit Provider Internal Medicine
DX: E11.649 Type 2 diabetes mellitus with hypoglycemia without coma (principal); G93.41 Metabolic encephalopathy; E43 Unspecified severe protein-calorie malnutrition; G40.89 Other seizures; J44.9 Chronic obstructive pulmonary disease, unspecified; Z79.4 Long term (current) use of insulin; E11.65 Type 2 diabetes mellitus with hyperglycemia; E87.6 Hypokalemia; I10 Essential (primary) hypertension; F17.210 Nicotine dependence, cigarettes, uncomplicated; F17.290 Nicotine dependence, other tobacco product, uncomplicated; H54.8 Legal blindness, as defined in USA; R74.01 Elevation of levels of liver transaminase levels; R53.81 Other malaise; Z68.1 Body mass index [BMI] 19.9 or less, adult; R63.4 Abnormal weight loss; Z28.310 Unvaccinated for COVID-19; Z28.9 Immunization not carried out for unspecified reason; Z79.84 Long term (current) use of oral hypoglycemic drugs; Z79.899 Other long term (current) drug therapy; Z86.16 Personal history of COVID-19
CPT/HCPCS: 36415; 70450; 71045; 80048; 80053; 81001; 82947; 82962; 83036; 83690; 83735; 85025; 87086; 87088; 87426; 93005; 97110; 97162; 97166; 97530; 97535; 97802; 97803; 99285; 99406; A4216; J2405; J7799

== ENCOUNTER 2022-03-21 09:37 | Inpatient (IN) | payer MEDICAID, SELFPAY ==
[2022-03-21] VITALS (19 sets, daily range): BP systolic 140–175; BP diastolic 61–95; PULSE 17–111; RESP 17–110; TEMP 36.8–37.1; O2SAT 69–100; BMI 13.3; BMI 13.1
--- NOTE | 2022-03-21 10:19 | RAD_ITS ---
STUDY: X-RAY CHEST REASON FOR EXAM: Female, 57 years old. Dyspnea TECHNIQUE: Single AP portable view of the chest. COMPARISON: November 13, 2021 FINDINGS: There are monitoring and support devices. There is left perihilar and lower lung airspace consolidation. There is no demonstrated pleural abnormality. Normal size heart. Normal mediastinum and karsten. Normal visualized pulmonary arteries. Normal visualized aortic arch and descending thoracic aorta. Normal visualized thoracic spine. Normal visualized ribs, clavicles, and shoulders. There is no demonstrated abnormality of the visualized soft tissue structures of the upper abdomen. RAD/Chest 1 View (Portable) IMPRESSION: Left pneumonia. Electronically Signed: Zen Johnson MD at 11:22 EDT ,
--- NOTE | 2022-03-21 10:21 | EDS_ITS ---
HPI History of Present Illness Chief Complaint: Chest Pain Detail of Chief Complaint: Chest pain and shortness of breath x5 days Informant: patient Narrative Narrative: Patient presents the emergency department with complaint of shortness of breath and chest pain x5 days. Patient states that she was working making her bed 5 days ago when she felt like something snapped under her skin in the chest and abdomen. Patient complains of pain underneath both ribs anteriorly and also pain that radiates through to her back. She complains of shortness of breath with exertion. She does have history of COPD but not on home O2. She denies re cent travel or surgery. No history of PE or DVT. She has been coughing. Cough is bringing up some sputum at times but she is not sure if it got any color to it. She denies any fevers. Prior similar symptoms: No PFSH PFSH Medical History Anxiety COPD (chronic obstructive pulmonary disease) Depression Diabetes Dysphagia Hypertension Smoker Substance abuse Uncontrolled type 2 diabetes mellitus Home Medications acetaminophen 325 mg tablet 650 mg PO Q6H PRN PRN Mild Pain (1-3)/Temp > 100.7 F 02/08/19 [Rx Last Taken Unknown] albuterol sulfate 90 mcg/actuation aerosol inhaler 1 - 2 puff inhalation Q6H PRN PRN wheezing 08/30/21 [History Last Taken Unknown] sertraline 50 mg tablet 50 mg PO DAILY Depression 08/30/21 [History Last Taken Unknown] insulin lispro 100 unit/mL subcutaneous pen 5 unit SC TIDAC DM2 11/13/21 [History Last Taken Unknown] empagliflozin 25 mg tablet (Jardiance) 25 mg PO DAILY DM #0 tabs 11/17/21 [Rx Last Taken Unknown] insulin glargine 100 unit/mL (3 mL) subcutaneous pen 15 units SC DAILY DM2 #0 mL 11/17/21 [Rx Last Taken Unknown] lisinopril 10 mg tablet 10 mg PO DAILY BP #0 tabs 11/17/21 [Rx Last Taken Unknown] Allergy/AdvReac Type Severity Reaction Status Date / Time diphenhydramine Allergy Hives Verified 03/21/22 09:38 [From Benadryl] Social History Smoking Status: Current every day smoker tobacco type: cigarettes and e- cigarettes ROS ROS ED Review of Systems ROS Unobtainable: other Constitutional Constitutional ED: Reports lethargy; Denies chills, fever(s), sweats or weight loss Eyes Eyes: Denies blurry vision, change in vision or diplopia ENT ENT ED: Denies rhinorrhea or sore throat Cardiovascular Cardiovascular: Reports chest pain; Denies orthopnea or racing heartbeat Respiratory/Chest Respiratory/Chest: Reports cough, dyspnea and dyspnea on exertion; Denies orthopnea or sputum Gastrointestinal Gastrointestinal: Denies abdominal pain, diarrhea, nausea or vomiting Genitourinary Genitourinary ED: Denies dysuria, hematuria or urinary frequency Musculoskeletal Musculoskeletal: Denies arthralgias, back pain, myalgias or neck pain Integumentary Denies abscess, Abrasions or rash Neurologic Neurologic: Denies headache(s) or weakness Psychiatric Psychiatric: Denies anxiety, depression or suicidal thoughts Endocrine Endocrinology: Denies polydipsia, polyphagia or polyuria Hematologic/Lymphatic Hematologic/Lymphatic: Denies easy bleeding, easy bruising or lymphadenopathy Allergic/Immunologic Allergic/Immunologic ED: Denies mouth swelling, tongue swelling or urticaria EXAM Physical Exam Const Vital Signs: 03/21/22 09:39 03/21/22 09:38 03/21/22 10:37 Temperature 98.2 F Temperature Source Oral Pulse Rate 111 H 111 H 108 H Respiratory Rate 17 22 H 20 H Blood Pressure 156/81 H 159/95 H Blood Pressure Mean 106 116 Pulse Ox 92 99 Oxygen Delivery Method Room Air Nasal Cannula Oxygen Flow Rate (L/min) 2 03/21/22 10:37 03/21/22 10:34 03/21/22 10:43 Temperature Temperature Source Pulse Rate Respiratory Rate Blood Pressure Blood Pressure Mean Pulse Ox 100 100 94 Oxygen Delivery Method Nasal Cannula Nasal Cannula Room Air Oxygen Flow Rate (L/min) 2 2 03/21/22 11:05 Temperature Temperature Source Pulse Rate 17 L Respiratory Rate 109 H Blood Pressure 162/81 H Blood Pressure Mean 108 Pulse Ox 95 Oxygen Delivery Method Nasal Cannula Oxygen Flow Rate (L/min) 2 Positive well nourished and well developed General Appearance ED: well developed and NAD HEENT Reports TM's clear and moist mucous membranes normocephalic and atraumatic; Negative for trauma or tenderness Tympanic Membrane ED: Yes TM's clear Eyes PERRL and EOMs intact bilaterally General Eye ED: Negative for pale conjunctiva or scleral icterus Neck no lymphadenopathy, supple and no JVD General: Negative for tenderness Chest Wall palpation of chest normal Chest Narrative: Patient has tenderness palpation over the left chest wall in the midaxillary line that seems to reproduce a lot of her pain. Chest: Negative for tenderness Resp normal respiratory effort and clear to auscultation bilaterally Effort and Inspection: Negative for respiratory distress or pain with movement Auscultation: Negative for rhonchi, wheezes or diminished lung sounds Cardio regular rhythm, S1 normal heart sound, S2 normal heart sound and no murmurs Rate: tachycardic Peripheral Pulses: pulses 2+ throughout GI normal to inspection, nondistended, normoactive bowel sounds, soft to palpation, non-tender, non-distended and no masses Back/Spine no CVA tenderness and no thoracic nor lumbar tenderness Extremity normal to inspection General Extremety ED: Negative for edema General Extremity: Negative for edema Neuro oriented x3, CN's II-XII intact bilaterally, no sensory deficits noted and gait normal Sensorium / Orientation: awake, alert, oriented to person, oriented to place and oriented to time Motor Exam: strength 5/5 throughout and strength abnormal Psych mental status grossly normal Skin no rashes or lesions noted and no wounds MDM MDM MDM Narrative Medical decision making narrative: IV line established on arrival. Patient was given a DuoNeb aerosol. Lab work- up was significant for an elevated white count of 31,000 with an elevated glucose as well of 388. Patient's troponin was slightly elevated at 59. Chest x-ray obtained showed a left lower lobe infiltrate. Patient had blood cultures ordered and was started on Rocephin and Zithromax. Case will be discussed with hospitalist to evaluate patient for admission. EKG obtained on arrival showed a sinus tachycardia with no acute ST segment changes therefore unclear if the elevated troponin is related to heart strain related to her pneumonia. Lab Data Attestation: I reviewed the patient's lab results. Labs: Laboratory Results - last 24 hr 03/21/22 03/21/22 03/21/22 10:58 10:58 10:58 WBC 31.6 H* RBC 4.14 L Hgb 12.2 Hct 37.4 MCV 90.3 MCH 29.5 MCHC 32.6 RDW Std Deviation 49.8 H RDW Coeff of Danie 15.0 H Plt Count 560 H MPV 10.0 Immature Gran % (Auto) 0.800 Neut % (Auto) 85.5 H Lymph % (Auto) 5.1 L [place] % (Auto) 8.2 Eos % (Auto) 0.0 Baso % (Auto) 0.4 Absolute Neuts (auto) 27.0 H Absolute Lymphs (auto) 1.62 Nucleated RBC % 0 Differential Comment SCANNED Diff Path Review May foll D-Dimer Quant (PE/DVT) Cancelled Sodium 135 L Potassium 3.5 Chloride 98 Carbon Dioxide 28.0 Anion Gap 9 BUN 37 H Creatinine 0.88 Estim Creat Clear Calc 37.97 Est GFR (MDRD) Af Amer 86 Est GFR (MDRD) Non-Af 71 BUN/Creatinine Ratio 42.2 H Glucose 388 H Calcium 9.2 Troponin I High Sens 59 H Lipase 34 L Radiography Chest X-Ray - ED: 1 View Diagnostic Testing: Clinical Impression(s) from Imaging Studies Chest X-Ray 03/21/22 10:19 IMPRESSION: Left pneumonia. Electronically Signed: Zen Johnson MD at 11:22 EDT Reading Location ID and State: [address] [place] [address] , Service support , 1 view chest x-ray obtained interpreted by myself as left lower lobe infiltrate. Radiology in agreement. EKG Initial EKG: Attestation: I personally reviewed and interpreted this EKG as follows: Comments: Sinus tachycardia with ventricular rate of 111 bpm with old septal infarct Discharge Plan Triage Chief Complaint: Chest Pain ED Provider: Vladimir Lau Dx/Rx/DC Orders Clinical Impression: Pneumonia, Acute dyspnea, Elevated troponin, History of COPD, Hyperglycemia Prescriptions: No Action acetaminophen 325 MG tablet 650 mg PO Q6H PRN PRN (Reason: Mild Pain (1-3)/Temp > 100.7 F) 0RF albuterol sulfate 90 mcg/actuation HFA aerosol inhaler 1 - 2 puff INHALATION Q6H PRN PRN (Reason: wheezing) sertraline 50 mg tablet 50 mg PO DAILY insulin lispro 100 UNIT/ML insulin pen 5 unit SC TIDAC lisinopril 10 mg tablet 10 mg PO DAILY Qty: 0 0RF Rx Instructions: Hold for SBP less than 130 mmHg insulin glargine 100 UNITS/ML insulin pen 15 units SC DAILY Qty: 0 0RF Jardiance 25 mg tablet 25 mg PO DAILY Qty: 0 0RF Rx Instructions: Hold if glucose less than 130 mg/dl Primary Care Provider: Lise Garcia NP Referrals: Lise Garcia NP, [employer] [Primary Care Provider] - Disposition Disposition: Acute Care Hospital [facility], [place]
[2022-03-21] MEDS: Ipratropium/Albuterol Sulfate 3 ML AMPUL.NEB INHALATION (10:34)
[2022-03-21] MEDS: Ondansetron 4 MG/2 ML Vial IV (10:53)
[2022-03-21] MEDS: Morphine 4 MG/ML Syringe IV (10:53)
[2022-03-21] MEDS: 0.9% Normal Saline 1,000 ML 150 ML IV (10:57)
[2022-03-21 11:07] LABS: Absolute Lymphocyte Count 1.62 X10^3/uL (0.83-4.51); Basophil# 0.12 X10^3/uL; Basophil% 0.4 % (0-1); Hematocrit 37.4 % (37-47); Hemoglobin 12.2 g/dL (12.0-15.0); Lymphocyte # 1.62 X10^3/ul (0.83-4.51); Lymphocyte % 5.1 % (19-41); Mean Corp Hgb Conc 32.6 g/dL (32-36); Mean Corpuscular Hgb 29.5 pg (27.0-32.0); Mean Corpuscular Volume 90.3 fL (81-99); Monocyte# 2.59 X10^3/uL; Monocyte% 8.2 % (0-10); NRBC Flagged by Analyzer 0 % (0-5); Neutrophil # 27.02 X10^3/uL (2.7-7.7); Neutrophil % 85.5 % (47-70); POSITIVE COUNT YES; POSITIVE DIFFERENTIAL YES; POSITIVE MORPHOLOGY YES; Platelet Count 560 K/mm3 (150-450); RBC Distribution Width SD 49.8 fl (35.1-43.9); Red Blood Count 4.14 M/mm3 (4.2-5.4)
[2022-03-21 11:12] LABS: Differential Indicated SCAN CRITERIA MET
[2022-03-21 11:16] LABS: White Blood Count 31.6 K/mm3 (4.4-11.0)
[2022-03-21 11:24] LABS: Anion Gap 9 (5-15); BUN 37 mg/dL (7-18); BUN/Creat Ratio 42.2 RATIO (10-20); Calcium,Total 9.2 mg/dL (8.5-10.1); Chloride 98 mmol/L (98-107); Creatinine, Serum 0.88 mg/dL (0.55-1.02); EST Glomerular Filtration Rate 71 mL/min (>60); Est Glom Filt Rate - Afr Amer 86 mL/min (>60); Estimated Creatinine Clearance 37.97 ml/min; Glucose 388 mg/dL (74-106); Lipase 34 U/L (73-393); Potassium 3.5 mmol/L (3.5-5.1); Sodium Level 135 mmol/L (136-145); Troponin-I HS 59 pg/mL (3.0-54.0)
[2022-03-21 11:40] LABS: Differential Comment SCANNED
[2022-03-21 12:10] LABS: D-Dimer Quantitative (DVT/PE) 2.21 FEU/ug/m (0.27-0.49)
[2022-03-21] MEDS: Ceftriaxone 1 GM/50 ML BAG IV (12:11)
--- NOTE | 2022-03-21 12:15 | CT_ITS ---
We are attempting to reach an attending provider to discuss findings. An addendum with communication details will be sent when the communication is complete. STUDY: CTA CHEST REASON FOR EXAM: Female, 57 years old. dyspnea, elevated d-dimer RADIATION DOSAGE (If Supplied By Facility): CTDIvol = ( 5.34 ) mGy, DLP = ( 104.25 ) mGycm TECHNIQUE: The examination was performed with the intravenous administration of 75MmL Isovue 370. Post-processing of the angiographic images was performed, with multiplanar reformation and 3D reconstruction. Individualized dose optimization techniques were used for this CT. COMPARISON: CT of the chest dated August 31, 2021. 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 Small volume multilocular pleural effusion extends across the posterior aspect of the left lung, nearly up to the apex. A component of the pleural fluid results in a crescentic loculated collection in the medial aspect of the left upper lobe and junction with the left anterior pericardial space measuring 7.62 x 3.19 cm. Mild left lower lobe atelectasis is associated with the empyema. Small amounts of fluid from the left pleural effusion extending to the posterior mediastinal space surrounding the descending thoracic aorta. Mild groundglass edema is present in the lingula of the left upper lobe. Cystic emphysematous changes are present throughout both lungs. No consolidation or pulmonary edema is present in the right lung. A partially spiculated nodule is present in the middle one third aspect of the left upper lobe measuring 5.6 cm which is a new finding when compared to the CT of the chest dated August 31, 2021 at suspicious for a malignant neoplasm. Normal enhancement of the main pulmonary artery and right and left pulmonary arteries. Normal enhancement of the bilateral peripheral pulmonary arteries. There is no demonstrated pulmonary embolism. There is atherosclerotic calcification of the aortic arch with tortuosity. There is no demonstrated aortic dissection. Normal heart and pericardium. There are no calcifications of the coronary arteries. Normal mediastinum. Normal hilar regions. Normal visualized trachea and bronchi. There are degenerative changes of thoracic spine. Normal visualized upper abdomen. CT/CTA Chest W/WO Contrast IMPRESSION: Left lower lobe empyema/abscess with bronchopleural fistulization 1. 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 2. Small volume multilocular pleural effusion extends across the posterior aspect of the left lung, nearly up to the apex. 3. A component of the pleural fluid results in a crescentic loculated collection in the medial aspect of the left upper lobe and junction with the left anterior pericardial space measuring 7.62 x 3.19 cm. 4. Mild left lower lobe atelectasis is associated with the empyema. 5. Small amounts of fluid from the left pleural effusion extending to the posterior mediastinal space surrounding the descending thoracic aorta. 6. A partially spiculated nodule is present in the middle one third aspect of the left upper lobe measuring 5.6 cm which is a new finding when compared to the CT of the chest dated August 31, 2021 at suspicious for a malignant neoplasm. 7. No demonstrated pulmonary embolism or arterial dissection. Electronically Signed: César Ventura MD at 14:39 EDT ,
--- NOTE | 2022-03-21 12:57 | NURSING ---
Initial azithromycin bag was leaking. Pharmacy informed and a new bag will be sent.
--- NOTE | 2022-03-21 13:00 | HP.PCM.HOS_ITS ---
[facility] - General General Date of Admission: 03/21/22 Date of Service: 03/21/22 Chief Complaint: shortness of breath. HPI Narrative SARWAT LEY, is a 57 F who presents with 5 days of just shortness of breath. Planes of chills and cough with productive phlegm unknown color. Presents to the emergency room and had a left lower lobe infiltrate. D-dimer was elevated and a CAT scan has been ordered, which has not been performed yet. FORMERLY [facility], [facility] Medical History (Updated 03/21/22 @ 13:[address] Gumaro Simpson DO) Anxiety Cachexia COPD (chronic obstructive pulmonary disease) Debility Depression Diabetes mellitus, type 2 Dysphagia Hypertension Smoker Substance abuse Uncontrolled type 2 diabetes mellitus Uncontrolled type 2 diabetes mellitus Weight loss Home Medications acetaminophen 325 mg tablet 650 mg PO Q6H PRN PRN Mild Pain (1-3)/Temp > 100.7 F 02/08/19 [Rx Last Taken Unknown] albuterol sulfate 90 mcg/actuation aerosol inhaler 1 - 2 puff inhalation Q6H PRN PRN wheezing 08/30/21 [History Last Taken Unknown] sertraline 50 mg tablet 50 mg PO DAILY Depression 08/30/21 [History Last Taken Unknown] insulin lispro 100 unit/mL subcutaneous pen 5 unit SC TIDAC DM2 11/13/21 [History Last Taken Unknown] empagliflozin 25 mg tablet (Jardiance) 25 mg PO DAILY DM #0 tabs 11/17/21 [Rx Last Taken Unknown] insulin glargine 100 unit/mL (3 mL) subcutaneous pen 15 units SC DAILY DM2 #0 mL 11/17/21 [Rx Last Taken Unknown] lisinopril 10 mg tablet 10 mg PO DAILY BP #0 tabs 11/17/21 [Rx Last Taken Unknown] Allergy/AdvReac Type Severity Reaction Status Date / Time diphenhydramine Allergy Hives Verified 03/21/22 09:38 [From Jake] Social History (Updated 03/21/22 @ 13:[address] Gumaro Simpson DO) Smoking Status: Current every day smoker tobacco type: cigarettes and e- cigarettes alcohol intake: former substance use type: amphetamines ROS ROS Narrative Weakness. Chills. All review of systems were negative except as mentioned above in the history of present illness and the other review of systems. Vital Signs Vital Signs Vital Signs: 03/21/22 09:39 03/21/22 09:38 03/21/22 10:37 Temperature 36.8 C Temperature Source Oral Pulse Rate 111 H 111 H 108 H Respiratory Rate 17 22 H 20 H Blood Pressure 156/81 H 159/95 H Blood Pressure Mean 106 116 Pulse Ox 92 99 Oxygen Delivery Method Room Air Nasal Cannula Oxygen Flow Rate (L/min) 2 03/21/22 10:37 03/21/22 10:34 03/21/22 10:43 Temperature Temperature Source Pulse Rate Respiratory Rate Blood Pressure Blood Pressure Mean Pulse Ox 100 100 94 Oxygen Delivery Method Nasal Cannula Nasal Cannula Room Air Oxygen Flow Rate (L/min) 2 2 03/21/22 11:05 03/21/22 11:44 03/21/22 12:01 Temperature 36.8 C 36.8 C Temperature Source Oral Oral Pulse Rate 17 L 24 L 24 L Respiratory Rate 109 H 110 H 110 H Blood Pressure 162/81 H 147/74 H 147/74 H Blood Pressure Mean 108 98 Pulse Ox 95 95 95 Oxygen Delivery Method Nasal Cannula Nasal Cannula Nasal Cannula Oxygen Flow Rate (L/min) 2 2 2 Weight Weight: 34.1 kg Body Mass Index (BMI) 13.3 Physical Exam Const alert and no apparent distress Constitutional Narrative: Appears far older than stated age. Cachectic. No respiratory distress. No conversational dyspnea. HEENT normocephalic, head/scalp atraumatic, hearing grossly normal bilaterally and moist oral mucous membranes HEENT Narrative: Temporal wasting Neck no lymphadenopathy Resp Resp Narrative: Diminished breath sounds throughout. Otherwise clear. Cardio regular rate, regular rhythm, S1 normal heart sound and S2 normal heart sound GI normal to inspection, nondistended, normoactive bowel sounds, soft to palpation, non-tender and non-distended Extremity normal to inspection Extremity Narrative: Profound muscle wasting throughout Neuro Sensorium / Orientation: awake and alert Results Lab / Micro Data Attestation: I reviewed the patient's lab results. Result Diagrams: 03/21/22 10:58 03/21/22 10:58 Labs: Laboratory Results - last 24 hr 03/21/22 10:58: WBC 31.6 H*, RBC 4.14 L, Hgb 12.2, Hct 37.4, MCV 90.3, MCH 29.5, MCHC 32.6, RDW Std Deviation 49.8 H, RDW Coeff of Danie 15.0 H, Plt Count 560 H, MPV 10.0, Immature Gran % (Auto) 0.800, Neut % (Auto) 85.5 H, Lymph % (Auto) 5.1 L, [place] % (Auto) 8.2, Eos % (Auto) 0.0, Baso % (Auto) 0.4, Absolute Neuts (auto) 27.0 H, Absolute Lymphs (auto) 1.62, Nucleated RBC % 0, Differential Comment SCANNED, Diff Path Review December foll 03/21/22 10:58: D-Dimer Quant (PE/DVT) Cancelled 03/21/22 10:58: Sodium 135 L, Potassium 3.5, Chloride 98, Carbon Dioxide 28.0, Anion Gap 9, BUN 37 H, Creatinine 0.88, Estim Creat Clear Calc 37.97, Est GFR (MDRD) Af Amer 86, Est GFR (MDRD) Non-Af 71, BUN/Creatinine Ratio 42.2 H, Glucose 388 H, Calcium 9.2, Troponin I High Sens 59 H, Lipase 34 L 03/21/22 10:58: Lactic Acid 2.0 03/21/22 11:35: D-Dimer Quant (PE/DVT) 2.21 H* Micro: Microbiology 03/21/22 12:00 Nasal Secretion SARS-CoV-2 Antigen (Rapid) - Final Radiology Impression Chest X-Ray 03/21/22 10:19 IMPRESSION: Left pneumonia. Electronically Signed: Zen Johnson MD at 11:22 EDT Reading Location ID and State: [address] [place] [address] , Service support , Assessment & Plan Assessment/Plan (1) Pneumonia: QUALIFIERS: Pneumonia type: due to Pneumococcus Laterality: left Lung location: lower lobe of lung Qualified Code(s): J13 - Pneumonia due to Streptococcus pneumoniae PLAN: Suspected pneumococcal COVID-19 rapid was negative Plan * Check sputum culture, urinary antigens for Streptococcus and Legionella * Follow-up CT * Antibiotics with ceftriaxone azithromycin * Pulmonary toilet * Complicated by the patient's underlying COPD which she is not in exacerbation at this time. 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 Patient was admitted earlier this year with hyperglycemia. Patient took too much Lantus she cannot actually read the the insulin pen Resume glargine, scheduled insulin and Jardiance. + Scale insulin (4) Cachexia: PLAN: Severe protein calorie malnutrition ongoing. Likely due to the patient underlying COPD Weight appears to be stable from November but still her weight is 34.1 kg, her BMI is 13.3 Plan: * Nutrition consult * Glucerna with meals (5) Debility: PLAN: Poor performance status overall PT OT evaluate and treat PLAN: Plan VTE prophylaxis with enoxaparin Charges/Coding Visit Charges Inpatient E&M: 84265 Init Hosp L3
[2022-03-21 14:06] LABS: Troponin-I HS 57 pg/mL (3.0-54.0)
[2022-03-21] MEDS: Aspirin 81 MG TAB.CHEW PO (14:42)
[2022-03-21 15:35] LABS: Reflex Lactate? Y
--- NOTE | 2022-03-21 16:19 | PCM.DC.SUM ---
Providers Date of Admission: 03/21/22 Primary Care Physician: Lise Garcia, [employer] Reason For Visit: PNEOMIA,DYSPNEA,HYPERGYLCEMIA,ELEV. TROPONIN Diagnosis Discharge Diagnosis (1) Empyema lung: Status: Acute Code(s): J86.9 - Pyothorax without fistula Plan: Discussed with pulmonary recommend CT surgery evaluation. Antibiotics now on vancomycin and piperacillin/tazobactam Called [facility] and discussed with the CT surgeon Dr. Montes and felt transfer was appropriate and recommended medical admission. Discussed with Dr. Colon who accepted the patient. CT chest showed the following 1.? 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 2.? Small volume multilocular pleural effusion extends across the posterior aspect of the left lung, nearly up to the apex. 3.? A component of the pleural fluid results in a crescentic loculated collection in the medial aspect of the left upper lobe and junction with the left anterior pericardial space measuring 7.62 x 3.19 cm. 4.? Mild left lower lobe atelectasis is associated with the empyema. 5.? Small amounts of fluid from the left pleural effusion extending to the posterior mediastinal space surrounding the descending thoracic aorta. ? 6.? A partially spiculated nodule is present in the middle one third aspect of the left upper lobe measuring 5.6 cm which is a new finding when compared to the CT of the chest dated August 31, 2021 at suspicious for a malignant neoplasm. ? 7.? No demonstrated pulmonary embolism or arterial dissection. (2) Lung mass: Status: Acute Code(s): R91.8 - Other nonspecific abnormal finding of lung field Plan: Suspected malignancy. New from August 2021. (3) Pneumonia: Status: Acute Code(s): J18.9 - Pneumonia, unspecified organism Qualifiers: Pneumonia type: due to Pneumococcus Laterality: left Lung location: lower lobe of lung Qualified Code(s): J13 - Pneumonia due to Streptococcus pneumoniae Plan: Most the patient's issue is related with empyema. Antibiotics as above. COVID-19 rapid was negative Plan Check sputum culture, urinary antigens for Streptococcus and Legionella Follow-up CT Antibiotics with ceftriaxone azithromycin Pulmonary toilet Complicated by the patient's underlying COPD which she is not in exacerbation at this time. (4) Elevated troponin: Status: Acute Code(s): R77.8 - Other specified abnormalities of plasma proteins Plan: Suspect type II. Will discontinue the aspirin given the potential need for intervention. 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 Patient was admitted earlier this year with hyperglycemia. Patient took too much Lantus she cannot actually read the the insulin pen Resume glargine, scheduled insulin and Jardiance. + Scale insulin (6) Cachexia: Status: Acute Code(s): R64 - Cachexia Plan: Severe protein calorie malnutrition ongoing. Likely due to the patient underlying COPD Weight appears to be stable from November but still her weight is 34.1 kg, her BMI is 13.3 Plan: Nutrition consult Glucerna with meals (7) Debility: Status: Acute Code(s): R53.81 - Other malaise Plan: Poor performance status overall PT OT evaluate and treat Plan VTE prophylaxis with enoxaparin Disposition to [facility] pending bed availability. Medications at Discharge Home Medications acetaminophen 325 mg tablet 650 mg PO Q6H PRN PRN Mild Pain (1-3)/Temp > 100.7 F 02/08/19 albuterol sulfate 90 mcg/actuation aerosol inhaler 1 - 2 puff inhalation Q6H PRN PRN wheezing 08/30/21 sertraline 50 mg tablet 50 mg PO DAILY Depression 08/30/21 insulin lispro 100 unit/mL subcutaneous pen 5 unit SC TIDAC DM2 11/13/21 empagliflozin 25 mg tablet (Jardiance) 25 mg PO DAILY DM #0 tabs 11/17/21 insulin glargine 100 unit/mL (3 mL) subcutaneous pen 15 units SC DAILY DM2 #0 mL 11/17/21 lisinopril 10 mg tablet 10 mg PO DAILY BP #0 tabs 11/17/21 Hospital Course Operations None Procedures None Summary of Care Provided Minutes Spent on Discharge: 75 Medical Records Data Medical Nutrition Assessment Dietitian: Malnutrition Criteria Met Start: 03/21/22 14:47 Freq: Status: Active Protocol: Document 03/21/22 14:47 SLA (Rec: 03/21/22 14:47 [facility] [id number]) Nutrition Malnutrition Evidence of Malnutrition Exists Yes Malnutrition (severe): Chronic Evidenced By Suboptimal Energy Intake ( Severe),Weight Loss (Severe), Physical Changes (Severe) Clinical Problem Chronic Disease or Condition Related Malnutrition Etiology severe chronic malnutrition related to inadequate energy intake with increased nutritional needs d/t COPD Signs/Symptoms as evidenced by severe muscle/ fat wasting per physical exam in temporal/buccal/orbital regions, clavicle, acromion process, BLE/BUE; estimated nutritional intake <75% of est nutritional needs x >3 months and BMI 13.2 Status Active Problem Altered Nutrient-Related Laboratory Values Etiology related to diabetes Signs/Symptoms as evidenced by gluc 388 Status Active Problem Recommendation Dietitian Recommendations/Changes Will change diet to CHO Controlled with fortified foods as able. Will continue glucerna shake at [employer] - change to 4x/day. Weight / BMI Weight Weight: 33.8 kg Body Mass Index (BMI) 13.1 ABG / Lab / Microbiology Data Result Diagrams: 03/21/22 10:58 03/21/22 10:58 Laboratory: Laboratory Results - last 24 hr 03/21/22 10:58: WBC 31.6 H*, RBC 4.14 L, Hgb 12.2, Hct 37.4, MCV 90.3, MCH 29.5, MCHC 32.6, RDW Std Deviation 49.8 H, RDW Coeff of Danie 15.0 H, Plt Count 560 H, MPV 10.0, Immature Gran % (Auto) 0.800, Neut % (Auto) 85.5 H, Lymph % (Auto) 5.1 L, [place] % (Auto) 8.2, Eos % (Auto) 0.0, Baso % (Auto) 0.4, Absolute Neuts (auto) 27.0 H, Absolute Lymphs (auto) 1.62, Nucleated RBC % 0, Differential Comment SCANNED, Diff Path Review December foll 03/21/22 10:58: D-Dimer Quant (PE/DVT) Cancelled 03/21/22 10:58: Sodium 135 L, Potassium 3.5, Chloride 98, Carbon Dioxide 28.0, Anion Gap 9, BUN 37 H, Creatinine 0.88, Estim Creat Clear Calc 37.97, Est GFR (MDRD) Af Amer 86, Est GFR (MDRD) Non-Af 71, BUN/Creatinine Ratio 42.2 H, Glucose 388 H, Calcium 9.2, Troponin I High Sens 59 H, Lipase 34 L 03/21/22 10:58: Lactic Acid 2.0 03/21/22 11:35: D-Dimer Quant (PE/DVT) 2.21 H* 03/21/22 13:32: Troponin I High Sens 57 H Microbiology: Microbiology 03/21/22 12:00 Nasal Secretion SARS-CoV-2 Antigen (Rapid) - Final Radiography Diagnostic Testing: Radiology Impression Chest X-Ray 03/21/22 10:19 IMPRESSION: Left pneumonia. Electronically Signed: Zen Johnson MD at 11:22 EDT Reading Location ID and State: [address] [place] [address] , Service support , Chest CTA 03/21/22 12:15 IMPRESSION: Left lower lobe empyema/abscess with bronchopleural fistulization 1. 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 2. Small volume multilocular pleural effusion extends across the posterior aspect of the left lung, nearly up to the apex. 3. A component of the pleural fluid results in a crescentic loculated collection in the medial aspect of the left upper lobe and junction with the left anterior pericardial space measuring 7.62 x 3.19 cm. 4. Mild left lower lobe atelectasis is associated with the empyema. 5. Small amounts of fluid from the left pleural effusion extending to the posterior mediastinal space surrounding the descending thoracic aorta. 6. A partially spiculated nodule is present in the middle one third aspect of the left upper lobe measuring 5.6 cm which is a new finding when compared to the CT of the chest dated August 31, 2021 at suspicious for a malignant neoplasm. 7. No demonstrated pulmonary embolism or arterial dissection. Electronically Signed: César Ventura MD at 14:39 EDT , ADDENDUM: 03/21/22 1453 IMPRESSION: Left lower lobe empyema/abscess with bronchopleural fistulization 1. 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 2. Small volume multilocular pleural effusion extends across the posterior aspect of the left lung, nearly up to the apex. 3. A component of the pleural fluid results in a crescentic loculated collection in the medial aspect of the left upper lobe and junction with the left anterior pericardial space measuring 7.62 x 3.19 cm. 4. Mild left lower lobe atelectasis is associated with the empyema. 5. Small amounts of fluid from the left pleural effusion extending to the posterior mediastinal space surrounding the descending thoracic aorta. 6. A partially spiculated nodule is present in the middle one third aspect of the left upper lobe measuring 5.6 cm which is a new finding when compared to the CT of the chest dated August 31, 2021 at suspicious for a malignant neoplasm. 7. No demonstrated pulmonary embolism or arterial dissection. N.B. : The above Results were Read Back by César Ventura MD to TESSY Alejo RN, and understanding confirmed on 03/21/2022 14:46:57 (ET). Electronically Signed: César Ventura MD at 14:39 EDT , D/C Instructions Discharge Diet: 2000 Calorie Control Diet Meaningful Use Info Meaningful Use Diagnoses (Choose all that apply): None applicable Discharge Plan Admission Admit Date/Time: 03/21/22 12:44 Attending Provider: Gumaro Simpson Primary Care Provider: Radha,Lise [employer] Discharge Orders/Prescriptions Prescriptions: No Action acetaminophen 325 MG tablet 650 mg PO Q6H PRN PRN (Reason: Mild Pain (1-3)/Temp > 100.7 F) 0RF albuterol sulfate 90 mcg/actuation HFA aerosol inhaler 1 - 2 puff INHALATION Q6H PRN PRN (Reason: wheezing) sertraline 50 mg tablet 50 mg PO DAILY insulin lispro 100 UNIT/ML insulin pen 5 unit SC TIDAC lisinopril 10 mg tablet 10 mg PO DAILY Qty: 0 0RF Rx Instructions: Hold for SBP less than 130 mmHg insulin glargine 100 UNITS/ML insulin pen 15 units SC DAILY Qty: 0 0RF Jardiance 25 mg tablet 25 mg PO DAILY Qty: 0 0RF Rx Instructions: Hold if glucose less than 130 mg/dl Referrals / Follow Up: Lise Garcia [employer], [employer] [Primary Care Provider] - Disposition Disposition (needs filled in before D/C Order can be placed): Acute Care Hospital Charges/Coding Visit Charges Inpatient E&M: 77284 Disch Hosp (Billing department: Determine if this [place] billing [place] [id number] if the patient is being discharged same day. Patient's hospitalization warranted admission.)
[2022-03-21] MEDS: Vancomycin IV 1,000 MG/200 ML BAG 200 MG IV (16:33)
[2022-03-21 16:38] LABS: Lactic Acid 2.2 mmol/L (0.4-1.9)
--- NOTE | 2022-03-21 16:59 | PCM.RX.CS ---
Consult Pharmacy has been consulted to manage selected antiobiotic: Vancomycin Type of Consult: New start Labs: Sodium 135 mmol/L (136-145) L 03/21/22 10:58 Potassium 3.5 mmol/L (3.5-5.1) 03/21/22 10:58 Chloride 98 mmol/L (98-107) 03/21/22 10:58 Carbon Dioxide 28.0 mmol/L (21.0-32.0) 03/21/22 10:58 Anion Gap 9 (5-15) 03/21/22 10:58 BUN 37 mg/dL (7-18) H 03/21/22 10:58 Creatinine 0.88 mg/dL (0.55-1.02) 03/21/22 10:58 Est GFR (MDRD) Af Amer 86 mL/min (>60) 03/21/22 10:58 Est GFR (MDRD) Non-Af 71 mL/min (>60) 03/21/22 10:58 BUN/Creatinine Ratio 42.2 RATIO (10-20) H 03/21/22 10:58 Glucose 388 mg/dL (74-106) H 03/21/22 10:58 Microbiology: Microbiology 03/21/22 12:00 Nasal Secretion SARS-CoV-2 Antigen (Rapid) - Final Weight used for dosin kg Estimated Creatinine Clearance: 38 Pharmacy Plan for Drug Dosinmg IV x1, 500mg IV q24h with trough prior to 3rd dose. Pharmacy Service will continue to monitor and adjust dosing as required. Follow-Up Labs: Trough Vancomycin - 03/23 @ 1530
[2022-03-21] MEDS: Insulin Lispro 100 UNIT/ML INSULN.PEN SC ×2 (17:06)
[2022-03-21 17:30] LABS: Bedside Glucose > 500 mg/dL (74-106)
--- NOTE | 2022-03-21 17:30 | NURSING ---
Report called to [facility] TESSY Metcalf. Pt contacting family to let them know she is being transferred.
[2022-03-21] MEDS: LORazepam 1 MG Tablet PO (18:15)
[2022-03-21] MEDS: Albuterol 2.5 MG/3 ML VIAL.NEB. INHALATION (18:56)
[2022-03-21 19:21] LABS: Bedside Glucose > 500 mg/dL (74-106)
--- NOTE | 2022-03-21 21:27 | NURSING ---
Pt left floor at 20:40
[2022-03-22 12:25] LABS: Pathologist Review Reviewed
== END 2022-03-21 20:30 | disposition short-term general hospital (02) | DRG 137 ==
LOC: ED 11:53 → PCU 12:58
PROVIDERS: Emergency Provider Emergency Medicine; PCP Nurse Practitioner Family
DX: J86.9 Pyothorax without fistula (principal); E43 Unspecified severe protein-calorie malnutrition; I21.A1 Myocardial infarction type 2; J13 Pneumonia due to Streptococcus pneumoniae; C34.12 Malignant neoplasm of upper lobe, left bronchus or lung; Z79.4 Long term (current) use of insulin; E11.65 Type 2 diabetes mellitus with hyperglycemia; J44.0 Chronic obstructive pulmonary disease with (acute) lower respiratory infection; I10 Essential (primary) hypertension; F17.210 Nicotine dependence, cigarettes, uncomplicated; F17.290 Nicotine dependence, other tobacco product, uncomplicated; R91.8 Other nonspecific abnormal finding of lung field; R53.81 Other malaise; Z68.1 Body mass index [BMI] 19.9 or less, adult; Z79.84 Long term (current) use of oral hypoglycemic drugs; Z79.899 Other long term (current) drug therapy
CPT/HCPCS: 36415; 71045; 71275; 80048; 82962; 83605; 83690; 84484; 85025; 85379; 87040; 87426; 93005; 94640; 94667; 97802; 99285; 99406; J7030; J7050; Q9967; A4216; J2405

== ENCOUNTER 2023-05-02 11:10 | Inpatient (IN) | payer MEDICAID, SELFPAY ==
[2023-05-02] VITALS (7 sets, daily range): BP systolic 111–162; BP diastolic 50–92; PULSE 85–92; RESP 13–18; TEMP 35.9–36.9; O2SAT 91–100; BMI 17.6; BMI 17.5
--- NOTE | 2023-05-02 11:24 | CT_ITS ---
STUDY: CT ABDOMEN AND PELVIS WITH CONTRAST REASON FOR EXAM: Female, 58 years old. Abdominal pain, nausea/vomiting x 2 weeks, diabetes, hypertension, elevated WBC and glucose today. RADIATION DOSAGE (If Supplied By Facility): CTDIvol = ( 9.49 ) mGy, DLP = ( 304.46 ) mGycm TECHNIQUE: Transaxial images were obtained from the dome of the diaphragm to the symphysis pubis without oral contrast. IV 75mL Isovue-[id number] was administered. Sagittal and coronal images were reconstructed. Individualized dose optimization techniques were used for this CT. COMPARISON: Comparison is made with prior study dated August 30, 2021. FINDINGS: Minimal linear density at the left lung base suggestive of atelectasis and/or scarring. New 1 cm nodule in the posterior medial segment of the left lower lobe. The previously seen infiltrate in the anterior aspect of the right lower lobe has resolved. The visualized portions of the heart are within normal limits. Mild degree of central intrahepatic biliary ductal dilatation. The patient is status post cholecystectomy. 1.9 cm x 0.9 cm hypodense nodule in the anterior lateral aspect of the spleen. Normal pancreas. There is a 1.9 cm nodule in the left adrenal gland. This is not a typical adenoma. Small right renal cyst. Nonobstructive calculus in the upper pole of the left kidney. Surgical clips are seen in the region of the duodenum. Thickening of the small bowel loops in the right lower quadrant and right midabdomen. Enteritis should be ruled out. Normal colon. There is non-visualization of the appendix. There is diffuse atherosclerotic calcification of the abdominal aorta and its major visceral branches, without a demonstrated aneurysm. Normal inferior vena cava. There is borderline retroperitoneal lymphadenopathy with enlarged nodes no greater than 10mm in the short axis diameter. There is a distended urinary bladder. There is absence of the uterus consistent with a prior hysterectomy. There is a small umbilical hernia containing fat. Loss of height of the superior endplate of the L2 vertebrae. CT/Abdomen/Pelvis W IV Cont ONLY IMPRESSION: 1 cm nodule in the posterior medial segment of the left lower lobe. 1.9 Enoch nodule in the left adrenal gland. This is not a typical adenoma. Stable small right renal cyst as well as nonobstructive calculus in the upper pole calyx of the left kidney. Thickening of several small bowel loops in the right mid and right lower quadrants. Inflammatory process should be ruled out. Stable 1.9 cm hypodensity in the spleen. Electronically Signed: Andrae Colón MD at 13:03 EDT ,
--- NOTE | 2023-05-02 11:26 | EX.ED.DYSGE1 ---
HPI <LESVIA Shaw - Last Filed: 05/02/23 14:00> History of Present Illness Chief Complaint: General Illness Narrative Narrative: Patient presenting today due to generally not feeling well. She reports that she, does not feel like a person. She reports being at [place] 2 weeks ago due to COVID and since being home has not been eating because,my stomach is closed. She reports that she feels very thirsty, she is a type II diabetic and takes insulin. She is not sure if she has ever been in DKA. She reports that she feels nauseous and has lower abdominal pain. She denies any vomiting, fever, chills, chest pain, and shortness of breath. She reports that she has been having decreased bowel movements. Prior abdominal surgeries include partial hysterectomy and cholecystectomy. [facility] <LESVIA Shaw - Last Filed: 05/02/23 14:00> [facility] Medical History Age-related physical debility Anemia due to blood loss, chronic Anxiety Cachexia COPD (chronic obstructive pulmonary disease) Debility Depression Diabetes mellitus, type 2 Dysphagia Emphysema, unspecified History of COPD Hyperglycemia Hyperlipidemia, unspecified Hypertension Other stimulant dependence, uncomplicated Smoker Smoking addiction Substance abuse Uncontrolled type 2 diabetes mellitus Uncontrolled type 2 diabetes mellitus Weight loss Home Medications atorvastatin 10 mg tablet 10 mg PO DAILY 12/06/22 [History Last Taken 05/01/23] glucagon 1 mg/0.2 mL subcutaneous auto-injector 1 mg subcut ONCE 12/06/22 [History Last Taken Unknown] insulin glargine 100 unit/mL (3 mL) subcutaneous pen 11 unit (0.11 mL) subcut DAILY DM2 #15 mL 12/06/22 [Rx Last Taken 05/01/23] insulin lispro 100 unit/mL subcutaneous pen 8 unit (0.08 mL) subcut .tidcm DM2 #15 mL 12/06/22 [Rx Last Taken 05/01/23] losartan 50 mg tablet 50 mg PO DAILY 05/02/23 [History Last Taken 05/01/23] sertraline 50 mg tablet 50 mg PO DAILY 05/02/23 [History Last Taken 05/01/23] Allergy/AdvReac Type Severity Reaction Status Date / Time diphenhydramine Allergy Hives Verified 03/11/23 10:48 [From Jake] Social History Smoking Status: Current every day smoker tobacco type: cigarettes and e-cigarettes alcohol intake: former substance use type: amphetamines ROS <LESVIA Shaw - Last Filed: 05/02/23 14:00> ROS ED Constitutional Constitutional ED: Denies chills or fever(s) Cardiovascular Cardiovascular: Denies chest pain Respiratory/Chest Respiratory/Chest: Denies cough or dyspnea Gastrointestinal Gastrointestinal: Reports abdominal pain, constipation and nausea; Denies diarrhea or vomiting Genitourinary Genitourinary ED: Denies dysuria, hematuria or urinary frequency Musculoskeletal Musculoskeletal: Denies arthralgias or myalgias Integumentary Denies rash Neurologic Neurologic: Reports weakness EXAM <LESVIA Shaw - Last Filed: 05/02/23 14:00> Physical Exam Const Vital Signs: 05/02/23 11:12 05/02/23 11:20 05/02/23 11:21 Temperature 96.7 F L Temperature Source Temporal Pulse Rate 87 Respiratory Rate 13 Respiratory Effort Normal Non-Labored Blood Pressure 128/75 H Blood Pressure Mean 92 Pulse Ox 93 Oxygen Delivery Method Room Air 05/02/23 12:34 Temperature Temperature Source Pulse Rate 92 Respiratory Rate 16 Respiratory Effort Blood Pressure 111/92 H Blood Pressure Mean 98 Pulse Ox 98 Oxygen Delivery Method Room Air Positive well nourished, well developed and no apparent distress General Appearance ED: well developed HEENT Reports normocephalic and head/scalp atraumatic Mouth ED: Yes moist mucous membranes normal Eyes PERRL and EOMs intact bilaterally Neck full ROM and supple Chest Wall inspection of chest normal Resp normal respiratory effort and clear to auscultation bilaterally Cardio regular rate and regular rhythm GI soft to palpation, non-distended and no masses GI Narrative: Midline abdominal incision scar that is healed. Tenderness to palpation to the lower abdomen without any rigidity or guarding. Back/Spine normal ROM and normal to inspection Extremity normal to inspection and full ROM Neuro oriented x3, CN's II-XII intact bilaterally, moves all extremities, no focal motor deficits and no sensory deficits noted Sensorium / Orientation: awake and alert Psych mental status grossly normal and thought process normal Skin no rashes or lesions noted and no wounds <Dr. Vladimir Lau DO - Last Filed: 05/02/23 15:51> Physical Exam Const Vital Signs: 05/02/23 11:12 05/02/23 11:20 05/02/23 11:21 Temperature 96.7 F L Temperature Source Temporal Pulse Rate 87 Respiratory Rate 13 Respiratory Effort Normal Non-Labored Blood Pressure 128/75 H Blood Pressure Mean 92 Pulse Ox 93 Oxygen Delivery Method Room Air 05/02/23 12:34 Temperature Temperature Source Pulse Rate 92 Respiratory Rate 16 Respiratory Effort Blood Pressure 111/92 H Blood Pressure Mean 98 Pulse Ox 98 Oxygen Delivery Method Room Air MDM <LESVIA Shaw - Last Filed: 05/02/23 14:00> [facility] Narrative Medical decision making narrative: Patient presenting today due to generally not feeling well, she reports that she is thirsty, her lower abdomen is hurting, she is nauseous. She does have a history of diabetes and her glucose here is reading high on the glucometer, there are concerns that patient could be in DKA. Labs to be obtained to rule out leukocytosis, anemia, electrolyte abnormality, UTI, DKA. She has been started on an insulin drip and has been given Zofran and fluids. CT of the abdomen and pelvis will be obtained to rule out bowel obstruction, pancreatitis, appendicitis, and other abdominal etiology. CT shows nodules to the lung, spleen, and adrenal gland and bowel inflammation. Insulin drip was discontinued and she was given a bolus of insulin here, she appears to be in hyperosmolar hyperglycemic state, she is not in DKA. Spoke with the hospitalist and she will be admitted in stable condition, she was given IV Rocephin for her UTI. Patient also has a GARRET. I have personally performed a face to face assessment of the patient and have reviewed the NEMO Note. I performed a substantive portion of the visit including all aspects of the following. My pedersen findings include: History is [patient presents to the emergency department complaint of not feeling well for the last 2 weeks. Patient states that she was in half-way up until about 2 weeks ago. Patient complains of nausea and intermittent vomiting. She complains of intermittent abdominal pain. Patient states that she does not think her small bowel or large bowel are working right. She has had intermittent diarrhea. Patient had a cough and sore throat a week ago but that seems to has resolved. Patient tells me her blood sugars have been reading high at home. She tells me she has been compliant with her medications. She lives at home with her ex [id number]. Patient denies urinary symptoms. She has been able to drink fluids but has not been able to eat.] Exam is [HEENT-PERRLA, EOMI. Cranial nerves II through XII grossly intact. TMs clear. Mucous membranes moist. No adenopathy. Cardiovascular-regular rate and rhythm without murmur or ectopy Lungs-clear to auscultation, chest wall stable without crepitus or subcu emphysema Abdomen-normoactive bowel sounds, soft, nontender, no rebound or rigidity, no peritoneal signs. Extremities-intact ?4, normal range of motion, normal pulses, atraumatic] Medical Decison Making [patient presents with complaint of not feeling well and hyperglycemia. In the differential would be DKA versus hyperglycemic nonketotic state. Patient also presents with abdominal pain. IV line was established. CBC with differential obtained showed an elevated white count of 23,000 with hemoglobin 11.7 and platelet count of 446. Electrolytes showed hyponatremia with a sodium of 126. Anion gap was normal at 10. BUN was 53 and creatinine 1.75. Glucose was 832. Alysis positive for nitrites as well as 500 leukocyte esterase and 25-50 BCs. On arrival she was started on insulin drip and was ordered normal saline fluid boluses. Patient started on Rocephin 1 g IV and urine culture was sent. CT scan of the abdomen pelvis was obtained and the results of which are currently pending. We will discuss case with hospitalist to evaluate patient for admission. My interpretation of the CT scan I see lateral wall thickening which would go along with UTI but no other acute process however official report from radiology pending.] Other additions or changes: [None] Lab Data Lab results narrative: WBC to three-point, H&H 11.7 and 35.9, sodium 126, BUN 53, creatinine 1.75, GFR 32, glucose 832, plan phosphatase 100, albumin 2.1, UTI Labs: Laboratory Results - last 24 hr 05/02/23 05/02/23 05/02/23 11:10 11:19 11:48 WBC 23.2 H RBC 3.78 L Hgb 11.7 L Hct 35.9 L MCV 95.0 MCH 31.0 MCHC 32.6 RDW Std Deviation 45.2 H RDW Coeff of Danie 13.1 Plt Count 446 MPV 11.3 Immature Gran % (Auto) 1.300 H Neut % (Auto) 84.6 H Lymph % (Auto) 5.0 L Becker % (Auto) 8.9 Eos % (Auto) 0.0 Baso % (Auto) 0.2 Absolute Neuts (auto) 19.6 H Absolute Lymphs (auto) 1.17 Nucleated RBC % 0 Diff Path Review May foll Sodium 126 L Potassium 4.2 Chloride 90 L Carbon Dioxide 26.0 Anion Gap 10 BUN 53 H Creatinine 1.75 H Estim Creat Clear Calc 24.95 Est GFR (MDRD) Af Amer 38 L Est GFR (MDRD) Non-Af 32 L BUN/Creatinine Ratio 30.3 H Glucose 832 H* Calcium 8.3 L Total Bilirubin 0.40 AST 13 L ALT 28 Alkaline Phosphatase 300 H Total Protein 7.1 Albumin 2.1 L Globulin 5.0 H Albumin/Globulin Ratio 0.4 L Lipase 19 Urine Color Yellow Urine Clarity Sl. Cloudy Urine pH 5.0 Ur Specific [place] 1.010 Urine Protein 15 H Urine Glucose (UA) 1000 H Urine Ketones 15 H Urine Occult Blood 250 H Urine Nitrite Positive H Urine Bilirubin Negative Urine Urobilinogen Normal Ur Leukocyte Esterase 500 H Urine RBC 25-50 SEEN Urine WBC 25-50 SEEN Ur Squamous Epith Cells 0 SEEN Amorphous Sediment 2+ Urine Bacteria 2+ Urine Mucus 0 SEEN Acetone Level MODERATE H POC Glucose > 500 H* Radiography Diagnostic Testing: Clinical Impression(s) from Imaging Studies Abdomen/Pelvis CT 05/02/23 11:24 IMPRESSION: 1 cm nodule in the posterior medial segment of the left lower lobe. 1.9 Enoch nodule in the left adrenal gland. This is not a typical adenoma. Stable small right renal cyst as well as nonobstructive calculus in the upper pole calyx of the left kidney. Thickening of several small bowel loops in the right mid and right lower quadrants. Inflammatory process should be ruled out. Stable 1.9 cm hypodensity in the spleen. Electronically Signed: Andrae Colón MD at 13:03 EDT , <Dr. Vladimir Lau, DO - Last Filed: 05/02/23 15:51> [facility] Narrative Medical decision making narrative: Patient presenting today due to generally not feeling well, she reports that she is thirsty, her lower abdomen is hurting, she is nauseous. She does have a history of diabetes and her glucose here is reading high on the glucometer, there are concerns that patient could be in DKA. Labs to be obtained to rule out leukocytosis, anemia, electrolyte abnormality, UTI, DKA. She has been started on an insulin drip and has been given Zofran and fluids. CT of the abdomen and pelvis will be obtained to rule out bowel obstruction, pancreatitis, appendicitis, and other abdominal etiology. I have personally performed a face to face assessment of the patient and have reviewed the NEMO Note. I performed a substantive portion of the visit including all aspects of the following. My pedersen findings include: History is [patient presents to the emergency department complaint of not feeling well for the last 2 weeks. Patient states that she was in half-way up until about 2 weeks ago. Patient complains of nausea and intermittent vomiting. She complains of intermittent abdominal pain. Patient states that she does not think her small bowel or large bowel are working right. She has had intermittent diarrhea. Patient had a cough and sore throat a week ago but that seems to has resolved. Patient tells me her blood sugars have been reading high at home. She tells me she has been compliant with her medications. She lives at home with her ex [id number]. Patient denies urinary symptoms. She has been able to drink fluids but has not been able to eat.] Exam is [HEENT-PERRLA, EOMI. Cranial nerves II through XII grossly intact. TMs clear. Mucous membranes moist. No adenopathy. Cardiovascular-regular rate and rhythm without murmur or ectopy Lungs-clear to auscultation, chest wall stable without crepitus or subcu emphysema Abdomen-normoactive bowel sounds, soft, nontender, no rebound or rigidity, no peritoneal signs. Extremities-intact ?4, normal range of motion, normal pulses, atraumatic] Medical Decison Making [patient presents with complaint of not feeling well and hyperglycemia. In the differential would be DKA versus hyperglycemic nonketotic state. Patient also presents with abdominal pain. IV line was established. CBC with differential obtained showed an elevated white count of 23,000 with hemoglobin 11.7 and platelet count of 446. Electrolytes showed hyponatremia with a sodium of 126. Anion gap was normal at 10. BUN was 53 and creatinine 1.75. Glucose was 832. Alysis positive for nitrites as well as 500 leukocyte esterase and 25-50 BCs. On arrival she was started on insulin drip and was ordered normal saline fluid boluses. Patient started on Rocephin 1 g IV and urine culture was sent. CT scan of the abdomen pelvis was obtained and the results of which are currently pending. We will discuss case with hospitalist to evaluate patient for admission. My interpretation of the CT scan I see lateral wall thickening which would go along with UTI but no other acute process however official report from radiology pending.] Other additions or changes: [None] Lab Data Attestation: I reviewed the patient's lab results. Labs: Laboratory Results - last 24 hr 05/02/23 05/02/23 05/02/23 11:10 11:19 11:48 WBC 23.2 H RBC 3.78 L Hgb 11.7 L Hct 35.9 L MCV 95.0 MCH 31.0 MCHC 32.6 RDW Std Deviation 45.2 H RDW Coeff of Danie 13.1 Plt Count 446 MPV 11.3 Immature Gran % (Auto) 1.300 H Neut % (Auto) 84.6 H Lymph % (Auto) 5.0 L Becker % (Auto) 8.9 Eos % (Auto) 0.0 Baso % (Auto) 0.2 Absolute Neuts (auto) 19.6 H Absolute Lymphs (auto) 1.17 Nucleated RBC % 0 [address] Review December foll Sodium 126 L Potassium 4.2 Chloride 90 L Carbon Dioxide 26.0 Anion Gap 10 BUN 53 H Creatinine 1.75 H Estim Creat Clear Calc 24.95 Est GFR (MDRD) Af Amer 38 L Est GFR (MDRD) Non-Af 32 L BUN/Creatinine Ratio 30.3 H Glucose 832 H* Calcium 8.3 L Total Bilirubin 0.40 AST 13 L ALT 28 Alkaline Phosphatase 300 H Total Protein 7.1 Albumin 2.1 L Globulin 5.0 H Albumin/Globulin Ratio 0.4 L Lipase 19 Urine Color Yellow Urine Clarity Sl. Cloudy Urine pH 5.0 Ur Specific [place] 1.010 Urine Protein 15 H Urine Glucose (UA) 1000 H Urine Ketones 15 H Urine Occult Blood 250 H Urine Nitrite Positive H Urine Bilirubin Negative Urine Urobilinogen Normal Ur Leukocyte Esterase 500 H Urine RBC 25-50 SEEN Urine WBC 25-50 SEEN Ur Squamous Epith Cells 0 SEEN Amorphous Sediment 2+ Urine Bacteria 2+ Urine Mucus 0 SEEN Acetone Level MODERATE H POC Glucose > 500 H* Radiography Diagnostic Testing: Clinical Impression(s) from Imaging Studies Abdomen/Pelvis CT 05/02/23 11:24 IMPRESSION: 1 cm nodule in the posterior medial segment of the left lower lobe. 1.9 Enoch nodule in the left adrenal gland. This is not a typical adenoma. Stable small right renal cyst as well as nonobstructive calculus in the upper pole calyx of the left kidney. Thickening of several small bowel loops in the right mid and right lower quadrants. Inflammatory process should be ruled out. Stable 1.9 cm hypodensity in the spleen. Electronically Signed: Andrae Colón MD at 13:03 EDT , Discharge Plan Dx/Rx/DC Orders Clinical Impression: GARRET (acute kidney injury), Diabetic hyperosmolar non-ketotic state, Acute hyponatremia, Dehydration Disposition Disposition: Acute Care Hospital [facility] Discharge Date/Time: 05/02/23 13:21
[2023-05-02] MEDS: 0.9% Normal Saline (1000mL) 1,000 ML 1000 ML IV (11:28)
[2023-05-02] MEDS: Ondansetron 4 MG/2 ML Vial IV (11:30)
[2023-05-02 11:38] LABS: Bedside Glucose > 500 mg/dL (74-106)
[2023-05-02 11:43] LABS: Absolute Lymphocyte Count 1.17 X10^3/uL (0.83-4.51); Absolute Neutrophil Count 19.6 X10^3/uL (2.0-7.7); Basophil# 0.04 X10^3/uL; Basophil% 0.2 % (0-1); Eosinophil# 0.01 X10^3/uL; Hematocrit 35.9 % (37-47); Hemoglobin 11.7 g/dL (12.0-15.0); Lymphocyte # 1.17 X10^3/ul (0.83-4.51); Mean Corp Hgb Conc 32.6 g/dL (32-36); Mean Platelet Vol. 11.3 fl (6.2-12.0); Monocyte# 2.06 X10^3/uL; Monocyte% 8.9 % (0-10); NRBC Flagged by Analyzer 0 % (0-5); Neutrophil # 19.59 X10^3/uL (2.7-7.7); Neutrophil % 84.6 % (47-70); POSITIVE DIFFERENTIAL YES; Platelet Count 446 K/mm3 (150-450); RBC Distribution Width CV 13.1 % (11.6-14.6); RBC Distribution Width SD 45.2 fl (35.1-43.9); Red Blood Count 3.78 M/mm3 (4.2-5.4); White Blood Count 23.2 K/mm3 (4.4-11.0)
[2023-05-02 11:45] LABS: Differential Indicated SCAN CRITERIA MET
[2023-05-02 11:58] LABS: Mucous, Urine 0 SEEN /hpf (<or=2+); Squamous Epithelial Cells - UA 0 SEEN /hpf (5-10)
[2023-05-02 12:02] LABS: Color, Urine Yellow (Yellow); Glucose, Dipstick 1000 mg/dl (Normal); Ketone-Dipstick 15 mg/dl (Negative); Leukocyte Esterase-Dipstick 500 /ul (Negative); Nitrite-Dipstick Positive (Negative); Occult Blood-Urine 250 /ul (Negative); Protein-Dipstick 15 mg/dl (Negative); Urine Bilirubin Dipstick Negative (Negative); Urine Clarity Sl. Cloudy (Clear); Urine Urobilinogen Normal (Normal)
[2023-05-02 12:09] LABS: Amorphous Sediment 2+; Bacteria 2+ /hpf (None Seen); Red Blood Cells-Urine 25-50 SEEN /hpf (0-5); White Blood Cells 25-50 SEEN /hpf (0-5)
[2023-05-02 12:11] LABS: ALB/GLOB Ratio 0.4 RATIO (0.9-2.4); AST(SGOT) 13 U/L (15-37); Alanine Aminotransfer ALT/SGPT 28 U/L (13-56); Albumin, Serum 2.1 g/dL (3.2-5.0); Alkaline Phosphatase 300 U/L (45-117); Anion Gap 10 (5-15); BUN 53 mg/dL (7-18); BUN/Creat Ratio 30.3 RATIO (10-20); Calcium,Total 8.3 mg/dL (8.5-10.1); Chloride 90 mmol/L (98-107); Creatinine, Serum 1.75 mg/dL (0.55-1.02); EST Glomerular Filtration Rate 32 mL/min (>60); Est Glom Filt Rate - Afr Amer 38 mL/min (>60); Estimated Creatinine Clearance 24.95 ml/min; Glucose 832 mg/dL (74-106); Lipase 19 U/L (13-75); Potassium 4.2 mmol/L (3.5-5.1); Protein, Total 7.1 g/dL (6.4-8.2); Sodium Level 126 mmol/L (136-145)
--- NOTE | 2023-05-02 12:25 | ED.RN ---
DELAY IN INSULIN GTT D/T PT IN CT SCAN
[2023-05-02] MEDS: Insulin Lispro 100 UNIT in 0.9% Normal Saline (100mL Bag) 99 ML CONT INF (12:33)
[2023-05-02] MEDS: Ceftriaxone 1 GM/50 ML BAG IV (12:35)
--- NOTE | 2023-05-02 12:48 | ED.RN ---
INSULIN GTT STOPPED PER DR CAMPOS
--- NOTE | 2023-05-02 12:58 | ED.RN ---
UPDATED PHARMACY ON IV INSULIN ORDER CHANGE
[2023-05-02] MEDS: Insulin Lispro 100 UNIT/ML INSULN.PEN 40 UNIT SC (13:03)
[2023-05-02] MEDS: 0.9% Normal Saline (1000mL) 1,000 ML 250 ML IV ×2 (13:03→14:10)
--- NOTE | 2023-05-02 13:20 | ED.RN ---
THIS RN SPOKE WITH PHARMACY TO TUBE IV INSULIN TO PCU PT IS ON WAY UP CURRENTLY
[2023-05-02] MEDS: Insulin Lispro 100 UNIT/ML INSULN.PEN 10 UNIT SC (14:21)
[2023-05-02] MEDS: Insulin Lispro 100 UNIT/ML INSULN.PEN SC ×2 (14:21→23:07)
[2023-05-02] MEDS: Insulin Glargine-YFGN 100 UNIT/ML Pen 20 UNIT SC (14:22)
--- NOTE | 2023-05-02 15:29 | HP.PCM.HOS_ITS ---
HPI - General General Date of Admission: 05/02/23 Date of Service: 05/02/23 Chief Complaint: Generalized weakness, nausea and vomiting HPI Narrative SARWAT LEY, is a 58 F who presents to the emergency room at [facility] with complaints of generalized weakness, feeling unwell, and abdominal pain with nausea and vomiting over the last 2 weeks. Patient was [place] [facility] approximately 2 weeks ago and she has been living with her ex- and his mother. Patient states that her blood sugars been running high at home but did not elaborate as to how high. Work-up in the emergency room included a CBC which revealed an elevated white blood cell count of 23.2, hemoglobin was 11.7, sodium was 126, creatinine was 1.75 and BUN was 53. Patient's blood sugar was elevated at 832, patient's alk fransisca phosphatase was elevated at 300. Cyst revealed 25-50 RBCs, 25-50 WBCs and positive bacteria. Patient's urine nitrite was positive. Patient was given 1 L of fluid in the emergency room, she will be admitted to PCU for nonketotic hyperosmolar hyperglycemia, acute kidney injury, and acute cystitis, I instructed the emergency room physician to give subcu insulin to the patient and we will try to avoid an insulin drip at this time. Patient will be given vigorous fluid resuscitation and she was placed on IV Rocephin for acute cystitis. Additional Notes: I had an extensive conversation with the nursing staff at [facility], patient was a resident there from 04/22/2022 until 04/08/2023, according to [facility], patient was taking frequent OMAR's home and she was told that she was not allowed to do this because of Medicaid funding of her stay at the residential, patient then made a decision to be discharged to her sister's home-according to the patient today, she lives with her ex- presently-and the patient did not show up for her follow-up visit with her PCP. According to the residential, there is also suspicion that the patient may be abusing methamphetamines. [facility] Medical History Age-related physical debility Anemia due to blood loss, chronic Anxiety Cachexia COPD (chronic obstructive pulmonary disease) Debility Depression Diabetes mellitus, type 2 Dysphagia Emphysema, unspecified History of COPD Hyperglycemia Hyperlipidemia, unspecified Hypertension Other stimulant dependence, uncomplicated Smoker Smoking addiction Substance abuse Uncontrolled type 2 diabetes mellitus Uncontrolled type 2 diabetes mellitus Weight loss Home Medications atorvastatin 10 mg tablet 10 mg PO DAILY 12/06/22 [History Last Taken 05/01/23] glucagon 1 mg/0.2 mL subcutaneous auto-injector 1 mg subcut ONCE 12/06/22 [History Last Taken Unknown] insulin glargine 100 unit/mL (3 mL) subcutaneous pen 11 unit (0.11 mL) subcut DAILY DM2 #15 mL 12/06/22 [Rx Last Taken 05/01/23] insulin lispro 100 unit/mL subcutaneous pen 8 unit (0.08 mL) subcut .tidcm DM2 #15 mL 12/06/22 [Rx Last Taken 05/01/23] losartan 50 mg tablet 50 mg PO DAILY 05/02/23 [History Last Taken 05/01/23] sertraline 50 mg tablet 50 mg PO DAILY 05/02/23 [History Last Taken 05/01/23] Allergy/AdvReac Type Severity Reaction Status Date / Time diphenhydramine Allergy Hives Verified 03/11/23 10:48 [From Benadryl] Social History Smoking Status: Current every day smoker tobacco type: cigarettes and e- cigarettes alcohol intake: former substance use type: amphetamines ROS ROS Narrative A complete review of systems was unobtainable from the patient due to the p atient being a poor informant. Patient was able to answer simple questions for the most part but did not carry on a conversation with this examiner. Vital Signs Vital Signs Vital Signs: 05/02/23 11:12 05/02/23 11:20 05/02/23 11:21 Temperature 96.7 F L Temperature Source Temporal Pulse Rate 87 Respiratory Rate 13 Respiratory Effort Normal Non-Labored Blood Pressure 128/75 H Blood Pressure [BP] Blood Pressure Mean 92 Blood Pressure Mean [BP] Blood Pressure Source [BP] Blood Pressure Position [BP] Blood Pressure Location [BP] Pulse Ox 93 Oxygen Delivery Method Room Air 05/02/23 12:34 05/02/23 12:57 05/02/23 13:42 Temperature 97 F L 98.4 F Temperature Source Temporal Oral Pulse Rate 92 92 91 Respiratory Rate 16 16 16 Respiratory Effort Blood Pressure 111/92 H 111/92 H Blood Pressure [BP] 162/51 H Blood Pressure Mean 98 98 Blood Pressure Mean [BP] 88 Blood Pressure Source [BP] Monitor Blood Pressure Position [BP] Sitting Blood Pressure Location [BP] Left Arm Pulse Ox 98 92 100 Oxygen Delivery Method Room Air Room Air Room Air Weight Weight: 44.906 kg Body Mass Index (BMI) 17.5 Physical Exam Const alert and oriented x3 Constitutional Narrative: Patient appears cachectic, she appears much older than her stated age General Appearance: cooperative and well developed Orientation / Consciousness: awake, oriented to person and oriented to place HEENT normocephalic, head/scalp atraumatic and hearing grossly normal bilaterally HEENT Narrative: Mucous membranes are dry Eyes PERRL, EOMs intact bilaterally and conjunctivae normal Neck supple, no JVD, thyroid normal and no carotid bruits General: trachea midline Resp normal respiratory effort, no retractions, no use of accessory muscles and clear to auscultation bilaterally Auscultation: Negative for rales, rhonchi or wheezes Cardio regular rate, regular rhythm, S1 normal heart sound, S2 normal heart sound, no murmurs, no rub and no gallops GI normal to inspection, nondistended, normoactive bowel sounds, soft to palpation, non-tender and non-distended GI Narrative: Patient appears cachectic Extremity no clubbing, cyanosis or edema Skin no rashes or lesions noted General Skin Exam: no breakdown Neuro oriented x3, CN's II-XII intact bilaterally, moves all extremities, no focal motor deficits and no sensory deficits noted Sensorium / Orientation: awake, alert, oriented to person and oriented to place Speech: speech normal Psych Psych Narrative: Patient has a flat affect Results Lab / Micro Data 05/02/23 11:10 05/02/23 11:10 Labs: Laboratory Results - last 24 hr 05/02/23 11:10: WBC 23.2 H, RBC 3.78 L, Hgb 11.7 L, Hct 35.9 L, MCV 95.0, MCH 31.0, MCHC 32.6, RDW Std Deviation 45.2 H, RDW Coeff of Danie 13.1, Plt Count 446, MPV 11.3, Immature Gran % (Auto) 1.300 H, Neut % (Auto) 84.6 H, Lymph % (Auto) 5.0 L, [place] % (Auto) 8.9, Eos % (Auto) 0.0, Baso % (Auto) 0.2, Absolute Neuts (auto) 19.6 H, Absolute Lymphs (auto) 1.17, Nucleated RBC % 0, Diff Path Review December, Sodium 126 L, Potassium 4.2, Chloride 90 L, Carbon Dioxide 26.0, Anion Gap 10, BUN 53 H, Creatinine 1.75 H, Estim Creat Clear Calc 24.95, Est GFR (MDRD) Af Amer 38 L, Est GFR (MDRD) Non-Af 32 L, BUN/Creatinine Ratio 30.3 H, Glucose 832 H*, Calcium 8.3 L, Total Bilirubin 0.40, AST 13 L, ALT 28, Alkaline Phosphatase 300 H, Total Protein 7.1, Albumin 2.1 L, Globulin 5.0 H, Albumin/Globulin Ratio 0.4 L, Lipase 19, Acetone Level MODERATE H 05/02/23 11:19: POC Glucose > 500 H* 05/02/23 11:48: Urine Color Yellow, Urine Clarity Sl. Cloudy, Urine pH 5.0, Ur Specific [place] 1.010, Urine Protein 15 H, Urine Glucose (UA) 1000 H, Urine Ketones 15 H, Urine Occult Blood 250 H, Urine Nitrite Positive H, Urine Bilirubin Negative, Urine Urobilinogen Normal, Ur Leukocyte Esterase 500 H, Urine RBC 25-50 SEEN, Urine WBC 25-50 SEEN, Ur Squamous Epith Cells 0 SEEN, Amorphous Sediment 2+, Urine Bacteria 2+, Urine Mucus 0 SEEN Radiology Impression Abdomen/Pelvis CT 05/02/23 11:24 IMPRESSION: 1 cm nodule in the posterior medial segment of the left lower lobe. 1.9 Enoch nodule in the left adrenal gland. This is not a typical adenoma. Stable small right renal cyst as well as nonobstructive calculus in the upper pole calyx of the left kidney. Thickening of several small bowel loops in the right mid and right lower quadrants. Inflammatory process should be ruled out. Stable 1.9 cm hypodensity in the spleen. Electronically Signed: Andrae Colón MD at 13:03 EDT , Assessment & Plan Assessment/Plan (1) Diabetic hyperosmolar non-ketotic state: PLAN: Plan 1. Nonketotic hyperosmolar hyperglycemia secondary to uncontrolled type 2 diabetes secondary to noncompliance with medical regimen-patient will be admitted to PCU, every 4 hours blood sugars will be monitored, patient will be placed on a dose of basal insulin and received sliding scale insulin as warranted. I will continue to give the patient vigorous fluid resuscitation #2 acute kidney injury secondary to #1-patient will be given normal saline at 250 cc/h, I will continue this for several hours and then reduce the IV rate, BMP will be monitored #3 acute cystitis-patient was given IV Rocephin, CBC will be monitored #4 noncompliance with medical regimen-complicates care, medical course, recovery, and prognosis #5 chronic protein and caloric malnutrition-nutritional services will see the patient #6 medically elevated alkaline phosphatase-etiology of this is unknown at this time, she will need follow-up as an outpatient concerning this Clinical time spent by myself addressing the patient's medical issues, reviewing all the data, and collaborating with patient's care team: 75 minutes Charges/Coding Visit Charges Inpatient E&M: 69018 Init Hosp L3
[2023-05-02] MEDS: Dextrose 50%-Water 25 GM/50 ML DISP.SYRIN IV (18:09)
[2023-05-02 18:12] LABS: Anion Gap 7 (5-15); BUN 43 mg/dL (7-18); BUN/Creat Ratio 31.2 RATIO (10-20); Chloride 105 mmol/L (98-107); Creatinine, Serum 1.38 mg/dL (0.55-1.02); EST Glomerular Filtration Rate 42 mL/min (>60); Est Glom Filt Rate - Afr Amer 51 mL/min (>60); Glucose 79 mg/dL (74-106); Potassium 3.2 mmol/L (3.5-5.1); Sodium Level 138 mmol/L (136-145)
[2023-05-02] MEDS: Glucerna Shake 120 ML LIQUID PO (18:38)
[2023-05-02] MEDS: Dext 5%-0.45% NS 1,000 ML 100 ML IV (18:50)
[2023-05-02 20:42] LABS: Bedside Glucose 200 mg/dL (74-106)
[2023-05-02 20:42] LABS: Bedside Glucose 45 mg/dL (74-106)
[2023-05-02 20:42] LABS: Bedside Glucose 213 mg/dL (74-106)
[2023-05-02 20:42] LABS: Bedside Glucose > 500 mg/dL (74-106)
[2023-05-02] MEDS: Atorvastatin Calcium 10 MG Tablet PO (23:07)
[2023-05-02] MEDS: Heparin Injection (Vial) 5,000 UNIT/ML VIAL 5000 UNIT SC (23:08)
[2023-05-02 23:32] LABS: Bedside Glucose 215 mg/dL (74-106)
[2023-05-03] MEDS: Dext 5%-0.45% NS 1,000 ML 100 ML IV (01:37)
[2023-05-03] MEDS: Insulin Lispro 100 UNIT/ML INSULN.PEN SC ×5 (01:37→20:26)
[2023-05-03 02:00] VITALS: BP 118/79; PULSE 85; RESP 18; TEMP 36.7; O2SAT 95
[2023-05-03 02:01] LABS: Bedside Glucose 164 mg/dL (74-106)
[2023-05-03 06:41] LABS: Absolute Lymphocyte Count 1.95 X10^3/uL (0.83-4.51); Absolute Neutrophil Count 14.6 X10^3/uL (2.0-7.7); Basophil# 0.04 X10^3/uL; Basophil% 0.2 % (0-1); Eosinophil# 0.12 X10^3/uL; Eosinophils% 0.7 % (0-5); Hematocrit 34.2 % (37-47); Hemoglobin 11.2 g/dL (12.0-15.0); Lymphocyte # 1.95 X10^3/ul (0.83-4.51); Lymphocyte % 10.6 % (19-41); Mean Corp Hgb Conc 32.7 g/dL (32-36); Mean Corpuscular Hgb 30.4 pg (27.0-32.0); Mean Corpuscular Volume 92.9 fL (81-99); Mean Platelet Vol. 10.7 fl (6.2-12.0); Monocyte# 1.52 X10^3/uL; Monocyte% 8.2 % (0-10); NRBC Flagged by Analyzer 0 % (0-5); Neutrophil # 14.59 X10^3/uL (2.7-7.7); Neutrophil % 79.1 % (47-70); POSITIVE DIFFERENTIAL YES; Platelet Count 400 K/mm3 (150-450); RBC Distribution Width CV 12.9 % (11.6-14.6); RBC Distribution Width SD 44.2 fl (35.1-43.9); Red Blood Count 3.68 M/mm3 (4.2-5.4); White Blood Count 18.4 K/mm3 (4.4-11.0)
[2023-05-03 06:42] LABS: Bedside Glucose 190 mg/dL (74-106)
[2023-05-03 06:43] LABS: Differential Indicated SCAN CRITERIA MET
[2023-05-03 07:21] LABS: Anion Gap 6 (5-15); BUN 32 mg/dL (7-18); BUN/Creat Ratio 25.4 RATIO (10-20); Calcium,Total 7.6 mg/dL (8.5-10.1); Chloride 103 mmol/L (98-107); Creatinine, Serum 1.26 mg/dL (0.55-1.02); EST Glomerular Filtration Rate 46 mL/min (>60); Est Glom Filt Rate - Afr Amer 56 mL/min (>60); Glucose 226 mg/dL (74-106); Sodium Level 135 mmol/L (136-145)
[2023-05-03 08:19] VITALS: BP 149/63; PULSE 75; RESP 16; TEMP 36.9; O2SAT 96
[2023-05-03] MEDS: Insulin Glargine-YFGN 100 UNIT/ML Pen 10 UNIT SC ×2 (10:01→20:25)
[2023-05-03] MEDS: Ceftriaxone 1 GM/50 ML BAG IV (10:04)
[2023-05-03] MEDS: Glucerna Shake 120 ML LIQUID PO (10:07)
[2023-05-03] MEDS: Losartan Potassium 50 MG Tablet PO (10:12)
[2023-05-03] MEDS: Heparin Injection (Vial) 5,000 UNIT/ML VIAL 5000 UNIT SC ×2 (10:14→20:26)
[2023-05-03 10:36] LABS: Bedside Glucose 284 mg/dL (74-106)
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
[2023-05-03] MEDS: 0.9% Normal Saline (1000mL) 1,000 ML 100 ML IV ×2 (11:22→20:26)
--- NOTE | 2023-05-03 12:05 | CASEMGMT ---
RN CM Assessment: RN?CM?to room to meet with patient for initial transition planning/care coordination?assessment.?RN?CM?introduced self and role at [facility].? Pt voices understanding and consents to?assessment?at this time.? Pt resting in bed in no distress at this time.? Pt is A/O at this time and answers all questions appropriately.?? Care providers, pharmacy, and demographics verified/updated at this time. PCP: Pt states when she left [facility], they set her up w/a PCP in [place] and she went to an appt 1-2 weeks ago. She does not remember name of PCP, but states she does have another appt scheduled in 4 months. Specialists: Dr Brito-endocrinology. Pt states she sees a customer security clerk w/[facility] in [place], but does not remember his name. Preferred Pharmacy: [facility] Retail Insurance:[employer] Prescription Benefit:?Yes Living Will/HPOA:?Pt does not currently have LW/HCPOA and would like to complete. She states she would like her ex-, Johnathon, to be her HCPOA, stating, If there's one thing he's good at, it's taking care of me. KARINA, Selma, made aware. Pt made aware, if KARINA unable to complete AD while she is at [facility], this can be done as an OP. LNOK: 3 adult children: sons: Jhonatan and Krish. Dtr: Lisa. Ex-, Johnathon. Living Arrangements: Lives w/ex-, Johnathon (pt states he is often not home), Johnathon's mother, Donna Lane (age 88), and pt's son, Jhonatan. They live in a 3-story home w/4 steps to enter. FFSU. Pt states she is able to get up the steps into the home slowly. She reports being indep w/ADL's and manages her own medications. Donna does laundry, grocery shopping, and meals. Pt states she tries to help, but states, I get stuck in a rut. Transportation:?Donna or Jhonatan DME: ?States has the following DME:?shower chair, walker (pt states she usually furniture walks, instead of using the walker), and has a functioning glucometer w/supplies. Pt states no need for further DME at this time.? HHC/SNF: Hx of [facility] has only been home for about a couple of weeks. When asked pt if she wishes to return home @ discharge, she stated, I'm not sure I want to go home. Can I go back to [facility]? When I left, they told me I didn't have to go Pt also stated she has considered going to a [facility] permanently, stating when she left [facility] she was feeling really good and thought she could do it at home but is not managing at home well. Selma COLLINS, made aware of above. PLAN:??SNF Rebeca CHANEYN?RN?CM
--- NOTE | 2023-05-03 12:06 | CASEMGMT ---
Per RN CM patient wants to go back to [place]. SW asked Shabana d/c workforce planning analyst to please send a referral to [place]. Selma Lee PNEUMATIC PRESS HAND NILE
--- NOTE | 2023-05-03 13:28 | CASEMGMT ---
Discharge Planning Referral sent to [place] via [facility]. Shabana Noriega, Discharge Planning Asst.
[2023-05-03] MEDS: Potassium Chloride Oral Tablet 20 MEQ 60 MEQ PO (14:10)
[2023-05-03 14:12] VITALS: BP 119/92; PULSE 89; RESP 17; TEMP 36.6; O2SAT 95
[2023-05-03 15:04] LABS: Bedside Glucose 391 mg/dL (74-106)
[2023-05-03 15:16] LABS: Pathologist Review Reviewed
[2023-05-03 15:17] LABS: Pathologist Review Reviewed
[2023-05-03 16:51] LABS: Bedside Glucose 431 mg/dL (74-106)
--- NOTE | 2023-05-03 18:59 | PN.HOSP_ITS ---
Reason for Visit Reason for Visit: Diagnoses Type 2 diabetes mellitus with hyperosmolarity without nonketotic hyperglycemic- hyperosmolar coma ([facility]) (05/02/23) Subjective Subjective Patient was seen and examined today, white count appears to be improved, urine culture grew out gram-negative willard that has not been identified. Patient told case management today that she would like to go back to [facility] where she left 3 weeks ago. Objective Data Objective Data Vital Signs: Vital Signs Temp Pulse Resp BP Pulse Ox O2 Del Method 97.8 F 89 17 119/92 H 95 Room Air 05/03/23 14:12 05/03/23 14:12 05/03/23 14:12 05/03/23 14:12 05/03/23 14:12 05/03/23 14:24 Oxygen Delivery Method Room Air Weight: 44.906 kg Body Mass Index (BMI) 17.5 Intake & Output: Intake and Output for Last 24 Hours 05/01/23 05/02/23 05/03/23 23:59 23:59 23:59 Intake Total 2330.22 / 2330.22 2231.67 / 2231.67 Output Total 400 / 400 Balance 2330.22 / 2330.22 1831.67 / 1831.67 Lab / Micro Data 05/03/23 06:09 05/03/23 06:09 Labs: Laboratory Results - last 24 hr 05/02/23 11:10: Diff Path Review Reviewed 05/02/23 13:39: POC Glucose > 500 H* 05/02/23 18:05: POC Glucose 45 L 05/02/23 18:23: POC Glucose 213 H 05/02/23 20:24: POC Glucose 200 H 05/02/23 22:57: POC Glucose 215 H 05/03/23 01:33: POC Glucose 164 H 05/03/23 05:03: POC Glucose 190 H 05/03/23 06:09: WBC 18.4 H, RBC 3.68 L, Hgb 11.2 L, Hct 34.2 L, MCV 92.9, MCH 30.4, MCHC 32.7, RDW Std Deviation 44.2 H, RDW Coeff of Danie 12.9, Plt Count 400, MPV 10.7, Immature Gran % (Auto) 1.200 H, Neut % (Auto) 79.1 H, Lymph % (Auto) 10.6 L, [place] % (Auto) 8.2, Eos % (Auto) 0.7, Baso % (Auto) 0.2, Absolute Neuts (auto) 14.6 H, Absolute Lymphs (auto) 1.95, Nucleated RBC % 0, Diff Path Review Reviewed, Sodium 135 L, Potassium 3.0 L, Chloride 103, Carbon Dioxide 26.0, Anion Gap 6, BUN 32 H, Creatinine 1.26 H, Estim Creat Clear Calc 34.50, Est GFR (MDRD) Af Amer 56 L, Est GFR (MDRD) Non-Af 46 L, BUN/Creatinine Ratio 25.4 H, Glucose 226 H, Calcium 7.6 L 05/03/23 09:59: POC Glucose 284 H 05/03/23 14:08: POC Glucose 391 H 05/03/23 16:29: POC Glucose 431 H Micro: Microbiology 05/02/23 11:48 Urine, Clean Catch Urine Culture - Preliminary Gram negative willard Physical Exam Narrative alert and oriented x3 Constitutional Narrative: Patient appears cachectic, she appears much older than her stated age General Appearance: cooperative and well developed Orientation / Consciousness: awake, oriented to person and oriented to place HEENT normocephalic, head/scalp atraumatic and hearing grossly normal bilaterally HEENT Narrative: Mucous membranes are moist Eyes PERRL, EOMs intact bilaterally and conjunctivae normal Neck supple, no JVD, thyroid normal and no carotid bruits General: trachea midline Resp normal respiratory effort, no retractions, no use of accessory muscles and clear to auscultation bilaterally Auscultation: Negative for rales, rhonchi or wheezes Cardio regular rate, regular rhythm, S1 normal heart sound, S2 normal heart sound, no murmurs, no rub and no gallops GI normal to inspection, nondistended, normoactive bowel sounds, soft to palpation, non-tender and non-distended GI Narrative: Patient appears cachectic Extremity no clubbing, cyanosis or edema Skin no rashes or lesions noted General Skin Exam: no breakdown Neuro oriented x3, CN's II-XII intact bilaterally, moves all extremities, no focal motor deficits and no sensory deficits noted Sensorium / Orientation: awake, alert, oriented to person and oriented to place Speech: speech normal Psych Psych Narrative: Patient has a flat affect Assessment & Plan Assessment/Plan (1) Dehydration: (2) Diabetic hyperosmolar non-ketotic state: PLAN: Plan 1. Nonketotic hyperosmolar hyperglycemia secondary to uncontrolled type 2 diabe estefani secondary to noncompliance with medical regimen-patient's blood sugars are improved, patient was changed back to normal saline IV, labs will be repeated tomorrow #2 acute kidney injury secondary to #1-patient's creatinine is improved, labs will be repeated tomorrow #3 acute cystitis-patient was given IV Rocephin, CBC will be monitored #4 noncompliance with medical regimen-complicates care, medical course, recovery, and prognosis, patient has agreed to go back to a retirement facility for ongoing care #5 acute deconditioning-again PT and OT are seeing the patient, she will need to go into a skilled facility for inpatient skilled services. #6 medically elevated alkaline phosphatase-etiology of this is unknown at this time, she will need follow-up as an outpatient concerning this Clinical time spent by myself addressing the patient's medical issues, reviewing all the data, and collaborating with patient's care team: 35 minutes Charges/Coding Visit Charges Inpatient E&M: 28394 Subs Hosp L2
[2023-05-03] MEDS: Atorvastatin Calcium 10 MG Tablet PO (20:25)
[2023-05-03 20:29] LABS: Bedside Glucose 384 mg/dL (74-106)
[2023-05-03 21:30] VITALS: BP 160/82; PULSE 85; RESP 16; TEMP 36.8; O2SAT 99
[2023-05-04 03:33] VITALS: BP 155/65; PULSE 88; RESP 18; TEMP 36.6; O2SAT 95
[2023-05-04] MEDS: 0.9% Normal Saline (1000mL) 1,000 ML 100 ML IV ×2 (05:32→16:19)
[2023-05-04] MEDS: Insulin Lispro 100 UNIT/ML INSULN.PEN SC ×4 (06:20→20:16)
[2023-05-04 06:41] LABS: Bedside Glucose 281 mg/dL (74-106)
[2023-05-04 06:53] LABS: Absolute Lymphocyte Count 1.55 X10^3/uL (0.83-4.51); Absolute Neutrophil Count 10.8 X10^3/uL (2.0-7.7); Basophil# 0.05 X10^3/uL; Basophil% 0.4 % (0-1); Eosinophil# 0.11 X10^3/uL; Eosinophils% 0.8 % (0-5); Hematocrit 32.7 % (37-47); Hemoglobin 10.5 g/dL (12.0-15.0); Lymphocyte # 1.55 X10^3/ul (0.83-4.51); Mean Corp Hgb Conc 32.1 g/dL (32-36); Mean Corpuscular Hgb 30.3 pg (27.0-32.0); Mean Corpuscular Volume 94.5 fL (81-99); Mean Platelet Vol. 10.8 fl (6.2-12.0); Monocyte# 1.32 X10^3/uL; Monocyte% 9.4 % (0-10); NRBC Flagged by Analyzer 0 % (0-5); Neutrophil # 10.79 X10^3/uL (2.7-7.7); Neutrophil % 76.7 % (47-70); Platelet Count 361 K/mm3 (150-450); RBC Distribution Width CV 12.9 % (11.6-14.6); RBC Distribution Width SD 44.2 fl (35.1-43.9); Red Blood Count 3.46 M/mm3 (4.2-5.4); White Blood Count 14.1 K/mm3 (4.4-11.0)
[2023-05-04 07:44] LABS: ALB/GLOB Ratio 0.4 RATIO (0.9-2.4); AST(SGOT) 25 U/L (15-37); Alanine Aminotransfer ALT/SGPT 37 U/L (13-56); Albumin, Serum 1.7 g/dL (3.2-5.0); Alkaline Phosphatase 222 U/L (45-117); Anion Gap 6 (5-15); BUN 22 mg/dL (7-18); BUN/Creat Ratio 19.5 RATIO (10-20); Calcium,Total 7.6 mg/dL (8.5-10.1); Chloride 108 mmol/L (98-107); Creatinine, Serum 1.13 mg/dL (0.55-1.02); EST Glomerular Filtration Rate 53 mL/min (>60); Est Glom Filt Rate - Afr Amer 64 mL/min (>60); Estimated Creatinine Clearance 38.47 ml/min; Globulin 4.2 g/dL (2.2-4.2); Glucose 283 mg/dL (74-106); Protein, Total 5.9 g/dL (6.4-8.2); Sodium Level 137 mmol/L (136-145)
[2023-05-04 08:30] VITALS: BP 143/68; PULSE 90; RESP 18; TEMP 37.1; O2SAT 96
--- NOTE | 2023-05-04 08:59 | CASEMGMT ---
Discharge Planning Patient has been accepted by [facility]. SW updated. Shabana Noriega, Discharge Planning Asst.
[2023-05-04] MEDS: Losartan Potassium 50 MG Tablet PO (09:10)
[2023-05-04] MEDS: Heparin Injection (Vial) 5,000 UNIT/ML VIAL 5000 UNIT SC ×2 (09:10→20:16)
[2023-05-04] MEDS: Insulin Glargine-YFGN 100 UNIT/ML Pen 10 UNIT SC ×2 (09:10→20:16)
[2023-05-04] MEDS: Ceftriaxone 1 GM/50 ML BAG IV (09:32)
[2023-05-04 12:04] LABS: Bedside Glucose 303 mg/dL (74-106)
[2023-05-04 15:00] VITALS: BP 151/70; PULSE 85; RESP 17; TEMP 37.1; O2SAT 95
--- NOTE | 2023-05-04 16:02 | PCM.TXEXTCAR ---
Diet Diet Order/Speech Therapy: 05/02/23 15:43 Diet: Consistent Carb - Calorie Controlled Food consistency:: Regular Liquid Consistency:: Regular/Thin Is pt able to select menu?: Yes Diet Comments: Patient does not receive oral diet while on insulin infusion How many daily calories?: 1800 calorie Routine Orders/Code Status Routine Lab Work: - (Fingerstick blood sugars AC nightly, Humalog subcu per sliding scale: 200-250: 5 units, 251-300: 8 units, 301-350: 10 units, 351-400: 12 units) Code Status: Full Code Therapies Weight Bearing: Full weight bearing Physical Therapy: Eval and Treat Occupational Therapy: Eval and Treat Problem/Diagnosis (1) Dehydration: Status: Acute Code(s): E86.0 - Dehydration (2) Diabetic hyperosmolar non-ketotic state: Status: Acute Code(s): E11.00 - Type 2 diabetes mellitus with hyperosmolarity without nonketotic hyperglycemic-hyperosmolar coma ([facility]) Plan 1. Nonketotic hyperosmolar hyperglycemia secondary to uncontrolled type 2 diabetes secondary to noncompliance with medical regimen-patient's blood sugars are improved, patient was changed back to normal saline IV, labs will be repeated tomorrow #2 acute kidney injury secondary to #1-patient's creatinine is improved, labs will be repeated tomorrow #3 acute cystitis-patient was given IV Rocephin, CBC will be monitored #4 noncompliance with medical regimen-complicates care, medical course, recovery, and prognosis, patient has agreed to go back to a senior living facility for ongoing care #5 acute deconditioning-again PT and OT are seeing the patient, she will need to go into a skilled facility for inpatient skilled services. #6 medically elevated alkaline phosphatase-etiology of this is unknown at this time, she will need follow-up as an outpatient concerning this Clinical time spent by myself addressing the patient's medical issues, reviewing all the data, and collaborating with patient's care team: 35 minutes Allergies/Procedures Done in Hospital Allergies diphenhydramine [From Benadryl] Allergy (Verified 03/11/23 10:48) Hives Procedures: None Type of Care/Length of Stay Estimated LOS: Convalescent Care Less Than 30 days Type of Care Needed: Intermediate Rehab Potential: Fair Prognosis: Fair Additional Orders/Day of Discharge H&P will serve as current which was dated: 05/02/23 Day of Discharge: 05/05/23 Dietary and Speech Recommendations Dietitian Recommendations/Changes: RD will order 120mL Glucerna TID with medpass to provide supplemental energy. Discharge Plan Admission Admit Date/Time: 05/02/23 12:48 Primary Reason for Your Visit: High blood sugar, urinary tract infection, acute kidney injury Attending Provider: Helder Culp Primary Care Provider: Care Physician,Cristel Primary Discharge Orders/Prescriptions Prescriptions: New cephalexin 500 mg Capsule 500 mg PO Q12 Qty: 10 0RF Rx Instructions: take 10 doses total, then discontinue Glucerna 1.2 Arturo 0.06-1.2 gram-kcal/mL Liquid 120 ml PO 4X/DAY Qty: 0 0RF insulin glargine-yfgn 100 unit/mL (3 mL) Insulin Pen 10 unit subcut BID Qty: 0 0RF mirtazapine [Remeron] 15 mg tablet 15 mg PO QHS Qty: 1 0RF Continued atorvastatin 10 mg tablet 10 mg PO DAILY insulin lispro 100 unit/mL insulin pen 8 unit subcut .tidcm Qty: 15 1RF losartan 50 mg tablet 50 mg PO DAILY Discontinued glucagon 1 mg/0.2 mL auto-injector 1 mg subcut ONCE Rx Instructions: as a single dose; may repeat once after 15 minutes if no response insulin glargine 100 unit/mL (3 mL) insulin pen 11 unit subcut DAILY Qty: 15 0RF sertraline 50 mg tablet 50 mg PO DAILY Referrals / Follow Up: Care Physician,No Primary [Primary Care Provider] - [facility] Doctor,Out of [Non-Staff] - Disposition Disposition (needs filled in before D/C Order can be placed): Longterm Facility
--- NOTE | 2023-05-04 16:24 | PCM.PN.HOSP ---
Reason for Visit Reason for Visit: Diagnoses Type 2 diabetes mellitus with hyperosmolarity without nonketotic hyperglycemic-hyperosmolar coma (NKHHC) (05/02/23) Dehydration (05/02/23) Subjective Subjective Patient was seen and examined today, discharge planning requested that I fill out a plan of care for the patient today to return to [facility], I filled out the paperwork for her. Patient complains of some vague abdominal pain today, she states she has not had a bowel movement in 3 weeks. Objective Data Objective Data Vital Signs: Vital Signs Temp Pulse Resp BP Pulse Ox O2 Del Method 98.8 F 85 17 151/70 H 95 Room Air 05/04/23 15:00 05/04/23 15:00 05/04/23 15:00 05/04/23 15:00 05/04/23 15:00 05/04/23 15:00 Oxygen Delivery Method Room Air Weight: 44.906 kg Body Mass Index (BMI) 17.5 Intake & Output: Intake and Output for Last 24 Hours 05/02/23 05/03/23 05/04/23 23:59 23:59 23:59 Intake Total 2330.22 / 2330.22 3138.34 / 3138.34 1960 / 1960 Output Total 400 / 400 850 / 850 Balance 2330.22 / 2330.22 2738.34 / 2738.34 1110 / 1110 Lab / Micro Data 05/04/23 06:20 05/04/23 06:20 Labs: Laboratory Results - last 24 hr 05/03/23 16:29: POC Glucose 431 H 05/03/23 20:05: POC Glucose 384 H 05/04/23 06:16: POC Glucose 281 H 05/04/23 06:20: WBC 14.1 H, RBC 3.46 L, Hgb 10.5 L, Hct 32.7 L, MCV 94.5, MCH 30.3, MCHC 32.1, RDW Std Deviation 44.2 H, RDW Coeff of Danie 12.9, Plt Count 361, MPV 10.8, Immature Gran % (Auto) 1.700 H, Neut % (Auto) 76.7 H, Lymph % (Auto) 11.0 L, Jefferson % (Auto) 9.4, Eos % (Auto) 0.8, Baso % (Auto) 0.4, Absolute Neuts (auto) 10.8 H, Absolute Lymphs (auto) 1.55, Nucleated RBC % 0, Sodium 137, Potassium 4.0, Chloride 108 H, Carbon Dioxide 23.0, Anion Gap 6, BUN 22 H, Creatinine 1.13 H, Estim Creat Clear Calc 38.47, Est GFR (MDRD) Af Amer 64, Est GFR (MDRD) Non-Af 53 L, BUN/Creatinine Ratio 19.5, Glucose 283 H, Calcium 7.6 L, Total Bilirubin 0.20, AST 25, ALT 37, Alkaline Phosphatase 222 H, Total Protein 5.9 L, Albumin 1.7 L, Globulin 4.2, Albumin/Globulin Ratio 0.4 L 05/04/23 11:33: POC Glucose 303 H Micro: Microbiology 05/02/23 11:48 Urine, Clean Catch Urine Culture - Final Escherichia coli Physical Exam Narrative alert and oriented x3 Constitutional Narrative: Patient appears cachectic, she appears much older than her stated age General Appearance: cooperative and well developed Orientation / Consciousness: awake, oriented to person and oriented to place HEENT normocephalic, head/scalp atraumatic and hearing grossly normal bilaterally HEENT Narrative: Mucous membranes are moist Eyes PERRL, EOMs intact bilaterally and conjunctivae normal Neck supple, no JVD, thyroid normal and no carotid bruits General: trachea midline Resp normal respiratory effort, no retractions, no use of accessory muscles and clear to auscultation bilaterally Auscultation: Negative for rales, rhonchi or wheezes Cardio regular rate, regular rhythm, S1 normal heart sound, S2 normal heart sound, no murmurs, no rub and no gallops GI normal to inspection, nondistended, normoactive bowel sounds, soft to palpation, mild abdominal tenderness in the left lower quadrant noted to palpation, no rebound abdominal tenderness is noted GI Narrative: Patient appears cachectic Extremity no clubbing, cyanosis or edema Skin no rashes or lesions noted General Skin Exam: no breakdown Neuro oriented x3, CN's II-XII intact bilaterally, moves all extremities, no focal motor deficits and no sensory deficits noted Sensorium / Orientation: awake, alert, oriented to person and oriented to place Speech: speech normal Psych Psych Narrative: Patient has a flat affect Assessment & Plan Assessment/Plan (1) Diabetic hyperosmolar non-ketotic state: (2) Dehydration: PLAN: Plan 1. Nonketotic hyperosmolar hyperglycemia secondary to uncontrolled type 2 diabetes secondary to noncompliance with medical regimen-patient's blood sugars are improved but still elevated, I will add Humalog subcu with each meal #2 acute kidney injury secondary to #1-patient's creatinine is improved, labs will be repeated tomorrow #3 acute cystitis secondary to E. coli-patient will be placed on Keflex #4 noncompliance with medical regimen-complicates care, medical course, recovery, and prognosis, patient has agreed to go back to a alf facility for ongoing care #5 acute deconditioning-again PT and OT are seeing the patient, she will need to go into a skilled facility for inpatient skilled services. #6 medically elevated alkaline phosphatase-etiology of this is unknown at this time, she will need follow-up as an outpatient concerning this #7 1.9 cm nodule in the left adrenal gland-this was detected on a abdominal CT on 05/02/2023, patient will need follow-up CTs to make sure this is not enlarging in size in 4-6 months Clinical time spent by myself addressing the patient's medical issues, reviewing all the data, and collaborating with patient's care team: 35 minutes Charges/Coding Visit Charges Inpatient E&M: 11792 Subs Hosp L2
[2023-05-04 17:38] LABS: Bedside Glucose 307 mg/dL (74-106)
[2023-05-04] MEDS: Bisacodyl 5 MG Tablet 10 MG PO (17:50)
[2023-05-04] MEDS: Lactulose 20 GM/30 ML UDC PO (17:50)
--- NOTE | 2023-05-04 18:00 | CASEMGMT ---
Social Work - Discharge Planning update Per discharge financial planning assistant, patient is accepted to [facility]. Updated Dr. Culp of need for transfer summary completion, as will need this to for Medicaid level of care. This promotion writer met with patient in room, introducing to self and social work role. Reviewed patient's historical ability for ADL and IADL completion. Patient appearing confused and forgetful, as was not giving straight answers initially. Patient able to provided appropriate answers to all orientation questions however. After social psychologist stood up, as if to end the conversation, the patient stayed more focused on answering the questions at hand. This promotion writer also conferred with [facility] STILL and PT/OT evaluations for assist with gathering ADL/IADL information. Completed 7000 convalescent exemption form via the [employer] system. Faxed 7000, history and physical, transfer summary and ADL form to [facility], requesting a Medicaid LOC for [facility] admission. Plan: [facility], pending level of care approval. -VEENA Wilkins, GERIATRIC PSYCHIATRIST
[2023-05-04] MEDS: Atorvastatin Calcium 10 MG Tablet PO (20:16)
[2023-05-04 20:38] LABS: Bedside Glucose 416 mg/dL (74-106)
[2023-05-04 22:00] VITALS: BP 146/67; PULSE 88; RESP 16; TEMP 37; O2SAT 96
[2023-05-05] MEDS: 0.9% Normal Saline (1000mL) 1,000 ML 100 ML IV (02:19)
[2023-05-05 03:30] VITALS: BP 128/72; PULSE 95; RESP 16; TEMP 36.9; O2SAT 96
[2023-05-05] MEDS: Acetaminophen 325 MG Tablet 650 MG PO (03:54)
[2023-05-05 04:00] VITALS: BP 171/66; PULSE 93; RESP 16; TEMP 36.7; O2SAT 98
[2023-05-05] MEDS: Insulin Lispro 100 UNIT/ML INSULN.PEN SC (06:54)
[2023-05-05 07:28] LABS: Bedside Glucose 340 mg/dL (74-106)
--- NOTE | 2023-05-05 08:07 | TREXTCAR_ITS ---
Diet Diet Order/Speech Therapy: 05/02/23 15:43 Diet: Consistent Carb - Calorie Controlled Food consistency:: Regular Liquid Consistency:: Regular/Thin Is pt able to select menu?: Yes Diet Comments: Patient does not receive oral diet while on insulin infusion How many daily calories?: 1600 calorie Routine Orders/Code Status Suppository Type: Dulcolax 10mg Suppository Frequency: Daily PRN Routine Lab Work: - (Fingerstick blood sugars AC nightly, Humalog subcu per sliding scale: 200-250: 5 units, 251-300: 8 units, 301-350: 10 units, 351-400: 12 units) Code Status: Full Code Therapies Weight Bearing: Weight bearing as tolerated Extremity Affected:: Bilateral Lower Physical Therapy: Eval and Treat Occupational Therapy: Eval and Treat Speech Therapy: Eval and Treat Problem/Diagnosis (1) Diabetic hyperosmolar non-ketotic state: Status: Acute Code(s): E11.00 - Type 2 diabetes mellitus with hyperosmolarity without nonketotic hyperglycemic-hyperosmolar coma (NKHHC) (2) Dehydration: Status: Acute Code(s): E86.0 - Dehydration Allergies/Procedures Done in Hospital Allergies diphenhydramine [From Benadryl] Allergy (Verified 03/11/23 10:48) Hives Procedures: None Type of Care/Length of Stay Estimated LOS: Convalescent Care Less Than 30 days Type of Care Needed: Intermediate Rehab Potential: Fair Prognosis: Fair Additional Orders/Day of Discharge H&P will serve as current which was dated: 05/02/23 Day of Discharge: 05/05/23 Dietary and Speech Recommendations Dietitian Recommendations/Changes: RD will order 120mL Glucerna TID with medpass to provide supplemental energy. Discharge Plan Admission Admit Date/Time: 05/02/23 12:48 Primary Reason for Your Visit: High blood sugar, urinary tract infection, acute kidney injury Attending Provider: Vinod Cuevas Primary Care Provider: Care Physician,No Primary Consulting Providers: Helder Culp Discharge Orders/Prescriptions Prescriptions: New cephalexin 500 mg Capsule 500 mg PO Q12 Qty: 10 0RF Rx Instructions: take 10 doses total, then discontinue Glucerna 1.2 Arturo 0.06-1.2 gram-kcal/mL Liquid 120 ml PO 4X/DAY Qty: 0 0RF insulin glargine-yfgn 100 unit/mL (3 mL) Insulin Pen 10 unit subcut BID Qty: 0 0RF mirtazapine [Remeron] 15 mg tablet 15 mg PO QHS Qty: 1 0RF insulin lispro [Humalog KwikPen Insulin] 100 unit/mL Insulin Pen See Protocol subcut ACHS Qty: 0 0RF Protocol: 4. Sliding Scale Insulin High-Med Dosing Condition: 150-199 mg/dl = 2 units Condition: 200-259 mg/dl = 4 units Condition: 260-324 mg/dl = 6 units Condition: 325-374 mg/dl = 8 units Condition: 375-409 mg/dl = 10 units Condition: 410-449 mg/dl = 11 units Condition: Greater than 449 call physician Protocol Text: - Use for Total Daily Dose of Insulin 56-80 units - Patient who are insulin resistant or septic HIGH MEDIUM DOSING ALGORITHM Continued atorvastatin 10 mg tablet 10 mg PO DAILY insulin lispro 100 unit/mL insulin pen 8 unit subcut .tidcm Qty: 15 1RF losartan 50 mg tablet 50 mg PO DAILY Discontinued glucagon 1 mg/0.2 mL auto-injector 1 mg subcut ONCE Rx Instructions: as a single dose; may repeat once after 15 minutes if no response insulin glargine 100 unit/mL (3 mL) insulin pen 11 unit subcut DAILY Qty: 15 0RF sertraline 50 mg tablet 50 mg PO DAILY Referrals / Follow Up: Care Physician,No Primary [Primary Care Provider] - Within 2 Weeks [facility],Out of [Non-Staff] - Disposition Disposition (needs filled in before D/C Order can be placed): Senior Living Facility
[2023-05-05 08:46] VITALS: BP 131/58; PULSE 84; RESP 18; TEMP 37.1; O2SAT 99
[2023-05-05] MEDS: Losartan Potassium 50 MG Tablet PO (08:49)
[2023-05-05 08:50] VITALS: O2SAT 99
[2023-05-05] MEDS: Sertraline 50 MG Tablet PO (08:50)
[2023-05-05] MEDS: Insulin Glargine-YFGN 100 UNIT/ML Pen 10 UNIT SC (08:50)
[2023-05-05] MEDS: Cephalexin 500 MG Capsule PO (08:50)
[2023-05-05] MEDS: Heparin Injection (Vial) 5,000 UNIT/ML VIAL 5000 UNIT SC (08:50)
--- NOTE | 2023-05-05 09:20 | CASEMGMT ---
Discharge Planning [place] updated via [facility] that Pass[facility] and LOC are complete. Shabana Noriega, Discharge Planning Asst.
--- NOTE | 2023-05-05 09:22 | CASEMGMT ---
Received patient's level of care. SW will notify physician that patient can be discharged to [facility] today. Plan: d/c to [facility] under intermediate level of care on a convalescent stay. [place] DOWD
--- NOTE | 2023-05-05 09:41 | DS.PCM_ITS ---
Providers Date of Admission: 05/02/23 Date of Discharge: 05/05/23 Primary Care Physician: No Primary Care Phys Reason For Visit: ACUTE CYSTITIS NON KETOTIC HYPERGLYCEMIA GARRET Diagnosis Discharge Diagnosis (1) Diabetic hyperosmolar non-ketotic state: Status: Acute Code(s): E11.00 - Type 2 diabetes mellitus with hyperosmolarity without nonketotic hyperglycemic-hyperosmolar coma (NKHHC) (2) Dehydration: Status: Acute Code(s): E86.0 - Dehydration Plan Urine culture positive of E. coli more than 1000 colonies. Patient is started on Keflex and is being discharged on the same. 50-year-old female admitted with generalized weakness nausea vomiting feeling unwell for last 2 weeks. Her blood glucose running high. Work-up in the ED was consistent with hyperosmolar hyperglycemic state 1. HHS secondary to uncontrolled type 2 diabetes secondary to noncompliance with medical regimen-patient's blood sugars are improved but still elevated, on Lantus and Humalog sliding scale. #2 acute kidney injury secondary to HSS, prerenal origin: Admission creatinine 1.75 improved to 1.13. GARRET resolved. #3 acute cystitis secondary to E. coli-patient on ceftriaxone changed to Keflex. Continue Keflex for 5 more days #4 noncompliance with medical regimen-complicates care, medical course, recovery, and prognosis, patient has agreed to go back to a half-way facility for ongoing care #5 acute deconditioning-again PT and OT are seeing the patient, she will need to go into a skilled facility for inpatient skilled services. #6 medically elevated alkaline phosphatase-most likely bone origin #7 1.9 cm nodule in the left adrenal gland-this was detected on a abdominal CT on 05/02/2023, patient will need follow-up CTs to make sure this is not enlarging in size in 4-6 months. Follow with PCP Discharge medication reconciliation done. Discharge follow-up instructions completed. Discharge process discussed with the patient and all questions were answered to patient's satisfaction. Total time spent, exact 35 minutes on discharge meds reconciliation, examination, coordination of care with nurses and ancillary staff, review of imaging and blood test and discussion with the patient on follow-up lali larios. Medications at Discharge Home Medications atorvastatin 10 mg tablet 10 mg PO DAILY 12/06/22 insulin lispro 100 unit/mL subcutaneous pen 8 unit (0.08 mL) subcut .tidcm DM2 #15 mL 12/06/22 losartan 50 mg tablet 50 mg PO DAILY 05/02/23 cephalexin 500 mg capsule 500 mg PO Q12 #10 caps 05/04/23 insulin glargine-yfgn 100 unit/mL (3 mL) subcutaneous pen 10 unit (0.1 mL) subcut BID #0 mL 05/04/23 mirtazapine 15 mg tablet (Remeron) 15 mg PO QHS #1 TAB 05/04/23 nutrition tx glu intol,lac-free,soy-fiber 0.06 gram-1.2 kcal/mL liquid (Glucerna 1.2 Arturo) 120 ml PO 4X/DAY #0 mL 05/04/23 insulin lispro 100 unit/mL subcutaneous pen (Humalog KwikPen (U-100) Insulin) See Protocol subcut ACHS #0 mL 05/05/23 Physical Exam Narrative Seen and examined. Patient asking for pancake. Does not have acute complaint. Physical exam General: Alert, Oriented x3, Cooperative. Looks pale. BMI 17.5 kg/m? HEENT: Atraumatic, PERRLA, EOMI, Normocephalic Oral: No Gingival or Mucosal Lesions/ Ulcerations Neck: Supple, No JVD, Negative Carotid Bruits Lungs: Air entry diminished in bilateral lung bases. No crepitation/rhonchi Cardiovascular: Regular rate, Regular Rhythm, Normal S1, Normal S2, No murmurs Abdomen: Bowel Sounds Present, Soft, Non Tender, Non-Distended : No renal angle tenderness. No suprapubic tenderness. Extremities: No edema, Capillary Refill Less than 3 Seconds Skin: No rashes, No breakdown Musculoskeletal: No Tenderness to Palpation of Joints or Extremities. Mild to moderate atrophy of muscles of extremity, loss of subcutaneous fat. Neurological: Cranial nerves II-XII grossly intact, DTR 2+/4. No acute focal neurological deficit. Psych/Mental Status: Flat affect Weight / BMI Weight Weight: 99 lb Body Mass Index (BMI) 17.5 ABG / Lab / Microbiology Data 05/04/23 06:20 05/04/23 06:20 Laboratory: Laboratory Results - last 24 hr 05/04/23 11:33: POC Glucose 303 H 05/04/23 17:18: POC Glucose 307 H 05/04/23 20:11: POC Glucose 416 H 05/05/23 06:51: POC Glucose 340 H Microbiology: Microbiology 05/02/23 11:48 Urine, Clean Catch Urine Culture - Final Escherichia coli Meaningful Use Info Meaningful Use Diagnoses (Choose all that apply): None applicable Discharge Plan Admission Admit Date/Time: 05/02/23 12:48 Primary Reason for Your Visit: High blood sugar, urinary tract infection, acute kidney injury Attending Provider: Vinod Cuevas Primary Care Provider: Care Physician,No Primary Consulting Providers: Helder Culp Instructions Additional Instructions / Restrictions: Follow-up PCP fo1.9 cm nodule in the left adrenal gland-with this size will need repeat ultrasound every 4- 6 months. Discharge Orders/Prescriptions Prescriptions: New cephalexin 500 mg Capsule 500 mg PO Q12 Qty: 10 0RF Rx Instructions: take 10 doses total, then discontinue Glucerna 1.2 Arturo 0.06-1.2 gram-kcal/mL Liquid 120 ml PO 4X/DAY Qty: 0 0RF insulin glargine-yfgn 100 unit/mL (3 mL) Insulin Pen 10 unit subcut BID Qty: 0 0RF mirtazapine [Remeron] 15 mg tablet 15 mg PO QHS Qty: 1 0RF insulin lispro [Humalog KwikPen Insulin] 100 unit/mL Insulin Pen See Protocol subcut ACHS Qty: 0 0RF Protocol: 4. Sliding Scale Insulin High-Med Dosing Condition: 150-199 mg/dl = 2 units Condition: 200-259 mg/dl = 4 units Condition: 260-324 mg/dl = 6 units Condition: 325-374 mg/dl = 8 units Condition: 375-409 mg/dl = 10 units Condition: 410-449 mg/dl = 11 units Condition: Greater than 449 call physician Protocol Text: - Use for Total Daily Dose of Insulin 56-80 units - Patient who are insulin resistant or septic HIGH MEDIUM DOSING ALGORITHM Continued atorvastatin 10 mg tablet 10 mg PO DAILY insulin lispro 100 unit/mL insulin pen 8 unit subcut .tidcm Qty: 15 1RF losartan 50 mg tablet 50 mg PO DAILY Discontinued glucagon 1 mg/0.2 mL auto-injector 1 mg subcut ONCE Rx Instructions: as a single dose; may repeat once after 15 minutes if no response insulin glargine 100 unit/mL (3 mL) insulin pen 11 unit subcut DAILY Qty: 15 0RF sertraline 50 mg tablet 50 mg PO DAILY Referrals / Follow Up: Care Physician,No Primary [Primary Care Provider] - Within 2 Weeks [facility],Out of [Non-Staff] - Disposition Disposition (needs filled in before D/C Order can be placed): [facility] Facility Charges/Coding Visit Charges Inpatient E&M: 42560 Disch Hosp >30min
--- NOTE | 2023-05-05 10:14 | CASEMGMT ---
Discharge Planning Discharge orders, signed med list, and transport time sent to [place] via [facility]. [facility] will transport patient by wheelchair at 11:00. Nursing, patient, and SW updated. Shabana Noriega, Discharge Planning Asst.
== END 2023-05-05 10:44 | disposition skilled nursing facility (03) | DRG 420 ==
LOC: ED 12:37 → PCU 13:02
PROVIDERS: Physician Assistant; Admitting Provider Internal Medicine; Emergency Provider Emergency Medicine; Visit Provider Internal Medicine
DX: E11.00 Type 2 diabetes mellitus with hyperosmolarity without nonketotic hyperglycemic-hyperosmolar coma (NKHHC) (principal); N17.9 Acute kidney failure, unspecified; Z79.4 Long term (current) use of insulin; I10 Essential (primary) hypertension; E87.1 Hypo-osmolality and hyponatremia; F17.210 Nicotine dependence, cigarettes, uncomplicated; E78.5 Hyperlipidemia, unspecified; E86.0 Dehydration; F17.290 Nicotine dependence, other tobacco product, uncomplicated; N30.00 Acute cystitis without hematuria; B96.20 Unspecified Escherichia coli [E. coli] as the cause of diseases classified elsewhere; R74.8 Abnormal levels of other serum enzymes; R93.5 Abnormal findings on diagnostic imaging of other abdominal regions, including retroperitoneum; Z91.199 Patient's noncompliance with other medical treatment and regimen due to unspecified reason; Z79.899 Other long term (current) drug therapy; Z86.16 Personal history of COVID-19
CPT/HCPCS: 36415; 74177; 80048; 80053; 81001; 82009; 82962; 83690; 85025; 87077; 87086; 87088; 87186; 97162; 97166; 97530; 99285; 99406; J7030; Q9967; A4216; J2405; J7799

== ENCOUNTER 2024-01-29 14:45 | Emergency (ER) | payer MEDICAID, SELFPAY ==
[2024-01-29 14:45] VITALS: BP 151/102; PULSE 100; RESP 21; TEMP 36.4; O2SAT 98; BMI 19.5
--- NOTE | 2024-01-29 15:04 | CT_ITS ---
STUDY: CT Abdomen And Pelvis W/ Contrast Injection 01/29/2024 4:50 PM REASON FOR EXAM: Female, 59 years old. Abdominal pain Nausea and Vomiting, Pain Individualized dose optimization techniques were used for this CT. COMPARISON: 05.02.23 TECHNIQUE: CT Abdomen And Pelvis W/ Contrast Injection IV 100mL Isovue-300 FINDINGS: There are atherosclerotic calcifications of visualized coronary arteries. Left lower lobe scarring. Normal liver. There is non-visualization of the gallbladder, which may be secondary to either contraction or a prior cholecystectomy. Pneumobilia. Normal spleen. Normal pancreas. Normal bilateral adrenal glands. Non obstructive 2 mm right renal parenchymal stones. Non obstructive 2 mm left renal parenchymal stones. Mild bilateral hydronephroureter. Normal visualized stomach. Normal small intestine. There are multiple colonic diverticula consistent with diverticulosis. There is non-visualization of the appendix. There are calcifications of the abdominal aorta. This is consistent for atherosclerotic disease. There is NO abdominal aortic aneurysm. Vascular workup can be obtained based on clinical correlation. Normal inferior vena cava. Subcentimeter mesenteric lymph nodes. The urinary bladder is distended. This can suggest urinary retention. There is absence of the uterus consistent with a prior hysterectomy. 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 There is an umbilical hernia containing fat. There are diffuse degenerative changes of the visualized lumbar spine. Stable L2 compression deformity. CT/Abdomen/Pelvis W IV Cont ONLY IMPRESSION: (NOT LISTED IN ORDER OF SIGNIFICANCE) Non obstructive 2 mm left renal parenchymal stones. Mild bilateral hydronephroureter. The urinary bladder is distended. This can suggest urinary retention. 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 Electronically Signed: Cal Romano MD at 16:56 EDT ,
--- NOTE | 2024-01-29 15:05 | EDS_ITS ---
HPI HPI - GI History of Present Illness Chief Complaint: Nausea/Vomiting Narrative Narrative: 59-year-old female past medical history of diabetes, states she takes insulin, presents with multiple episodes of nausea and vomiting that she has had since midnight, approximately 15 hours ago. She denies drinking alcohol last evening. States her symptoms started around midnight and have been ongoing all day. She denies any romulo hematemesis. No problems with bowel movements. She has minimal diffuse abdominal cramping with this. Past surgical history includes cholecystectomy. She states she took her insulin today, but her blood sugars have been running low because she has not been able to eat anything. [facility] Medical History Iron deficiency anemia secondary to blood loss (chronic) Hyperlipidemia, unspecified Anemia due to blood loss, chronic Emphysema, unspecified Diabetes mellitus, type 2 Debility Hyperglycemia History of COPD Uncontrolled type 2 diabetes mellitus Weight loss Dysphagia Anxiety Depression Substance abuse Smoker Hypertension Smoking addiction COPD (chronic obstructive pulmonary disease) Uncontrolled type 2 diabetes mellitus Home Medications ?Medication ?Instructions ?Recorded ?Last Taken ?Type losartan 50 mg tablet 50 mg PO DAILY 05/02/23 05/01/23 History mirtazapine 15 mg tablet (Remeron) 15 mg PO QHS #1 TAB 05/04/23 Unknown Rx acetaminophen 325 mg capsule 650 mg PO QHS 09/12/23 Unknown History (Tylenol) albuterol sulfate 90 mcg/actuation 2 puff inhalation Q4H PRN 09/12/23 Unknown History aerosol inhaler shortness of breath or wheezing atorvastatin 10 mg tablet 10 mg PO QHS 09/12/23 Unknown History dextrose 40 % oral gel (Glucose 10 g PO Q15M PRN 09/12/23 Unknown History Gel) glucagon HCl 1 mg solution for 1 mg subcut Q20M PRN 09/12/23 Unknown History injection (Glucagon (HCl) Emergency Kit) insulin glargine 100 unit/mL (3 10 unit subcut BID 09/12/23 Unknown History mL) subcutaneous pen (Lantus Solostar U-100 Insulin) insulin lispro 100 unit/mL See Protocol subcut .COMPLEX 09/12/23 Unknown History subcutaneous pen (Humalog KwikPen (U-100) Insulin) multivitamin,tx-minerals 1 tab PO DAILY 09/12/23 Unknown History ondansetron HCl 4 mg tablet 4 mg PO Q8H 09/12/23 Unknown History sennosides 8.6 mg capsule (senna) 17.2 mg PO DAILY PRN 09/12/23 Unknown History sertraline 50 mg tablet 50 mg PO QAM Depression 09/12/23 Unknown History ondansetron 4 mg disintegrating 4 mg PO Q6H PRN nausea and 01/29/24 Unknown Rx tablet vomiting #10 tabs Allergy/AdvReac Type Severity Reaction Status Date / Time diphenhydramine (From Allergy Hives Verified 01/29/24 14:47 Benadryl) Social History Smoking Status: Current every day smoker tobacco type: cigarettes and e- cigarettes alcohol intake: former substance use type: amphetamines ROS ROS ED ROS Narrative Constitutional: No fever, no chills. HEENT: No sore throat. No neck pain. No loss of vision. No rhinorrhea. Cardiovascular: No chest pain. No palpitations. No pedal edema. Respiratory: No cough, no shortness of breath. Abdominal: Mild diffuse abdominal pain. Multiple episodes of nausea and vomiting. Nonbloody. No diarrhea. Genitourinary: No dysuria. No hematuria. Musculoskeletal: No myalgias. No arthralgias. Neurologic: No headaches. No dizziness. No lightheadedness. Skin: No rash. No change in color. Psychiatric: No depression. No anxiety. EXAM Physical Exam Narrative Exam Narrative: Afebrile. Vital signs noted. HEENT: Normocephalic. Atraumatic. PERRL, EOMI. Neck soft and supple. No point tenderness or step off. Cardiovascular: Regular rate and rhythm. No murmurs, rubs, or gallops appreciated. Respiratory: No tachypnea. Lungs clear to auscultation bilaterally. Gastrointestinal: Abdomen soft, nontender, with normoactive bowel sounds. No rebound or guarding. Neurological: Awake. Alert. Nonfocal, nonlateralizing. Skin: No rash. Normal color. No pallor. Musculoskeletal: No pedal edema. Full range of motion extremities. Const Vital Signs: 01/29/24 14:45 01/29/24 15:34 Temperature 97.6 F L Temperature Source Temporal Pulse Rate 100 96 Respiratory Rate 21 H 17 Blood Pressure 151/102 H 156/76 H Blood Pressure Mean 118 102 Pulse Ox 98 96 Oxygen Delivery Method Room Air Room Air MDM MDM MDM Narrative Medical decision making narrative: In the differential diagnosis is bowel obstruction versus gastritis versus pancreatitis. I have low suspicion for diabetic ketoacidosis as her symptoms just began at midnight. Comprehensive workup was pursued. BGT will be obtained see where she is with her sugars initially I ordered a CBC, CMP, lipase to help rule out pancreatitis. She will be bolused normal saline and administered ondansetron intravenously. Given her diffuse abdominal pain, and prior surgery, imaging will be obtained of the abdomen as well. I reviewed her laboratory work and she has a leukocytosis of 16.2, however this is chronic when compared to her previous laboratories. Hence, I find this more nonspecific. Her hemoglobin is stable at 11.1 with hematocrit 34.7 and platelet count normal at 301. Electrolyte panel is grossly unremarkable with a sodium of 140, potassium 3.9, chloride 08/15/2001, carbon dioxide normal at 30 anion gap 8. While she has a BUN of 33, creatinine 1.49 but she has history of chronic kidney disease. Glucose is elevated at 112. LFTs are grossly unremarkable except for alk phos slightly elevated at 176 which I think is nonspecific. Lipase is low at 10 so I doubt acute pancreatitis. Her suuwq-ln-pinn glucose was 114. I r eviewed the radiology report of the CT of the abdomen and pelvis. It comments on bilateral hydroureteronephrosis and a distended urinary bladder with concern for urinary retention. However, patient and RN report that she was able to urinate after the CT scan. There is no acute evidence of bowel wall thickening or bowel obstruction. At this point in time, upon repeat examination at approximately 1720, she is resting comfortably, and is not currently vomiting. I wrote her a prescription for 10 Zofran ODT's to take at the longterm facility. I feel she can be discharged to follow-up. I do not feel she requires observation or admission at this time. Disposition is discharged in stable condition. History & Record Review Discussion w/independent historian: Patient Additional record(s) reviewed:: Prior labs Lab Data Attestation: I reviewed the patient's lab results. Labs: Laboratory Results - last 24 hr 01/29/24 01/29/24 14:50 15:13 WBC 16.2 H RBC 3.65 L Hgb 11.1 L Hct 34.7 L MCV 95.1 MCH 30.4 MCHC 32.0 RDW Std Deviation 45.1 H RDW Coeff of Danie 12.9 Plt Count 301 MPV 11.1 Immature Gran % (Auto) 0.400 Neut % (Auto) 81.7 H Lymph % (Auto) 11.3 L [place] % (Auto) 6.3 Eos % (Auto) 0.1 Baso % (Auto) 0.2 Absolute Neuts (auto) 13.3 H Absolute Lymphs (auto) 1.83 Nucleated RBC % 0 Sodium 140 Potassium 3.9 Chloride 102 Carbon Dioxide 30.0 Anion Gap 8 BUN 33 H Creatinine 1.49 H Estim Creat Clear Calc 32.22 Est GFR (MDRD) Af Amer 46 L Est GFR (MDRD) Non-Af 38 L BUN/Creatinine Ratio 22.1 H Glucose 112 H Calcium 9.5 Total Bilirubin 0.30 AST 30 ALT 41 Alkaline Phosphatase 176 H Total Protein 8.0 Albumin 3.6 Globulin 4.4 H Albumin/Globulin Ratio 0.8 L Lipase 10 L POC Glucose 114 H Radiography Diagnostic Testing: Clinical Impression(s) from Imaging Studies Abdomen/Pelvis CT 01/29/24 15:04 IMPRESSION: (NOT LISTED IN ORDER OF SIGNIFICANCE) Non obstructive 2 mm left renal parenchymal stones. Mild bilateral hydronephroureter. The urinary bladder is distended. This can suggest urinary retention. 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 Electronically Signed: Cal Romano MD at 16:56 EDT Reading Location ID and State: [facility] / [place] , Service support , Discharge Plan Triage Chief Complaint: Nausea/Vomiting ED Provider: Jermaine Pino Dx/Rx/DC Orders Clinical Impression: Nausea and vomiting, Diabetes mellitus, type 2 Instructions: ED Vomiting (Adult) Prescriptions: New ondansetron 4 mg tablet,disintegrating 4 mg PO Q6H PRN (Reason: nausea and vomiting) Qty: 10 0RF No Action atorvastatin 10 mg tablet 10 mg PO QHS albuterol sulfate 90 mcg/actuation HFA aerosol inhaler 2 puff inhalation Q4H PRN (Reason: shortness of breath or wheezing) glucagon HCl [Glucagon (HCl) Emergency Kit] 1 mg recon soln 1 mg subcut Q20M PRN Rx Instructions: until target blood sugar attained dextrose [Glucose Gel] 40 % gel 10 g PO Q15M PRN Rx Instructions: until symptoms of low blood sugar are controlled insulin glargine [Lantus Solostar U-100 Insulin] 100 unit/mL (3 mL) insulin pen 10 unit subcut BID insulin lispro [Humalog KwikPen Insulin] 100 unit/mL insulin pen See Protocol subcut .COMPLEX Protocol: 4. Sliding Scale Insulin High-Med Dosing Condition: 150-199 mg/dl = 2 units Condition: 200-259 mg/dl = 4 units Condition: 260-324 mg/dl = 6 units Condition: 325-374 mg/dl = 8 units Condition: 375-409 mg/dl = 10 units Condition: 410-449 mg/dl = 11 units Condition: Greater than 449 call physician Protocol Text: - Use for Total Daily Dose of Insulin 56-80 units - Patient who are insulin resistant or septic HIGH MEDIUM DOSING ALGORITHM Rx Instructions: subcutaneously With meals and @HS; 150-199 2 units 200-259 4 units 260-324 6 units 325-374 8 units 375-409 10 units 410-449 11 units >449 notify multivitamin,tx-minerals Tablet 1 tab PO DAILY senna 8.6 mg capsule 17.2 mg PO DAILY PRN sertraline 50 mg tablet 50 mg PO QAM acetaminophen [Tylenol] 325 mg capsule 650 mg PO QHS ondansetron HCl 4 mg tablet 4 mg PO Q8H losartan 50 mg tablet 50 mg PO DAILY mirtazapine [Remeron] 15 mg tablet 15 mg PO QHS Qty: 1 0RF Primary Care Provider: Care Physician,No Primary Referrals: Care Physician,No Primary [Primary Care Provider] - Print Language: Maldivian Disposition Disposition: Home, Self Care
[2024-01-29] MEDS: Ondansetron 4 MG/2 ML Vial IV (15:09)
[2024-01-29] MEDS: 0.9% Normal Saline (1000mL) 1,000 ML 999 ML IV (15:09)
[2024-01-29 15:12] LABS: Absolute Lymphocyte Count 1.83 X10^3/uL (0.83-4.51); Absolute Neutrophil Count 13.3 X10^3/uL (2.0-7.7); Basophil# 0.04 X10^3/uL; Basophil% 0.2 % (0-1); Eosinophil# 0.01 X10^3/uL; Eosinophils% 0.1 % (0-5); Hematocrit 34.7 % (37-47); Hemoglobin 11.1 g/dL (12.0-15.0); Lymphocyte # 1.83 X10^3/ul (0.83-4.51); Lymphocyte % 11.3 % (19-41); Mean Corpuscular Hgb 30.4 pg (27.0-32.0); Mean Corpuscular Volume 95.1 fL (81-99); Mean Platelet Vol. 11.1 fl (6.2-12.0); Monocyte# 1.03 X10^3/uL; Monocyte% 6.3 % (0-10); NRBC Flagged by Analyzer 0 % (0-5); Neutrophil # 13.25 X10^3/uL (2.7-7.7); Neutrophil % 81.7 % (47-70); Platelet Count 301 K/mm3 (150-450); RBC Distribution Width CV 12.9 % (11.6-14.6); RBC Distribution Width SD 45.1 fl (35.1-43.9); Red Blood Count 3.65 M/mm3 (4.2-5.4); White Blood Count 16.2 K/mm3 (4.4-11.0)
[2024-01-29 15:32] LABS: Bedside Glucose 114 mg/dL (74-106)
[2024-01-29 15:34] VITALS: BP 156/76; PULSE 96; RESP 17; O2SAT 96
[2024-01-29 15:49] LABS: ALB/GLOB Ratio 0.8 RATIO (0.9-2.4); AST(SGOT) 30 U/L (15-37); Alanine Aminotransfer ALT/SGPT 41 U/L (13-56); Albumin, Serum 3.6 g/dL (3.2-5.0); Alkaline Phosphatase 176 U/L (45-117); Anion Gap 8 (5-15); BUN 33 mg/dL (7-18); BUN/Creat Ratio 22.1 RATIO (10-20); Calcium,Total 9.5 mg/dL (8.5-10.1); Chloride 102 mmol/L (98-107); Creatinine, Serum 1.49 mg/dL (0.55-1.02); EST Glomerular Filtration Rate 38 mL/min (>60); Est Glom Filt Rate - Afr Amer 46 mL/min (>60); Estimated Creatinine Clearance 32.22 ml/min; Globulin 4.4 g/dL (2.2-4.2); Glucose 112 mg/dL (74-106); Lipase 10 U/L (13-75); Potassium 3.9 mmol/L (3.5-5.1); Sodium Level 140 mmol/L (136-145)
[2024-01-29 17:33] VITALS: BP 154/81; PULSE 97; RESP 16; O2SAT 98
--- NOTE | 2024-01-29 17:51 | ED.RN ---
1730 called physicians for wheelchair transport back to [place]. Per Hannah BRIAN 2 hours.
== END 2024-01-29 19:01 | disposition home or self-care (01) ==
PROVIDERS: Emergency Provider Emergency Medicine; Visit Provider Emergency Medicine
DX: R11.2 Nausea with vomiting, unspecified (principal); J44.9 Chronic obstructive pulmonary disease, unspecified; E11.9 Type 2 diabetes mellitus without complications; F17.210 Nicotine dependence, cigarettes, uncomplicated; F17.290 Nicotine dependence, other tobacco product, uncomplicated
CPT/HCPCS: 74177; 80053; 82962; 83690; 85025; 96361; 96374; 99283; J7030; Q9967; J2405

== ENCOUNTER 2024-06-10 17:46 | Inpatient (IN) | payer MEDICAID, SELFPAY ==
[2024-06-10 17:48] VITALS: BP 140/81; PULSE 99; RESP 18; TEMP 36.9; O2SAT 97
[2024-06-10 17:49] VITALS: BMI 19.1
--- NOTE | 2024-06-10 18:04 | ED.VIS.GI ---
HPI HPI - GI History of Present Illness Chief Complaint: Abd Pain Abdominal Pain/Flank Pain Onset: Days (4) Context: Gradual Onset Timing: Continuous Quality: Sharp Location: Epigastric, RUQ, LUQ, RLQ, LLQ, Right Flank and Left Flank Worsened by: Nothing Relieved by: Nothing Nausea/Vomiting/Emesis GI Symptom: Positive for Nausea and Vomiting Quality: Positive for Nonbilious; Negative for Blood streaks, Coffee ground or Hematemesis Diarrhea/Melena/Hematochezia GI Symptom: Negative for Diarrhea, Melena or Hematochezia Associated Symptoms Associated Symptoms: Negative for Dysuria, Frequency or Hematuria Narrative Narrative: Patient presents with abdominal pain that has been getting worse over the last 4 days. Patient states it is gradually getting worse. Patient states it is worse over her flank areas bilaterally. Patient states it is worse on the right. Patient describes her pain as sharp. Patient states nothing makes it worse and nothing makes it better. Patient denies any fevers or chills. Patient admits to some nausea and vomiting. Patient also admits to some constipation patient admits to some dysuria but denies any hematuria or frequency. [facility] Medical History Iron deficiency anemia secondary to blood loss (chronic) Hyperlipidemia, unspecified Anemia due to blood loss, chronic Emphysema, unspecified Diabetes mellitus, type 2 Debility Hyperglycemia History of COPD Uncontrolled type 2 diabetes mellitus Weight loss Dysphagia Anxiety Depression Substance abuse Smoker Hypertension Smoking addiction COPD (chronic obstructive pulmonary disease) Uncontrolled type 2 diabetes mellitus Home Medications ?Medication ?Instructions ?Recorded ?Last Taken ?Type losartan 50 mg tablet 50 mg PO DAILY 05/02/23 05/01/23 History mirtazapine 15 mg tablet (Remeron) 15 mg PO QHS #1 TAB 05/04/23 Unknown Rx acetaminophen 325 mg capsule 650 mg PO QHS 09/12/23 Unknown History (Tylenol) atorvastatin 10 mg tablet 10 mg PO QHS 09/12/23 Unknown History dextrose 40 % oral gel (Glucose 10 g PO Q15M PRN hypoglycemia 09/12/23 Unknown History Gel) glucagon HCl 1 mg solution for 1 mg subcut Q20M PRN hypoglycemia 09/12/23 Unknown History injection (Glucagon (HCl) Emergency Kit) sertraline 50 mg tablet 50 mg PO QAM Depression 09/12/23 Unknown History insulin glargine 100 unit/mL (3 10 unit (0.1 mL) subcut BID #15 mL 04/12/24 Unknown Rx mL) subcutaneous pen (Lantus Solostar U-100 Insulin) insulin lispro 100 unit/mL See Protocol subcut .COMPLEX #15 mL 04/12/24 Unknown Rx subcutaneous pen (Humalog KwikPen (U-100) Insulin) pen needle, diabetic 32 gauge x #150 ea 04/12/24 Unknown Rx (BD Ultra-Fine Abbie Pen Needle) Allergy/AdvReac Type Severity Reaction Status Date / Time diphenhydramine (From Allergy Hives Verified 06/10/24 17:47 Benadryl) Social History Smoking Status: Current every day smoker tobacco type: cigarettes and e-cigarettes alcohol intake: former substance use type: amphetamines ROS ROS ED Constitutional Constitutional ED: Denies chills or fever(s) Eyes Eyes: Denies blurry vision or change in vision ENT ENT ED: Denies rhinorrhea or sore throat Cardiovascular Cardiovascular: Denies chest pain or palpitations Respiratory/Chest Respiratory/Chest: Denies cough or dyspnea Gastrointestinal Gastrointestinal: Reports abdominal pain, constipation, nausea and vomiting; Denies diarrhea or melena Genitourinary Genitourinary ED: Reports dysuria; Denies hematuria Musculoskeletal Musculoskeletal: Reports back pain and neck pain Integumentary Denies abscess or rash Neurologic Neurologic: Reports headache(s); Denies weakness Allergic/Immunologic Allergic/Immunologic ED: Denies mouth swelling or urticaria EXAM Physical Exam Const Vital Signs: 06/10/24 17:48 06/10/24 20:00 06/10/24 21:32 Temperature 98.5 F 98.2 F Temperature Source Oral Pulse Rate 99 92 93 Respiratory Rate 18 16 16 Blood Pressure 140/81 H 145/79 H 159/86 H Blood Pressure Mean 100 101 110 Pulse Ox 97 98 98 Oxygen Delivery Method Room Air Room Air Positive well nourished and well developed General Appearance ED: well developed and NAD HEENT Reports moist mucous membranes Neck supple and no JVD Resp normal respiratory effort and clear to auscultation bilaterally Cardio regular rate and regular rhythm GI non-distended Palpation: soft and tender LLQ, RLQ, LUQ, RUQ, periumbilical and suprapubic; Negative for guarding or rebound tenderness present Extremity full ROM General Extremety ED: Negative for edema or tenderness General Extremity: Negative for edema Neuro CN's II-XII intact bilaterally, moves all extremities and no sensory deficits noted Sensorium / Orientation: alert Motor Exam: strength 5/5 throughout Psych mental status grossly normal MDM MDM MDM Narrative Medical decision making narrative: Differential diagnosis includes ureteral calculus, pyelonephritis, urinary tract infection, colitis, diverticulitis, viral illness, pancreatitis, cholecystitis, cholelithiasis, bowel obstruction, perforation. CT scan of the abdomen pelvis will be obtained to assess for bowel obstruction, perforation, ureteral calculus, and pyelonephritis. CBC will be obtained to assess for leukocytosis and anemia. Comprehensive metabolic profile will be obtained to assess for hepatic function, renal function, and electrolyte abnormality. Lipase will be obtained to assess for pancreatitis. Urinalysis will be obtained to assess for urinary tract infection and hematuria. Lab Data Attestation: I reviewed the patient's lab results. Lab results narrative: CBC shows a leukocytosis of 13.2. This was improved from previous results. Hemoglobin was slightly low at 11.7 and hematocrit was 35.5. Platelets were normal. Comprehensive metabolic profile was reviewed. BUN was slightly elevated at 42 and creatinine was 1.79. These are consistent with prior results. Glucose was elevated at 417. Anion gap was normal. CO2 was normal. Lipase was reviewed and was normal at 14. Urinalysis was reviewed. Leukocyte esterase was 500 with greater than 100 white blood cells and 4+ bacteria. There are positive nitrites. Labs: Laboratory Results - last 24 hr 06/10/24 06/10/24 18:42 18:53 WBC 13.2 H RBC 3.89 L Hgb 11.7 L Hct 35.5 L MCV 91.3 MCH 30.1 MCHC 33.0 RDW Std Deviation 45.2 H RDW Coeff of Danie 13.4 Plt Count 246 MPV 11.7 Immature Gran % (Auto) 1.700 H Neut % (Auto) 73.4 H Lymph % (Auto) 8.9 L [place] % (Auto) 15.0 H Eos % (Auto) 0.5 Baso % (Auto) 0.5 Absolute Neuts (auto) 9.7 H Absolute Lymphs (auto) 1.17 Nucleated RBC % 0 [address] Review May foll Sodium 131 L Potassium 3.7 Chloride 99 Carbon Dioxide 22.0 Anion Gap 10 BUN 42 H Creatinine 1.79 H Estim Creat Clear Calc 26.12 Est GFR (MDRD) Af Amer 37 L Est GFR (MDRD) Non-Af 31 L BUN/Creatinine Ratio 23.5 H Glucose 417 H Calcium 8.8 Total Bilirubin 0.40 AST 20 ALT 46 Alkaline Phosphatase 238 H Total Protein 7.1 Albumin 2.4 L Globulin 4.7 H Albumin/Globulin Ratio 0.5 L Lipase 14 Urine Color Straw Urine Clarity Cloudy Urine pH 6.0 Ur Specific [place] 1.015 Urine Protein 100 H Urine Glucose (UA) 1000 H Urine Ketones Negative Urine Occult Blood 150 H Urine Nitrite Positive H Urine Bilirubin Negative Urine Urobilinogen 1 H Ur Leukocyte Esterase 500 H Urine RBC 0 SEEN Urine WBC >100 SEEN Ur Squamous Epith Cells 5-10 SEEN Urine Bacteria 4+ Urine Mucus 0 SEEN Radiography Diagnostic Testing: Clinical Impression(s) from Imaging Studies Abdomen/Pelvis CT 06/10/24 18:35 IMPRESSION: (NOT LISTED IN ORDER OF SIGNIFICANCE) Non obstructive 2 mm left renal parenchymal stones. Mild bilateral hydronephroureter. There is air in the wall of the urinary bladder suggesting emphysematous cystitis. 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 Other findings as above. Electronically Signed: Cal Romano MD at 20:45 EDT Reading Location ID and State: [facility] / [place] , Service support , ADDENDUM: 06/[id number] IMPRESSION: (NOT LISTED IN ORDER OF SIGNIFICANCE) Non obstructive 2 mm left renal parenchymal stones. Mild bilateral hydronephroureter. There is air in the wall of the urinary bladder suggesting emphysematous cystitis. 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 Other findings as above. N.B. : The above Results were Read Back by Cal Romano MD to Gumaro Smith DO, and understanding confirmed on 06/10/2024 20:56:28 (ET). Electronically Signed: Cal Romano MD at 20:45 EDT , CT scan of the abdomen and pelvis was obtained. There is air in the wall of the urinary bladder suggesting emphysematous cystitis. There is right pyelonephritis. There is mild bilateral hydroureter and hydronephrosis. There is nonobstructive 2 mm left renal parenchymal calculus. This was interpreted by the radiologist and was also independently reviewed by myself. Management Discussion w/another healthcare provider: Hospitalist Additional Tests and Interventions Additional Tests or Interventions: Blood cultures and urine cultures were obtained. Treatment and Re-Evaluation :: Patient was given IV fluids, morphine, and Zofran. Patient was started on Rocephin. Patient was advised of her findings. Patient was advised of the need for hospitalization and IV antibiotics. Patient is agreeable with this. Case will be discussed with the hospitalist for admission. Case discussed with hospitalist. He asked me to verify that urology will be able to see the patient. There is no urologist on-call for unassigned patients for the next few days. However, the urologist are not signed out to anyone as though they were on vacation and not available. Patient will be admitted to general medical floor. Patient understood and was agreeable with the plan. All questions were answered. Discharge Plan Dx/Rx/DC Orders Clinical Impression: Emphysematous cystitis, Diabetes mellitus, type 2, Pyelonephritis of right kidney Disposition Disposition: Acute Care [facility]
--- NOTE | 2024-06-10 18:35 | CT_ITS ---
We are attempting to reach an attending provider to discuss findings. An addendum with communication details will be sent when the communication is complete. STUDY: CT Abdomen And Pelvis W/ Contrast Injection 01/29/2024 4:50 PM REASON FOR EXAM: Female, 59 years old. Abdominal pain Abdominal pain Individualized dose optimization techniques were used for this CT. COMPARISON: 01.29.24 TECHNIQUE: CT Abdomen And Pelvis W/ Contrast Injection IV 75mL [id number] FINDINGS: Left lower lobe scarring. There is non-visualization of the gallbladder, which may be secondary to either contraction or a prior cholecystectomy. Pneumobilia. Normal spleen. Normal pancreas. Normal bilateral adrenal glands. Non obstructive 2 mm right renal parenchymal stones. Non obstructive 2 mm left renal parenchymal stones. Mild bilateral hydronephroureter. There are wedge shaped areas of decreased perfusion in the right kidney. This is consistent for pyelonephritis. Normal visualized stomach. Normal small intestine. There are multiple colonic diverticula consistent with diverticulosis. There is non-visualization of the appendix. There are calcifications of the abdominal aorta. This is consistent for atherosclerotic disease. There is NO abdominal aortic aneurysm. Vascular workup can be obtained based on clinical correlation. Normal inferior vena cava. Subcentimeter mesenteric lymph nodes. There is air in the wall of the urinary bladder suggesting emphysematous cystitis. There is absence of the uterus consistent with a prior hysterectomy. 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 There is an umbilical hernia containing fat. There are diffuse degenerative changes of the visualized lumbar spine. Stable L2 compression deformity. CT/Abdomen/Pelvis W IV Cont ONLY IMPRESSION: (NOT LISTED IN ORDER OF SIGNIFICANCE) Non obstructive 2 mm left renal parenchymal stones. Mild bilateral hydronephroureter. There is air in the wall of the urinary bladder suggesting emphysematous cystitis. 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 Other findings as above. Electronically Signed: Cal Romano MD at 20:45 EDT ,
[2024-06-10] MEDS: Ondansetron 4 MG/2 ML Vial IV (18:40)
[2024-06-10] MEDS: Morphine 4 MG/ML Syringe IV (18:40)
[2024-06-10] MEDS: 0.9% Normal Saline (1000mL) 1,000 ML 999 ML IV (18:41)
[2024-06-10 18:49] LABS: Absolute Lymphocyte Count 1.17 X10^3/uL (0.83-4.51); Absolute Neutrophil Count 9.7 X10^3/uL (2.0-7.7); Basophil# 0.06 X10^3/uL; Basophil% 0.5 % (0-1); Eosinophil# 0.07 X10^3/uL; Eosinophils% 0.5 % (0-5); Hematocrit 35.5 % (37-47); Hemoglobin 11.7 g/dL (12.0-15.0); Lymphocyte # 1.17 X10^3/ul (0.83-4.51); Lymphocyte % 8.9 % (19-41); Mean Corpuscular Hgb 30.1 pg (27.0-32.0); Mean Corpuscular Volume 91.3 fL (81-99); Mean Platelet Vol. 11.7 fl (6.2-12.0); Monocyte# 1.98 X10^3/uL; NRBC Flagged by Analyzer 0 % (0-5); Neutrophil # 9.68 X10^3/uL (2.7-7.7); Neutrophil % 73.4 % (47-70); POSITIVE DIFFERENTIAL YES; Platelet Count 246 K/mm3 (150-450); RBC Distribution Width CV 13.4 % (11.6-14.6); RBC Distribution Width SD 45.2 fl (35.1-43.9); Red Blood Count 3.89 M/mm3 (4.2-5.4); White Blood Count 13.2 K/mm3 (4.4-11.0)
[2024-06-10 19:01] LABS: Differential Indicated SCAN CRITERIA MET
[2024-06-10 19:07] LABS: Mucous, Urine 0 SEEN /hpf (<or=2+); Red Blood Cells-Urine 0 SEEN /hpf (0-5)
[2024-06-10 19:18] LABS: Color, Urine Straw (Yellow); Glucose, Dipstick 1000 mg/dl (Normal); Ketone-Dipstick Negative (Negative); Leukocyte Esterase-Dipstick 500 /ul (Negative); Nitrite-Dipstick Positive (Negative); Occult Blood-Urine 150 /ul (Negative); Protein-Dipstick 100 mg/dl (Negative); Specific Gravity, Urine 1.015 (1.002-1.030); Urine Bilirubin Dipstick Negative (Negative); Urine Clarity Cloudy (Clear); Urine Urobilinogen 1 mg/dl (Normal)
[2024-06-10 19:19] LABS: ALB/GLOB Ratio 0.5 RATIO (0.9-2.4); AST(SGOT) 20 U/L (15-37); Alanine Aminotransfer ALT/SGPT 46 U/L (13-56); Albumin, Serum 2.4 g/dL (3.2-5.0); Alkaline Phosphatase 238 U/L (45-117); Anion Gap 10 (5-15); BUN 42 mg/dL (7-18); BUN/Creat Ratio 23.5 RATIO (10-20); Calcium,Total 8.8 mg/dL (8.5-10.1); Chloride 99 mmol/L (98-107); Creatinine, Serum 1.79 mg/dL (0.55-1.02); EST Glomerular Filtration Rate 31 mL/min (>60); Est Glom Filt Rate - Afr Amer 37 mL/min (>60); Estimated Creatinine Clearance 26.12 ml/min; Globulin 4.7 g/dL (2.2-4.2); Glucose 417 mg/dL (74-106); Lipase 14 U/L (13-75); Potassium 3.7 mmol/L (3.5-5.1); Protein, Total 7.1 g/dL (6.4-8.2); Sodium Level 131 mmol/L (136-145)
[2024-06-10 19:53] LABS: Bacteria 4+ /hpf (None Seen); Squamous Epithelial Cells - UA 5-10 SEEN /hpf (5-10); White Blood Cells >100 SEEN /hpf (0-5)
[2024-06-10 20:00] VITALS: BP 145/79; PULSE 92; RESP 16; O2SAT 98
[2024-06-10] MEDS: Ceftriaxone 1 GM/50 ML BAG IV (21:31)
[2024-06-10 21:32] VITALS: BP 159/86; PULSE 93; RESP 16; TEMP 36.8; O2SAT 98
--- NOTE | 2024-06-10 21:52 | PCM.HP.STD ---
[facility] - General General Date of Admission: 06/10/24 Date of Service: 06/10/24 Chief Complaint: Abdominal Pain, Dysuria, Nausea and Vomiting. 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 Ms. Ley reports her symptoms began approximately 3-4 days prior to admission with the gradual-onset of progressively worsening abdominal pain that was continuous, sharp, generalized and radiating into both flanks, [id number] and was not made better or worse by anything. She then developed nausea with bilious emesis. She admits to dysuria - but she denies hematuria or increased urinary frequency. She denies associated fever, chills, chest pain, SOB, rash or focal neurologic weakness - but she admits to tension-type headache. In the ER she was noted to have CT evidence of Emphysematous Cystitis with Right Pyelonephritis and confirmatory UA positive for infection indicating Acute Cystitis; with microscopic hematuria along with Leukocytosis of 13.2K with + Left shift of 1.7% present on admission concerning for Sepsis complicated by Hyperglycemia of 412 mg/dL and suspected mild GARRET in the setting of CKD; stage III with elevated serum creatinine of 1.79 mg/dL and BUN of 42 mg/dL present on admission (up from her baseline of 1.49 mg/dL and BUN of 33 mg/dL last admission) suspected to be due to Dehydration; evidenced by elevated BUN/creatinine ratio of 23.5 present on admission compounded by Severe Depression with Suicidal Ideation noted shortly after arrival and she was then admitted to the PCU for a stay that is expected to extend beyond 2 midnights. [facility] Medical History Iron deficiency anemia secondary to blood loss (chronic) Hyperlipidemia, unspecified Anemia due to blood loss, chronic Emphysema, unspecified Diabetes mellitus, type 2 Debility Hyperglycemia History of COPD Uncontrolled type 2 diabetes mellitus Weight loss Dysphagia Anxiety Depression Substance abuse Smoker Hypertension Smoking addiction COPD (chronic obstructive pulmonary disease) Uncontrolled type 2 diabetes mellitus Home Medications ?Medication ?Instructions ?Recorded ?Last Taken ?Type losartan 50 mg tablet 50 mg PO DAILY 05/02/23 05/01/23 History mirtazapine 15 mg tablet (Remeron) 15 mg PO QHS #1 TAB 05/04/23 Unknown Rx acetaminophen 325 mg capsule 650 mg PO QHS 09/12/23 Unknown History (Tylenol) atorvastatin 10 mg tablet 10 mg PO QHS 09/12/23 Unknown History dextrose 40 % oral gel (Glucose 10 g PO Q15M PRN hypoglycemia 09/12/23 Unknown History Gel) glucagon HCl 1 mg solution for 1 mg subcut Q20M PRN hypoglycemia 09/12/23 Unknown History injection (Glucagon (HCl) Emergency Kit) sertraline 50 mg tablet 50 mg PO QAM Depression 09/12/23 Unknown History insulin glargine 100 unit/mL (3 10 unit (0.1 mL) subcut BID #15 mL 04/12/24 Unknown Rx mL) subcutaneous pen (Lantus Solostar U-100 Insulin) insulin lispro 100 unit/mL See Protocol subcut .COMPLEX #15 mL 04/12/24 Unknown Rx subcutaneous pen (Humalog KwikPen (U-100) Insulin) pen needle, diabetic 32 gauge x #150 ea 04/12/24 Unknown Rx /32 (BD Ultra-Fine Abbie Pen Needle) Allergy/AdvReac Type Severity Reaction Status Date / Time diphenhydramine (From Allergy Hives Verified 06/10/24 17:47 Benadryl) Social History Smoking Status: Current every day smoker tobacco type: cigarettes and e-cigarettes alcohol intake: former substance use type: amphetamines ROS ROS Narrative Review of Systems: Constitutional: Patient denies fever or chills. Eyes: Patient denies changes in vision or discharge from eyes. ENT: Patient denies runny nose, sore throat or ear pain. Resp: Patient denies shortness of breath or cough. CV: Patient denies chest pain or palpitations. GI: Patient admits to abdominal pain radiating to her flanks complicated by nausea and vomiting with bilious emesis as per HPI. She denies diarrhea or melena. : Patient admits to dysuria but she denies hematuria or urinary frequency. MSK: Patient admits to back pain and neck pain. Skin: Patient denies rash, abscess or jaundice. Psych: Patient denies symptoms of uncontrolled depression or anxiety. Neuro: Patient denies headache, paresthesias or focal neurologic deficits. Allergy: Patient denies lip swelling, tongue swelling or urticaria. Hematology: Patient denies easy bleeding or easy bruisability. Endocrinology: Patient denies polyuria, polydipsia or polyphagia. 14 point review of systems otherwise negative except for positives noted above in HPI. Vital Signs Vital Signs Vital Signs: 06/10/24 17:48 06/10/24 20:00 06/10/24 21:32 Temperature 98.5 F 98.2 F Temperature Source Oral Pulse Rate 99 92 93 Respiratory Rate 18 16 16 Blood Pressure 140/81 H 145/79 H 159/86 H Blood Pressure Mean 100 101 110 Pulse Ox 97 98 98 Oxygen Delivery Method Room Air Room Air Weight Weight: 107 lb 12.897 oz Body Mass Index (BMI) 19.1 Physical Exam Const alert, oriented x3 and average body habitus Constitutional Narrative: Mild distress noted with patient appearing ill. General Appearance: cooperative HEENT normocephalic, head/scalp atraumatic and hearing grossly normal bilaterally HEENT Narrative: Mucous membranes dry. Eyes PERRL and EOMs intact bilaterally Neck no lymphadenopathy and supple Resp normal respiratory effort, no retractions and no use of accessory muscles Cardio regular rate and regular rhythm GI normal to inspection, nondistended, normoactive bowel sounds, soft to palpation and non-distended GI Narrative: Patient generally tender to palpation. Negative for guarding or rebound. Extremity normal to inspection, full ROM and no clubbing, cyanosis or edema Skin Skin Narrative: Patient has no evidence of rash, abscess or jaundice. Neuro oriented x3, CN's II-XII intact bilaterally, moves all extremities and no focal motor deficits Sensorium / Orientation: awake, alert, oriented to person, oriented to place and oriented to time Speech: speech normal Psych affect normal Results Medical Records Data Attestation: I reviewed the patient's medical records Lab / Micro Data Attestation: I reviewed the patient's lab results. 06/10/24 18:42 06/10/24 18:42 Labs: Laboratory Results - last 24 hr 06/10/24 18:42: WBC 13.2 H, RBC 3.89 L, Hgb 11.7 L, Hct 35.5 L, MCV 91.3, MCH 30.1, MCHC 33.0, RDW Std Deviation 45.2 H, RDW Coeff of Danie 13.4, Plt Count 246, MPV 11.7, Immature Gran % (Auto) 1.700 H, Neut % (Auto) 73.4 H, Lymph % (Auto) 8.9 L, Mingo % (Auto) 15.0 H, Eos % (Auto) 0.5, Baso % (Auto) 0.5, Absolute Neuts (auto) 9.7 H, Absolute Lymphs (auto) 1.17, Nucleated RBC % 0, Diff Path Review December, Sodium 131 L, Potassium 3.7, Chloride 99, Carbon Dioxide 22.0, Anion Gap 10, BUN 42 H, Creatinine 1.79 H, Estim Creat Clear Calc 26.12, Est GFR (MDRD) Af Amer 37 L, Est GFR (MDRD) Non-Af 31 L, BUN/Creatinine Ratio 23.5 H, Glucose 417 H, Calcium 8.8, Total Bilirubin 0.40, AST 20, ALT 46, Alkaline Phosphatase 238 H, Total Protein 7.1, Albumin 2.4 L, Globulin 4.7 H, Albumin/Globulin Ratio 0.5 L, Lipase 14 06/10/24 18:53: Urine Color Straw, Urine Clarity Cloudy, Urine pH 6.0, Ur Specific Hawley 1.015, Urine Protein 100 H, Urine Glucose (UA) 1000 H, Urine Ketones Negative, Urine Occult Blood 150 H, Urine Nitrite Positive H, Urine Bilirubin Negative, Urine Urobilinogen 1 H, Ur Leukocyte Esterase 500 H, Urine RBC 0 SEEN, Urine WBC >100 SEEN, Ur Squamous Epith Cells 5-10 SEEN, Urine Bacteria 4+, Urine Mucus 0 SEEN Imaging Radiology Impression Abdomen/Pelvis CT 06/10/24 18:35 IMPRESSION: (NOT LISTED IN ORDER OF SIGNIFICANCE) Non obstructive 2 mm left renal parenchymal stones. Mild bilateral hydronephroureter. There is air in the wall of the urinary bladder suggesting emphysematous cystitis. 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 Other findings as above. Electronically Signed: Cal Romano MD at 20:45 EDT , ADDENDUM: 06/10/242102 IMPRESSION: (NOT LISTED IN ORDER OF SIGNIFICANCE) Non obstructive 2 mm left renal parenchymal stones. Mild bilateral hydronephroureter. There is air in the wall of the urinary bladder suggesting emphysematous cystitis. 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 Other findings as above. N.B. : The above Results were Read Back by Cal Romano MD to Gumaro Smith DO, and understanding confirmed on 06/10/2024 20:56:28 (ET). Electronically Signed: Cal Romano MD at 20:45 EDT Reading Location ID and State: [facility] / [place] , Service support , Assessment & Plan Assessment/Plan (1) Emphysematous cystitis: (2) Pyelonephritis of right kidney: (3) Sepsis: QUALIFIERS: Sepsis acute organ dysfunction status: without acute organ dysfunction Sepsis type: sepsis due to unspecified organism Qualified Code(s): A41.9 - Sepsis, unspecified organism (4) Hyperglycemia due to type 2 diabetes mellitus: QUALIFIERS: Diabetes mellitus shelter insulin use: with shelter use Qualified Code(s): E11.65 - Type 2 diabetes mellitus with hyperglycemia; Z79.4 - intermediate (current) use of insulin (5) GARRET (acute kidney injury): (6) Dehydration: (7) COPD (chronic obstructive pulmonary disease): QUALIFIERS: COPD type: emphysema Emphysema type: centrilobular Qualified Code(s): J43.2 - Centrilobular emphysema (8) Tobacco abuse: (9) Debility: PLAN: Plan 1. CT evidence of Emphysematous Cystitis with Right Pyelonephritis and Leukocytosis of 13.2K with + Left shift of 1.7% present on admission concerning for possible early Sepsis - Admit to PCU for treatment under the sepsis protocol. Start empiric IV Zosyn and await culture and sensitivity data. Give Tylenol as needed for [id number] (level 1-5/10) pain or fever. Give morphine IV as needed for severe (level 6-10/10) pain. Finally, we will consult urologist on-call to see this patient on rounds in the a.m. for further recommendations with help appreciated in advance. 2. UA positive for infection indicating Acute Cystitis; with microscopic hematuria complicating #1 - Patient was initially started on empiric Rocephin in ER. 3. DM-2; uncontrolled with hyperglycemia of 412 mg/dL suspected to be feeding infections outlined in #1 & #2 - ADA diet. FSBS q. AC/HS plus SSI. Check hemoglobin A1c to objectively evaluate quality of diabetic control. Pseudohyponatremia of 131 mmol/L present on admission noted to be spurious causing lab error secondary to hyperglycemia. 4. Mild GARRET in the setting of CKD; stage III with elevated serum creatinine of 1.79 mg/dL and BUN of 42 mg/dL present on admission (up from her baseline of 1.49 mg/dL and BUN of 33 mg/dL last admission) suspected to be due to Dehydration; evidenced by elevated BUN/creatinine ratio of 23.5 present on admission compounding #1 - #3 - Aggressively volume resuscitate and then recheck renal indices daily to confirm improvement. Follow strict I's and O's and place Sandy. 5. Chronic and ongoing tobacco abuse; with subsequent emphysema/COPD adding to the medical complexity of #1 - #4 - Stable with no evidence of acute flare at this time. Continue as needed nebulizers. Tobacco cessation will be strongly encouraged with Nicotine patch offered to control cravings. 6. Severe depression with Suicidal Ideation with patient apparently having increased life stress emanating from her deteriorating relationship with both her son and augmenting the pathology outlined from #1 - #5 in the setting of known previous depression with anxiety - Patient started on suicide precautions with crisis visit pending with patient allegedly not currently taking her sertraline which will be restarted. 7. History of amphetamine abuse - Check [place] UDS to evaluate for possible relapse. 8. Essential hypertension - Hold scheduled antihypertensives until infections outlined in #1 & #2 have been neutralized. 9. Hyperlipidemia - Resume statin. 10. History of dysphagia - Stable with hypoalbuminemia of 2.4 g/dL present on admission. Clinical nutrition consult pending in a.m. on rounds for possible protein-calorie malnutrition with help appreciated in advance. 11. 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 12. Chronic debility - Stable. PT/OT and case management consult and treat for further recommendations with help appreciated in advance. 13. OA - Give Tylenol as needed. 14. DVT prophylaxis - Heparin 5,000 units SQ twice daily plus SCDs. Total time: Approximately 75 minutes. Sepsis Attestation Sepsis Alert: Yes Sepsis Attestation: Sepsis Ruled Out Date exam was performed: 06/10/24 Time exam was performed: 22:30 Possible Source of Sepsis: Genitourinary Supportive Findings: Patient has a leukocytosis of 13.2 K present on admission with left shift of 1.7% and no urinary source of infection with CT evidence of Right pyelonephritis and emphysematous cystitis. Fluid Resuscitation Fluid resuscitation indicated?: Yes Fluid Resuscitation ordered: 30 ml/kg fluid bolus ordered Amount of fluid ordered: 2 Sepsis Note Date exam was performed: 06/11/24 Time exam was performed: 02:30 Sepsis Attestation: Sepsis re-evaluation was performed Response to fluids: Fluid responsive hypotension Charges/Coding Visit Charges Inpatient E&M: 98431 Init Hosp L3
[2024-06-10 23:30] LABS: Hemoglobin A1c 7.9 % (3.8-5.6)
[2024-06-10 23:37] VITALS: BMI 17.9
[2024-06-10 23:40] VITALS: BP 157/69; PULSE 95; RESP 18; TEMP 36.7; O2SAT 96
[2024-06-11 01:04] LABS: Lactic Acid 1.8 mmol/L (0.4-1.9)
[2024-06-11] MEDS: 0.9% Normal Saline (1000mL) 1,000 ML 999 ML IV ×2 (01:05→02:10)
[2024-06-11 04:05] VITALS: BP 125/54; PULSE 90; RESP 15; TEMP 36.9; O2SAT 84
[2024-06-11] MEDS: Piperacil/Tazobactam 3.375 GM in 0.9% Normal Saline (50mL MB+) 50 ML IV ×3 (04:19→23:35)
[2024-06-11 05:40] VITALS: BP 137/56; PULSE 88; RESP 15; TEMP 36.9; O2SAT 93
[2024-06-11] MEDS: Insulin Lispro 100 UNIT/ML INSULN.PEN SC ×3 (06:28→17:10)
[2024-06-11 06:54] LABS: Bedside Glucose 219 mg/dL (74-106)
--- NOTE | 2024-06-11 07:00 | US_ITS ---
STUDY: RENAL ULTRASOUND - COMPLETE REASON FOR EXAM: Female, 59 years old. Suspected emphysematous cystitis and Right pyelone TECHNIQUE: Ultrasound evaluation of the kidneys was performed with real-time and static gutierrez-scale imaging. COMPARISON: Comparison is made with prior CT scan abdomen and pelvis dated June 10, 2024. FINDINGS: RIGHT KIDNEY: Normal location of the right kidney, which is normal in size. The right kidney measures 10.9 cm x 6 cm x 5.9 cm. There is a normal cortex of the right kidney. The renal cortex measures 1.9 cm. There is no right renal mass or cyst. There are no right renal calculi. There is no right hydronephrosis. DISTAL RIGHT URETER: There is non-visualization of the distal right ureter. There is no demonstrated right ureterovesical junction calculus. There is a visualized right ureteral jet. LEFT KIDNEY: Normal location of the left kidney, which is normal in size. The left kidney measures 10.3 cm x 5.4 cm x 5.9 cm. There is a normal cortex of the left kidney. The renal cortex measures 1.5 cm. There is no left renal mass or cyst. There are no left renal calculi. There is no left hydronephrosis. There is a 5 mm x 3 mm nonobstructive calculus. DISTAL LEFT URETER: There is non-visualization of the distal left ureter. There is no demonstrated left ureterovesical junction calculus. There is a visualized left ureteral jet. BLADDER: The distended urinary bladder has a volume of 233 ml. There is trabeculation of the urinary bladder wall. There is thickening of the bladder wall. Questionable air within the bladder wall. There is no demonstrated mass within the urinary bladder. There are no demonstrated bladder calculi. US/Kidney and Bladder IMPRESSION: Nonobstructive left intrarenal calculus. Bladder wall thickening with air in the bladder wall. Electronically Signed: Andrae Colón MD at 8:16 EDT ,
[2024-06-11] MEDS: 0.9% Saline Lock 10 ML Syringe IV (08:26)
[2024-06-11 09:36] VITALS: BP 122/58; PULSE 86; RESP 17; TEMP 36.5; O2SAT 98
[2024-06-11] MEDS: Sertraline 50 MG Tablet PO (09:40)
[2024-06-11] MEDS: Lactobacillis Acidophilus 1 CAP PO ×4 (09:41→20:47)
[2024-06-11] MEDS: Ascorbic Acid 500 MG Tablet 1000 MG PO ×2 (09:41→17:11)
[2024-06-11] MEDS: Zinc Sulfate 50 mg zinc (220 mg) ORAL capsule PO (09:41)
[2024-06-11] MEDS: Cholecalciferol (Vit D3) 125 MCG CAPSULE (5,000 UNITS) PO (09:41)
[2024-06-11] MEDS: Acetaminophen 325 MG Tablet 650 MG PO ×2 (09:56→20:51)
[2024-06-11] MEDS: Insulin Glargine-YFGN 100 UNIT/ML Pen 6 UNIT SC ×2 (09:57→20:48)
[2024-06-11 12:18] LABS: Bedside Glucose 217 mg/dL (74-106)
[2024-06-11 14:20] LABS: Pathologist Review Reviewed
[2024-06-11 15:44] VITALS: BP 124/57; PULSE 77; RESP 16; TEMP 36.6; O2SAT 93
--- NOTE | 2024-06-11 16:59 | PCM.CONS.GEN ---
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 use: with salesperson toy trains and accessories use Diabetes mellitus complication status: with other specified complication Qualified Code(s): E11.69 - Type 2 diabetes mellitus with other specified complication; 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 She was having flank pain, bladder pain and dysuria at home with chills but did not take her temperature. There was nausea and vomiting as well. She is feeling better today than she was yesterday. She reports she has had a history of kidney stones and infections in the past. She has had about 2 urinary tract infections within the last year. She reports no significant urgency and frequency during the day, but is up as many as 5 times at night to void. There is no significant incontinence. She struggles significantly with severe constipation and will go as long as almost 3 weeks between bowel movements. She is not on a bowel regimen at this time. We discussed that this can significantly increase her risk for urinary tract infections and urinary retention. She is also a longstanding smoker and we will need to further evaluate her bladder. [facility] Medical History Iron deficiency anemia secondary to blood loss (chronic) Hyperlipidemia, unspecified Anemia due to blood loss, chronic Emphysema, unspecified Diabetes mellitus, type 2 Debility Hyperglycemia History of COPD Uncontrolled type 2 diabetes mellitus Weight loss Dysphagia Anxiety Depression Substance abuse Smoker Hypertension Smoking addiction COPD (chronic obstructive pulmonary disease) Uncontrolled type 2 diabetes mellitus Home Medications ?Medication ?Instructions ?Recorded ?Last Taken ?Type losartan 50 mg tablet 50 mg PO DAILY 05/02/23 05/01/23 History mirtazapine 15 mg tablet (Remeron) 15 mg PO QHS #1 TAB 05/04/23 Unknown Rx acetaminophen 325 mg capsule 650 mg PO QHS 09/12/23 Unknown History (Tylenol) atorvastatin 10 mg tablet 10 mg PO QHS 09/12/23 Unknown History dextrose 40 % oral gel (Glucose 10 g PO Q15M PRN hypoglycemia 09/12/23 Unknown History Gel) glucagon HCl 1 mg solution for 1 mg subcut Q20M PRN hypoglycemia 09/12/23 Unknown History injection (Glucagon (HCl) Emergency Kit) sertraline 50 mg tablet 50 mg PO QAM Depression 09/12/23 Unknown History insulin glargine 100 unit/mL (3 10 unit (0.1 mL) subcut BID #15 mL 04/12/24 Unknown Rx mL) subcutaneous pen (Lantus Solostar U-100 Insulin) insulin lispro 100 unit/mL See Protocol subcut .COMPLEX #15 mL 04/12/24 Unknown Rx subcutaneous pen (Humalog KwikPen (U-100) Insulin) pen needle, diabetic 32 gauge x #150 ea 04/12/24 Unknown Rx 32 (BD Ultra-Fine Abbie Pen Needle) Allergy/AdvReac Type Severity Reaction Status Date / Time diphenhydramine (From Allergy Hives Verified 06/10/24 17:47 Benadryl) Social History Smoking Status: Current every day smoker tobacco type: cigarettes and e-cigarettes alcohol intake: former substance use type: amphetamines ROS Constitutional Constitutional: Reports chills, fever(s) and malaise Eyes Eyes: Reports systems reviewed and no addt'l complaints, except as documented ENT HEENT: Reports systems reviewed and no addt'l complaints, except as documented Cardiovascular Cardiovascular: Reports abdominal pain; Denies chest pain Respiratory/Chest Respiratory/Chest: Reports systems reviewed and no addt'l complaints, except as documented; Denies difficulty clearing secretions or dyspnea Gastrointestinal Gastrointestinal: Reports abdominal pain, constipation, nausea and vomiting Genitourinary Genitourinary: Reports abdominal discomfort, dysuria and flank pain Musculoskeletal Musculoskeletal: Reports systems reviewed and no addt'l complaints, except as documented Integumentary Integumentary: Reports systems reviewed and no addt'l complaints, except as documented Neurologic Neurologic: Reports systems reviewed and no addt'l complaints, except as documented Psychiatric Psychiatric: Reports suicidal ideation and other Details: She is with a sitter at bedside Endocrine Endocrinology: Reports systems reviewed and no addt'l complaints, except as documented Hematologic/Lymphatic Hematologic/Lymphatic: Reports systems reviewed and no addt'l complaints, except as documented Allergic/Immunologic Allergic/Immunologic: Reports systems reviewed and no addt'l complaints, except as documented Physical Exam Const alert, oriented x3 and no apparent distress General Appearance: cooperative and comfortable HEENT normocephalic, head/scalp atraumatic, external ears normal, external nose normal and moist oral mucous membranes Eyes General Eye: normal appearance of both eyes Neck General: normal visual inspection and trachea midline Chest inspection of chest normal Chest: symmetrical chest wall rise Resp normal respiratory effort, normal air movement and no retractions Cardio regular rate GI soft to palpation, non-tender and non-distended no CVA tenderness Narrative: She reports her flank pain is significantly reduced today, she is not tender on exam Back/Spine no CVA tenderness Extremity normal to inspection Skin no rashes or lesions noted, no jaundice, no petechiae and no mottling Neuro oriented x3, CN's II-XII intact bilaterally and moves all extremities Psych mental status grossly normal and cooperative Lab / Micro Data 06/10/24 18:42 06/10/24 18:42 Labs: Laboratory Results - last 24 hr 06/10/24 18:42: WBC 13.2 H, RBC 3.89 L, Hgb 11.7 L, Hct 35.5 L, MCV 91.3, MCH 30.1, MCHC 33.0, RDW Std Deviation 45.2 H, RDW Coeff of Danie 13.4, Plt Count 246, MPV 11.7, Immature Gran % (Auto) 1.700 H, Neut % (Auto) 73.4 H, Lymph % (Auto) 8.9 L, [place] % (Auto) 15.0 H, Eos % (Auto) 0.5, Baso % (Auto) 0.5, Absolute Neuts (auto) 9.7 H, Absolute Lymphs (auto) 1.17, Nucleated RBC % 0, Diff Path Review Reviewed, Sodium 131 L, Potassium 3.7, Chloride 99, Carbon Dioxide 22.0, Anion Gap 10, BUN 42 H, Creatinine 1.79 H, Estim Creat Clear Calc 26.12, Est GFR (MDRD) Af Amer 37 L, Est GFR (MDRD) Non-Af 31 L, BUN/Creatinine Ratio 23.5 H, Glucose 417 H, Hemoglobin A1c 7.9 H, Calcium 8.8, Total Bilirubin 0.40, AST 20, ALT 46, Alkaline Phosphatase 238 H, Total Protein 7.1, Albumin 2.4 L, Globulin 4.7 H, Albumin/Globulin Ratio 0.5 L, Lipase 14 06/10/24 18:53: Urine Color Straw, Urine Clarity Cloudy, Urine pH 6.0, Ur Specific [place] 1.015, Urine Protein 100 H, Urine Glucose (UA) 1000 H, Urine Ketones Negative, Urine Occult Blood 150 H, Urine Nitrite Positive H, Urine Bilirubin Negative, Urine Urobilinogen 1 H, Ur Leukocyte Esterase 500 H, Urine RBC 0 SEEN, Urine WBC >100 SEEN, Ur Squamous Epith Cells 5-10 SEEN, Urine Bacteria 4+, Urine Mucus 0 SEEN 06/11/24 00:28: Lactic Acid 1.8 06/11/24 06:22: POC Glucose 219 H 06/11/24 11:59: POC Glucose 217 H Imaging Radiology Impression Abdomen/Pelvis CT 06/10/24 18:35 IMPRESSION: (NOT LISTED IN ORDER OF SIGNIFICANCE) Non obstructive 2 mm left renal parenchymal stones. Mild bilateral hydronephroureter. There is air in the wall of the urinary bladder suggesting emphysematous cystitis. 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 Other findings as above. Electronically Signed: Cal Romano MD at 20:45 EDT , ADDENDUM: 06/10/242102 IMPRESSION: (NOT LISTED IN ORDER OF SIGNIFICANCE) Non obstructive 2 mm left renal parenchymal stones. Mild bilateral hydronephroureter. There is air in the wall of the urinary bladder suggesting emphysematous cystitis. 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 Other findings as above. N.B. : The above Results were Read Back by Cal Romano MD to Gumaro Smith DO, and understanding confirmed on 06/10/2024 20:56:28 (ET). Electronically Signed: Cal Romano MD at 20:45 EDT , Renal Ultrasound 06/11/24 07:00 IMPRESSION: Nonobstructive left intrarenal calculus. Bladder wall thickening with air in the bladder wall. Electronically Signed: Andrae Colón MD at 8:16 EDT ,
[2024-06-11 17:31] LABS: Bedside Glucose 217 mg/dL (74-106)
--- NOTE | 2024-06-11 18:28 | PCM.PN.HOSP ---
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 Patient's blood and urine cultures are pending at this time Objective Data Objective Data Vital Signs: Vital Signs Temp Pulse Resp BP Pulse Ox O2 Del Method 97.8 F 77 16 124/57 H 93 Room Air 06/11/24 15:44 06/11/24 15:44 06/11/24 15:44 06/11/24 15:44 06/11/24 15:44 06/11/24 15:44 Oxygen Delivery Method Room Air Weight: 45.9 kg Body Mass Index (BMI) 17.9 Intake & Output: Intake and Output for Last 24 Hours 06/09/24 06/10/24 06/11/24 23:59 23:59 23:59 Intake Total 1050 / 1290 2650 / 2650 Balance 1050 / 1290 2650 / 2650 Lab / Micro Data 06/10/24 18:42 06/10/24 18:42 Labs: Laboratory Results - last 24 hr 06/10/24 18:42: WBC 13.2 H, RBC 3.89 L, Hgb 11.7 L, Hct 35.5 L, MCV 91.3, MCH 30.1, MCHC 33.0, RDW Std Deviation 45.2 H, RDW Coeff of Danie 13.4, Plt Count 246, MPV 11.7, Immature Gran % (Auto) 1.700 H, Neut % (Auto) 73.4 H, Lymph % (Auto) 8.9 L, [place] % (Auto) 15.0 H, Eos % (Auto) 0.5, Baso % (Auto) 0.5, Absolute Neuts (auto) 9.7 H, Absolute Lymphs (auto) 1.17, Nucleated RBC % 0, Diff Path Review Reviewed, Sodium 131 L, Potassium 3.7, Chloride 99, Carbon Dioxide 22.0, Anion Gap 10, BUN 42 H, Creatinine 1.79 H, Estim Creat Clear Calc 26.12, Est GFR (MDRD) Af Amer 37 L, Est GFR (MDRD) Non-Af 31 L, BUN/Creatinine Ratio 23.5 H, Glucose 417 H, Hemoglobin A1c 7.9 H, Calcium 8.8, Total Bilirubin 0.40, AST 20, ALT 46, Alkaline Phosphatase 238 H, Total Protein 7.1, Albumin 2.4 L, Globulin 4.7 H, Albumin/Globulin Ratio 0.5 L, Lipase 14 06/10/24 18:53: Urine Color Straw, Urine Clarity Cloudy, Urine pH 6.0, Ur Specific [place] 1.015, Urine Protein 100 H, Urine Glucose (UA) 1000 H, Urine Ketones Negative, Urine Occult Blood 150 H, Urine Nitrite Positive H, Urine Bilirubin Negative, Urine Urobilinogen 1 H, Ur Leukocyte Esterase 500 H, Urine RBC 0 SEEN, Urine WBC >100 SEEN, Ur Squamous Epith Cells 5-10 SEEN, Urine Bacteria 4+, Urine Mucus 0 SEEN 06/11/24 00:28: Lactic Acid 1.8 06/11/24 06:22: POC Glucose 219 H 06/11/24 11:59: POC Glucose 217 H 06/11/24 17:08: POC Glucose 217 H Radiography Diagnostic Testing: Radiology Impression Abdomen/Pelvis CT 06/10/24 18:35 IMPRESSION: (NOT LISTED IN ORDER OF SIGNIFICANCE) Non obstructive 2 mm left renal parenchymal stones. Mild bilateral hydronephroureter. There is air in the wall of the urinary bladder suggesting emphysematous cystitis. 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 Other findings as above. Electronically Signed: Cal Romano MD at 20:45 EDT , ADDENDUM: 06/10/242102 IMPRESSION: (NOT LISTED IN ORDER OF SIGNIFICANCE) Non obstructive 2 mm left renal parenchymal stones. Mild bilateral hydronephroureter. There is air in the wall of the urinary bladder suggesting emphysematous cystitis. 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 Other findings as above. N.B. : The above Results were Read Back by Cal Romano MD to Gumaro Smith DO, and understanding confirmed on 06/10/2024 20:56:28 (ET). Electronically Signed: Cal Romano MD at 20:45 EDT , Renal Ultrasound 06/11/24 07:00 IMPRESSION: Nonobstructive left intrarenal calculus. Bladder wall thickening with air in the bladder wall. Electronically Signed: Andrae Colón MD at 8:16 EDT , Physical Exam Const alert, oriented x3, no apparent distress and healthy appearing General Appearance: cooperative, well kempt and well developed Orientation / Consciousness: awake, oriented to person, oriented to place and oriented to time HEENT normocephalic, head/scalp atraumatic and moist oral mucous membranes Eyes PERRL, EOMs intact bilaterally and conjunctivae normal Neck supple, no JVD and thyroid normal General: trachea midline Resp normal respiratory effort, no retractions, no use of accessory muscles and clear to auscultation bilaterally Auscultation: Negative for rales, rhonchi or wheezes Cardio regular rate, regular rhythm, S1 normal heart sound, S2 normal heart sound, no murmurs, no rub and no gallops GI normal to inspection, nondistended, normoactive bowel sounds, soft to palpation, non-tender and non-distended Extremity no clubbing, cyanosis or edema Skin no rashes or lesions noted General Skin Exam: no breakdown Neuro oriented x3, CN's II-XII intact bilaterally, moves all extremities, no focal motor deficits and no sensory deficits noted Sensorium / Orientation: awake and alert Speech: speech normal Psych Psych Narrative: Affect flat Assessment & Plan Assessment/Plan (1) Pyelonephritis of right kidney: PLAN: Plan 1. Right pyelonephritis and cystitis-continue patient's antibiotics at this time, I reviewed recommendations from urology saw the patient in consultation, await blood and urine culture #2 type 2 diabetes-patient's blood sugars will be monitored, sliding scale insulin will be administered as needed #3 dehydration-patient's labs will be monitored as needed #4 severe depression with suicidal and homicidal ideation-patient will need to be seen by crisis #5 noncompliance with medical treatment-patient is not taking several of her medications, complicates care, management, recovery, and prognosis Total clinical time spent by myself addressing patient's medical issues, reviewing all of her data, and collaborating with patient's care team: 35 minutes Charges/Coding Visit Charges Inpatient E&M: 58998 Subs Hosp L2
[2024-06-11 20:34] VITALS: BP 135/61; PULSE 81; RESP 14; TEMP 36.4; O2SAT 96
[2024-06-11] MEDS: Polyethylene Glycol 3350 17 GM PACKET PO (20:50)
[2024-06-11] MEDS: Atorvastatin Calcium 10 MG Tablet PO (20:50)
[2024-06-11] MEDS: Glucerna Shake 120 ML LIQUID PO (20:51)
[2024-06-11 21:01] LABS: Bedside Glucose 158 mg/dL (74-106)
--- NOTE | 2024-06-11 22:03 | PCM.RX.CS ---
Consult Antibiotic Management Pharmacy has been consulted to manage selected antibiotic: Vancomycin Type of Intervention Type of Consult: New start Suspected Infection Suspected Infection: Other (Cystitis) Labs Labs: Sodium 131 mmol/L (136-145) L 06/10/24 18:42 Potassium 3.7 mmol/L (3.5-5.1) 06/10/24 18:42 Chloride 99 mmol/L (98-107) 06/10/24 18:42 Carbon Dioxide 22.0 mmol/L (21.0-32.0) 06/10/24 18:42 Anion Gap 10 (5-15) 06/10/24 18:42 BUN 42 mg/dL (7-18) H 06/10/24 18:42 Creatinine 1.79 mg/dL (0.55-1.02) H 06/10/24 18:42 Est GFR (MDRD) Af Amer 37 mL/min (>60) L 06/10/24 18:42 Est GFR (MDRD) Non-Af 31 mL/min (>60) L 06/10/24 18:42 BUN/Creatinine Ratio 23.5 RATIO (10-20) H 06/10/24 18:42 Glucose 417 mg/dL (74-106) H 06/10/24 18:42 Microbiology Microbiology: Microbiology 06/10/24 21:20 Blood Culture (Wb) - Left Hand Blood Culture - Preliminary Goal Trough Goal Trough: 10-15 mcg/mL Pharmacy Plan for Drug Dosing Pharmacy Plan for Drug Dosing: NEW START IV VANCOMYCIN Consulting Physician: Dr. Cuevas Indication: Cystitis (urine & blood cx pending) Goal Trough: 10-15 SrCr: 1.79 (06/10/24) CrCl: 26.12 ml/min Comments: Standard initial dose 750mg x1 to be given now Vancomycin Dose: 500mg Q24H to start @ 22:30 06/12/24 Pending Level: Vancomycin trough @ 22:00 06/14/24 Pharmacy Service will continue to monitor and adjust dosing as required. Follow-Up Labs Follow-Up Labs: Trough: Vancomycin (06/14/24 @ 22:00)
[2024-06-11 22:36] LABS: Anion Gap 8 (5-15); BUN 32 mg/dL (7-18); BUN/Creat Ratio 16.2 RATIO (10-20); Calcium,Total 8.2 mg/dL (8.5-10.1); Chloride 107 mmol/L (98-107); Creatinine, Serum 1.97 mg/dL (0.55-1.02); EST Glomerular Filtration Rate 28 mL/min (>60); Est Glom Filt Rate - Afr Amer 33 mL/min (>60); Estimated Creatinine Clearance 22.28 ml/min; Glucose 274 mg/dL (74-106); Potassium 3.7 mmol/L (3.5-5.1); Sodium Level 138 mmol/L (136-145)
[2024-06-11] MEDS: Vancomycin HCl 750 MG in 0.9% Normal Saline (250mL Bag) 250 ML 250 MG IV (22:40)
[2024-06-11 23:00] VITALS: BP 130/74; PULSE 68; RESP 14; TEMP 37.1; O2SAT 97
[2024-06-12 01:35] VITALS: BP 117/95; PULSE 74; RESP 16; TEMP 36.6; O2SAT 97
[2024-06-12 05:29] VITALS: BP 146/74; PULSE 81; RESP 16; TEMP 37.1; O2SAT 93
[2024-06-12] MEDS: Piperacil/Tazobactam 3.375 GM in 0.9% Normal Saline (50mL MB+) 50 ML IV ×3 (05:31→20:27)
[2024-06-12] MEDS: Insulin Lispro 100 UNIT/ML INSULN.PEN SC ×4 (05:35→20:28)
[2024-06-12 06:39] LABS: Bedside Glucose 382 mg/dL (74-106)
--- NOTE | 2024-06-12 06:57 | PCM.HOSP.N ---
Hospitalist Note Prelim blood culture shows gram-positive cocci in clusters. Vancomycin ordered with pharmacy consultation. Patient already on IV Zosyn. Admitted with pyelonephritis. Patient creatinine also went up.
[2024-06-12 07:00] LABS: Absolute Lymphocyte Count 1.52 X10^3/uL (0.83-4.51); Absolute Neutrophil Count 13.9 X10^3/uL (2.0-7.7); Basophil# 0.13 X10^3/uL; Basophil% 0.7 % (0-1); Eosinophil# 0.35 X10^3/uL; Eosinophils% 1.9 % (0-5); Hematocrit 32.8 % (37-47); Hemoglobin 10.5 g/dL (12.0-15.0); Lymphocyte # 1.52 X10^3/ul (0.83-4.51); Lymphocyte % 8.4 % (19-41); Mean Corpuscular Volume 93.7 fL (81-99); Mean Platelet Vol. 11.2 fl (6.2-12.0); Monocyte# 1.61 X10^3/uL; Monocyte% 8.9 % (0-10); NRBC Flagged by Analyzer 0 % (0-5); Neutrophil # 13.85 X10^3/uL (2.7-7.7); Neutrophil % 76.2 % (47-70); POSITIVE DIFFERENTIAL YES; Platelet Count 319 K/mm3 (150-450); RBC Distribution Width CV 13.9 % (11.6-14.6); RBC Distribution Width SD 47.3 fl (35.1-43.9); White Blood Count 18.2 K/mm3 (4.4-11.0)
[2024-06-12 07:08] LABS: Differential Indicated SCAN CRITERIA MET
[2024-06-12 07:12] LABS: Anion Gap 6 (5-15); BUN 30 mg/dL (7-18); BUN/Creat Ratio 13.8 RATIO (10-20); Calcium,Total 8.2 mg/dL (8.5-10.1); Chloride 107 mmol/L (98-107); Creatinine, Serum 2.18 mg/dL (0.55-1.02); EST Glomerular Filtration Rate 25 mL/min (>60); Est Glom Filt Rate - Afr Amer 30 mL/min (>60); Estimated Creatinine Clearance 20.13 ml/min; Glucose 386 mg/dL (74-106); Potassium 3.6 mmol/L (3.5-5.1); Sodium Level 136 mmol/L (136-145)
[2024-06-12 07:38] LABS: Hypersegmented Neutrophils 1+
--- NOTE | 2024-06-12 09:02 | PCM.RX.CS ---
Consult Antibiotic Management Pharmacy has been consulted to manage selected antibiotic: Vancomycin Type of Intervention Type of Consult: Follow-up Prior Doses of Antibiotics Prior Doses of Antibiotics Received/Current Regimen: current dose is 500mg q24h (not started yet). The patient did receive 750mg x1 on 06/11/24 at 22:40 Labs Labs: Sodium 136 mmol/L (136-145) 06/12/24 06:31 Potassium 3.6 mmol/L (3.5-5.1) 06/12/24 06:31 Chloride 107 mmol/L (98-107) 06/12/24 06:31 Carbon Dioxide 22.0 mmol/L (21.0-32.0) 06/12/24 06:31 Anion Gap 6 (5-15) 06/12/24 06:31 BUN 30 mg/dL (7-18) H 06/12/24 06:31 Creatinine 2.18 mg/dL (0.55-1.02) H 06/12/24 06:31 Est GFR (MDRD) Af Amer 30 mL/min (>60) L 06/12/24 06:31 Est GFR (MDRD) Non-Af 25 mL/min (>60) L 06/12/24 06:31 BUN/Creatinine Ratio 13.8 RATIO (10-20) 06/12/24 06:31 Glucose 386 mg/dL (74-106) H 06/12/24 06:31 Microbiology Microbiology: Microbiology 06/10/24 18:53 Urine, Clean Catch Urine Culture - Preliminary Gram negative willard 06/10/24 21:20 Blood Culture (Wb) - Left Hand Blood Culture - Preliminary Dosing Weight Weight used for dosin.9 kg Estimated Creatinine Clearance Estimated Creatinine Clearance: 20ml/min Goal Trough Goal Trough: 10-15 mcg/mL Pharmacy Plan for Drug Dosing Pharmacy Plan for Drug Dosing: The patient's SCr increased to 2.18 today. Since CrCl is now 20ml/min, will hold current dose and get a vanc random level tomorrow morning. Will use that level to determine further dosing. Pharmacy Service will continue to monitor and adjust dosing as required. Follow-Up Labs Follow-Up Labs: Trough: Vancomycin (random) Date/Time Labs Ordered Labs to be done on [date and time ordered]: 06/13/24 0600
[2024-06-12 09:30] VITALS: BP 150/68; PULSE 77; RESP 17; TEMP 36.7; O2SAT 99
[2024-06-12] MEDS: Lactobacillis Acidophilus 1 CAP PO ×3 (09:39→20:28)
[2024-06-12] MEDS: Zinc Sulfate 50 mg zinc (220 mg) ORAL capsule PO (09:39)
[2024-06-12] MEDS: Ascorbic Acid 500 MG Tablet 1000 MG PO ×2 (09:39→17:04)
[2024-06-12] MEDS: Sertraline 50 MG Tablet PO (09:39)
[2024-06-12] MEDS: Cholecalciferol (Vit D3) 125 MCG CAPSULE (5,000 UNITS) PO (09:39)
[2024-06-12] MEDS: Polyethylene Glycol 3350 17 GM PACKET PO (09:40)
[2024-06-12] MEDS: Insulin Glargine-YFGN 100 UNIT/ML Pen 6 UNIT SC ×2 (09:43→20:28)
[2024-06-12] MEDS: 0.9% Saline Lock 10 ML Syringe IV (09:45)
[2024-06-12] MEDS: 0.9% Normal Saline (1000mL) 1,000 ML 125 ML IV ×2 (11:36→20:26)
[2024-06-12 12:11] LABS: Bedside Glucose 220 mg/dL (74-106)
--- NOTE | 2024-06-12 13:16 | CON.PCM.ID_ITS ---
Assessment & Plan Assessment/Plan (1) Sepsis: QUALIFIERS: Sepsis type: sepsis due to unspecified organism S epsis acute organ dysfunction status: without acute organ dysfunction Qualified Code(s): A41.9 - Sepsis, unspecified organism (2) Pyelonephritis of right kidney: PLAN: Ucx with GNR. Spoke with micro lab. 1 of 1 bcx with CoNS. Will cont zosyn. vanc has been stopped. Will replace with linezolid while bcx pending. Will follow, thank you. 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 Had associated n/v, some headache, some chills. Came to ED, found to have GARRET, admitted on vanc/zosyn. Feeling some better today. No recent rash/wounds/procedures. Full ROS performed and neg except as noted above. [facility] Medical History Iron deficiency anemia secondary to blood loss (chronic) Hyperlipidemia, unspecified Anemia due to blood loss, chronic Emphysema, unspecified Diabetes mellitus, type 2 Debility Hyperglycemia History of COPD Uncontrolled type 2 diabetes mellitus Weight loss Dysphagia Anxiety Depression Substance abuse Smoker Hypertension Smoking addiction COPD (chronic obstructive pulmonary disease) Uncontrolled type 2 diabetes mellitus Home Medications ?Medication ?Instructions ?Recorded ?Last Taken ?Type losartan 50 mg tablet 50 mg PO DAILY 05/02/23 05/01/23 History mirtazapine 15 mg tablet (Remeron) 15 mg PO QHS #1 TAB 05/04/23 Unknown Rx acetaminophen 325 mg capsule 650 mg PO QHS 09/12/23 Unknown History (Tylenol) atorvastatin 10 mg tablet 10 mg PO QHS 09/12/23 Unknown History dextrose 40 % oral gel (Glucose 10 g PO Q15M PRN hypoglycemia 09/12/23 Unknown History Gel) glucagon HCl 1 mg solution for 1 mg subcut Q20M PRN hypoglycemia 09/12/23 Unknown History injection (Glucagon (HCl) Emergency Kit) sertraline 50 mg tablet 50 mg PO QAM Depression 09/12/23 Unknown History insulin glargine 100 unit/mL (3 10 unit (0.1 mL) subcut BID #15 mL 04/12/24 Unknown Rx mL) subcutaneous pen (Lantus Solostar U-100 Insulin) insulin lispro 100 unit/mL See Protocol subcut .COMPLEX #15 mL 04/12/24 Unknown Rx subcutaneous pen (Humalog KwikPen (U-100) Insulin) pen needle, diabetic 32 gauge x #150 ea 04/12/24 Unknown Rx (BD Ultra-Fine Abbie Pen Needle) Allergy/AdvReac Type Severity Reaction Status Date / Time diphenhydramine (From Allergy Hives Verified 06/10/24 17:47 Benadryl) Social History Smoking Status: Current every day smoker tobacco type: cigarettes and e- cigarettes alcohol intake: former substance use type: amphetamines Physical Exam Const alert and no apparent distress General Appearance: cooperative HEENT normocephalic and head/scalp atraumatic Eyes PERRL and EOMs intact bilaterally Neck supple and No nodes Resp normal air movement and clear to auscultation bilaterally Cardio regular rate and regular rhythm GI soft to palpation, non-tender and non-distended GI Narrative: mild flank pain R side Extremity General Extremity: Negative for edema Skin no rashes or lesions noted Lab / Micro Data Attestation: I reviewed the patient's lab results. 06/12/24 06:31 06/12/24 06:31 Labs: Laboratory Results - last 24 hr 06/10/24 18:42: Diff Path Review Reviewed 06/11/24 17:08: POC Glucose 217 H 06/11/24 20:40: POC Glucose 158 H 06/11/24 22:00: Sodium 138, Potassium 3.7, Chloride 107, Carbon Dioxide 24.0, Anion Gap 8, BUN 32 H, Creatinine 1.97 H, Estim Creat Clear Calc 22.28, Est GFR (MDRD) Af Amer 33 L, Est GFR (MDRD) Non-Af 28 L, BUN/Creatinine Ratio 16.2, G lucose 274 H, Calcium 8.2 L 06/12/24 05:32: POC Glucose 382 H 06/12/24 06:31: WBC 18.2 H, RBC 3.50 L, Hgb 10.5 L, Hct 32.8 L, MCV 93.7, MCH 30.0, MCHC 32.0, RDW Std Deviation 47.3 H, RDW Coeff of Danie 13.9, Plt Count 319, MPV 11.2, Immature Gran % (Auto) 3.900 H, Neut % (Auto) 76.2 H, Lymph % (Auto) 8.4 L, [place] % (Auto) 8.9, Eos % (Auto) 1.9, Baso % (Auto) 0.7, Absolute Neuts (auto) 13.9 H, Absolute Lymphs (auto) 1.52, Nucleated RBC % 0, Diff Path Review December, Hypersegmented Neuts 1+ H, Sodium 136, Potassium 3.6, Chloride 107, Carbon Dioxide 22.0, Anion Gap 6, BUN 30 H, Creatinine 2.18 H, Estim Creat Clear Calc 20.13, Est GFR (MDRD) Af Amer 30 L, Est GFR (MDRD) Non-Af 25 L, BUN/Creatinine Ratio 13.8, Glucose 386 H, Calcium 8.2 L 06/12/24 11:41: POC Glucose 220 H Micro: Microbiology 06/10/24 21:20 Blood Culture (Wb) - Left Hand Blood Culture - Preliminary Coag Negative Staph 06/10/24 18:53 Urine, Clean Catch Urine Culture - Preliminary Gram negative willard
--- NOTE | 2024-06-12 14:07 | PCM.PN.HOSP ---
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 Patient has no specific complaints to this examiner today Objective Data Objective Data Vital Signs: Vital Signs Temp Pulse Resp BP Pulse Ox O2 Del Method 98.1 F 77 17 150/68 H 99 Room Air 06/12/24 09:30 06/12/24 09:30 06/12/24 09:30 06/12/24 09:30 06/12/24 09:30 06/12/24 09:30 Oxygen Delivery Method Room Air Weight: 45.9 kg Body Mass Index (BMI) 17.9 Intake & Output: Intake and Output for Last 24 Hours 06/10/24 06/11/24 06/12/24 23:59 23:59 23:59 Intake Total 1050 / 1290 2965 / 2965 100 / 100 Balance 1050 / 1290 2965 / 2965 100 / 100 Lab / Micro Data 06/12/24 06:31 06/12/24 06:31 Labs: Laboratory Results - last 24 hr 06/10/24 18:42: Diff Path Review Reviewed 06/11/24 17:08: POC Glucose 217 H 06/11/24 20:40: POC Glucose 158 H 06/11/24 22:00: Sodium 138, Potassium 3.7, Chloride 107, Carbon Dioxide 24.0, Anion Gap 8, BUN 32 H, Creatinine 1.97 H, Estim Creat Clear Calc 22.28, Est GFR (MDRD) Af Amer 33 L, Est GFR (MDRD) Non-Af 28 L, BUN/Creatinine Ratio 16.2, Glucose 274 H, Calcium 8.2 L 06/12/24 05:32: POC Glucose 382 H 06/12/24 06:31: WBC 18.2 H, RBC 3.50 L, Hgb 10.5 L, Hct 32.8 L, MCV 93.7, MCH 30.0, MCHC 32.0, RDW Std Deviation 47.3 H, RDW Coeff of Danie 13.9, Plt Count 319, MPV 11.2, Immature Gran % (Auto) 3.900 H, Neut % (Auto) 76.2 H, Lymph % (Auto) 8.4 L, Upson % (Auto) 8.9, Eos % (Auto) 1.9, Baso % (Auto) 0.7, Absolute Neuts (auto) 13.9 H, Absolute Lymphs (auto) 1.52, Nucleated RBC % 0, Diff Path Review December, Hypersegmented Neuts 1+ H, Sodium 136, Potassium 3.6, Chloride 107, Carbon Dioxide 22.0, Anion Gap 6, BUN 30 H, Creatinine 2.18 H, Estim Creat Clear Calc 20.13, Est GFR (MDRD) Af Amer 30 L, Est GFR (MDRD) Non-Af 25 L, BUN/Creatinine Ratio 13.8, Glucose 386 H, Calcium 8.2 L 06/12/24 11:41: POC Glucose 220 H Micro: Microbiology 06/10/24 21:20 Blood Culture (Wb) - Left Hand Blood Culture - Preliminary Coag Negative Staph 06/10/24 18:53 Urine, Clean Catch Urine Culture - Preliminary Gram negative willard Physical Exam Narrative alert, oriented x3, no apparent distress and healthy appearing General Appearance: cooperative, well kempt and well developed Orientation / Consciousness: awake, oriented to person, oriented to place and oriented to time HEENT normocephalic, head/scalp atraumatic and moist oral mucous membranes Eyes PERRL, EOMs intact bilaterally and conjunctivae normal Neck supple, no JVD and thyroid normal General: trachea midline Resp normal respiratory effort, no retractions, no use of accessory muscles and clear to auscultation bilaterally Auscultation: Negative for rales, rhonchi or wheezes Cardio regular rate, regular rhythm, S1 normal heart sound, S2 normal heart sound, no murmurs, no rub and no gallops GI normal to inspection, nondistended, normoactive bowel sounds, soft to palpation, non-tender and non-distended Extremity no clubbing, cyanosis or edema Skin no rashes or lesions noted General Skin Exam: no breakdown Neuro oriented x3, CN's II-XII intact bilaterally, moves all extremities, no focal motor deficits and no sensory deficits noted Sensorium / Orientation: awake and alert Speech: speech normal Psych Psych Narrative: Affect flat Assessment & Plan Assessment/Plan (1) Pyelonephritis of right kidney: PLAN: Plan 1. Right pyelonephritis and cystitis-continue patient's antibiotics at this time, I reviewed recommendations from urology saw the patient in consultation, blood culture shows coag negative staph-exact identity pending at this time, urine culture grew out a gram-negative willard-identity to follow. #2 type 2 diabetes-patient's blood sugars will be monitored, sliding scale insulin will be administered as needed #3 dehydration-patient's labs will be monitored as needed #4 severe depression with suicidal and homicidal ideation-patient will need to be seen by crisis when she is medically stable for possible discharge #5 noncompliance with medical treatment-patient is not taking several of her medications, complicates care, management, recovery, and prognosis #6 bacteremia with coag negative staph-exact identification of the organism is pending at this time, patient is on Zosyn and Zyvox #7 elevated creatinine-labs will be monitored, again I stopped the patient's vancomycin due to concerns that this could worsen the patient's creatinine. Total clinical time spent by myself addressing patient's medical issues, reviewing all of her data, and collaborating with patient's care team: 35 minutes Charges/Coding Visit Charges Inpatient E&M: 77532 Subs Hosp L2
[2024-06-12 17:09] VITALS: BP 160/73; PULSE 88; RESP 16; TEMP 36.9; O2SAT 94
[2024-06-12 17:29] LABS: Bedside Glucose 255 mg/dL (74-106)
[2024-06-12] MEDS: Atorvastatin Calcium 10 MG Tablet PO (20:28)
[2024-06-12] MEDS: Linezolid 600 MG Tablet PO (20:28)
[2024-06-12 22:00] VITALS: BP 155/64; PULSE 82; RESP 18; TEMP 36.7; O2SAT 96
[2024-06-13 03:12] LABS: Bedside Glucose 185 mg/dL (74-106)
[2024-06-13 04:00] VITALS: BP 169/66; PULSE 76; RESP 18; TEMP 36.7; O2SAT 93
[2024-06-13 05:00] VITALS: BP 169/66; PULSE 76; RESP 18; TEMP 36.7; O2SAT 93
[2024-06-13] MEDS: Piperacil/Tazobactam 3.375 GM in 0.9% Normal Saline (50mL MB+) 50 ML IV ×2 (05:31→13:53)
[2024-06-13 06:15] LABS: Hematocrit 33.4 % (37-47); Hemoglobin 10.7 g/dL (12.0-15.0); Mean Corpuscular Hgb 29.8 pg (27.0-32.0); Mean Platelet Vol. 10.6 fl (6.2-12.0); POSITIVE COUNT YES; POSITIVE MORPHOLOGY YES; Platelet Count 390 K/mm3 (150-450); RBC Distribution Width CV 13.6 % (11.6-14.6); RBC Distribution Width SD 46.4 fl (35.1-43.9); Red Blood Count 3.59 M/mm3 (4.2-5.4); White Blood Count 15.5 K/mm3 (4.4-11.0)
[2024-06-13] MEDS: Insulin Lispro 100 UNIT/ML INSULN.PEN SC ×4 (06:23→21:41)
[2024-06-13 06:33] LABS: Differential Indicated MANUAL DIFF
[2024-06-13 06:38] LABS: Anion Gap 6 (5-15); BUN 21 mg/dL (7-18); BUN/Creat Ratio 12.1 RATIO (10-20); Calcium,Total 8.2 mg/dL (8.5-10.1); Chloride 109 mmol/L (98-107); Creatinine, Serum 1.73 mg/dL (0.55-1.02); EST Glomerular Filtration Rate 32 mL/min (>60); Est Glom Filt Rate - Afr Amer 39 mL/min (>60); Estimated Creatinine Clearance 25.37 ml/min; Glucose 209 mg/dL (74-106); Potassium 3.5 mmol/L (3.5-5.1); Sodium Level 138 mmol/L (136-145)
[2024-06-13 08:16] LABS: Eosinophil 2 % (0-5); Lymphocyte 14 % (19-41); Metamyelocyte 1 % (0-1); Monocyte 2 % (0-10); Myelocyte 2 % (0-0); Neutrophil-Band 2 % (0-5); Neutrophil-Segmented 77 % (47-70); Platelet Estimate ADEQUATE (ADEQ); Red Cell Morphology NORM C+C NORMAL (NORM C&C); Total Cells Counted 100 (MANUAL DIFF)
[2024-06-13 08:17] LABS: Absolute Lymphocyte Count 2.17 X10^3/uL (0.83-4.51); Absolute Neutrophil Count 12.2 X10^3/uL (2.0-7.7)
[2024-06-13 09:59] VITALS: BP 145/60; PULSE 75; RESP 16; TEMP 37.3; O2SAT 96
[2024-06-13] MEDS: Cholecalciferol (Vit D3) 125 MCG CAPSULE (5,000 UNITS) PO (10:03)
[2024-06-13] MEDS: Linezolid 600 MG Tablet PO ×2 (10:03→21:42)
[2024-06-13] MEDS: Lactobacillis Acidophilus 1 CAP PO ×4 (10:03→21:42)
[2024-06-13] MEDS: Ascorbic Acid 500 MG Tablet 1000 MG PO ×2 (10:03→16:45)
[2024-06-13] MEDS: Sertraline 50 MG Tablet PO (10:03)
[2024-06-13] MEDS: Polyethylene Glycol 3350 17 GM PACKET PO (10:04)
[2024-06-13 11:03] LABS: Bedside Glucose 204 mg/dL (74-106)
[2024-06-13] MEDS: Insulin Glargine-YFGN 100 UNIT/ML Pen 6 UNIT SC ×2 (11:21→21:41)
[2024-06-13 11:42] LABS: Bedside Glucose 438 mg/dL (74-106)
[2024-06-13 13:14] LABS: Pathologist Review Reviewed
--- NOTE | 2024-06-13 15:23 | PN.ID_ITS ---
Physical Exam Narrative Feeling about the same, no fever, some abd pain, no n/v/d. Const alert and no apparent distress General Appearance: cooperative Resp Auscultation: wheezes Cardio regular rate and regular rhythm GI soft to palpation, non-tender and non-distended Skin no rashes or lesions noted ID ID: Route of nutrition/ use of supplements: [] Nutritional Intake: [] IV Site: [] Sandy Catheter: [] Assessment & Plan Assessment/Plan (1) Sepsis: QUALIFIERS: Sepsis type: sepsis due to unspecified organism Sepsis acute organ dysfunction status: without acute organ dysfunction Qualified Code(s): A41.9 - Sepsis, unspecified organism (2) Pyelonephritis of right kidney: PLAN: Ucx with ecoli. 1 of 1 bcx with MRSE. Will change to linezolid and cefazolin. Plan on short course po abx at discharge. 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
[2024-06-13 16:40] VITALS: BP 163/68; PULSE 80; RESP 17; TEMP 36.8; O2SAT 98
--- NOTE | 2024-06-13 17:39 | PN.HOSP_ITS ---
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 Patient's antibiotics today were changed to cefazolin and linezolid. Objective Data Objective Data Vital Signs: Vital Signs Temp Pulse Resp BP Pulse Ox O2 Del Method 98.3 F 80 17 163/68 H 98 Room Air 06/13/24 16:40 06/13/24 16:40 06/13/24 16:40 06/13/24 16:40 06/13/24 16:40 06/13/24 16:40 Oxygen Delivery Method Room Air Weight: 45.9 kg Body Mass Index (BMI) 17.9 Intake & Output: Intake and Output for Last 24 Hours 06/11/24 06/12/24 06/13/24 23:59 23:59 23:59 Intake Total 2965 / 2965 1150 / 1390 1340 / 1340 Balance 2965 / 2965 1150 / 1390 1340 / 1340 Lab / Micro Data 06/13/24 05:41 06/13/24 05:41 Labs: Laboratory Results - last 24 hr 06/12/24 06:31: Diff Path Review Reviewed 06/12/24 20:25: POC Glucose 185 H 06/13/24 05:41: WBC 15.5 H, RBC 3.59 L, Hgb 10.7 L, Hct 33.4 L, MCV 93.0, MCH 29.8, MCHC 32.0, RDW Std Deviation 46.4 H, RDW Coeff of Danie 13.6, Plt Count 390, MPV 10.6, Neut % (Auto) Not Reportable, Absolute Neuts (auto) 12.2 H, Absolute Lymphs (auto) 2.17, Total Counted 100, Neutrophils % (Manual) 77 H, Band Neutrophils % 2, Lymphocytes % (Manual) 14 L, Monocytes % (Manual) 2, Eosinophils % (Manual) 2, Metamyelocytes % 1, Myelocytes % 2 H, Diff Path Review May foll, Platelet Estimate ADEQUATE, RBC Morphology NORM C+C, Sodium 138, Potassium 3.5, Chloride 109 H, Carbon Dioxide 23.0, Anion Gap 6, BUN 21 H, C reatinine 1.73 H, Estim Creat Clear Calc 25.37, Est GFR (MDRD) Af Amer 39 L, Est GFR (MDRD) Non-Af 32 L, BUN/Creatinine Ratio 12.1, Glucose 209 H, Calcium 8.2 L 06/13/24 06:20: POC Glucose 204 H 06/13/24 11:20: POC Glucose 438 H Micro: Microbiology 06/10/24 21:20 Blood Culture (Wb) - Left Hand Blood Culture - Final Staphylococcus epidermidis 06/10/24 18:53 Urine, Clean Catch Urine Culture - Final Escherichia coli Physical Exam Narrative alert, oriented x3, no apparent distress and healthy appearing General Appearance: cooperative, well kempt and well developed Orientation / Consciousness: awake, oriented to person, oriented to place and oriented to time HEENT normocephalic, head/scalp atraumatic and moist oral mucous membranes Eyes PERRL, EOMs intact bilaterally and conjunctivae normal Neck supple, no JVD and thyroid normal General: trachea midline Resp normal respiratory effort, no retractions, no use of accessory muscles and clear to auscultation bilaterally Auscultation: Negative for rales, rhonchi or wheezes Cardio regular rate, regular rhythm, S1 normal heart sound, S2 normal heart sound, no murmurs, no rub and no gallops GI normal to inspection, nondistended, normoactive bowel sounds, soft to palpation, non-tender and non-distended Extremity no clubbing, cyanosis or edema Skin no rashes or lesions noted General Skin Exam: no breakdown Neuro oriented x3, CN's II-XII intact bilaterally, moves all extremities, no focal motor deficits and no sensory deficits noted Sensorium / Orientation: awake and alert Speech: speech normal Psych Psych Narrative: Affect flat Assessment & Plan Assessment/Plan (1) GARRET (acute kidney injury): (2) Pyelonephritis of right kidney: PLAN: Plan 1. Right pyelonephritis and cystitis-continue patient's antibiotics at this time per infectious diseases, I reviewed recommendations from urology who saw the patient in consultation, blood culture shows Staph epidermidis-oxacillin resistant, patient's urine culture grew out E. coli which is sensitive to cefazolin. #2 type 2 diabetes-patient's blood sugars will be monitored, sliding scale insulin will be administered as needed #3 dehydration-patient's labs will be monitored as needed #4 severe depression with suicidal and homicidal ideation-patient will need to be seen by crisis when she is medically stable for possible discharge #5 noncompliance with medical treatment-patient is not taking several of her medications, complicates care, management, recovery, and prognosis #6 bacteremia with coag negative staph-exact identification of the organism is pending at this time, patient is on Zosyn and Zyvox #7 elevated creatinine-labs will be monitored Total clinical time spent by myself addressing patient's medical issues, reviewing all of her data, and collaborating with patient's care team: 35 minutes Charges/Coding Visit Charges Inpatient E&M: 26215 Subs Hosp L2
[2024-06-13 17:52] LABS: Bedside Glucose 234 mg/dL (74-106)
[2024-06-13] MEDS: Glucerna Shake 120 ML LIQUID PO (18:01)
[2024-06-13] MEDS: Atorvastatin Calcium 10 MG Tablet PO (21:42)
[2024-06-13] MEDS: Cefazolin 1 GM/50 ML BAG IV (21:42)
[2024-06-13] MEDS: Heparin Injection (Vial) 5,000 UNIT/ML VIAL 5000 UNIT SC (21:43)
[2024-06-13 22:06] LABS: Bedside Glucose 231 mg/dL (74-106)
[2024-06-14 04:00] VITALS: BP 163/73; PULSE 86; RESP 18; TEMP 36.6; O2SAT 95
[2024-06-14] MEDS: Cefazolin 1 GM/50 ML BAG IV ×2 (04:20→14:39)
[2024-06-14] MEDS: Insulin Lispro 100 UNIT/ML INSULN.PEN SC ×2 (06:15→12:32)
[2024-06-14 06:26] LABS: Bedside Glucose 212 mg/dL (74-106)
[2024-06-14 06:48] LABS: Absolute Lymphocyte Count 2.29 X10^3/uL (0.83-4.51); Absolute Neutrophil Count 11.5 X10^3/uL (2.0-7.7); Basophil# 0.09 X10^3/uL; Basophil% 0.6 % (0-1); Eosinophil# 0.21 X10^3/uL; Eosinophils% 1.3 % (0-5); Hematocrit 34.4 % (37-47); Hemoglobin 11.2 g/dL (12.0-15.0); Lymphocyte # 2.29 X10^3/ul (0.83-4.51); Lymphocyte % 14.5 % (19-41); Mean Corp Hgb Conc 32.6 g/dL (32-36); Mean Corpuscular Hgb 29.8 pg (27.0-32.0); Mean Corpuscular Volume 91.5 fL (81-99); Mean Platelet Vol. 10.3 fl (6.2-12.0); Monocyte# 1.12 X10^3/uL; Monocyte% 7.1 % (0-10); NRBC Flagged by Analyzer 0 % (0-5); Neutrophil # 11.45 X10^3/uL (2.7-7.7); Neutrophil % 72.3 % (47-70); POSITIVE MORPHOLOGY YES; Platelet Count 465 K/mm3 (150-450); RBC Distribution Width CV 13.7 % (11.6-14.6); RBC Distribution Width SD 45.6 fl (35.1-43.9); Red Blood Count 3.76 M/mm3 (4.2-5.4); White Blood Count 15.8 K/mm3 (4.4-11.0)
[2024-06-14 07:13] LABS: Differential Indicated SCAN CRITERIA MET
[2024-06-14 07:59] LABS: Anion Gap 9 (5-15); BUN 16 mg/dL (7-18); BUN/Creat Ratio 9.4 RATIO (10-20); Calcium,Total 8.7 mg/dL (8.5-10.1); Chloride 106 mmol/L (98-107); EST Glomerular Filtration Rate 33 mL/min (>60); Est Glom Filt Rate - Afr Amer 40 mL/min (>60); Estimated Creatinine Clearance 25.82 ml/min; Glucose 230 mg/dL (74-106); Potassium 3.4 mmol/L (3.5-5.1); Sodium Level 139 mmol/L (136-145)
[2024-06-14 08:08] LABS: Atypical Lymphocyte 1+ %
[2024-06-14 08:53] VITALS: BP 123/58; PULSE 78; RESP 16; TEMP 37; O2SAT 100
[2024-06-14] MEDS: Linezolid 600 MG Tablet PO (08:58)
[2024-06-14] MEDS: Insulin Glargine-YFGN 100 UNIT/ML Pen 6 UNIT SC (08:58)
[2024-06-14] MEDS: Sertraline 50 MG Tablet PO (08:58)
[2024-06-14] MEDS: Heparin Injection (Vial) 5,000 UNIT/ML VIAL 5000 UNIT SC (08:58)
[2024-06-14] MEDS: Lactobacillis Acidophilus 1 CAP PO ×2 (08:58→14:39)
[2024-06-14] MEDS: Polyethylene Glycol 3350 17 GM PACKET PO (08:58)
[2024-06-14] MEDS: Glucerna Shake 120 ML LIQUID PO (08:58)
[2024-06-14] MEDS: Cholecalciferol (Vit D3) 125 MCG CAPSULE (5,000 UNITS) PO (08:58)
[2024-06-14] MEDS: Ascorbic Acid 500 MG Tablet 1000 MG PO (08:58)
[2024-06-14 09:08] LABS: Bedside Glucose 253 mg/dL (74-106)
--- NOTE | 2024-06-14 10:12 | NURSING ---
Crisis notified of patient needing to be seen for suicidal and homicidal ideation.
--- NOTE | 2024-06-14 10:24 | PN.ID_ITS ---
Physical Exam Narrative Feeling fine, no fever, no abd pain Const alert and no apparent distress General Appearance: cooperative Resp normal air movement and clear to auscultation bilaterally Cardio regular rate and regular rhythm GI soft to palpation, non-tender and non-distended Skin no rashes or lesions noted ID ID: Route of nutrition/ use of supplements: [] Nutritional Intake: [] IV Site: [] Sandy Catheter: [] Assessment & Plan Assessment/Plan (1) Sepsis: QUALIFIERS: Sepsis type: sepsis due to unspecified organism Sepsis acute organ dysfunction status: without acute organ dysfunction Qualified Code(s): A41.9 - Sepsis, unspecified organism (2) Pyelonephritis of right kidney: PLAN: Ucx with ecoli. 1 of 1 bcx with MRSE. On linezolid and cefazolin. Plan on 5 days po keflex 500mg tid at discharge. 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
--- NOTE | 2024-06-14 13:34 | CASEMGMT ---
Social Work Received notice from RN CM that patient is medically cleared for crisis evaluation. Janina from [facility] Crisis team to unit to evaluate for inpatient mental health treatment. Plan: Pending Crisis Evaluation for inpatient mental health treatment. -VEENA Wilkins
[2024-06-14 14:38] VITALS: BP 117/72; PULSE 80; RESP 16; TEMP 36.9; O2SAT 98
[2024-06-14 14:45] LABS: Bedside Glucose 362 mg/dL (74-106)
[2024-06-14 14:51] LABS: Pathologist Review Reviewed
--- NOTE | 2024-06-14 15:13 | DCINST_ITS ---
Discharge Instructions Diet Discharge Diet: 1800 Calorie Control Diet Activity Discharge Activity: Return to Normal Activity Weight Bearing Status: Full weight bearing Follow Up Care Test Results: Test results from this visit will be discussed in further detail at your follow- up appointment, if applicable. Discharge Plan Admission Admit Date/Time: 06/10/24 22:35 Primary Reason for Your Visit: sepsis Attending Provider: Helder Culp Primary Care Provider: Sherrie Baez Consulting Providers: Ld Chris; Celia Rodriguez; Brad Gomez Discharge Orders/Prescriptions Prescriptions: New linezolid 600 mg Tablet 600 mg PO BID Qty: 10 0RF cephalexin 500 mg tablet 500 mg PO BID Qty: 10 0RF Continued atorvastatin 10 mg tablet 10 mg PO QHS glucagon HCl [Glucagon (HCl) Emergency Kit] 1 mg recon soln 1 mg subcut Q20M PRN (Reason: hypoglycemia) Rx Instructions: until target blood sugar attained dextrose [Glucose Gel] 40 % gel 10 g PO Q15M PRN (Reason: hypoglycemia) Rx Instructions: until symptoms of low blood sugar are controlled sertraline 50 mg tablet 50 mg PO QAM acetaminophen [Tylenol] 325 mg capsule 650 mg PO QHS losartan 50 mg tablet 50 mg PO DAILY mirtazapine [Remeron] 15 mg tablet 15 mg PO QHS Qty: 1 0RF insulin glargine [Lantus Solostar U-100 Insulin] 100 unit/mL (3 mL) insulin pen 10 unit subcut BID Qty: 15 0RF insulin lispro [Humalog KwikPen Insulin] 100 unit/mL insulin pen See Protocol subcut .COMPLEX Qty: 15 0RF Protocol: 4. Sliding Scale Insulin High-Med Dosing Condition: 150-199 mg/dl = 2 units Condition: 200-259 mg/dl = 4 units Condition: 260-324 mg/dl = 6 units Condition: 325-374 mg/dl = 8 units Condition: 375-409 mg/dl = 10 units Condition: 410-449 mg/dl = 11 units Condition: Greater than 449 call physician Protocol Text: - Use for Total Daily Dose of Insulin 56-80 units - Patient who are insulin resistant or septic HIGH MEDIUM DOSING ALGORITHM Rx Instructions: subcutaneously With meals and @HS; 150-199 2 units 200-259 4 units 260-324 6 units 325-374 8 units 375-409 10 units 410-449 11 units >449 notify (DME) pen needle, diabetic [BD Ultra-Fine Abbie Pen Needle] 32 gauge x 5/32 needle See Rx Instructions .ROUTE .MEDSUPPLY Qty: 150 0RF Rx Instructions: As directed Referrals / Follow Up: Sherrie Baez MD [Primary Care Provider] - Within 2 Weeks (You will need your kidney function checked again) Care Physician,No Primary [Non-Staff] - Disposition Disposition (needs filled in before D/C Order can be placed): Home, Self Care
--- NOTE | 2024-06-14 15:21 | DS.PCM_ITS ---
Providers Date of Admission: 06/10/24 Date of Discharge: 06/14/24 Primary Care Physician: Dr. Sherrie Baez MD Consultations 06/10/24 23:33 Consult: Urology Routine Consulting Provider: Celia Rodriguez Reason for Consult: Emphysematous cystitis, Right pyelonephritis, GARRET and suspected sepsis. EMERGENT Consult: No MD Notified: Yes Date Notified: 06/11/24 Time Notified: 08:24 Method of Notification: Answering Service 06/12/24 09:54 Consult: Infectious Disease Routine Consulting Provider: Brad Gomez Reason for Consult: positive blood culture EMERGENT Consult: No MD Notified: Yes Date Notified: 06/12/24 Time Notified: 10:14 Method of Notification: Text Reason For Visit: SEPSIS, EMPHYSEMATOUS, CYSTITIS, RIGHT PYELONEPHRI Diagnosis Discharge Diagnosis (1) Sepsis: Status: Acute Code(s): A41.9 - Sepsis, unspecified organism Qualifiers: Sepsis acute organ dysfunction status: without acute organ dysfunction Sepsis type: sepsis due to unspecified organism Qualified Code(s): A41.9 - Sepsis, unspecified organism (2) Pyelonephritis of right kidney: Status: Acute Code(s): N12 - Tubulo-interstitial nephritis, not specified as acute or chronic (3) Diabetes mellitus, type 2: Status: Chronic Code(s): E11.9 - Type 2 diabetes mellitus without complications Qualifiers: Diabetes mellitus complication status: with other specified complication Diabetes mellitus intermodal customer service insulin use: with jail use Qualified Code(s): E11.69 - Type 2 diabetes mellitus with other specified complication; Z79.4 - group home (current) use of insulin Plan 1. Right pyelonephritis and cystitis-continue patient's antibiotics at this time per infectious diseases, I reviewed recommendations from urology who saw the patient in consultation, blood culture shows Staph epidermidis-oxacillin resistant, patient's urine culture grew out E. coli which is sensitive to cefazolin. #2 type 2 diabetes-patient's blood sugars will be monitored, sliding scale insulin will be administered as needed #3 dehydration-patient's labs will be monitored as needed #4 severe depression with suicidal and homicidal ideation-patient will need to be seen by crisis when she is medically stable for possible discharge #5 noncompliance with medical treatment-patient is not taking several of her medications, complicates care, management, recovery, and prognosis #6 bacteremia with coag negative staph-exact identification of the organism is pending at this time, patient is on Zosyn and Zyvox #7 elevated creatinine-labs will be monitored Total clinical time spent by myself addressing patient's medical issues, reviewing all of her data, and collaborating with patient's care team: 35 minutes Medications at Discharge Home Medications losartan 50 mg tablet 50 mg PO DAILY 05/02/23 mirtazapine 15 mg tablet (Remeron) 15 mg PO QHS #1 TAB 05/04/23 acetaminophen 325 mg capsule (Tylenol) 650 mg PO QHS pain 09/12/23 atorvastatin 10 mg tablet 10 mg PO QHS 09/12/23 dextrose 40 % oral gel (Glucose Gel) 10 g PO Q15M PRN hypoglycemia 09/12/23 glucagon HCl 1 mg solution for injection (Glucagon (HCl) Emergency Kit) 1 mg subcut Q20M PRN hypoglycemia 09/12/23 sertraline 50 mg tablet 50 mg PO QAM Depression 09/12/23 insulin glargine 100 unit/mL (3 mL) subcutaneous pen (Lantus Solostar U-100 Insulin) 10 unit (0.1 mL) subcut BID diabetes #15 mL 04/12/24 insulin lispro 100 unit/mL subcutaneous pen (Humalog KwikPen (U-100) Insulin) See Protocol subcut .COMPLEX diabetes #15 mL 04/12/24 pen needle, diabetic 32 gauge x 5/32 (BD Ultra-Fine Abbie Pen Needle) #150 ea 04/12/24 atorvastatin 10 mg tablet 10 mg PO DAILY #30 tabs 06/14/24 cephalexin 500 mg tablet 500 mg PO BID #10 tabs 06/14/24 linezolid 600 mg tablet 600 mg PO BID #10 tabs 06/14/24 losartan 50 mg tablet (Cozaar) 50 mg PO DAILY #30 tabs 06/14/24 sertraline 50 mg tablet (Zoloft) 50 mg PO DAILY #30 tabs 06/14/24 Hospital Course Operations None Procedures None Summary of Care Provided Minutes Spent on Discharge: 32 Hospital Course: This 59-year-old white female was seen in the emergency room at [facility] with complaints of generalized abdominal pain which had been getting worse over 4 days. Patient also stated she had bilateral flank pain. She also complained of some nausea and vomiting. Labs reveal a white blood cell count of 13.2, hemoglobin was 11.7, creatinine was 1.79 and BUN was 42. Glucose was elevated at 417, urinalysis showed more than 100 white cells and plus for bacteria. 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 Patient was admitted to PCU for pyelonephritis and placed on IV antibiotics, there was some statements made by the patient on admission that she wished to hurt herself and kill her , so she required a sitter while she was hospitalized. Patient's blood culture came back showing gram-positive cocci which was staph epi, she was seen in consultation by infectious diseases and her antibiotic coverage was adjusted. Crisis saw the patient and did not feel she was a threat to herself or others, this examiner did not feel that either as the patient never a spouse and intent to harm anybody or herself during her hospitalization. Patient stated that she was just angry when she was admitted. On 06/14/2024, patient was seen and examined: On examination she appeared in good health and spirits, she does not appear to be in any distress. Vital signs as documented. Skin warm and dry and without overt rashes. Neck without JVD, thyroid appears normal, trachea is midline, neck is supple. Lungs clear, normal air movement was noted. Heart exam notable for regular rhythm, normal sounds and absence of murmurs, rubs or gallops. Abdomen unremarkable and without evidence of organomegaly, masses, or abdominal aortic enlargement, bowel sounds are present in all 4 quadrants, no abdominal tenderness was noted. Extremities nonedematous, no cyanosis was noted, no clubbing was noted. Neuro: Cranial nerves II through XII are grossly intact, no focal motor deficits were noted, sensation to light touch and pinprick is intact, motor exam 5/5 throughout. Psych: Patient is alert and oriented x3, she does not appear anxious or depressed, she does not appear agitated. Patient was discharged home in stable condition on 06/14/2024, patient requested that I fill out a form for her to obtain a renewal on her [employer] driver's license due to her medical conditions chiefly diabetes, I agreed to fill out the form for her and ask her to follow-up with her physician for an outpatient visit. Weight / BMI Weight Weight: 45.9 kg Body Mass Index (BMI) 17.9 ABG / Lab / Microbiology Data 06/14/24 06:40 06/14/24 06:40 Laboratory: Laboratory Results - last 24 hr 06/13/24 05:41: Diff Path Review Reviewed 06/13/24 16:39: POC Glucose 234 H 06/13/24 21:36: POC Glucose 231 H 06/14/24 06:04: POC Glucose 212 H 06/14/24 06:40: WBC 15.8 H, RBC 3.76 L, Hgb 11.2 L, Hct 34.4 L, MCV 91.5, MCH 29.8, MCHC 32.6, RDW Std Deviation 45.6 H, RDW Coeff of Danie 13.7, Plt Count 465 H, MPV 10.3, Immature Gran % (Auto) 4.200 H, Neut % (Auto) 72.3 H, Lymph % (Auto) 14.5 L, [place] % (Auto) 7.1, Eos % (Auto) 1.3, Baso % (Auto) 0.6, Absolute Neuts (auto) 11.5 H, Absolute Lymphs (auto) 2.29, Nucleated RBC % 0, Atypical Lymphocytes 1+, Sodium 139, Potassium 3.4 L, Chloride 106, Carbon Dioxide 24.0, Anion Gap 9, BUN 16, Creatinine 1.70 H, Estim Creat Clear Calc 25.82, Est GFR (MDRD) Af Amer 40 L, Est GFR (MDRD) Non-Af 33 L, BUN/Creatinine Ratio 9.4 L, G lucose 230 H, Calcium 8.7 06/14/24 07:38: POC Glucose 253 H 06/14/24 12:32: POC Glucose 362 H Microbiology: Microbiology 06/12/24 13:40 Blood Culture (Wb) - Right Hand Blood Culture - Preliminary No growth in 48 hours. 06/10/24 21:20 Blood Culture (Wb) - Left Hand Blood Culture - Final Staphylococcus epidermidis 06/10/24 18:53 Urine, Clean Catch Urine Culture - Final Escherichia coli D/C Instructions Discharge Diet: 1800 Calorie Control Diet Weight Bearing Status: Full weight bearing Meaningful Use Info Meaningful Use Meaningful Use Diagnoses (Choose all that apply): None applicable Ischemic Stroke Statin Dosing Therapy Reference: STATIN DOSE THERAPY REFERENCE: * Patients > 75 years receive moderate or high dose statin therapy. * Patients 75 years or YOUNGER should receive HIGH intensity statin dose unless contraindicated. You will be required to document reason for non-treatment if statin daily dose does not meet guidelines. HIGH DOSE STATIN THERAPY DAILY Atorvastatin > than or = to 40 mg Rosuvastatin > than or = to 20 mg Amlodipine + Atorvastatin > than or = to 2.5/40 mg Ezetimibe + Simvastatin 10/80 mg Simvastatin 80mg Discharge Plan Admission Admit Date/Time: 06/10/24 22:35 Primary Reason for Your Visit: sepsis Attending Provider: Helder Culp Primary Care Provider: Sherrie Baez Consulting Providers: Ld Chris; Celia Rodriguez; Brad Gomez Discharge Orders/Prescriptions Prescriptions: New linezolid 600 mg Tablet 600 mg PO BID Qty: 10 0RF cephalexin 500 mg tablet 500 mg PO BID Qty: 10 0RF atorvastatin 10 mg tablet 10 mg PO DAILY Qty: 30 0RF losartan [Cozaar] 50 mg tablet 50 mg PO DAILY Qty: 30 0RF sertraline [Zoloft] 50 mg tablet 50 mg PO DAILY Qty: 30 0RF Continued atorvastatin 10 mg tablet 10 mg PO QHS glucagon HCl [Glucagon (HCl) Emergency Kit] 1 mg recon soln 1 mg subcut Q20M PRN (Reason: hypoglycemia) Rx Instructions: until target blood sugar attained dextrose [Glucose Gel] 40 % gel 10 g PO Q15M PRN (Reason: hypoglycemia) Rx Instructions: until symptoms of low blood sugar are controlled sertraline 50 mg tablet 50 mg PO QAM acetaminophen [Tylenol] 325 mg capsule 650 mg PO QHS losartan 50 mg tablet 50 mg PO DAILY mirtazapine [Remeron] 15 mg tablet 15 mg PO QHS Qty: 1 0RF insulin glargine [Lantus Solostar U-100 Insulin] 100 unit/mL (3 mL) insulin pen 10 unit subcut BID Qty: 15 0RF insulin lispro [Humalog KwikPen Insulin] 100 unit/mL insulin pen See Protocol subcut .COMPLEX Qty: 15 0RF Protocol: 4. Sliding Scale Insulin High-Med Dosing Condition: 150-199 mg/dl = 2 units Condition: 200-259 mg/dl = 4 units Condition: 260-324 mg/dl = 6 units Condition: 325-374 mg/dl = 8 units Condition: 375-409 mg/dl = 10 units Condition: 410-449 mg/dl = 11 units Condition: Greater than 449 call physician Protocol Text: - Use for Total Daily Dose of Insulin 56-80 units - Patient who are insulin resistant or septic HIGH MEDIUM DOSING ALGORITHM Rx Instructions: subcutaneously With meals and @HS; 150-199 2 units 200-259 4 units 260-324 6 units 325-374 8 units 375-409 10 units 410-449 11 units >449 notify (DME) pen needle, diabetic [BD Ultra-Fine Abbie Pen Needle] 32 gauge x 5/32 needle See Rx Instructions .ROUTE .MEDSUPPLY Qty: 150 0RF Rx Instructions: As directed Referrals / Follow Up: Sherrie Baez MD [Primary Care Provider] - Within 2 Weeks (You will need your kidney function checked again Office will call you tomorrow 06/15 with appointment day and time.) Care Physician,No Primary [Non-Staff] - Disposition Disposition (needs filled in before D/C Order can be placed): Home, Self Care Charges/Coding Visit Charges Inpatient E&M: 15880 Disch Hosp >30min
--- NOTE | 2024-06-15 12:47 | CASEMGMT ---
Addendum entered by Lawson Moody 06/15/24 15:42: Call placed to [facility] pharmacy services, to inquire if linezolid has been approved yet. Per financial services representative, this remains in pending status/has not been reviewed yet, and they have up to 24-hrs for decision to be made. She states they are open 7 days a week and that CM tomorrow can call them @ [phone] to inquire if PA obtained. Addendum entered by Lawson Moody 06/15/24 12:55: Attempted to contact pt x 2 to inform her PA needed for Linezolid and that this has been initiated. No answer. VM left w/RN YAMEL contact # for return call. Original Note: TESSY MONTESINOS NOTE: Noted pt discharged home yesterday on linezolid and cephalexin, Rx's sent to [facility] in [place]. Call placed to [facility] pharmacy @ [phone]. No charge for the cephalexin. Linezolid requires a prior-auth. [facility] PH: [phone]. ID #: [id number]. Prior auth initiated and requested this to be escalated. Reference #: [id number]. Rebeca SAVAGE RN, CM
--- NOTE | 2024-06-16 08:31 | CASEMGMT ---
Addendum entered by Kanchan Link 06/16/24 11:03: TESSY MONTESINOS called [facility] pharmacy, processed medication through and said it was accepted on their end. Called pt, left voicemail to notify able to bulk picker Linezolid. Original Note: TESSY MONTESINOS called [facility] - stated prior authorization for Linezolid has been accepted. Attempted [facility] pharmacy in [place] - they are not open yet. Will call again later.
== END 2024-06-14 17:05 | disposition home or self-care (01) | DRG 463 ==
LOC: ED 22:34 → PCU 23:01
PROVIDERS: Internal Medicine; Admitting Provider Internal Medicine; Emergency Provider Emergency Medicine; PCP Student in an Organized Health Care Education/Training Program; Visit Provider Internal Medicine
DX: N10 Acute pyelonephritis (principal); R78.81 Bacteremia; F32.2 Major depressive disorder, single episode, severe without psychotic features; N30.81 Other cystitis with hematuria; R45.850 Homicidal ideations; E11.22 Type 2 diabetes mellitus with diabetic chronic kidney disease; N17.9 Acute kidney failure, unspecified; B95.61 Methicillin susceptible Staphylococcus aureus infection as the cause of diseases classified elsewhere; J43.2 Centrilobular emphysema; N18.30 Chronic kidney disease, stage 3 unspecified; I12.9 Hypertensive chronic kidney disease with stage 1 through stage 4 chronic kidney disease, or unspecified chronic kidney disease; E11.65 Type 2 diabetes mellitus with hyperglycemia; E78.5 Hyperlipidemia, unspecified; E86.0 Dehydration; Z79.4 Long term (current) use of insulin; F17.210 Nicotine dependence, cigarettes, uncomplicated; F17.290 Nicotine dependence, other tobacco product, uncomplicated; K59.09 Other constipation; E11.69 Type 2 diabetes mellitus with other specified complication; B96.20 Unspecified Escherichia coli [E. coli] as the cause of diseases classified elsewhere; R45.851 Suicidal ideations; R53.81 Other malaise; Z63.0 Problems in relationship with spouse or partner; Z91.148 Patient's other noncompliance with medication regimen for other reason; Z79.899 Other long term (current) drug therapy
CPT/HCPCS: 36415; 74177; 76770; 80048; 80053; 81001; 82962; 83036; 83605; 83690; 85025; 87040; 87077; 87086; 87088; 87186; 97802; 99284; J7030; J7050; Q9967; A4216; J2405

== ENCOUNTER 2024-10-08 17:47 | Inpatient (IN) | payer MEDICAID, SELFPAY ==
[2024-10-08] VITALS (7 sets, daily range): BP systolic 84–190; BP diastolic 45–170; PULSE 77–100; RESP 16–18; TEMP 36.4–37.1; O2SAT 94–98; BMI 17.5
[2024-10-08 18:45] LABS: Absolute Lymphocyte Count 0.98 X10^3/uL (0.83-4.51); Absolute Neutrophil Count 17.9 X10^3/uL (2.0-7.7); Basophil# 0.03 X10^3/uL; Basophil% 0.2 % (0-1); Hematocrit 42.1 % (37-47); Hemoglobin 12.6 g/dL (12.0-15.0); Lymphocyte # 0.98 X10^3/ul (0.83-4.51); Lymphocyte % 4.9 % (19-41); Mean Corp Hgb Conc 29.9 g/dL (32-36); Mean Corpuscular Hgb 29.9 pg (27.0-32.0); Mean Platelet Vol. 12.7 fl (6.2-12.0); Monocyte# 0.97 X10^3/uL; Monocyte% 4.9 % (0-10); NRBC Flagged by Analyzer 0 % (0-5); Neutrophil # 17.89 X10^3/uL (2.7-7.7); Neutrophil % 89.4 % (47-70); Platelet Count 404 K/mm3 (150-450); RBC Distribution Width CV 13.2 % (11.6-14.6); RBC Distribution Width SD 48.8 fl (35.1-43.9); Red Blood Count 4.21 M/mm3 (4.2-5.4)
[2024-10-08 19:00] LABS: ALB/GLOB Ratio 0.7 RATIO (0.9-2.4); AST(SGOT) 10 U/L (15-37); Alanine Aminotransfer ALT/SGPT 20 U/L (13-56); Albumin, Serum 3.6 g/dL (3.2-5.0); Alkaline Phosphatase 212 U/L (45-117); Anion Gap 28 (5-15); BUN 99 mg/dL (7-18); Calcium,Total 9.3 mg/dL (8.5-10.1); Chloride 79 mmol/L (98-107); Creatinine, Serum 3.54 mg/dL (0.55-1.02); EST Glomerular Filtration Rate 14 mL/min (>60); Est Glom Filt Rate - Afr Amer 17 mL/min (>60); Globulin 5.4 g/dL (2.2-4.2); Glucose 1300 mg/dL (74-106); Lipase 23 U/L (73-393); Potassium 6.6 mmol/L (3.5-5.1); Sodium Level 121 mmol/L (136-145)
--- NOTE | 2024-10-08 19:15 | EKG12_ITS ---
Test Reason : Blood Pressure : */* mmHG Vent. Rate : 98 BPM Atrial Rate : 98 BPM P-R Int : 150 ms QRS Dur : 80 ms QT Int : 366 ms P-R-T Axes : 79 -48 83 degrees QTcB Int : 467 ms Sinus rhythm with occasional Premature ventricular complexes Possible Left atrial enlargement Left anterior fascicular block Cannot rule out Septal infarct , age undetermined Abnormal ECG Confirmed by David Knowles ([id number]), supervising film or videotape editor TOMY BARROW ([id number]) on 10/10/2024 8:04:26 AM Referred By: Ld Chris Confirmed By: David Knowles
[2024-10-08] MEDS: Ondansetron 4 MG/2 ML Vial IV (19:31)
[2024-10-08] MEDS: 0.9% Normal Saline (1000mL) 1,000 ML 999 ML IV ×4 (19:31→23:58)
[2024-10-08] MEDS: Insulin Lispro 100 UNIT/ML INSULN.PEN 15 UNIT SC (19:32)
--- NOTE | 2024-10-08 19:42 | CT_ITS ---
PROCEDURE: Noncontrast CT of the abdomen/pelvis. REASON FOR EXAM: Upper abdominal pain, nausea, vomiting, weakness TECHNIQUE: Contiguous unenhanced axial CT images were obtained through the abdomen/pelvis. Sagittal and coronal reformats were created. COMPARISON: 06/10/2024. FINDINGS: Mild superior endplate compression deformity of the L2 vertebral body is unchanged. Mild osteopenia. Evaluation of the solid organs and vascular structures is limited due to lack of intravenous contrast. The proximal femurs are intact. Mild degenerative changes in the hip joints. Heart is not enlarged. No sizable pericardial effusion. Patchy wall thickening of the stomach may be due to lack of distention versus peristalsis. Areas of scarring or subsegmental atelectasis posterior inferior left lower lobe similar to 01/29/2024. Abdominal aorta normal in caliber with a moderate amount of atherosclerotic calcification. No large abdominal wall defect. Probable pneumobilia, greatest involving the left hepatic lobe, similar to 01/29/2024. No discrete liver lesion. The right adrenal gland, spleen, and pancreas show no specific abnormality. Detail of the pancreas is limited on this study. Surgical clips in the gallbladder fossa. 2.3 cm low-attenuation left adrenal nodule with mean Hounsfield unit value of 10, not significantly changed. Kidneys are symmetric in size and attenuation. Tiny bilateral nonobstructing renal calculi measuring up to 2-3 mm. No dominant solid renal mass or obstructive uropathy. No abnormally dilated bowel segments or free intraperitoneal air. There is some asymmetric wall thickening left posterior urinary bladder image 136 axial images, measuring 2.3 cm transverse dimension. Scattered patchy wall thickening of the colon may be due to lack of distention versus peristalsis or chronic diverticular disease. [id number] stool in the colon. Some images are limited due to respiratory motion. The appendix is not clearly demonstrated. No secondary findings of acute appendicitis. No abdominal/pelvic adenopathy or ascites. There is a patulous appearing anastomotic site in the left mid abdomen image 65 of the axial images, not significantly different from the previous study. CT/Abdomen/Pelvis without Cont IMPRESSION: No definite acute findings in the abdomen/pelvis. Tiny nonobstructing bilateral renal calculi. No definite ureteral calculus or obstructive uropathy. No bowel obstruction or perforation. The appendix is not clearly demonstrated. 2.3 cm area of asymmetric wall thickening left posterior urinary bladder. This could be due to some debris in the urinary bladder. Bladder mass/neoplasm is not excluded and further evaluation with cys toscopy is recommended. One or more dose reduction techniques were used (e.g., Automated exposure contr ol, adjustment of the mA and/or kV according to patient size, use of iterative reconstruction technique). Reading Location: [facility]
--- NOTE | 2024-10-08 19:45 | RAD_ITS ---
PROCEDURE: PA and lateral chest radiographs, two views REASON FOR EXAM: Nausea and vomiting TECHNIQUE: PA and lateral chest radiographs were obtained. COMPARISON: 03/21/2022 FINDINGS: The cardiomediastinal silhouette is similar. Bones are osteopenic with degenerative changes in the spine. The lungs appear emphysematous. Mild biapical scarring. No focal airspace consolidation, pneumothorax, or pleural effusion. RAD/Chest PA and Lateral IMPRESSION: Emphysema. No acute cardiopulmonary process is demonstrated. Reading [facility]
[2024-10-08] MEDS: Pantoprazole Sodium 40 MG in 0.9% Normal Saline (100mL MB+) 100 ML 330 MG IV (19:59)
[2024-10-08 20:02] LABS: Blood Gas Specimen Type VEN; O2 Delivery Device Not entered; SITE Not entered; VBG BASE EXCESS -14 mmol/L (-1.0-3.5); VBG Bicarbonate 13 mmol/L (22-26); VBG PO2 62 mmHg (25-40); VBG SO2 89 % (50-70); VBG TCO2 14 mmol/L (23-33); VBG pCO2 28.1 mmHg (41-51); VBG pH 7.26 (7.32-7.42)
[2024-10-08 20:06] LABS: Prothrombin Time (Protime)PT. 13.8 SECONDS (11.7-14.9)
[2024-10-08 20:07] LABS: Troponin-I HS 28 pg/mL (3.0-54.0)
[2024-10-08 20:07] LABS: Partial Thromboplast Time 30.4 Seconds (24.1-36.2)
[2024-10-08] MEDS: Calcium Gluconate IV 2 GM in 0.9% Normal Saline (100mL Bag) 100 ML IV (20:12)
[2024-10-08 20:15] LABS: Lactic Acid 1.9 mmol/L (0.4-1.9)
[2024-10-08] MEDS: Insulin Lispro 100 UNIT in 0.9% Normal Saline (100mL Bag) 99 ML CONT INF (20:19)
--- NOTE | 2024-10-08 21:01 | EX.ED.DYSGE1 ---
HPI History of Present Illness Chief Complaint: Nausea/Vomiting Narrative Narrative: Patient is a 59-year-old female with a past medical history of diabetes type 2, COPD, anxiety, depression, substance abuse, COPD who presented to the emergency department chief complaint of nausea vomiting not feeling well. Patient states that she has been sick for the past 10 days. Patient's female at bedside noted that she has been unable to keep anything down the past few days immediately if she tries to drink she have vomits this up. They state that this has a foul smell to it. Patient states that this is basically black in nature. Patient denies any recent heavy NSAID use. Patient states that her bowel movements were normal but states that she has not gone in the past few days. 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) Hyperlipidemia, unspecified Anemia due to blood loss, chronic Emphysema, unspecified Diabetes mellitus, type 2 Debility Hyperglycemia History of COPD Uncontrolled type 2 diabetes mellitus Weight loss Dysphagia Anxiety Depression Substance abuse Smoker Hypertension Smoking addiction COPD (chronic obstructive pulmonary disease) Uncontrolled type 2 diabetes mellitus Home Medications ?Medication ?Instructions ?Recorded ?Last Taken ?Type losartan 50 mg tablet 50 mg PO DAILY 05/02/23 05/01/23 History mirtazapine 15 mg tablet (Remeron) 15 mg PO QHS #1 TAB 05/04/23 Unknown Rx acetaminophen 325 mg capsule 650 mg PO QHS pain 09/12/23 Unknown History (Tylenol) atorvastatin 10 mg tablet 10 mg PO QHS 09/12/23 Unknown History dextrose 40 % oral gel (Glucose 10 g PO Q15M PRN hypoglycemia 09/12/23 Unknown History Gel) glucagon HCl 1 mg solution for 1 mg subcut Q20M PRN hypoglycemia 09/12/23 Unknown History injection (Glucagon (HCl) Emergency Kit) sertraline 50 mg tablet 50 mg PO QAM Depression 09/12/23 Unknown History insulin glargine 100 unit/mL (3 10 unit (0.1 mL) subcut BID 04/12/24 Unknown Rx mL) subcutaneous pen (Lantus diabetes #15 mL Solostar U-100 Insulin) insulin lispro 100 unit/mL See Protocol subcut .COMPLEX 04/12/24 Unknown Rx subcutaneous pen (Humalog KwikPen diabetes #15 mL (U-100) Insulin) pen needle, diabetic 32 gauge x #150 ea 04/12/24 Unknown Rx (BD Ultra-Fine Abbie Pen Needle) atorvastatin 10 mg tablet 10 mg PO DAILY #30 tabs 06/14/24 Unknown Rx cephalexin 500 mg tablet 500 mg PO BID #10 tabs 06/14/24 Unknown Rx linezolid 600 mg tablet 600 mg PO BID #10 tabs 06/14/24 Unknown Rx losartan 50 mg tablet (Cozaar) 50 mg PO DAILY #30 tabs 06/14/24 Unknown Rx sertraline 50 mg tablet (Zoloft) 50 mg PO DAILY #30 tabs 06/14/24 Unknown Rx Allergy/AdvReac Type Severity Reaction Status Date / Time diphenhydramine (From Allergy Hives Verified 10/08/24 17:51 Benadryl) Social History Smoking Status: Current every day smoker tobacco type: cigarettes and e-cigarettes alcohol intake: former substance use type: amphetamines ROS ROS ED ROS Narrative Constitutional: Complains of chills and whole body aches denies any fevers, headaches Eyes: Denies change in vision double vision blurry vision Cardiovascular: Denies chest pain Respiratory: Denies coughing wheezing shortness of breath Abdomen: Complains of abdominal pain nausea vomiting as noted above states that she is passing gas : Denies any urinary symptoms Neurological: Denies numbness, weakness, tingling Musculoskeletal: Denies back pain Skin: Denies rashes or lesions EXAM Physical Exam Narrative Exam Narrative: General: Patient lying in bed did appear to be uncomfortable from not feeling well Head: Atraumatic, normocephalic Eyes: PERRL bilaterally, EOMI bilateral, no conjunctival injection noted Neck: Soft, supple, trachea midline Cardiovascular: Regular in rhythm no murmurs gallops rubs noted Respiratory: Clear to auscultation bilaterally Abdomen: Soft, nondistended, diffuse tenderness to palpation no rebound or guarding on exam Extremities: +4/5 strength noted in the bilateral upper and lower extremities Neurological: Patient following commands and that she was at the hospital Skin: Warm, dry Const Vital Signs: 10/08/24 17:48 10/08/24 19:15 10/08/24 20:23 Temperature 98.7 F 97.6 F L Temperature Source Oral Temporal Pulse Rate 77 100 Respiratory Rate 18 16 Blood Pressure 190/170 H 120/45 L Blood Pressure Mean 176 70 Pulse Ox 97 98 Oxygen Delivery Method Room Air Room Air Room Air 10/08/24 20:23 10/08/24 21:30 Temperature 97.9 F Temperature Source Temporal Pulse Rate 98 Respiratory Rate 16 Blood Pressure 120/45 L 84/53 L Blood Pressure Mean 70 63 Pulse Ox 98 Oxygen Delivery Method Room Air MDM MDM MDM Narrative Medical decision making narrative: Patient is a 59-year-old female who presented to the emerged part with a chief complaint of nausea vomiting abdominal pain not feeling well for the past approximately 10 days with coffee-ground emesis. On the differential diagnose includes but not limited to upper respiratory infection secondary viral etiology, ACS, upper GI bleed, bowel obstruction, influenza or COVID. Once workup is obtained reviewed she will be reevaluated. Patient will be given 40 mg IV Protonix based on her clinical picture of coffee-ground emesis. Patient's CBC was reviewed was significant for a leukocytosis of 20,000 and although she chronically does have elevated white blood cell count count according to previous blood draws, hemoglobin stable 12.6, plate count to be 404. Patient's INR normal at 1, PT of 13.8, venous blood gas was 7.26. Patient sodium was noted be 121 indicating hyponatremia although this is likely pseudohyponatremia secondary to her hyperglycemia, potassium elevated at 6.6 she was given hyperkalemia cocktail,, dioxide low at 14, anion gap of 28. Patient's glucose was noted be 1300. Patient's AST and ALT were 10 and 20 respectively, BUN was high at 99 with evidence of acute kidney injury with a creatinine of 3.54. Patient lipase normal at 23. Patient's acetone level small. Patient's chest x-ray reviewed by myself by radiology which showed emphysema no acute cardiopulmonary processes. Patient CT ab pelvis without IV contrast secondary to her GARRET and her GFR showed no definitive acute findings in the abdomen or pelvis tiny nonobstructing bilateral renal calculi no definitive ureteral calculus or obstructive uropathy. No bowel obstruction or perforation the appendix is not clearly demonstrated. 2.3 cm area of asymmetric wall thickening left posterior urinary bladder could be due to debris or mass/neoplasm recommending cystoscopy for further evaluation management. Patient was given 15 units subcutaneous insulin as well as placed on a insulin drip was given IV fluids for hydration 30 cc/kg bolus. There is no identifiable source infection at this point time. Patient's COVID flu and RSV test pending. Was noted that the patient has been noncompliant with her insulin recently. Patient's venous blood gas showed a pH 7.26 At this point time patient will require admission will discuss case with hospitalist. Did discuss case with hospitalist who accept the patient for admission. At 10:07 PM there is still no identifiable source of infection however given concern for potential UTI given her urine still pending we will give a dose of Zosyn. Lab Data Labs: Laboratory Results - last 24 hr 10/08/24 10/08/24 10/08/24 18:20 19:28 19:29 WBC 20.0 H RBC 4.21 Hgb 12.6 Hct 42.1 MCV 100.0 H MCH 29.9 MCHC 29.9 L RDW Std Deviation 48.8 H RDW Coeff of Danie 13.2 Plt Count 404 MPV 12.7 H Immature Gran % (Auto) 0.600 Neut % (Auto) 89.4 H Lymph % (Auto) 4.9 L Gallia % (Auto) 4.9 Eos % (Auto) 0.0 Baso % (Auto) 0.2 Absolute Neuts (auto) 17.9 H Absolute Lymphs (auto) 0.98 Nucleated RBC % 0 PT 13.8 INR 1.0 APTT 30.4 Sodium 121 L Potassium 6.6 H* Chloride 79 L Carbon Dioxide 14.0 L Anion Gap 28 H BUN 99 H Creatinine 3.54 H Est GFR (MDRD) Af Amer 17 L Est GFR (MDRD) Non-Af 14 L BUN/Creatinine Ratio 28.0 H Glucose 1300 H* Lactic Acid 1.9 Calcium 9.3 Total Bilirubin 0.60 AST 10 L ALT 20 Alkaline Phosphatase 212 H Troponin I High Sens 28 Total Protein 9.0 H Albumin 3.6 Globulin 5.4 H Albumin/Globulin Ratio 0.7 L Lipase 23 L Acetone Level SMALL H POC Glucose 10/08/24 21:22 WBC RBC Hgb Hct MCV MCH MCHC RDW Std Deviation RDW Coeff of Danie Plt Count MPV Immature Gran % (Auto) Neut % (Auto) Lymph % (Auto) Gallia % (Auto) Eos % (Auto) Baso % (Auto) Absolute Neuts (auto) Absolute Lymphs (auto) Nucleated RBC % PT INR APTT Sodium Potassium Chloride Carbon Dioxide Anion Gap BUN Creatinine Est GFR (MDRD) Af Amer Est GFR (MDRD) Non-Af BUN/Creatinine Ratio Glucose Lactic Acid Calcium Total Bilirubin AST ALT Alkaline Phosphatase Troponin I High Sens Total Protein Albumin Globulin Albumin/Globulin Ratio Lipase Acetone Level POC Glucose > 500 H* ABG Data ABG results: ABG 10/08/24 19:36 Specimen Type JAMIE Sample Site Not entered VBG pH 7.26 L VBG pO2 62 H VBG HCO3 13 L VBG Total CO2 14 L VBG O2 Sat (Calc) 89 H VBG Base Excess -14 L POC Mix VBG pCO2 Pt Tmp 28.1 L O2 Delivery Device Not entered Radiography Diagnostic Testing: Clinical Impression(s) from Imaging Studies Abdomen/Pelvis CT 10/08/24 19:42 IMPRESSION: No definite acute findings in the abdomen/pelvis. Tiny nonobstructing bilateral renal calculi. No definite ureteral calculus or obstructive uropathy. No bowel obstruction or perforation. The appendix is not clearly demonstrated. 2.3 cm area of asymmetric wall thickening left posterior urinary bladder. This could be due to some debris in the urinary bladder. Bladder mass/neoplasm is not excluded and further evaluation with cystoscopy is recommended. One or more dose reduction techniques were used (e.g., Automated exposure control, adjustment of the mA and/or kV according to patient size, use of iterative reconstruction technique). Reading Location: [facility] Chest X-Ray 10/08/24 19:45 IMPRESSION: Emphysema. No acute cardiopulmonary process is demonstrated. Reading Location: [facility] Discharge Plan Triage Chief Complaint: Nausea/Vomiting ED Provider: Gómez Blue Dx/Rx/DC Orders Clinical Impression: DKA (diabetic ketoacidosis), Diabetes mellitus, type 2, Metabolic acidosis Prescriptions: No Action atorvastatin 10 mg tablet 10 mg PO QHS glucagon HCl [Glucagon (HCl) Emergency Kit] 1 mg recon soln 1 mg subcut Q20M PRN (Reason: hypoglycemia) Rx Instructions: until target blood sugar attained dextrose [Glucose Gel] 40 % gel 10 g PO Q15M PRN (Reason: hypoglycemia) Rx Instructions: until symptoms of low blood sugar are controlled sertraline 50 mg tablet 50 mg PO QAM acetaminophen [Tylenol] 325 mg capsule 650 mg PO QHS losartan 50 mg tablet 50 mg PO DAILY mirtazapine [Remeron] 15 mg tablet 15 mg PO QHS Qty: 1 0RF linezolid 600 mg Tablet 600 mg PO BID Qty: 10 0RF cephalexin 500 mg tablet 500 mg PO BID Qty: 10 0RF atorvastatin 10 mg tablet 10 mg PO DAILY Qty: 30 0RF losartan [Cozaar] 50 mg tablet 50 mg PO DAILY Qty: 30 0RF sertraline [Zoloft] 50 mg tablet 50 mg PO DAILY Qty: 30 0RF insulin glargine [Lantus Solostar U-100 Insulin] 100 unit/mL (3 mL) insulin pen 10 unit subcut BID Qty: 15 0RF insulin lispro [Humalog KwikPen Insulin] 100 unit/mL insulin pen See Protocol subcut .COMPLEX Qty: 15 0RF Protocol: 4. Sliding Scale Insulin High-Med Dosing Condition: 150-199 mg/dl = 2 units Condition: 200-259 mg/dl = 4 units Condition: 260-324 mg/dl = 6 units Condition: 325-374 mg/dl = 8 units Condition: 375-409 mg/dl = 10 units Condition: 410-449 mg/dl = 11 units Condition: Greater than 449 call physician Protocol Text: - Use for Total Daily Dose of Insulin 56-80 units - Patient who are insulin resistant or septic HIGH MEDIUM DOSING ALGORITHM Rx Instructions: subcutaneously With meals and @HS; 150-199 2 units 200-259 4 units 260-324 6 units 325-374 8 units 375-409 10 units 410-449 11 units >449 notify (DME) pen needle, diabetic [BD Ultra-Fine Abbie Pen Needle] 32 gauge x 5/32 needle See Rx Instructions .ROUTE .MEDSUPPLY Qty: 150 0RF Rx Instructions: As directed Primary Care Provider: Sherrie Baez Referrals: Sherrie Baez MD [Primary Care Provider] - Print Language: Greenlandic
[2024-10-08 21:45] LABS: Bedside Glucose > 500 mg/dL (74-106)
--- NOTE | 2024-10-08 22:02 | PCM.HP.STD ---
[facility] - General General Date of Admission: 10/08/24 Date of Service: 10/08/24 Chief Complaint: Nausea, Vomiting and Malaise After She Stopped Taking Her Insulin. HPI Narrative SARWAT LANE, is a 59 F with a past medical history of essential hypertension; on losartan, hyperlipidemia; on atorvastatin, DM-2; of unknown control on insulin glargine 10U BID plus insulin lispro TID (which she stopped taking ~2 days ago), history of medical non-compliance, history of severe depression with anxiety; on sertraline and mirtazapine with known history of SI and HI, history of tobacco abuse; with subsequent COPD, history of substance abuse plus relatively recent admission here from June 10, 2024 to June 14, 2024 for treatment of Emphysematous Cystitis with Right Pyelonephritis and Sepsis complicated by Hyperglycemia and GARRET due to Dehydration with blood cultures growing oxacillin-resistant Staphylococcus epidermidis and urine culture returning positive for E. coli sensitive to cefazolin with patient treated with IV Zosyn and IV Zyvox who presents to [facility] ER complaining of nausea, vomiting and malaise after she stopped taking her insulin. Ms. Lane reports her symptoms began approximately 10 days prior to admission with the gradual-onset of nausea and vomiting with bilious emesis that progressively worsened since that time. She states her vomitus is dark and foul-smelling and appeared black. She states she has not had a BM in days but prior to the onset of her symptoms they were normal and not discolored. She also complains of chills, body aches and generalized abdominal pain. She denies related fever, headache, changes in vision, SOB, cough, dysuria, hematuria, paresthesias, focal neurologic deficits or rash - but she did admit to the ER physician someone made her angry and that apparently caused her to stop taking her insulin. In the ER she was noted to have laboratory evidence of DKA; with Critical Hyperglycemia of 1,300 mg/dL and small serum acetone and VBG with pH of 7.26 present on admission complicated by Critical Hyperkalemia of 6.6 mmol/L present on admission and Severe GARRET; with elevated serum creatinine of 3.54 mg/dL and BUN of 99 mg/dL present on admission (up from her baseline of 1.7 mg/dL and BUN of 16 mg/dL last admission) with elevated BUN/creatinine ratio of 28 present on admission due to Dehydration compounded by UA positive for Acute Cystitis; without hematuria with corresponding CT evidence of ~2.3 cm area of asymmetric wall thickening of the Left posterior urinary bladder that could be due to debris vs bladder mass/neoplasm not excluded with further evaluation with cystoscopy recommended with Leukocytosis of 20K present on admission due to suspected Sepsis and she was then admitted to the ICU for ongoing care for a stay that is expected to extend beyond 2 midnights. [facility] Medical History (Updated 10/09/24 @ 00:[address] 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) Hyperlipidemia, unspecified Anemia due to blood loss, chronic Emphysema, unspecified Diabetes mellitus, type 2 Debility Hyperglycemia History of COPD Uncontrolled type 2 diabetes mellitus Weight loss Dysphagia Anxiety Depression Substance abuse Smoker Hypertension Smoking addiction COPD (chronic obstructive pulmonary disease) Uncontrolled type 2 diabetes mellitus Home Medications ?Medication ?Instructions ?Recorded ?Last Taken ?Type losartan 50 mg tablet 50 mg PO DAILY 05/02/23 05/01/23 History mirtazapine 15 mg tablet (Remeron) 15 mg PO QHS #1 TAB 05/04/23 Unknown Rx acetaminophen 325 mg capsule 650 mg PO QHS pain 09/12/23 Unknown History (Tylenol) atorvastatin 10 mg tablet 10 mg PO QHS 09/12/23 Unknown History dextrose 40 % oral gel (Glucose 10 g PO Q15M PRN hypoglycemia 09/12/23 Unknown History Gel) glucagon HCl 1 mg solution for 1 mg subcut Q20M PRN hypoglycemia 09/12/23 Unknown History injection (Glucagon (HCl) Emergency Kit) sertraline 50 mg tablet 50 mg PO QAM Depression 09/12/23 Unknown History insulin glargine 100 unit/mL (3 10 unit (0.1 mL) subcut BID 04/12/24 Unknown Rx mL) subcutaneous pen (Lantus diabetes #15 mL Solostar U-100 Insulin) insulin lispro 100 unit/mL See Protocol subcut .COMPLEX 04/12/24 Unknown Rx subcutaneous pen (Humalog KwikPen diabetes #15 mL (U-100) Insulin) pen needle, diabetic 32 gauge x #150 ea 04/12/24 Unknown Rx (BD Ultra-Fine Abbie Pen Needle) atorvastatin 10 mg tablet 10 mg PO DAILY #30 tabs 06/14/24 Unknown Rx cephalexin 500 mg tablet 500 mg PO BID #10 tabs 06/14/24 Unknown Rx linezolid 600 mg tablet 600 mg PO BID #10 tabs 06/14/24 Unknown Rx losartan 50 mg tablet (Cozaar) 50 mg PO DAILY #30 tabs 06/14/24 Unknown Rx sertraline 50 mg tablet (Zoloft) 50 mg PO DAILY #30 tabs 06/14/24 Unknown Rx Allergy/AdvReac Type Severity Reaction Status Date / Time diphenhydramine (From Allergy Hives Verified 10/08/24 17:51 Benadryl) Social History Smoking Status: Current every day smoker tobacco type: cigarettes and e-cigarettes alcohol intake: former substance use type: amphetamines ROS ROS Narrative Review of Systems: Constitutional: Patient admits to chills and generalized body aches but she denies fevers. Eyes: Patient denies changes in vision or discharge from eyes. ENT: Patient denies runny nose, sore throat or ear pain. Resp: Patient denies SOB or cough. CV: Patient denies chest pain, palpitations or heart racing. GI: Patient admits to generalized abdominal pain with black, foul-smelling emesis as per HPI. : Patient denies dysuria or hematuria. MSK: Patient admits to generalized body aches. Skin: Patient denies rash, abscess, wounds or jaundice. Psych: Patient admits to depression with anxiety but denies SI or HI. Neuro: Patient denies headache, paresthesias or focal neurologic deficits. Allergy: Patient denies lip swelling, tongue swelling or urticaria. Hematology: Patient admits to vomiting with black emesis as per HPI. Endocrinology: Patient admits to polyuria and polydipsia but she denies polyphagia. 14 point ROS otherwise negative except for positives noted above in HPI. Vital Signs Vital Signs Vital Signs: 10/08/24 17:48 10/08/24 19:15 10/08/24 20:23 Temperature 98.7 F 97.6 F L Temperature Source Oral Temporal Pulse Rate 77 100 Respiratory Rate 18 16 Blood Pressure 190/170 H 120/45 L Blood Pressure Mean 176 70 Pulse Ox 97 98 Oxygen Delivery Method Room Air Room Air Room Air 10/08/24 20:23 10/08/24 21:30 Temperature 97.9 F Temperature Source Temporal Pulse Rate 98 Respiratory Rate 16 Blood Pressure 120/45 L 84/53 L Blood Pressure Mean 70 63 Pulse Ox 98 Oxygen Delivery Method Room Air Weight Weight: 99 lb Body Mass Index (BMI) 17.5 Physical Exam Const alert, oriented x3 and average body habitus Constitutional Narrative: Patient appears chronically ill and uncomfortable. General Appearance: cooperative HEENT normocephalic, head/scalp atraumatic and hearing grossly normal bilaterally HEENT Narrative: Mucous membranes dry. Eyes PERRL, EOMs intact bilaterally and conjunctivae normal Neck no lymphadenopathy, supple and no JVD Resp normal respiratory effort, no retractions, no use of accessory muscles and clear to auscultation bilaterally Cardio regular rate and regular rhythm GI normal to inspection, nondistended, normoactive bowel sounds, soft to palpation, non-tender and non-distended Extremity normal to inspection, full ROM and no clubbing, cyanosis or edema Skin Skin Narrative: Patient has no evidence of rash, abscess, wounds or jaundice. Neuro oriented x3, CN's II-XII intact bilaterally, moves all extremities and no focal motor deficits Sensorium / Orientation: awake, alert, oriented to person, oriented to place and oriented to time Psych Mood & Affect: depressed and anxious Results Medical Records Data Attestation: I reviewed the patient's medical records Lab / Micro Data Attestation: I reviewed the patient's lab results. 10/08/24 18:20 10/09/24 02:25 Labs: Laboratory Results - last 24 hr 10/08/24 18:20: WBC 20.0 H, RBC 4.21, Hgb 12.6, Hct 42.1, MCV 100.0 H, MCH 29.9, MCHC 29.9 L, RDW Std Deviation 48.8 H, RDW Coeff of Danie 13.2, Plt Count 404, MPV 12.7 H, Immature Gran % (Auto) 0.600, Neut % (Auto) 89.4 H, Lymph % (Auto) 4.9 L, [place] % (Auto) 4.9, Eos % (Auto) 0.0, Baso % (Auto) 0.2, Absolute Neuts (auto) 17.9 H, Absolute Lymphs (auto) 0.98, Nucleated RBC % 0, Sodium 121 L, Potassium 6.6 H*, Chloride 79 L, Carbon Dioxide 14.0 L, Anion Gap 28 H, BUN 99 H, Creatinine 3.54 H, Est GFR (MDRD) Af Amer 17 L, Est GFR (MDRD) Non-Af 14 L, BUN/Creatinine Ratio 28.0 H, Glucose 1300 H*, Calcium 9.3, Total Bilirubin 0.60, AST 10 L, ALT 20, Alkaline Phosphatase 212 H, Total Protein 9.0 H, Albumin 3.6, Globulin 5.4 H, Albumin/Globulin Ratio 0.7 L, Lipase 23 L 10/08/24 19:28: PT 13.8, INR 1.0, APTT 30.4, Lactic Acid 1.9, Acetone Level SMALL H 10/08/24 19:29: Troponin I High Sens 28 10/08/24 21:22: POC Glucose > 500 H* Micro: Microbiology 10/08/24 19:27 Mucosa - Nose SARS-CoV-2, Influenza & RSV (PCR) - Final ABG Data ABG results: ABG 10/08/24 19:36 Specimen Type JAMIE Sample Site Not entered VBG pH 7.26 L VBG pO2 62 H VBG HCO3 13 L VBG Total CO2 14 L VBG O2 Sat (Calc) 89 H VBG Base Excess -14 L POC Mix VBG pCO2 Pt Tmp 28.1 L O2 Delivery Device Not entered Imaging Radiology Impression Abdomen/Pelvis CT 10/08/24 19:42 IMPRESSION: No definite acute findings in the abdomen/pelvis. Tiny nonobstructing bilateral renal calculi. No definite ureteral calculus or obstructive uropathy. No bowel obstruction or perforation. The appendix is not clearly demonstrated. 2.3 cm area of asymmetric wall thickening left posterior urinary bladder. This could be due to some debris in the urinary bladder. Bladder mass/neoplasm is not excluded and further evaluation with cystoscopy is recommended. One or more dose reduction techniques were used (e.g., Automated exposure control, adjustment of the mA and/or kV according to patient size, use of iterative reconstruction technique). Reading Location: [facility] Chest X-Ray 10/08/24 19:45 IMPRESSION: Emphysema. No acute cardiopulmonary process is demonstrated. Reading [facility] Assessment & Plan Assessment/Plan (1) DKA (diabetic ketoacidosis): QUALIFIERS: Diabetes mellitus complication detail: without coma Diabetes mellitus type: type 2 Qualified Code(s): E11.10 - Type 2 diabetes mellitus with ketoacidosis without coma (2) Medical non-compliance: (3) Hyperkalemia: (4) GARRET (acute kidney injury): (5) Adverse drug reaction: QUALIFIERS: Encounter type: initial encounter Qualified Code(s): T50.905A - Adverse effect of unspecified drugs, medicaments and biological substances, initial encounter (6) Dehydration: (7) Coffee ground emesis: (8) Acute cystitis without hematuria: (9) Bladder mass: (10) Sepsis: QUALIFIERS: Sepsis acute organ dysfunction status: without acute organ dysfunction Sepsis type: sepsis due to unspecified organism Qualified Code(s): A41.9 - Sepsis, unspecified organism (11) Uncontrolled type 2 diabetes mellitus with hyperglycemia: PLAN: Plan 1. DKA; with Critical Hyperglycemia of 1,300 mg/dL and small serum acetone and VBG with pH of 7.26 present on admission due to Medical Non-Compliance with Insulin - Admit to ICU for treatment under the DKA protocol. Continue insulin drip begun in ER and check BMP q. 4 hours per DKA protocol. Aggressively volume resuscitate and monitor for improvement. Recheck serum acetone in AM. Check HgbA1c to objectively assess quality of diabetic control. Finally, we will consult parking lot chauffeur to see this patient on-rounds in the AM for further diabetic teaching with help appreciated in advance. 2. Critical Hyperkalemia of 6.6 mmol/L present on admission complicating #1 - Give IV calcium gluconate to stabilize cardiac membrane. Give NS IVF with IV insulin and recheck BMP q. 4 hours to follow trend. Recheck of BMP showed normalization of potassium level to 4.7 mmol/L. 3. Severe GARRET; with elevated serum creatinine of 3.54 mg/dL and BUN of 99 mg/dL present on admission (up from her baseline of 1.7 mg/dL and BUN of 16 mg/dL last admission) with elevated BUN/creatinine ratio of 28 present on admission due to Dehydration compounding #1 & #2 - Give copious IVF and recheck renal indices daily to follow trend. 4. Suspected UGIB; with black emesis adding to the medical complexity of #1 - #3 - Keep strict NPO. Start IV pantoprazole drip and consult gastroenterology to see patient on-rounds in AM for further recommendations regarding EGD this admission with help appreciated in advance. 5. UA positive for Acute Cystitis; without hematuria with CT evidence of ~2.3 cm area of asymmetric wall thickening of the Left posterior urinary bladder that could be due to debris vs bladder mass/neoplasm not excluded with further evaluation with cystoscopy recommended with Leukocytosis of 20K present on admission due to suspected Sepsis adding to the burden of disease outlined from #1 - #4 - Give IVF as per Sepsis protocol. Continue IV Zosyn begun in ER and start IV Zyvox due to her sensitivity profiles from last admission and await new culture and sensitivity data. Finally, we will consult urology to see this patient on-rounds in the AM for further recommendations with help appreciated in advance. 6. Relatively recent admission here from June 10, 2024 to June 14, 2024 for treatment of Emphysematous Cystitis with Right Pyelonephritis and Sepsis complicated by Hyperglycemia and GARRET due to Dehydration with blood cultures growing oxacillin-resistant Staphylococcus epidermidis and urine culture returning positive for E. coli sensitive to cefazolin with patient treated with IV Zosyn and IV Zyvox - Noted. 7. DM-2; of unknown control on insulin glargine 10U BID plus insulin lispro TID (which she stopped taking ~2 days ago) - Patient encouraged to take her insulin as prescribed to avoid serial readmission. 8. Essential Hypertension; on losartan with suspected Adverse Drug Reaction to ARB contributing to #3 - Hold losartan and give hydralazine IV prn for systolic blood pressure > 160 mmHg. 9. History of severe depression with anxiety; on sertraline and mirtazapine with known history of SI and HI - Stable with patient denying SI or HI so far this admission. Restart home regimen when patient resumes oral intake. 10. Hyperlipidemia; on atorvastatin - Hold statin and check Lipid Profile. 11. History of tobacco abuse; with subsequent COPD - Stable with no evidence of acute flare at this time. Continue prn nebulizers. 12. History of substance abuse - UDS pending this admission. 13. DVT/GI prophylaxis - SCD's only with suspected UGIB outlined in #4 contraindicating chemoprophylaxis. Patient started on IV pantoprazole drip for #4. Total time: Approximately (but not less than) 75 minutes. Sepsis Attestation Sepsis Alert: Yes Sepsis Attestation: Sepsis Ruled Out Date exam was performed: 10/08/24 Time exam was performed: 23:00 Possible Source of Sepsis: Genitourinary Sepsis Organ Dysfunction Criteria Present: Creatinine > 2.0 mg/dL Supportive Findings: UA positive for Acute Cystitis; without hematuria with CT evidence of ~2.3 cm area of asymmetric wall thickening of the Left posterior urinary bladder that could be due to debris vs bladder mass/neoplasm not excluded with further evaluation with cystoscopy recommended with Leukocytosis of 20K present on admission due to suspected Sepsis in patient here with Severe DKA and GARRET. Fluid Resuscitation Fluid resuscitation indicated?: Yes Fluid Resuscitation ordered: 30 ml/kg fluid bolus ordered Amount of fluid ordered: 2 Sepsis Note Date exam was performed: 10/09/24 Time exam was performed: 03:00 Sepsis Attestation: Sepsis re-evaluation was performed Response to fluids: Fluid responsive hypotension Charges/Coding Visit Charges Inpatient E&M: 53405 Init Hosp L3
[2024-10-08 22:12] LABS: Mucous, Urine 0 SEEN /hpf (<or=2+); Squamous Epithelial Cells - UA 0 SEEN /hpf (5-10)
[2024-10-08 22:20] LABS: Color, Urine Yellow (Yellow); Glucose, Dipstick 1000 mg/dl (Normal); Ketone-Dipstick 15 mg/dl (Negative); Leukocyte Esterase-Dipstick 25 /ul (Negative); Nitrite-Dipstick Negative (Negative); Occult Blood-Urine 150 /ul (Negative); Protein-Dipstick 30 mg/dl (Negative); Urine Bilirubin Dipstick Negative (Negative); Urine Clarity Clear (Clear); Urine Urobilinogen Normal (Normal)
[2024-10-08 22:23] LABS: Glucose 1073 mg/dL (74-106)
[2024-10-08 22:44] LABS: Bacteria 1+ /hpf (None Seen); White Blood Cells 10-25 SEEN /hpf (0-5); Yeast-Urine 1+ /hpf (None Seen)
[2024-10-08 22:45] LABS: Red Blood Cells-Urine 0-5 SEEN /hpf (0-5)
--- NOTE | 2024-10-08 22:47 | EKG12_ITS ---
Test Reason : HYPERKALEMIA Blood Pressure : */* mmHG Vent. Rate : 95 BPM Atrial Rate : 95 BPM P-R Int : 138 ms QRS Dur : 66 ms QT Int : 358 ms P-R-T Axes : 82 -4 -22 degrees QTcB Int : 449 ms Normal sinus rhythm Cannot rule out Septal infarct , age undetermined Abnormal ECG When compared with ECG of 08-Oct-2024 19:26, MANUAL COMPARISON REQUIRED DATA IS UNCONFIRMED Confirmed by David Knowles ([id number]), medical transcription editor TOMY BARROW ([id number]) on 10/09/2024 1:08:04 PM Referred By: Ld Chris Confirmed By: David Knowles
[2024-10-08] MEDS: Piperacil/Tazobactam 3.375 GM in 0.9% Normal Saline (50mL MB+) 50 ML IV (23:10)
[2024-10-08 23:24] LABS: Osmolality, Serum 390 mOsm/KG (275-295)
--- NOTE | 2024-10-08 23:38 | CON.PCM.GI_ITS ---
HPI Consult Data Date of Consult: 10/08/24 HPI Narrative Reason for Consultation: Hematemesis HPI Narrative: SARWAT LANE, is a 59 F who presents with nausea vomiting. Ms. Lane reports her symptoms began approximately 10 days prior to admission with the gradual- onset of nausea and vomiting with bilious emesis that progressively worsened since that time. She states her vomitus is dark and foul-smelling and appeared black. She states she has not had a BM in days but prior to the onset of her symptoms they were normal and not discolored. She also complains of chills, body aches and generalized abdominal pain. She denies related fever, headache, changes in vision, SOB, cough, dysuria, hematuria, paresthesias, focal neurologic deficits or rash - but she did admit to the ER physician someone made her angry and that apparently caused her to stop taking her insulin. In the ER she was noted to have laboratory evidence of DKA; with Critical Hyperglycemia of 1,300 mg/dL and small serum acetone and VBG with pH of 7.26 present on admission complicated by Critical Hyperkalemia of 6.6. She also was determined to have UA positive for Acute Cystitis; without hematuria with corresponding CT evidence of ~2.3 cm area of asymmetric wall thickening of the Left posterior urinary bladder that could be due to debris vs bladder mass/neoplasm not excluded with further evaluation with cystoscopy recommended with Leukocytosis of 20K. 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) Hyperlipidemia, unspecified Anemia due to blood loss, chronic Emphysema, unspecified Diabetes mellitus, type 2 Debility Hyperglycemia History of COPD Uncontrolled type 2 diabetes mellitus Weight loss Dysphagia Anxiety Depression Substance abuse Smoker Hypertension Smoking addiction COPD (chronic obstructive pulmonary disease) Uncontrolled type 2 diabetes mellitus Home Medications ?Medication ?Instructions ?Recorded ?Last Taken ?Type losartan 50 mg tablet 50 mg PO DAILY 05/02/2304/15 History mirtazapine 15 mg tablet (Remeron) 15 mg PO QHS #1 TAB 05/04/23 Unknown Rx acetaminophen 325 mg capsule 650 mg PO QHS pain Unknown History (Tylenol) atorvastatin 10 mg tablet 10 mg PO QHS 09/12/23 Unknow n History dextrose 40 % oral gel (Glucose 10 g PO Q15M PRN hypog lycemia 09/12/23 Unknown History Gel) glucagon HCl 1 mg solution for 1 mg subcut Q20M PRN hy poglycemia 09/12/23 Unknown History injection (Glucagon (HCl) Emergency Kit) sertraline 50 mg tablet 50 mg PO QAM Depression 08/16 05/08 Unknown History insulin glargine 100 unit/mL (3 10 unit (0.1 mL) subcu t BID 04/12/24 Unknown Rx mL) subcutaneous pen (Lantus diabetes #15 mL Solostar U-100 Insulin) insulin lispro 100 unit/mL See Protocol subcut .COMPLE X 04/12/24 Unknown Rx subcutaneous pen (Humalog KwikPen diabetes #15 mL (U-100) Insulin) pen needle, diabetic 32 gauge x #150 ea 04/12/24 Unkno wn Rx 32 (BD Ultra-Fine Abbie Pen Needle) atorvastatin 10 mg tablet 10 mg PO DAILY #30 tabs 05/17 09/07 Unknown Rx cephalexin 500 mg tablet 500 mg PO BID #10 tabs 06/14 Unknown Rx linezolid 600 mg tablet 600 mg PO BID #10 tabs 06/14 Unknown Rx losartan 50 mg tablet (Cozaar) 50 mg PO DAILY #30 tabs 06/14/24 Unknown Rx sertraline 50 mg tablet (Zoloft) 50 mg PO DAILY #30 ta bs 06/14/24 Unknown Rx Allergy/AdvReac Type Severity Reaction Status Date / Time diphenhydramine (From Allergy Hives Verified 10/08/24 17:51 Benadryl) Surgical History H/O bilateral cataract extraction History of partial hysterectomy Social History Smoking Status: Current every day smoker tobacco type: cigarettes and e- cigarettes alcohol intake: former substance use type: amphetamines ROS Constitutional Constitutional: Denies fatigue, fever(s), poor appetite, weight gain or weight loss Gastrointestinal Gastrointestinal: Denies belching, bloating, change in bowel habits, change in stool character, chewing difficulty, coffee ground emesis, constipation, cramping, diarrhea, dyspepsia, dysphagia, early satiety, excessive flatus, fecal incontinence, heartburn, hematemesis, hematochezia, hemorrhoids, loose stools, melena, nausea, odynophagia, rectal bleeding, tenesmus, vomiting or weight changes Physical Exam Const alert, oriented x3, no apparent distress and healthy appearing General Appearance: cooperative GI normal to inspection, nondistended, normoactive bowel sounds, soft to palpation, non-tender and non-distended Percussion: normal to percussion Rectal Exam: deferred Lab / Micro Data 10/08/24 18:20 10/09/24 14:30 Labs: Laboratory Results - last 24 hr 10/08/24 18:20: WBC 20.0 H, RBC 4.21, Hgb 12.6, Hct 42.1, MCV 100.0 H, MCH 29.9, MCHC 29.9 L, RDW Std Deviation 48.8 H, RDW Coeff of Danie 13.2, Plt Count 404, MPV 12.7 H, Immature Gran % (Auto) 0.600, Neut % (Auto) 89.4 H, Lymph % (Auto) 4.9 L , Potter % (Auto) 4.9, Eos % (Auto) 0.0, Baso % (Auto) 0.2, Absolute Neuts (auto) 17.9 H, Absolute Lymphs (auto) 0.98, Nucleated RBC % 0, Sodium 121 L, Potassium 6.6 H*, Chloride 79 L, Carbon Dioxide 14.0 L, Anion Gap 28 H, BUN 99 H, C reatinine 3.54 H, Est GFR (MDRD) Af Amer 17 L, Est GFR (MDRD) Non-Af 14 L, B UN/Creatinine Ratio 28.0 H, Glucose 1300 H*, Calcium 9.3, Total Bilirubin 0.60, AST 10 L, ALT 20, Alkaline Phosphatase 212 H, Total Protein 9.0 H, Albumin 3.6, Globulin 5.4 H, Albumin/Globulin Ratio 0.7 L, Lipase 23 L 10/08/24 19:28: PT 13.8, INR 1.0, APTT 30.4, Serum Osmolality 390 H, Lactic Acid 1.9, Acetone Level SMALL H 10/08/24 19:29: Troponin I High Sens 28 10/08/24 21:22: POC Glucose > 500 H* 10/08/24 21:28: Glucose 1073 H*, Magnesium 3.0 H 10/08/24 21:50: Urine Color Yellow, Urine Clarity Clear, Urine pH 6.0, Ur Specific [place] 1.010, Urine Protein 30 H, Urine Glucose (UA) 1000 H, Urine Ketones 15 H, Urine Occult Blood 150 H, Urine Nitrite Negative, Urine Bilirubin Negative, Urine Urobilinogen Normal, Ur Leukocyte Esterase 25 H, Urine RBC 0-5 SEEN, Urine WBC 10-25 SEEN, Ur Squamous Epith Cells 0 SEEN, Urine Bacteria 1+, Urine Mucus 0 SEEN, Urine Yeast 1+, Urine Opiates Screen NEGATIVE, Urine Methadone Screen NEGATIVE, Ur Barbiturates Screen NEGATIVE, Ur Phencyclidine Scrn NEGATIVE, Ur Amphetamines Screen NEGATIVE, MDMA (Ecstasy) Screen NEGATIVE, U Benzodiazepines Scrn NEGATIVE, Urine Cocaine Screen NEGATIVE, U Cannabinoids Screen NEGATIVE, Ur Drug Screen Comment 10/08/24 23:45: Sodium 138, Potassium 4.7, Chloride 102, Carbon Dioxide 22.0, Anion Gap 14, BUN 90 H, Creatinine 2.88 H, Estim Creat Clear Calc 14.91, Est GFR (MDRD) Af Amer 22 L, Est GFR (MDRD) Non-Af 18 L, BUN/Creatinine Ratio 31.2 H, G lucose 641 H*, Lactic Acid 2.1 H*, Calcium 8.9, Troponin I High Sens 32, Blood Type AB POSITIVE, Antibody Screen NEGATIVE 10/09/24 02:25: Sodium 139, Potassium 4.8, Chloride 106, Carbon Dioxide 23.0, Anion Gap 10, BUN 80 H, Creatinine 2.69 H, Estim Creat Clear Calc 15.96, Est GFR (MDRD) Af Amer 23 L, Est GFR (MDRD) Non-Af 19 L, BUN/Creatinine Ratio 29.7 H, G lucose 568 H*, Calcium 8.8, Troponin I High Sens 41, Triglycerides 301 H, Cholesterol 134, LDL Cholesterol 48, VLDL Cholesterol 60 H, HDL Cholesterol 26 L , Acetone Level MODERATE H 10/09/24 03:39: POC Glucose > 500 H* 10/09/24 04:15: Lactic Acid 1.1 10/09/24 05:50: Sodium 141, Potassium 5.2 H, Chloride 110 H, Carbon Dioxide 20.0 L, Anion Gap 11, BUN 69 H, Creatinine 2.37 H, Estim Creat Clear Calc 20.17, Est GFR (MDRD) Af Amer 27 L, Est GFR (MDRD) Non-Af 22 L, BUN/Creatinine Ratio 29.1 H , Glucose 512 H*, Calcium 8.5 10/09/24 08:28: POC Glucose 413 H 10/09/24 09:55: Sodium 142, Potassium 4.4, Chloride 112 H, Carbon Dioxide 17.4 L , Anion Gap 13, BUN 61 H, Creatinine 1.9 H, Est GFR (MDRD) Af Amer 38 L, Est GFR (MDRD) Non-Af 31 L, BUN/Creatinine Ratio 31.5 H, Glucose 409 H, Calcium 8.2 10/09/24 10:00: Urine Test Negative 10/09/24 11:16: POC Glucose 372 H 10/09/24 14:22: POC Glucose 340 H 10/09/24 14:30: Sodium 141, Potassium 4.5, Anion Gap 13, BUN 58 H, Creatinine 1.9 H, Estim Creat Clear Calc 25.16, Est GFR (MDRD) Non-Af 29 L, BUN/Creatinine Ratio 29.6 H, Glucose 404 H, Calcium 8.5 Micro: Microbiology 10/08/24 19:30 Urine Catheter - Catheter Urine Culture - Preliminary Gram negative willard 10/08/24 23:45 Nasal Secretion MRSA (PCR) - Final 10/08/24 19:27 Mucosa - Nose SARS-CoV-2, Influenza & RSV (PCR) - Final ABG Data ABG results: ABG 10/08/24 10/08/24 10/09/24 19:36 23:53 06:08 Specimen Type JAMIE JAMIE JAMIE Sample Site Not entered Not entered Not entered VBG pH 7.26 L 7.29 L 7.29 L VBG pO2 62 H 35 131 H VBG HCO3 13 L 22 21 L VBG Total CO2 14 L 23 22 L VBG O2 Sat (Calc) 89 H 59 99 H VBG Base Excess -14 L -5 L -6 L POC Mix VBG pCO2 Pt Tmp 28.1 L 45.7 43.5 O2 Delivery Device Not entered Not entered Room Air Imaging Radiology Impression Abdomen/Pelvis CT 10/08/24 19:42 IMPRESSION: No definite acute findings in the abdomen/pelvis. Tiny nonobstructing bilateral renal calculi. No definite ureteral calculus or obstructive uropathy. No bowel obstruction or perforation. The appendix is not clearly demonstrated. 2.3 cm area of asymmetric wall thickening left posterior urinary bladder. This could be due to some debris in the urinary bladder. Bladder mass/neoplasm is not excluded and further evaluation with cystoscopy is recommended. One or more dose reduction techniques were used (e.g., Automated exposure control, adjustment of the mA and/or kV according to patient size, use of iterative reconstruction technique). Reading Location: [facility] Chest X-Ray 10/08/24 19:45 IMPRESSION: Emphysema. No acute cardiopulmonary process is demonstrated. Reading Location: [facility] Assessment & Plan Assessment/Plan (1) DKA (diabetic ketoacidosis): QUALIFIERS: Diabetes mellitus type: type 2 Diabetes mellitus complication detail: without coma Qualified Code(s): E11.10 - Type 2 diabetes mellitus with ketoacidosis without coma PLAN: Plan 59-year-old with DKA presenting with nausea and vomiting with concern for hematemesis -Patient with over a week of nausea and vomiting reportedly with dark vomit that appeared black -Cannot rule out upper GI bleed, repeat H&H -Patient on PPI drip -Patient will undergo an upper endoscopy. She was explained alternatives, risk and benefits include not withstanding bleeding, infection, sepsis, perforation, need for emergent urgent . She will have an ASA of 3.
[2024-10-08 23:56] LABS: Blood Gas Specimen Type VEN; O2 Delivery Device Not entered; SITE Not entered; VBG BASE EXCESS -5 mmol/L (-1.0-3.5); VBG Bicarbonate 22 mmol/L (22-26); VBG PO2 35 mmHg (25-40); VBG SO2 59 % (50-70); VBG TCO2 23 mmol/L (23-33); VBG pCO2 45.7 mmHg (41-51); VBG pH 7.29 (7.32-7.42)
[2024-10-08] MEDS: 0.9% Normal Saline (1000mL) 1,000 ML 250 ML IV (23:59)
[2024-10-09] VITALS (18 sets, daily range): BP systolic 99–159; BP diastolic 43–106; PULSE 79–97; RESP 15–27; TEMP 36.4–37.8; O2SAT 95–100; BMI 20.1
[2024-10-09] MEDS: 0.9% Normal Saline (1000mL) 1,000 ML 500 ML IV (00:17)
[2024-10-09] MEDS: Calcium Gluconate 1 GM/10 ML Vial IVP (00:18)
[2024-10-09] MEDS: Pantoprazole Sodium 80 MG in 0.9% Normal Saline (100mL Bag) 80 ML 10 MG CONT INF ×2 (00:18→09:41)
[2024-10-09] MEDS: Linezolid 600 MG 600 MG/300 ML BAG 200 MG IV ×2 (00:19→19:54)
[2024-10-09 00:32] LABS: Amphetamine Urine NEGATIVE (<1000 ng/mL); Barbiturate Urine NEGATIVE (< 200 ng/mL); Benzodiazepine Urine NEGATIVE (< 200 ng/mL); Cocaine Urine NEGATIVE (< 300 ng/mL); Ecstacy Urine NEGATIVE (< 500 ng/mL); Methadone Urine NEGATIVE (< 300 ng/mL); Opiates Urine NEGATIVE (< 300 ng/mL); PCP Urine NEGATIVE (< 25 ng/mL); THC Urine NEGATIVE (< 50 ng/mL); Vista UDS pH Range 5
[2024-10-09 00:40] LABS: Anion Gap 14 (5-15); BUN 90 mg/dL (7-18); BUN/Creat Ratio 31.2 RATIO (10-20); Calcium,Total 8.9 mg/dL (8.5-10.1); Chloride 102 mmol/L (98-107); Creatinine, Serum 2.88 mg/dL (0.55-1.02); EST Glomerular Filtration Rate 18 mL/min (>60); Est Glom Filt Rate - Afr Amer 22 mL/min (>60); Estimated Creatinine Clearance 14.91 ml/min; Glucose 641 mg/dL (74-106); Lactic Acid 2.1 mmol/L (0.4-1.9); Potassium 4.7 mmol/L (3.5-5.1); Sodium Level 138 mmol/L (136-145); Troponin-I HS 32 pg/mL (3.0-54.0)
[2024-10-09 02:52] LABS: Troponin-I HS 41 pg/mL (3.0-54.0)
[2024-10-09 02:54] LABS: Anion Gap 10 (5-15); BUN 80 mg/dL (7-18); BUN/Creat Ratio 29.7 RATIO (10-20); Calcium,Total 8.8 mg/dL (8.5-10.1); Chloride 106 mmol/L (98-107); Creatinine, Serum 2.69 mg/dL (0.55-1.02); EST Glomerular Filtration Rate 19 mL/min (>60); Est Glom Filt Rate - Afr Amer 23 mL/min (>60); Estimated Creatinine Clearance 15.96 ml/min; Glucose 568 mg/dL (74-106); Potassium 4.8 mmol/L (3.5-5.1); Sodium Level 139 mmol/L (136-145)
[2024-10-09] MEDS: 0.9% Normal Saline (1000mL) 1,000 ML 250 ML IV ×2 (03:12→08:37)
[2024-10-09 03:57] LABS: Bedside Glucose > 500 mg/dL (74-106)
[2024-10-09 04:21] LABS: Reflex Lactate? Y
[2024-10-09 05:07] LABS: Cholesterol 134 mg/dL (200); High Density Lipoprotein 26 mg/dL; Triglycerides 301 mg/dL; Very Low Density Lipoprotein 60 mg/dL (5-40)
[2024-10-09 05:34] LABS: Lactic Acid 1.1 mmol/L (0.4-1.9)
[2024-10-09 06:11] LABS: Blood Gas Specimen Type VEN; O2 Delivery Device Room Air; SITE Not entered; VBG BASE EXCESS -6 mmol/L (-1.0-3.5); VBG Bicarbonate 21 mmol/L (22-26); VBG PO2 131 mmHg (25-40); VBG SO2 99 % (50-70); VBG TCO2 22 mmol/L (23-33); VBG pCO2 43.5 mmHg (41-51); VBG pH 7.29 (7.32-7.42)
[2024-10-09 06:25] LABS: Anion Gap 11 (5-15); BUN 69 mg/dL (7-18); BUN/Creat Ratio 29.1 RATIO (10-20); Calcium,Total 8.5 mg/dL (8.5-10.1); Chloride 110 mmol/L (98-107); Creatinine, Serum 2.37 mg/dL (0.55-1.02); EST Glomerular Filtration Rate 22 mL/min (>60); Est Glom Filt Rate - Afr Amer 27 mL/min (>60); Estimated Creatinine Clearance 20.17 ml/min; Glucose 512 mg/dL (74-106); Potassium 5.2 mmol/L (3.5-5.1); Sodium Level 141 mmol/L (136-145)
[2024-10-09 08:45] LABS: Bedside Glucose 413 mg/dL (74-106)
--- NOTE | 2024-10-09 08:47 | PN.HOSP_ITS ---
Reason for Visit Reason for Visit: Diagnoses Sepsis, unspecified organism (10/08/24) Type 2 diabetes mellitus with ketoacidosis without coma (10/08/24) Type 2 diabetes mellitus with hyperglycemia (10/08/24) Dehydration (10/08/24) Hyperkalemia (10/08/24) Hematemesis (10/08/24) Acute kidney failure, unspecified (10/08/24) Acute cystitis without hematuria (10/08/24) Other specified disorders of bladder (10/08/24) Adverse effect of unspecified drugs, medicaments and biological substances, initial encounter (10/08/24) Patient's noncompliance with other medical treatment and regimen due to unspecified reason (10/08/24) Subjective Subjective Patient resting comfortably in bed, will wake up but quickly falls back asleep Objective Data Objective Data Vital Signs: Vital Signs Temp Pulse Resp BP Pulse Ox O2 Del Method O2 Flow Rate 100.1 F H 97 27 H 126/53 H 95 Room Air 2 10/09/24 05:07 10/09/24 05:07 10/09/24 05:07 10/09/24 05:07 10/09/24 05:07 10/09/24 06:00 10/09/24 05:07 Oxygen Flow Rate (L/min) 2 Oxygen Delivery Method Room Air Weight: 50 kg Body Mass Index (BMI) 20.1 Intake & Output: Intake and Output for Last 24 Hours 10/07/24 10/08/24 10/09/24 23:59 23:59 23:59 Intake Total 2292.90 / 2292.90 5115.49 / 5115.49 Output Total 550 / 550 Balance 2292.90 / 2292.90 4565.49 / 4565.49 Lab / Micro Data 10/08/24 18:20 10/09/24 09:55 Labs: Laboratory Results - last 24 hr 10/08/24 18:20: WBC 20.0 H, RBC 4.21, Hgb 12.6, Hct 42.1, MCV 100.0 H, MCH 29.9, MCHC 29.9 L, RDW Std Deviation 48.8 H, RDW Coeff of Danie 13.2, Plt Count 404, MPV 12.7 H, Immature Gran % (Auto) 0.600, Neut % (Auto) 89.4 H, Lymph % (Auto) 4.9 L , Stephenson % (Auto) 4.9, Eos % (Auto) 0.0, Baso % (Auto) 0.2, Absolute Neuts (auto) 17.9 H, Absolute Lymphs (auto) 0.98, Nucleated RBC % 0, Sodium 121 L, Potassium 6.6 H*, Chloride 79 L, Carbon Dioxide 14.0 L, Anion Gap 28 H, BUN 99 H, C reatinine 3.54 H, Est GFR (MDRD) Af Amer 17 L, Est GFR (MDRD) Non-Af 14 L, B UN/Creatinine Ratio 28.0 H, Glucose 1300 H*, Calcium 9.3, Total Bilirubin 0.60, AST 10 L, ALT 20, Alkaline Phosphatase 212 H, Total Protein 9.0 H, Albumin 3.6, Globulin 5.4 H, Albumin/Globulin Ratio 0.7 L, Lipase 23 L 10/08/24 19:28: PT 13.8, INR 1.0, APTT 30.4, Serum Osmolality 390 H, Lactic Acid 1.9, Acetone Level SMALL H 10/08/24 19:29: Troponin I High Sens 28 10/08/24 21:22: POC Glucose > 500 H* 10/08/24 21:28: Glucose 1073 H*, Magnesium 3.0 H 10/08/24 21:50: Urine Color Yellow, Urine Clarity Clear, Urine pH 6.0, Ur Specific [place] 1.010, Urine Protein 30 H, Urine Glucose (UA) 1000 H, Urine Ketones 15 H, Urine Occult Blood 150 H, Urine Nitrite Negative, Urine Bilirubin Negative, Urine Urobilinogen Normal, Ur Leukocyte Esterase 25 H, Urine RBC 0-5 SEEN, Urine WBC 10-25 SEEN, Ur Squamous Epith Cells 0 SEEN, Urine Bacteria 1+, Urine Mucus 0 SEEN, Urine Yeast 1+, Urine Opiates Screen NEGATIVE, Urine Methadone Screen NEGATIVE, Ur Barbiturates Screen NEGATIVE, Ur Phencyclidine Scrn NEGATIVE, Ur Amphetamines Screen NEGATIVE, MDMA (Ecstasy) Screen NEGATIVE, U Benzodiazepines Scrn NEGATIVE, Urine Cocaine Screen NEGATIVE, U Cannabinoids Screen NEGATIVE, Ur Drug Screen Comment 10/08/24 23:45: Sodium 138, Potassium 4.7, Chloride 102, Carbon Dioxide 22.0, Anion Gap 14, BUN 90 H, Creatinine 2.88 H, Estim Creat Clear Calc 14.91, Est GFR (MDRD) Af Amer 22 L, Est GFR (MDRD) Non-Af 18 L, BUN/Creatinine Ratio 31.2 H, G lucose 641 H*, Lactic Acid 2.1 H*, Calcium 8.9, Troponin I High Sens 32, Blood Type AB POSITIVE, Antibody Screen NEGATIVE 10/09/24 02:25: Sodium 139, Potassium 4.8, Chloride 106, Carbon Dioxide 23.0, Anion Gap 10, BUN 80 H, Creatinine 2.69 H, Estim Creat Clear Calc 15.96, Est GFR (MDRD) Af Amer 23 L, Est GFR (MDRD) Non-Af 19 L, BUN/Creatinine Ratio 29.7 H, G lucose 568 H*, Calcium 8.8, Troponin I High Sens 41, Triglycerides 301 H, Cholesterol 134, LDL Cholesterol 48, VLDL Cholesterol 60 H, HDL Cholesterol 26 L , Acetone Level MODERATE H 10/09/24 03:39: POC Glucose > 500 H* 10/09/24 04:15: Lactic Acid 1.1 10/09/24 05:50: Sodium 141, Potassium 5.2 H, Chloride 110 H, Carbon Dioxide 20.0 L, Anion Gap 11, BUN 69 H, Creatinine 2.37 H, Estim Creat Clear Calc 20.17, Est GFR (MDRD) Af Amer 27 L, Est GFR (MDRD) Non-Af 22 L, BUN/Creatinine Ratio 29.1 H , Glucose 512 H*, Calcium 8.5 10/09/24 08:28: POC Glucose 413 H Micro: Microbiology 10/08/24 23:45 Nasal Secretion MRSA (PCR) - Final 10/08/24 19:27 Mucosa - Nose SARS-CoV-2, Influenza & RSV (PCR) - Final ABG Data ABG results: ABG 10/08/24 10/08/24 10/09/24 19:36 23:53 06:08 Specimen Type JAMIE JAMIE JAMIE Sample Site Not entered Not entered Not entered VBG pH 7.26 L 7.29 L 7.29 L VBG pO2 62 H 35 131 H VBG HCO3 13 L 22 21 L VBG Total CO2 14 L 23 22 L VBG O2 Sat (Calc) 89 H 59 99 H VBG Base Excess -14 L -5 L -6 L POC Mix VBG pCO2 Pt Tmp 28.1 L 45.7 43.5 O2 Delivery Device Not entered Not entered Room Air Radiography Diagnostic Testing: Radiology Impression Abdomen/Pelvis CT 10/08/24 19:42 IMPRESSION: No definite acute findings in the abdomen/pelvis. Tiny nonobstructing bilateral renal calculi. No definite ureteral calculus or obstructive uropathy. No bowel obstruction or perforation. The appendix is not clearly demonstrated. 2.3 cm area of asymmetric wall thickening left posterior urinary bladder. This could be due to some debris in the urinary bladder. Bladder mass/neoplasm is not excluded and further evaluation with cystoscopy is recommended. One or more dose reduction techniques were used (e.g., Automated exposure control, adjustment of the mA and/or kV according to patient size, use of iterative reconstruction technique). Reading Location: [facility] Chest X-Ray 10/08/24 19:45 IMPRESSION: Emphysema. No acute cardiopulmonary process is demonstrated. Reading Location: [facility] Physical Exam Narrative General: Resting comfortably, wakes up but does not always answer questions appropriately HEENT: Atraumatic Eyes: Will open eyes but quickly closes them again Neck: Supple Respiratory: Very slight tachypnea, no overt wheezes or rhonchi Cardiovascular: Regular rate GI: Soft, nontender, nondistended Extremities: No edema Musculoskeletal: Moving all extremities Neuro: No overt focal neurological deficits but patient not able to complete full neuroexam Skin: No rashes appreciated Psych: Attempts to be cooperative but falls back asleep quickly Assessment & Plan Assessment/Plan (1) DKA (diabetic ketoacidosis): QUALIFIERS: Diabetes mellitus complication detail: without coma D iabetes mellitus type: type 2 Qualified Code(s): E11.10 - Type 2 diabetes mellitus with ketoacidosis without coma PLAN: Plan #DKA in setting of chronic type 2 diabetes -Suspect secondary to noncompliance -Serum glucose in ED 1300, anion gap 28 -Urine ketones positive -Serum acetone small and subsequently moderate -pH 7.29 -Admit to intensive care unit -N.p.o. -Insulin drip started -Aggressive fluid hydration -Glucose checks and DKA protocol -BMP every 4H -Replace electrolytes per protocol -I's and O's -A1c in the a.m. -When serum glucose is <250 mg/dl, change IV fluids to D5%1/2NS at 150 ml/hr and continue insulin drip as per nomogram # Acute kidney failure on CKD stage IIIb -Creatinine add onto previous labs if possible presentation 3.54 with a BUN of 99 up from previous baseline around 1.7 -Improving with IV fluids # Hyperkalemia -On admission potassium 6.6 -Improving with insulin and IV fluids -Trending BMP # Concern for sepsis secondary to urinary tract infection -Patient with creatinine greater than 2, altered mental status, patient also became tachypneic with respiratory rate of 27, did have a blood pressure of 84 over 53 x 1 with a MAP of 63 that improved with IV fluids add onto previous labs if possible heart rate up to 100 and lactic initially 2.1 -Patient admitted to the ICU -CT with evidence of a 2.3 cm area of asymmetric wall thickening of the left posterior bladder that could be due to debris's versus bladder mass/neoplasm and further evaluation with cystoscopy is recommended -Blood cultures, UA and urine cultures -Patient on IV Zosyn and IV Zyvox given previous sensitivity profiles # Nausea and vomiting with concern for hematemesis -Patient with over a week of nausea and vomiting reportedly with dark vomit that appeared black -Cannot rule out upper GI bleed, repeat H&H -Patient on PPI drip -GI consulted #Depression/anxiety -Continue home medications #Tobacco use -Advise cessation -Nicotine replacement available if desired #DVT ppx: SCDs Vera Rincon MD Charges/Coding Visit Charges Inpatient E&M: 80899 Subs Hosp L2
[2024-10-09] MEDS: Piperacil/Tazobactam 3.375 GM in 0.9% Normal Saline (50mL MB+) 50 ML IV ×2 (09:41→22:40)
--- NOTE | 2024-10-09 10:14 | CASEMGMT ---
RN YAMEL Assessment: Face to Face with pt for initial transition planning/care coordination assessment. RN CM introduced self and role at [facility], pt voices understanding and consents to assessment. Pt is A&O x4 and answers all questions appropriately at this time. Pt lying in bed in no distress, RN in room. Care providers, pharmacy, and demographics verified/updated. Strata: 3 Admitting Dx: DKA, Hyperkalemia, GARRET PCP: Leonid Samuels Specialists: Denies Preferred Pharmacy: [facility] Insurance: [employer] Prescription Benefit: yes LNOK: SonJhonatan Living Arrangements: Pt lives with ex [id number] in a 2 story home, patient lives on the main level, with 3 steps to enter. ADLs: I at baseline Transportation: Pt drives self and denies concerns with transportation. DME: Glucometer and supplies, cane, shower bench, grab bars HHC/SNF: Previously at [facility] Pt states no concerns with going home at time of dc. 6 clicks =21. Pt states no further concerns/needs. CM to follow. Advised pt to ask CM if any further question/concerns/needs arise, voices understanding. Pt Goal: Home Plan: Home, follow for safe DC. [place] ST[place] CM
--- NOTE | 2024-10-09 10:23 | NURSING ---
Called Dr. Rebolledo's office and left a VM regarding consult, requested a call back. He is signed out 10/06-10/10 and not on for No DOC per hospital weighing station operator. Dr. Rincon made aware.
[2024-10-09 10:28] LABS: Internal QC Validated? YES +Cl - CLEAR BKGD; Pregnancy, Urine Negative Negative
[2024-10-09 10:36] LABS: Creatinine, Serum 1.9 mg/dL (0.6-1.0); EST Glomerular Filtration Rate 31 (>60); Est Glom Filt Rate - Afr Amer 38 mL/min (>60)
[2024-10-09 11:33] LABS: Bedside Glucose 372 mg/dL (74-106)
[2024-10-09] MEDS: Insulin Lispro 100 UNIT in 0.9% Normal Saline (100mL Bag) 99 ML 53.9 UNIT CONT INF ×2 (12:00→18:54)
[2024-10-09 14:40] LABS: Bedside Glucose 340 mg/dL (74-106)
[2024-10-09 15:48] LABS: Anion Gap 13 (5-15); BUN 58 mg/dL (4-19); BUN/Creat Ratio 29.6 RATIO (10-20); Calcium 8.5 mg/dL (7.6-11.0); Carbon Dioxide 17.8 mmol/L (22.0-29.0); Chloride 110 mmol/L (96-108); Creatinine, Serum 1.9 mg/dL (0.6-1.0); EST Glomerular Filtration Rate 29 (>60); Estimated Creatinine Clearance 25.16 ml/min; Glucose 404 mg/dL (70-99); Potassium 4.5 mmol/L (3.3-5.1); Sodium Level 141 mmol/L (133-145)
[2024-10-09 15:55] LABS: Anion Gap 13 (5-15); Calcium,Total 8.2 mg/dL (7.6-11.0); Carbon Dioxide 17.4 mmol/L (21.0-32.0); Chloride 112 mmol/L (98-107); Potassium 4.4 mmol/L (3.5-5.1); Sodium Level 142 mmol/L (136-145)
[2024-10-09 15:59] LABS: BUN 61 mg/dL (4-19); BUN/Creat Ratio 31.5 RATIO (10-20); Glucose 409 mg/dL (70-99)
--- NOTE | 2024-10-09 16:03 | SUR.PREOP ---
bgl [id number] at [id number]
--- NOTE | 2024-10-09 16:08 | PRE.ANES_ITS ---
ASA Classification* ASA Classification ASA Classification: 3 Assessment & Plan Anesthesia* Anesthesia Assessment Anesthesia Assessment: Discussed sedation and/or anesthesia options, risks, benefits, and alternatives with patient/parents/legal guardian/POA. Questions invited. The patient/parents/legal guardian/POA seems to understand and agrees to proceed with anesthesia plan. Reviewed the physical assessment, medical history, allergy history and patient home medications list prior to surgery/procedure/anesthetic and documented any changes. Performed airway and anesthesia risk assessments. Anesthesia Type Anesthesia Type: MAC History Source History Obtained from:: Patient and Chart Anesthesia Focused Assessment* Temperature: 97.7 F Pulse Rate: 88 Blood Pressure: 159/66 Respiratory Rate: 20 Pulse Ox: 99 Oxygen Delivery Method: Room Air Oxygen Flow Rate (L/min): 2 Airway Assessment Mouth opens: >3 cm Mallampati Score: III Teeth Condition: Dentures (Patient has full upper dentures which are out. Edentulous on the bottom.) Neck Range of motion (ROM): Full ROM Focused Labs Anesthesia Preop lab: CBC WBC 20.0 K/mm3 (4.4-11.0) H 10/08/24 18:20 5 RBC 4.21 M/mm3 (4.2-5.4) 10/08/24 18:20 10/08/24 Hgb 12.6 g/dL (12.0-15.0) 10/08/24 18:20 10/08/24 Hct 42.1 % (37-47) 10/08/24 18:20 10/08/24 Plt Count 404 K/mm3 (150-450) 10/08/24 18:20 10/08/24 CHEMISTRY Potassium 4.5 mmol/L (3.3-5.1) 10/09/24 14:30 10/09/24 Sodium 141 mmol/L (133-145) 10/09/24 14:30 10/09/24 Magnesium 3.0 mg/dL (1.6-2.6) H 10/08/24 21:28 10/08/24 Phosphorus 3.5 mg/dL (2.5-4.9) 09/05/21 05:51 09/05/21 BUN 58 mg/dL (4-19) H 10/09/24 14:30 10/09/24 Creatinine 1.9 mg/dL (0.6-1.0) H 10/09/24 14:30 10/09/24 Glucose 404 mg/dL (70-99) H 10/09/24 14:30 10/09/24 POC Glucose 340 mg/dL (74-106) H 10/09/24 14:22 10/09/24 TSH 0.31 uIU/mL (0.358-3.74) L 02/08/19 00:10 01/14 03/02 COAG PT 13.8 SECONDS (11.7-14.9) 10/08/24 19:28 Urine Test Negative Negative 10/09/24 10:00 10/09/24 Pre-Assessment Diagnosis/Proposed Procedure Planned Operative Procedure(s): Esophagogastroduodenoscopy Anesthesia History Anesthesia History - respiratory therapist: Anesthesia History - respiratory therapist Hx Hospitalization Any Problems With Anesthesia Cholinesterase deficiency You/Your Family Experience fever (hyperthermia) with Relationship Recent Exposure to Contagious Disease Does patient have nerve stimulator Patient instructed to have device shut off --Does patient have Pacemaker or ICD? When Was Last Pacemaker Check QUESTION #4 FULL TEXT: You/Your Family Experience fever (hyperthermia) with Anesthesia Last Oral Intake Last Oral intake: Last Oral Intake NPO since Meds taken in AM with sips of water? Meds patient instructed to take am of surgery Any additional information?: Yes NPO since: 00:00 Meds taken in AM with sips of water?: No PONV PONV - respiratory therapist: PONV - respiratory therapist Female HX of Motion Sickness HX of N/V After Surgery Non-Smoker Duration of Surgery greater than 60 minutes Number of Risk Factors PONV Score Height & Weight Height & Weight: Anesthesia: Height & Weight Height 5 ft 2 in 10/09/24 10:13 Weight: 50 kg 10/09/24 10:13 Body Mass Index (BMI) 20.1 10/09/24 05:23 Respiratory Assessment Respiratory Assessment - respiratory therapist: Respiratory Tract Infection Hx - respiratory therapist Hx Respiratory Tract Infection Any additional information?: Yes Hx Respiratory Tract Infection: Yes (Patient has a chronic cough.) STOP Sleep Apnea STOP Sleep Apnea - respiratory therapist: STOP Sleep Apnea - respiratory therapist Hx Hypertension No 10/08/24 23:33 Hx Sleep Apnea No 10/08/24 23:33 CPAP BIPAP Do you snore loudly (louder No 10/08/24 23:33 than talking or can be heard Do you often feel tired/ No 10/08/24 23:33 fatigued/ sleepy during daytime? Has anyone observed you stop No 10/08/24 23:33 breathing during sleep? STOP Results Negative 10/08/24 23:33 QUESTION #5 FULL TEXT : Do you snore loudly (louder than talking or can be heard through closed doors)? 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 Specify any problems Hx of Preganancy in last 3 No 10/08/24 23:33 Months Nurse Filling Out Transfusion LGUY 10/08/24 23:33 & Questions: Date: 10/09/24 10/08/24 23:33 Time: 00:52 10/08/24 23:33 Patient unable to answer at this time (ie. confused, unrespo /Reproduction History /Reproductive History - respiratory therapist: /Reproductive Hx- respiratory therapist Hx Now Gestational Age (in weeks): EDC: Hx Hx Para Hx Section SAB Active Medications Active Medications: Current Medications Generic Name Dose Route Start Last Admin Trade Name Freq PRN Reason Stop Dose Admin Acetaminophen 650 mg 10/08/24 23:33 Acetaminophen 650 Mg Suppository RC Q6H PRN PRN Pain 1-5/10 or Fever Dextrose 250 mls @ 999 mls/hr 10/08/24 19:40 Dextrose 10%-Water IV .Q16M PRN Hypoglycemic Protocol Protocol Insulin Human Lispro 100 unit/ 100 mls @ 4.491 mls/hr 10/08/24 19:45 10/09/24 12:00 Sodium Chloride CONT INF Infused .[id number] CHRISTINA Infusion Protocol 0.1 UNITS/KG/HR Pantoprazole Sodium 80 mg/ 100 mls @ 10 mls/hr 10/08/24 23:33 10/09/24 09:41 Sodium Chloride CONT INF 10 mls/hr Q10H CHRISTINA Administration Piperacillin Sod/Tazobactam 50 mls @ 12.5 mls/hr 10/09/24 10:00 10/09/24 13:48 Sod 3.375 gm/ Sodium Chloride IV Infused Q12 CHRISTINA Infusion Linezolid 600 mg in 300 mls @ 200 mls/hr 10/08/24 23:33 10/09/24 11:12 Zyvox 600mg IV Not Given Q12 CHRISTINA Dextrose 250 mls @ 999 mls/hr 10/08/24 23:33 Dextrose 10%-Water IV .Q16M PRN Hypoglycemic Protocol Protocol Sodium Chloride 100 mls @ 15 mls/hr 10/08/24 23:34 IV .Q6H40M PRN Saline Flush Sodium Chloride 100 mls @ 15 mls/hr 10/08/24 23:34 IV .Q6H40M PRN Additional IVPB Infusion Morphine Sulfate 2 mg 10/08/24 23:33 Morphine 2 Mg/Ml Syringe IV Q4H PRN PRN Pain Score 6-10 Nicotine 14 mg 10/08/24 23:33 10/09/24 09:43 Nicotine 14 Mg Patch TD 14 mg DAILY CHRISTINA Administration Ondansetron HCl 4 mg 10/08/24 23:33 Ondansetron 4 Mg/2 Ml Vial IV Q8H PRN PRN NAUSEA/VOMITING Promethazine HCl 25 mg 10/08/24 23:33 Promethazine 25 Mg/Ml Syringe IM Q6H PRN PRN Breakthrough Nausea/Vomiting Sodium Chloride 10 - 40 ml 10/08/24 23:34 0.9% Saline Lock 10 Ml Syringe IV UD PRN SALINE FLUSH PFSH Medical History (Updated 10/09/24 @ 00:[address] 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) Hyperlipidemia, unspecified Anemia due to blood loss, chronic Emphysema, unspecified Diabetes mellitus, type 2 Debility Hyperglycemia History of COPD Uncontrolled type 2 diabetes mellitus Weight loss Dysphagia Anxiety Depression Substance abuse Smoker Hypertension Smoking addiction COPD (chronic obstructive pulmonary disease) Uncontrolled type 2 diabetes mellitus Home Medications ?Medication ?Instructions ?Recorded ?Last Taken ?Type losartan 50 mg tablet 50 mg PO DAILY 05/02/2304/15 History mirtazapine 15 mg tablet (Remeron) 15 mg PO QHS #1 TAB 05/04/23 Unknown Rx acetaminophen 325 mg capsule 650 mg PO QHS pain Unknown History (Tylenol) atorvastatin 10 mg tablet 10 mg PO QHS 09/12/23 Unknow n History dextrose 40 % oral gel (Glucose 10 g PO Q15M PRN hypog lycemia 09/12/23 Unknown History Gel) glucagon HCl 1 mg solution for 1 mg subcut Q20M PRN hy poglycemia 09/12/23 Unknown History injection (Glucagon (HCl) Emergency Kit) sertraline 50 mg tablet 50 mg PO QAM Depression 08/16 05/08 Unknown History insulin glargine 100 unit/mL (3 10 unit (0.1 mL) subcu t BID 04/12/24 Unknown Rx mL) subcutaneous pen (Lantus diabetes #15 mL Solostar U-100 Insulin) insulin lispro 100 unit/mL See Protocol subcut .COMPLE X 04/12/24 Unknown Rx subcutaneous pen (Humalog KwikPen diabetes #15 mL (U-100) Insulin) pen needle, diabetic 32 gauge x #150 ea 04/12/24 Unkno wn Rx (BD Ultra-Fine Abbie Pen Needle) atorvastatin 10 mg tablet 10 mg PO DAILY #30 tabs 05/17 09/07 Unknown Rx cephalexin 500 mg tablet 500 mg PO BID #10 tabs 06/14 Unknown Rx linezolid 600 mg tablet 600 mg PO BID #10 tabs 06/14 Unknown Rx losartan 50 mg tablet (Cozaar) 50 mg PO DAILY #30 tabs 06/14/24 Unknown Rx sertraline 50 mg tablet (Zoloft) 50 mg PO DAILY #30 ta bs 06/14/24 Unknown Rx Allergy/AdvReac Type Severity Reaction Status Date / Time diphenhydramine (From Allergy Hives Verified 10/08/24 17:51 Benadryl) Surgical History (Updated 10/09/24 @ 16:[address] Jeremy Richardson MD) H/O bilateral cataract extraction History of partial hysterectomy Social History Smoking Status: Current every day smoker tobacco type: cigarettes and e- cigarettes alcohol intake: former substance use type: amphetamines Review of Systems (Anesthesia) ROS Narrative System reviewed and no additional complaints, except as documented.
--- NOTE | 2024-10-09 16:45 | EGD_PTH ---
PATIENT: SARWAT LEY LOC: [facility] U#:[id number] AGE/SX: 59/F ROOM: [facility]09 RE10/08/[address]: Dr. Mayuri García DO : 1965 BED: 1 DIS: 10/12/2024 SPEC #: [id number] RECD: 10/10/24 10:22 STATUS: JEANNETTE REQ #: [id number] RICARDO: 10/09/24 16:[address]: Klever Carrasco DEPT: SURGICAL PATHOLOGY RECD BY: Paula Scott ENTERED: 10/10/24 10:38 SP TYPE: EGD BIOPSY OT DR: MD Dr. Ld Fountain DO Dr. Holly Wyneski, MD Dr. Kathryn Lee, DO Dr. Paige Pierce, MD Tissues: Esophagus, NOS Procedures: Special Stain Group I Surgery Specimen Level IV GMS Stain (control) HEADER OPERATION: EGD PRE-OP DIAGNOSIS: Upper GI bleed TISSUE SUBMITTED: Random esophagus biopsy MICROSCOPIC DIAGNOSIS [place], random biopsy: Fragments of squamous epithelium with ulceration and acute inflammation. See comment. 10/11/2024 COMMENT Special stain for fungi is negative for organisms; matched control is appropriate. MICROSCOPIC DESCRIPTION Slides are reviewed. GROSS DESCRIPTION Received in fixative is one container labeled with the patient's name and designated Random esophagus biopsy. The specimen consists of one irregular fragment of light mercer soft tissue that measures 0.5 x 0.2 x 0.1 cm. The specimen is totally submitted in one cassette. 10/10/2024 TC:2 CPT:22407,61789
--- NOTE | 2024-10-09 17:36 | PCM.PN.BLA ---
Progress Note Patient will undergo an upper endoscopy today. She has been n.p.o. since midnight. Physical Exam Const alert, oriented x3, no apparent distress and healthy appearing General Appearance: cooperative GI normal to inspection, nondistended, normoactive bowel sounds, soft to palpation, non-tender and non-distended Percussion: normal to percussion Rectal Exam: deferred Assessment & Plan Assessment/Plan (1) DKA (diabetic ketoacidosis): QUALIFIERS: Diabetes mellitus type: type 2 Diabetes mellitus complication detail: without coma Qualified Code(s): E11.10 - Type 2 diabetes mellitus with ketoacidosis without coma PLAN: Plan 59-year-old with DKA presenting with nausea and vomiting with concern for hematemesis -Patient with over a week of nausea and vomiting reportedly with dark vomit that appeared black -Cannot rule out upper GI bleed, repeat H&H -Patient on PPI drip -Patient will undergo an upper endoscopy. She was explained alternatives, risk and benefits include not withstanding bleeding, infection, sepsis, perforation, need for emergent urgent . She will have an ASA of 3. Visit Charges Inpatient E&M: 60401 Subs Hosp L2
--- NOTE | 2024-10-09 17:54 | OP.CCLET_ITS ---
10/09/2024 Sherrie Baez Md Re : Upper GI endoscopy procedure for Artis Lane Dear Dr. Baez This procedure was performed on Wednesday, October 09, 2024. My impressions and recommendations are as follows: Impressions : - LA Grade D erosive esophagitis with no bleeding. Biopsied. - Normal stomach. - No gross lesions in the first portion of the duodenum. Recommendations : - Return patient to ICU for ongoing care. - Advance diet as tolerated. - Continue present medications. - Await pathology results. - Use Protonix (pantoprazole) 80 mg IV daily. My findings are described in the full procedure note, which is enclosed. If I can be of further assistance, please feel free to contact me at . Sincerely, Klever Carrasco, 10/09/2024 5:54:30 PM This report has been signed electronically.
--- NOTE | 2024-10-09 17:54 | OP.EGD_ITS ---
Patient Name: Artis Lane Procedure Date: 10/09/2024 5:18 PM Date of : 1965 Age: 59 Procedure: Upper GI endoscopy Indications: Hematemesis Providers: Klever Carrasco DO Referring MD: Ld George Do Medicines: Monitored Anesthesia Care Patient Profile: This is a 59 year old female. Refer to note in patient chart for documentation of history and physical. Patient has symptoms of acute vomiting. Complications: No immediate complications. Procedure: Pre-Anesthesia Assessment: - Prior to the procedure, a History and Physical was performed, and patient medications and allergies were reviewed. The patient is competent. The risks and benefits of the procedure and the sedation options and risks were discussed with the patient. All questions were answered and informed consent was obtained. Patient identification and proposed procedure were verified by the physician in the pre-procedure area. Mental Status Examination: alert and oriented. Airway Examination: normal oropharyngeal airway and neck mobility. Respiratory Examination: clear to auscultation. CV Examination: normal. Prophylactic Antibiotics: The patient does not require prophylactic antibiotics. Prior Anticoagulants: The patient has taken no anticoagulant or antiplatelet agents except for NSAID medication. ASA Grade Assessment: II - A patient with mild systemic disease. After reviewing the risks and benefits, the patient was deemed in satisfactory condition to undergo the procedure. The anesthesia plan was to use monitored anesthesia care (MAC). Immediately prior to administration of medications, the patient was re-assessed for adequacy to receive sedatives. The heart rate, respiratory rate, oxygen saturations, blood pressure, adequacy of pulmonary ventilation, and response to care were monitored throughout the procedure. The physical status of the patient was re-assessed after the procedure. After obtaining informed consent, the endoscope was passed under direct vision. Throughout the procedure, the patient's blood pressure, pulse, and oxygen saturations were monitored continuously. The gastroscope was introduced through the mouth, and advanced to the second part of duodenum. The upper GI endoscopy was accomplished without difficulty. The patient tolerated the procedure well. Scope In: 5:46:39 PM Scope Out: 5:49:43 PM Total Procedure Duration Time 0 hours 3 minutes 4 seconds Findings: LA Grade D (one or more mucosal breaks involving at least 75% of esophageal circumference) esophagitis with no bleeding was found 30 to 40 cm from the incisors. Biopsies were taken with a cold forceps for histology. Verification of patient identification for the specimen was done. Estimated blood loss was minimal. The entire examined stomach was normal. No gross lesions were noted in the first portion of the duodenum. Impression: - LA Grade D erosive esophagitis with no bleeding. Biopsied. - Normal stomach. - No gross lesions in the first portion of the duodenum. Recommendation: - Return patient to ICU for ongoing care. - Advance diet as tolerated. - Continue present medications. - Await pathology results. - Use Protonix (pantoprazole) 80 mg IV daily. Procedure Code(s): --- Professional --- 61952, Esophagogastroduodenoscopy, flexible, transoral; with biopsy, single or multiple CPT copyright 2021 [employer]. All rights reserved. The codes documented in this report are preliminary and upon auger machine offbearer review may be revised to meet current compliance requirements. Klever Carrasco DO 10/09/2024 5:54:30 PM This report has been signed electronically. Number of Addenda: 0 Note Initiated On: 10/09/2024 5:18 PM
--- NOTE | 2024-10-09 18:01 | PCM.POST.ANE ---
Anesthesia: Postop Eval I Current Vital Signs Temperature: 97.5 F Pulse Rate: 91 Blood Pressure: 120/77 Respiratory Rate: 18 Pulse Ox: 97 Oxygen Delivery Method: Room Air Assessment Airway patent: Yes Spontaneous unlabored respirations: Yes Mental status: Awake and Calm nausea: No Vomiting: No Anesthesia Complication: No Fluid Hydration Crystalloid volume administer (ml): 10 Total IV fluid infused: 10 Progress Note Anesthesia document: Postop Eval 1 completed: Yes
--- NOTE | 2024-10-09 18:22 | PCM.POSTANE2 ---
Anesthesia Postop Eval I Sum Postop Eval Completion status Anesthesia document: Postop Eval 1 completed: Yes Anesthesia Postop Eval I Summary Anesthesia Postop Eval I Summary: Anesthesia Postop Eval I: Assessment Summary Airway patent Yes 10/09/24 18:02 Spontaneous unlabored Yes 10/09/24 18:02 respirations Mental status Awake,Calm 10/09/24 18:02 nausea No 10/09/24 18:02 Vomiting No 10/09/24 18:02 Anesthesia Postop Eval I: Fluid Summary Crystalloid volume administer 10 10/09/24 18:02 (ml) Colloids volume administered ( ml) Blood Product volume administered (ml) Total IV fluid infused 10 10/09/24 18:02 Anesthesia Postop Eval I: Summary Notes Anesthesia Complication No 10/09/24 18:02 Anesthesia Complication Comment: Post-operative progress note Anesthesia: Postop Eval II Evaluation Mental status: Awake and Calm Pain Level: 0 nausea: No Vomiting: No Complications Anesthesia Complication: No
[2024-10-09 18:28] LABS: Bedside Glucose 346 mg/dL (74-106)
[2024-10-09 18:36] LABS: Bedside Glucose 400 mg/dL (74-106)
[2024-10-09] MEDS: 0.9% Normal Saline (1000mL) 1,000 ML 75 ML IV (18:55)
[2024-10-09 19:05] LABS: Hematocrit 31.9 % (37-47); Hemoglobin 10.3 g/dL (12.0-15.0); Mean Corp Hgb Conc 32.3 g/dL (32-36); Mean Corpuscular Hgb 30.7 pg (27.0-32.0); Mean Corpuscular Volume 94.9 fL (81-99); Mean Platelet Vol. 11.7 fl (6.2-12.0); Platelet Count 292 K/mm3 (150-450); RBC Distribution Width CV 13.2 % (11.6-14.6); RBC Distribution Width SD 45.1 fl (35.1-43.9); Red Blood Count 3.36 M/mm3 (4.2-5.4)
[2024-10-09 19:47] LABS: Anion Gap 16 (5-15); BUN 52 mg/dL (4-19); BUN/Creat Ratio 25.6 RATIO (10-20); Calcium 8.6 mg/dL (7.6-11.0); Carbon Dioxide 16.8 mmol/L (22.0-29.0); Chloride 109 mmol/L (96-108); EST Glomerular Filtration Rate 28 (>60); Estimated Creatinine Clearance 23.91 ml/min; Glucose 392 mg/dL (70-99); Potassium 4.4 mmol/L (3.3-5.1); Sodium Level 142 mmol/L (133-145)
[2024-10-09] MEDS: Insulin Glargine-YFGN 100 UNIT/ML Pen 10 UNIT SC (20:15)
[2024-10-09] MEDS: Insulin Lispro 100 UNIT/ML INSULN.PEN SC (20:17)
--- NOTE | 2024-10-09 20:36 | NURSING ---
2015: lantus 10units, and Humalog 6units SSI administered for BG 392, Anion GAP 16. Insulin drip continues @ 1.2units/hr. Will turn off drip in 2 hours per Drip protocol. Patient given SF Jello, peanutbutter and jerardo crackers with frozen macaroni meal. Tolerating well
[2024-10-09] MEDS: Pantoprazole Sodium 40 MG in 0.9% Normal Saline (100mL MB+) 100 ML 330 MG IV (21:16)
--- NOTE | 2024-10-09 21:34 | NURSING ---
2130: blood glucose 385
[2024-10-09 21:46] LABS: Bedside Glucose 385 mg/dL (74-106)
[2024-10-10] VITALS (14 sets, daily range): BP systolic 112–162; BP diastolic 44–87; PULSE 76–99; RESP 8–25; TEMP 36.6–37; O2SAT 93–100; BMI 18.1
[2024-10-10 00:24] LABS: Bedside Glucose 315 mg/dL (74-106)
[2024-10-10 04:05] LABS: Hematocrit 30.8 % (37-47); Hemoglobin 10.4 g/dL (12.0-15.0); Mean Corp Hgb Conc 33.8 g/dL (32-36); Mean Corpuscular Volume 91.7 fL (81-99); Mean Platelet Vol. 11.6 fl (6.2-12.0); Platelet Count 280 K/mm3 (150-450); RBC Distribution Width CV 13.1 % (11.6-14.6); RBC Distribution Width SD 43.4 fl (35.1-43.9); Red Blood Count 3.36 M/mm3 (4.2-5.4); White Blood Count 11.8 K/mm3 (4.4-11.0)
[2024-10-10 04:49] LABS: BUN 42 mg/dL (4-19); BUN/Creat Ratio 22.6 RATIO (10-20); Creatinine, Serum 1.9 mg/dL (0.6-1.0); EST Glomerular Filtration Rate 31 (>60); Estimated Creatinine Clearance 22.55 ml/min; Glucose 306 mg/dL (70-99); Thyroid Stim Hormone (TSH) 0.595 uIU/mL (0.300-4.200)
[2024-10-10 06:18] LABS: Calcium,Total 8.3 mg/dL (7.6-11.0)
[2024-10-10 06:19] LABS: Anion Gap 14 (5-15); Carbon Dioxide 19.9 mmol/L (21.0-32.0); Chloride 106 mmol/L (98-107); Potassium 3.9 mmol/L (3.5-5.1); Sodium Level 140 mmol/L (136-145)
--- NOTE | 2024-10-10 08:07 | PN.HOSP_ITS ---
Reason for Visit Reason for Visit: Nausea/vomiting/malaise/insulin noncompliance Subjective Subjective No complaints today. Patient states she is hungry. We did discuss insulin compliance and importance. She voiced understanding. No further hematemesis Objective Data Objective Data Vital Signs: Vital Signs Temp Pulse Resp BP Pulse Ox O2 Del Method O2 Flow Rate 98.6 F 80 16 149/65 H 96 Room Air 2 10/10/24 07:00 10/10/24 07:00 10/10/24 07:00 10/10/24 07:00 10/10/24 07:00 10/10/24 07:00 10/09/24 18:17 Oxygen Flow Rate (L/min) 2 Oxygen Delivery Method Room Air Weight: 44.815 kg Body Mass Index (BMI) 18.1 Intake & Output: Intake and Output for Last 24 Hours 10/08/24 10/09/24 10/10/24 23:59 23:59 23:59 Intake Total 2292.90 / 2292.90 7285.10 / 7285.10 410 / 410 Output Total 1350 / 1350 475 / 475 Balance 2292.90 / 2292.90 5935.10 / 5935.10 -65 / -65 Lab / Micro Data 10/10/24 03:50 10/10/24 03:50 Labs: Laboratory Results - last 24 hr 10/09/24 08:28: POC Glucose 413 H 10/09/24 09:55: Sodium 142, Potassium 4.4, Chloride 112 H, Carbon Dioxide 17.4 L , Anion Gap 13, BUN 61 H, Creatinine 1.9 H, Est GFR (MDRD) Af Amer 38 L, Est GFR (MDRD) Non-Af 31 L, BUN/Creatinine Ratio 31.5 H, Glucose 409 H, Calcium 8.2 10/09/24 10:00: Urine Test Negative 10/09/24 11:16: POC Glucose 372 H 10/09/24 14:22: POC Glucose 340 H 10/09/24 14:30: Sodium 141, Potassium 4.5, Anion Gap 13, BUN 58 H, Creatinine 1.9 H, Estim Creat Clear Calc 25.16, Est GFR (MDRD) Non-Af 29 L, BUN/Creatinine Ratio 29.6 H, Glucose 404 H, Calcium 8.5 10/09/24 16:01: POC Glucose 346 H 10/09/24 18:18: POC Glucose 400 H 10/09/24 18:45: WBC 16.0 H, RBC 3.36 L, Hgb 10.3 L, Hct 31.9 L, MCV 94.9 D, MCH 30.7, MCHC 32.3 D, RDW Std Deviation 45.1 H, RDW Coeff of Danie 13.2, Plt Count 292, MPV 11.7, Sodium 142, Potassium 4.4, Anion Gap 16 H, BUN 52 H, Creatinine 2.0 H, Estim Creat Clear Calc 23.91, Est GFR (MDRD) Non-Af 28 L, BUN/Creatinine Ratio 25.6 H, Glucose 392 H, Calcium 8.6 10/09/24 21:28: POC Glucose 385 H 10/10/24 00:06: POC Glucose 315 H 10/10/24 03:50: WBC 11.8 H, RBC 3.36 L, Hgb 10.4 L, Hct 30.8 L, MCV 91.7, MCH 31.0, MCHC 33.8, RDW Std Deviation 43.4, RDW Coeff of Danie 13.1, Plt Count 280, MPV 11.6, Sodium 140, Potassium 3.9, Chloride 106, Carbon Dioxide 19.9 L, Anion Gap 14, BUN 42 H, Creatinine 1.9 H, Estim Creat Clear Calc 22.55, Est GFR (MDRD) Af Amer Not Reportable, Est GFR (MDRD) Non-Af 31 L, BUN/Creatinine Ratio 22.6 H, Glucose 306 H, Calcium 8.3, TSH 0.595 Micro: Microbiology 10/08/24 19:30 Urine Catheter - Catheter Urine Culture - Preliminary Escherichia coli Coag Negative Staph 10/08/24 23:45 Nasal Secretion MRSA (PCR) - Final 10/08/24 19:27 Mucosa - Nose SARS-CoV-2, Influenza & RSV (PCR) - Final Physical Exam Const alert, oriented x3 and no apparent distress; Negative for average body habitus, healthy appearing or well nourished Constitutional Narrative: Thin, middle-aged, white female, sitting up in bed, appears comfortable, appears older than stated age, does not appear toxic HEENT head/scalp atraumatic, moist oral mucous membranes and oropharynx normal HEENT Narrative: Dentures in place, Mallampati is 1, no thrush Resp normal respiratory effort, no retractions, no use of accessory muscles and clear to auscultation bilaterally Auscultation: Negative for rales, rhonchi or wheezes Cardio regular rate, regular rhythm, S1 normal heart sound, S2 normal heart sound, no murmurs, no rub, no gallops and no clicks GI normal to inspection, nondistended, normoactive bowel sounds, soft to palpation and non-tender GI Narrative: Abdomen is scaphoid Extremity no clubbing, cyanosis or edema Extremity Narrative: Pedal pulses are 2+ Neuro oriented x3, moves all extremities and no focal motor deficits Speech: speech normal Psych Psych Narrative: Affect is slightly flat however patient makes good eye contact and interacts appropriately Assessment & Plan Assessment/Plan (1) Acute cystitis without hematuria: (2) Medical non-compliance: (3) DKA (diabetic ketoacidosis): QUALIFIERS: Diabetes mellitus type: type 2 Diabetes mellitus complication detail: without coma Qualified Code(s): E11.10 - Type 2 diabetes mellitus with ketoacidosis without coma (4) GARRET (acute kidney injury): (5) Coffee ground emesis: (6) Metabolic acidosis: (7) Hyperkalemia: PLAN: Plan DKA -Resolved -Had acidosis with anion gap of 28 and serum bicarb of 14 on presentation -Blood glucose was over 1000 -VBG showed a pH of 7.26 -Insulin drip discontinued [id number] -A1c on admission is pending however previous A1c's have not been well- controlled -Patient with known noncompliance -Will increase insulin to 20 units twice daily for ongoing hyperglycemia with fasting blood sugar this morning at 306 -Continue SSI -Continue carb controlled diet E. coli/coag negative staph UTI/bladder mass -Will continue Zosyn with plans to transition to oral agent at discharge and completion of antibiotics for complicated UTI given bladder mass -Discontinue linezolid -Sandy catheter discontinued and postvoid residual ordered -Per urology as long as postvoid residuals less than 250 okay to leave without a catheter -Urology has seen the patient and recommended outpatient cystoscopy after discharge as there is concern for possible bladder cancer Coffee ground emesis with grade D esophagitis -Continue IV Protonix 40 IV twice daily -EGD done on 10/09/2024 and showed significant esophagitis-biopsies taken -Will plan to transition to oral Protonix 40 mg p.o. twice daily in the next 24 to 48 hours -Hemoglobin has stabilized -Repeat CBC in a.m. Leukocytosis -Slowly resolving and almost normalized at this point -Repeat CBC in a.m. Chronic anemia -Hemoglobin is relatively stable when compared to previous -Was markedly dehydrated on presentation with DKA having hemoglobin of 12.6 so drop is likely dilutional and appropriate -Repeat CBC in a.m. GARRET on CKD stage IIIb -Baseline serum creatinine appears to run between 1.8 and 2.0 -Peak creatinine on presentation was 3.54 -Resolved with IV fluids -Avoid nephrotoxins Hyperkalemia -Resolved Essential hypertension/hyperlipidemia -Add lisinopril and monitor renal function closely -May consider transition to ARB if medications can be verified -Restart home medications once verified Depression/anxiety -Will restart home antihypertensives as verified COPD -As needed nebulizers History of tobacco abuse -Remote -Encouraged ongoing cessation DVT prophylaxis -Given stable hemoglobin we will start subcu heparin 5000 twice daily CODE STATUS -full code verified on admission Charges/Coding Visit Charges Inpatient E&M: 90996 Subs Hosp L2
[2024-10-10] MEDS: Insulin Glargine-YFGN 100 UNIT/ML Pen 20 UNIT SC ×2 (08:48→21:00)
[2024-10-10] MEDS: Insulin Lispro 100 UNIT/ML INSULN.PEN SC ×4 (08:48→21:01)
[2024-10-10] MEDS: Pantoprazole Sodium 40 MG in 0.9% Normal Saline (100mL MB+) 100 ML 330 MG IV ×2 (08:49→20:57)
[2024-10-10] MEDS: Piperacil/Tazobactam 3.375 GM in 0.9% Normal Saline (50mL MB+) 50 ML IV ×2 (08:50→20:56)
[2024-10-10] MEDS: Lisinopril 10 MG Tablet PO (09:07)
[2024-10-10 09:13] LABS: Bedside Glucose 289 mg/dL (74-106)
[2024-10-10] MEDS: Linezolid 600 MG 600 MG/300 ML BAG 200 MG IV (09:44)
[2024-10-10] MEDS: 0.9% Normal Saline (1000mL) 1,000 ML 75 ML IV (11:33)
[2024-10-10 11:38] LABS: Bedside Glucose 293 mg/dL (74-106)
[2024-10-10] MEDS: BENZOCAINE/MENTHOL 1 LOZENGE MUCOUS MEM ×2 (11:41→17:10)
--- NOTE | 2024-10-10 12:00 | CASEMGMT ---
TESSY MONTESINOS NOTE: TESSY MONTESINOS to room. Pt resting in bed. Introduced self and role. Discussed discharge planning. Pt states she is awfully weak and does not know if she will be safe to discharge home. She states she was @ [facility] for about 3 yrs and states she just discharged from there about 3 months ago. She lives w/her ex- [id number]. She uses a walker @ times and just recently got a cane that she has been using. She states she has been getting up w/staff assist while in the hospital to [facility]. Pt states, if SNF is recommended, she would be amenable to going. Discussed HHC, if she is able to safely discharge home. She states her ex- [id number] does not like people coming into the home stating, She gets real stressed out wanting to clean. She would be interested in OP therapy, but states transportation would be an issue. Made aware of [facility] and [facility] van transportation and she states she would like to do that, if she does not end up discharging to a SNF. She was made aware she would need to be able to get in/out of van independently, as staff is not able to assist her. She voices understanding. She denies having other discharge needs/concerns at this time. Rebeca SAVAGE RN, CM
--- NOTE | 2024-10-10 13:34 | CASEMGMT ---
Social Work Per therapy, pt may benefit from SNF placement. SW met with pt who states she lives at [facility] for 3 years and has been home for the last 3-6 months. SW spoke with pt regarding discharge plan and pt states she plans to speak with her ex this afternoon and make a decision on home vs SNF. A list of SNF providers including quality and resource use data and consistent with the patient?s preferred geographic region, medical needs, and insurance network were provided from the [employer]. Pt states if she returns to SNF, choice will likely be to [facility]. Pt to meet with ex today to make decision on discharge plan. SW to follow up tomorrow. EMILIE Rios
[2024-10-10 16:43] LABS: Bedside Glucose 204 mg/dL (74-106)
--- NOTE | 2024-10-10 16:50 | PCM.CONS.GEN ---
Assessment & Plan Assessment/Plan (1) Acute cystitis without hematuria: (2) Medical non-compliance: (3) Uncontrolled type 2 diabetes mellitus with hyperglycemia: (4) Bladder mass: PLAN: Plan Continue antibiotic coverage for urinary tract infection Postvoid residual, if less than 250cc okay to leave without catheter She will need a cystoscopic evaluation and pelvic exam in the office after discharge and this was discussed with her and the importance of it was discussed including the possibility that she may have a bladder cancer. The irregularity of the bladder wall may be secondary to other things besides a mass including debris, trabeculation from longstanding uncontrolled diabetes and overactive bladder. Either way she will require cystoscopy for these infections that she continues to have. HPI Consult Data Date of Consult: 10/10/24 HPI Narrative Reason for Consultation: Bladder irregularity on CT imaging HPI Narrative: SARWAT LEY, is a 59 F who was admitted from the emergency the room with a diagnosis of diabetic ketoacidosis, acute kidney injury, upper GI bleed, urinary tract infection. She has been resuscitated and is being managed with antibiotic coverage. She reports that she is feeling much better today. I saw her when she was admitted with emphysematous cystitis in the fall. She did not show up for follow-up in the office. I discussed with her today the importance of following up for cystoscopic evaluation of her bladder. She reports that she will come in for evaluation. She denies hematuria but has been having urgency with incontinence recently. She has a longstanding history of smoking. 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) Hyperlipidemia, unspecified Anemia due to blood loss, chronic Emphysema, unspecified Diabetes mellitus, type 2 Debility Hyperglycemia History of COPD Uncontrolled type 2 diabetes mellitus Weight loss Dysphagia Anxiety Depression Substance abuse Smoker Hypertension Smoking addiction COPD (chronic obstructive pulmonary disease) Uncontrolled type 2 diabetes mellitus Home Medications ?Medication ?Instructions ?Recorded ?Last Taken ?Type losartan 50 mg tablet 50 mg PO DAILY 05/02/23 05/01/23 History mirtazapine 15 mg tablet (Remeron) 15 mg PO QHS #1 TAB 05/04/23 Unknown Rx acetaminophen 325 mg capsule 650 mg PO QHS pain 09/12/23 Unknown History (Tylenol) atorvastatin 10 mg tablet 10 mg PO QHS 09/12/23 Unknown History dextrose 40 % oral gel (Glucose 10 g PO Q15M PRN hypoglycemia 09/12/23 Unknown History Gel) glucagon HCl 1 mg solution for 1 mg subcut Q20M PRN hypoglycemia 09/12/23 Unknown History injection (Glucagon (HCl) Emergency Kit) sertraline 50 mg tablet 50 mg PO QAM Depression 09/12/23 Unknown History insulin glargine 100 unit/mL (3 10 unit (0.1 mL) subcut BID 04/12/24 Unknown Rx mL) subcutaneous pen (Lantus diabetes #15 mL Solostar U-100 Insulin) insulin lispro 100 unit/mL See Protocol subcut .COMPLEX 04/12/24 Unknown Rx subcutaneous pen (Humalog KwikPen diabetes #15 mL (U-100) Insulin) pen needle, diabetic 32 gauge x #150 ea 04/12/24 Unknown Rx 5/32 (BD Ultra-Fine Abbie Pen Needle) atorvastatin 10 mg tablet 10 mg PO DAILY #30 tabs 06/14/24 Unknown Rx cephalexin 500 mg tablet 500 mg PO BID #10 tabs 06/14/24 Unknown Rx linezolid 600 mg tablet 600 mg PO BID #10 tabs 06/14/24 Unknown Rx losartan 50 mg tablet (Cozaar) 50 mg PO DAILY #30 tabs 06/14/24 Unknown Rx sertraline 50 mg tablet (Zoloft) 50 mg PO DAILY #30 tabs 06/14/24 Unknown Rx Allergy/AdvReac Type Severity Reaction Status Date / Time diphenhydramine (From Allergy Hives Verified 10/08/24 17:51 Benadryl) Surgical History H/O bilateral cataract extraction History of partial hysterectomy Social History Smoking Status: Current every day smoker tobacco type: cigarettes and e-cigarettes alcohol intake: former substance use type: amphetamines ROS Constitutional Constitutional: Reports lethargy Eyes Eyes: Reports systems reviewed and no addt'l complaints, except as documented ENT HEENT: Reports systems reviewed and no addt'l complaints, except as documented Cardiovascular Cardiovascular: Reports nausea; Denies chest pain Respiratory/Chest Respiratory/Chest: Denies inability to speak or shortness of breath at rest Gastrointestinal Gastrointestinal: Reports nausea and vomiting Genitourinary Genitourinary: Reports low back pain, nocturia, urinary frequency and urinary incontinence; Denies burning urination, dysuria or hematuria Musculoskeletal Musculoskeletal: Reports systems reviewed and no addt'l complaints, except as documented Integumentary Integumentary: Reports systems reviewed and no addt'l complaints, except as documented Neurologic Neurologic: Reports systems reviewed and no addt'l complaints, except as documented Psychiatric Psychiatric: Reports systems reviewed and no addt'l complaints, except as documented Endocrine Endocrinology: Reports systems reviewed and no addt'l complaints, except as documented Hematologic/Lymphatic Hematologic/Lymphatic: Reports systems reviewed and no addt'l complaints, except as documented Allergic/Immunologic Allergic/Immunologic: Reports systems reviewed and no addt'l complaints, except as documented Physical Exam Const alert, oriented x3 and no apparent distress General Appearance: cooperative and comfortable HEENT normocephalic, head/scalp atraumatic, hearing grossly normal bilaterally, external ears normal and external nose normal Eyes General Eye: normal appearance of both eyes Neck supple General: trachea midline Lymph Lymphatic: no lymphedema noted Chest inspection of chest normal Chest: symmetrical chest wall rise Resp normal respiratory effort and no retractions Effort and Inspection: able to speak in complete sentences and symmetric chest movement Cardio regular rate GI soft to palpation and non-distended Narrative: No Sandy catheter Back/Spine no CVA tenderness Extremity General Extremity: normal exam except as noted Skin no rashes or lesions noted Neuro oriented x3, CN's II-XII intact bilaterally and moves all extremities Psych mental status grossly normal Lab / Micro Data 10/10/24 03:50 10/10/24 03:50 Labs: Laboratory Results - last 24 hr 10/09/24 16:01: POC Glucose 346 H 10/09/24 18:18: POC Glucose 400 H 10/09/24 18:45: WBC 16.0 H, RBC 3.36 L, Hgb 10.3 L, Hct 31.9 L, MCV 94.9 D, MCH 30.7, MCHC 32.3 D, RDW Std Deviation 45.1 H, RDW Coeff of Danie 13.2, Plt Count 292, MPV 11.7, Sodium 142, Potassium 4.4, Anion Gap 16 H, BUN 52 H, Creatinine 2.0 H, Estim Creat Clear Calc 23.91, Est GFR (MDRD) Non-Af 28 L, BUN/Creatinine Ratio 25.6 H, Glucose 392 H, Calcium 8.6 10/09/24 21:28: POC Glucose 385 H 10/10/24 00:06: POC Glucose 315 H 10/10/24 03:50: WBC 11.8 H, RBC 3.36 L, Hgb 10.4 L, Hct 30.8 L, MCV 91.7, MCH 31.0, MCHC 33.8, RDW Std Deviation 43.4, RDW Coeff of Danie 13.1, Plt Count 280, MPV 11.6, Sodium 140, Potassium 3.9, Chloride 106, Carbon Dioxide 19.9 L, Anion Gap 14, BUN 42 H, Creatinine 1.9 H, Estim Creat Clear Calc 22.55, Est GFR (MDRD) Af Amer Not Reportable, Est GFR (MDRD) Non-Af 31 L, BUN/Creatinine Ratio 22.6 H, Glucose 306 H, Calcium 8.3, TSH 0.595 10/10/24 08:47: POC Glucose 289 H 10/10/24 11:20: POC Glucose 293 H 10/10/24 16:08: POC Glucose 204 H Micro: Microbiology 10/08/24 19:30 Urine Catheter - Catheter Urine Culture - Preliminary Escherichia coli Coag Negative Staph
--- NOTE | 2024-10-10 19:49 | PN_ITS ---
Progress Note Patient underwent an upper endoscopy for hematemesis. Now that her blood sugar is under control, she is not having anymore nausea or vomiting Physical Exam Const alert, oriented x3, no apparent distress and healthy appearing General Appearance: cooperative GI normal to inspection, nondistended, normoactive bowel sounds, soft to palpation, non-tender and non-distended Percussion: normal to percussion Rectal Exam: deferred Assessment & Plan Assessment/Plan (1) DKA (diabetic ketoacidosis): QUALIFIERS: Diabetes mellitus type: type 2 Diabetes mellitus complication detail: without coma Qualified Code(s): E11.10 - Type 2 diabetes mellitus with ketoacidosis without coma PLAN: Plan 59-year-old with DKA presenting with nausea and vomiting with concern for hematemesis -Patient with over a week of nausea and vomiting reportedly with dark vomit that appeared black -Cannot rule out upper GI bleed, repeat H&H -Patient on PPI drip - 10/10/2024- Patient is doing well. Patients hgb seems to be stable. Findings from egd: Findings: LA Grade D (one or more mucosal breaks involving at least 75% of esophageal circumference) esophagitis with no bleeding was found 30 to 40 cm from the incisors. Biopsies were taken with a cold forceps for histology. Verification of patient identification for the specimen was done. Estimated blood loss was minimal. The entire examined stomach was normal. No gross lesions were noted in the first portion of the duodenum. Impression: - LA Grade D erosive esophagitis with no bleeding. Biopsied. - Normal stomach. - No gross lesions in the first portion of the duodenum. Recommendation: - Return patient to ICU for ongoing care. - Advance diet as tolerated. - Continue present medications. - Await pathology results. - Use Protonix (pantoprazole) 80 mg IV daily. Visit Charges Inpatient E&M: 75986 [facility] L3
[2024-10-10] MEDS: Heparin Injection (Vial) 5,000 UNIT/ML VIAL 5000 UNIT SC (21:00)
[2024-10-10 21:10] LABS: Bedside Glucose 161 mg/dL (74-106)
[2024-10-11 03:25] VITALS: BP 131/56; PULSE 84; RESP 15; TEMP 36.8; O2SAT 99
[2024-10-11 04:17] VITALS: BMI 17.4
[2024-10-11] MEDS: Piperacil/Tazobactam 3.375 GM in 0.9% Normal Saline (50mL MB+) 50 ML IV ×3 (04:56→21:54)
[2024-10-11 07:44] LABS: Bedside Glucose 129 mg/dL (74-106)
--- NOTE | 2024-10-11 08:06 | PN.HOSP_ITS ---
Reason for Visit Reason for Visit: Nausea and vomiting/malaise/insulin noncompliance Subjective Subjective No issues overnight. Patient's appetite improving. Patient is agreeable to plan placement at discharge and I did discuss with her that case management would be in to further address this with her. She voiced understanding. We did discuss the need to follow-up with Dr. Rodriguez in the outpatient setting for cystoscopy. She voiced understanding. Will make referral to discharge. Objective Data Objective Data Vital Signs: Vital Signs Temp Pulse Resp BP Pulse Ox O2 Del Method O2 Flow Rate 98.2 F 84 15 131/56 H 99 Room Air 2 10/11/24 03:10/11/24 03:10/11/24 03:10/11/24 03:10/11/24 03:10/11/24 07:45 10/09/24 18:17 Oxygen Flow Rate (L/min) 2 Oxygen Delivery Method Room Air Weight: 42.819 kg Body Mass Index (BMI) 17.4 Intake & Output: Intake and Output for Last 24 Hours 10/09/24 10/10/24 10/11/24 23:59 23:59 23:59 Intake Total 7285.10 / 7285.10 2460 / 2710 1550 / 1550 Output Total 1350 / 1350 1675 / 1975 300 / 300 Balance 5935.10 / 5935.10 785 / 735 1250 / 1250 Lab / Micro Data 10/11/24 07:15 10/11/24 07:15 Labs: Laboratory Results - last 24 hr 10/10/24 08:47: POC Glucose 289 H 10/10/24 11:20: POC Glucose 293 H 10/10/24 16:08: POC Glucose 204 H 10/10/24 20:29: POC Glucose 161 H 10/11/24 07:26: POC Glucose 129 H Micro: Microbiology 10/08/24 19:30 Urine Catheter - Catheter Urine Culture - Final Escherichia coli Staphylococcus epidermidis 10/08/24 20:30 Blood Culture (Wb) - Anticubital Left Blood Culture - Preliminary No growth in 48 hours. 10/08/24 19:28 Blood Culture (Wb) - Anticubital Right Blood Culture - Preliminary No growth in 48 hours. 10/08/24 23:45 Nasal Secretion MRSA (PCR) - Final 10/08/24 19:27 Mucosa - Nose SARS-CoV-2, Influenza & RSV (PCR) - Final Physical Exam Const alert, oriented x3 and no apparent distress; Negative for average body habitus, healthy appearing or well nourished Constitutional Narrative: Thin, middle-aged, white female, sitting up in bed and watching television, appears comfortable, appears older than stated age, does not appear toxic General Appearance: cooperative HEENT normocephalic, head/scalp atraumatic and moist oral mucous membranes HEENT Narrative: Mallampati 2, no thrush Resp normal respiratory effort, no retractions, no use of accessory muscles and clear to auscultation bilaterally Resp Narrative: Diminished but clear Auscultation: Negative for rales, rhonchi or wheezes Cardio regular rate, regular rhythm, S1 normal heart sound, S2 normal heart sound, no murmurs, no rub, no gallops and no clicks GI normal to inspection, nondistended, normoactive bowel sounds, soft to palpation and non-tender GI Narrative: Abdomen is scaphoid Extremity no clubbing, cyanosis or edema Extremity Narrative: Pedal pulses are 2+ Neuro oriented x3, moves all extremities and no focal motor deficits Speech: speech normal Psych Psych Narrative: Affect remains flat and mood slightly depressed however eye contact is good and patient interacts appropriately Assessment & Plan Assessment/Plan (1) Acute cystitis without hematuria: (2) Medical non-compliance: (3) DKA (diabetic ketoacidosis): QUALIFIERS: Diabetes mellitus type: type 2 Diabetes mellitus complication detail: without coma Qualified Code(s): E11.10 - Type 2 diabetes mellitus with ketoacidosis without coma (4) GARRET (acute kidney injury): (5) Coffee ground emesis: (6) Metabolic acidosis: (7) Hyperkalemia: PLAN: Plan DKA -Resolved -Had acidosis with anion gap of 28 and serum bicarb of 14 on presentation -Blood glucose was over 1000 -VBG showed a pH of 7.26 -Insulin drip discontinued [id number] -A1c on admission is pending however previous A1c's have not been well- controlled -Patient with known noncompliance -Fasting sugars are better so we will decrease to 15 units twice daily and reassess fasting blood glucose tomorrow as well as trends -Continue SSI -Continue carb controlled diet E. coli/coag negative staph UTI/bladder mass -Continue Zosyn for another 24 hours and if remains stable will transition to oral medication for coverage to complete course for complicated UTI -Sandy catheter discontinued and postvoid residual ordered -Per urology as long as postvoid residuals less than 250 okay to leave without a catheter -Urology has seen the patient and recommended outpatient cystoscopy after discharge as there is concern for possible bladder cancer -Discussed for outpatient cystoscopy with patient after discharge and will make referral to see Dr. Rodriguez Coffee ground emesis with grade D esophagitis -Discontinue IV Protonix and transition to 40 mg p.o. twice daily -EGD done on 10/09/2024 and showed significant esophagitis -Biopsy results obtained and shows ulceration and acute inflammation -Hemoglobin relatively stable -Repeat CBC in a.m. Leukocytosis -Resolved Chronic anemia -Hemoglobin is stable -Repeat CBC in a.m. GARRET on CKD stage IIIb -Baseline serum creatinine appears to run between 1.8 and 2.0 -Peak creatinine on presentation was 3.54 -Current serum creatinine 1.6 -Resolved with IV fluids -Avoid nephrotoxins Essential hypertension/hyperlipidemia -Add lisinopril and monitor renal function closely -May consider transition to ARB if medications can be verified -Restart home medications once verified Depression/anxiety -Will restart home antihypertensives as verified -Have asked nursing to try and verify her medications COPD -As needed nebulizers History of tobacco abuse -Remote -Encouraged ongoing cessation DVT prophylaxis -Cont 5000 u BID CODE STATUS -full code verified on admission Charges/Coding Visit Charges Inpatient E&M: 59358 Subs Hosp L2
[2024-10-11 08:42] LABS: Hematocrit 29.1 % (37-47); Hemoglobin 9.8 g/dL (12.0-15.0); Mean Corp Hgb Conc 33.7 g/dL (32-36); Mean Corpuscular Hgb 31.1 pg (27.0-32.0); Mean Corpuscular Volume 92.4 fL (81-99); Mean Platelet Vol. 11.3 fl (6.2-12.0); Platelet Count 254 K/mm3 (150-450); RBC Distribution Width CV 12.9 % (11.6-14.6); RBC Distribution Width SD 43.2 fl (35.1-43.9); Red Blood Count 3.15 M/mm3 (4.2-5.4); White Blood Count 9.4 K/mm3 (4.4-11.0)
[2024-10-11 09:48] VITALS: BP 114/39; PULSE 84; RESP 18; TEMP 36.3; O2SAT 96
[2024-10-11] MEDS: Insulin Glargine-YFGN 100 UNIT/ML Pen 20 UNIT SC (09:50)
[2024-10-11] MEDS: Glucerna Shake 120 ML LIQUID PO ×3 (09:51→16:17)
[2024-10-11] MEDS: Heparin Injection (Vial) 5,000 UNIT/ML VIAL 5000 UNIT SC ×2 (09:52→21:54)
[2024-10-11] MEDS: Pantoprazole Sodium 40 MG in 0.9% Normal Saline (100mL MB+) 100 ML 330 MG IV (09:53)
[2024-10-11] MEDS: Insulin Glargine-YFGN 100 UNIT/ML Pen 15 UNIT SC ×2 (10:27→21:53)
[2024-10-11] MEDS: Insulin Lispro 100 UNIT/ML INSULN.PEN SC ×3 (11:33→21:54)
--- NOTE | 2024-10-11 11:35 | CASEMGMT ---
Social Work SW met with pt to discuss discharge plans. Pt going back and forth regarding returning home with mother in law or going to SNF. After much discussion, pt requesting referral be made to [facility]. Pt does not feel she is strong enough to return home at this time. DC photographer's assistant updated and referral to be sent. Plan: [facility], pending acceptance and precert EMILIE Rios
[2024-10-11 11:40] LABS: Carbon Dioxide 24.4 mmol/L (22.0-29.0); Chloride 107 mmol/L (96-108); Potassium 3.4 mmol/L (3.3-5.1); Sodium Level 141 mmol/L (133-145)
[2024-10-11 11:41] LABS: BUN 16 mg/dL (4-19); Calcium 7.8 mg/dL (7.6-11.0); Creatinine, Serum 1.6 mg/dL (0.6-1.0); EST Glomerular Filtration Rate 38 (>60); Estimated Creatinine Clearance 25.59 ml/min; Glucose 126 mg/dL (70-99)
[2024-10-11 11:53] LABS: Bedside Glucose 267 mg/dL (74-106)
--- NOTE | 2024-10-11 11:57 | CASEMGMT ---
Discharge Planning Referral sent to [facility]. Shabana Noriega DC Planning Asst.
[2024-10-11] MEDS: BENZOCAINE/MENTHOL 1 LOZENGE MUCOUS MEM (13:49)
[2024-10-11 13:51] VITALS: BP 110/71; PULSE 88; RESP 18; TEMP 37.3; O2SAT 99
[2024-10-11 14:00] VITALS: PULSE 80
--- NOTE | 2024-10-11 14:33 | CASEMGMT ---
[facility] has accepted and will submit for precert. SW updated. Shabana Noriega DC Planning Asst.
--- NOTE | 2024-10-11 16:22 | CASEMGMT ---
Social Work SW met with pt and informed that [facility] has accepted and precert has been accepted. Pt is understanding and agreeable with dc plan. Plan: [facility], pending precert EMILIE Rios
[2024-10-11 16:30] LABS: Bedside Glucose 294 mg/dL (74-106)
[2024-10-11 20:00] VITALS: BP 134/63; PULSE 87; RESP 16; TEMP 37; O2SAT 99
[2024-10-11] MEDS: Pantoprazole Sodium 40 MG Tablet PO (21:59)
[2024-10-11 22:18] LABS: Bedside Glucose 207 mg/dL (74-106)
[2024-10-11 23:27] LABS: Hemoglobin A1c 12.6 % (<=5.6)
[2024-10-12 02:27] VITALS: BMI 17.7
[2024-10-12 03:36] VITALS: BP 154/67; PULSE 84; RESP 16; TEMP 36.6; O2SAT 98
[2024-10-12] MEDS: Piperacil/Tazobactam 3.375 GM in 0.9% Normal Saline (50mL MB+) 50 ML IV (05:08)
[2024-10-12 07:41] LABS: Hematocrit 34.1 % (37-47); Mean Corp Hgb Conc 32.3 g/dL (32-36); Mean Corpuscular Hgb 29.6 pg (27.0-32.0); Mean Corpuscular Volume 91.9 fL (81-99); Mean Platelet Vol. 11.1 fl (6.2-12.0); Platelet Count 268 K/mm3 (150-450); RBC Distribution Width CV 12.8 % (11.6-14.6); RBC Distribution Width SD 43.5 fl (35.1-43.9); Red Blood Count 3.71 M/mm3 (4.2-5.4); White Blood Count 9.2 K/mm3 (4.4-11.0)
[2024-10-12 08:00] VITALS: BP 139/70; PULSE 81; RESP 18; TEMP 36.7; O2SAT 100
[2024-10-12] MEDS: Insulin Lispro 100 UNIT/ML INSULN.PEN SC ×3 (08:04→16:42)
[2024-10-12] MEDS: Glucerna Shake 120 ML LIQUID PO ×3 (08:05→16:44)
[2024-10-12] MEDS: Insulin Glargine-YFGN 100 UNIT/ML Pen 15 UNIT SC (08:06)
[2024-10-12 08:50] LABS: Bedside Glucose 350 mg/dL (74-106)
[2024-10-12] MEDS: Heparin Injection (Vial) 5,000 UNIT/ML VIAL 5000 UNIT SC (09:56)
[2024-10-12] MEDS: Pantoprazole Sodium 40 MG Tablet PO (09:57)
[2024-10-12] MEDS: Lisinopril 5 MG Tablet PO (09:58)
[2024-10-12 10:21] VITALS: O2SAT 99
--- NOTE | 2024-10-12 10:44 | CASEMGMT ---
Social Work SW participated in ICU rounds. SW spoke w/pt after rounds regarding discharge plan. SW explained that as per the therapy notes, pt is moving very well. SW explained that she may not be authorized by insurance to go to [facility]. SW educated pt to the difference between and skilled and intermediate stay at a usp, inquired if she would like us to pursue the intermediate level of care should insurance deny skilled. Pt states no, she would then just go home if she is not approved for a skilled stay, as her intention is to go only for short term. SW will keep pt informed as the day goes. KIMBERLY Evans
--- NOTE | 2024-10-12 10:54 | PCM.TXEXTCAR ---
Diet Diet Order/Speech Therapy: 10/09/24 19:23 Diet: Carbohydrate Controlled Routine Orders/Code Status Suppository Frequency: Daily PRN Routine Lab Work: CBC (1 week) and BMP (1 week) Code Status: Full Code DC O2, CPAP, BIPAP needs Home O2 Discharge instructions: No Suggestions for Active Care Change Position every (hours): 2 Hours to sit in a chair: 2 Times a day to sit in chair: 3 Therapies Weight Bearing: Full weight bearing Extremity Affected:: Bilateral Lower Physical Therapy: Eval and Treat Occupational Therapy: Eval and Treat Problem/Diagnosis (1) Acute cystitis without hematuria: Status: Acute Code(s): N30.00 - Acute cystitis without hematuria (2) Medical non-compliance: Status: Acute Code(s): Z91.199 - Patient's noncompliance with other medical treatment and regimen due to unspecified reason (3) DKA (diabetic ketoacidosis): Status: Acute Code(s): E11.10 - Type 2 diabetes mellitus with ketoacidosis without coma (4) GARRET (acute kidney injury): Status: Acute Code(s): N17.9 - Acute kidney failure, unspecified (5) Coffee ground emesis: Status: Acute Code(s): K92.0 - Hematemesis (6) Metabolic acidosis: Status: Acute Code(s): E87.20 - Acidosis, unspecified (7) Hyperkalemia: Status: Acute Code(s): E87.5 - Hyperkalemia Allergies/Procedures Done in Hospital Allergies diphenhydramine (From Benadryl) Allergy (Verified 10/08/24 17:51) Hives Procedures: EGD, EKG and - (Chest x-ray/CT abdomen and pelvis) Type of Care/Length of Stay Estimated LOS: Convalescent Care Less Than 30 days Type of Care Needed: Skilled Rehab Potential: Good Prognosis: Good Additional Orders/Day of Discharge Day of Discharge: 10/12/24 Dietary and Speech Recommendations Dietitian Recommendations/Changes: Recommend advanced diet as tolerated to 1600 calorie controlled/consistent carbohydrate diet. As diet is advanced recommend 120ml glucerna TID with medpass d/t poor PO intake DIRECTOR OF QUALITY IMPROVEMENT. Will monitor weight as available. Discharge Plan Admission Admit Date/Time: 10/08/24 22:36 Attending Provider: Mayuri García Primary Care Provider: Sherrie Baez Consulting Providers: Ld Chris; Celia Rodriguez; Vera Rincon Discharge Orders/Prescriptions Prescriptions: No Action atorvastatin 10 mg tablet 10 mg PO QHS glucagon HCl [Glucagon (HCl) Emergency Kit] 1 mg recon soln 1 mg subcut Q20M PRN (Reason: hypoglycemia) Rx Instructions: until target blood sugar attained dextrose [Glucose Gel] 40 % gel 10 g PO Q15M PRN (Reason: hypoglycemia) Rx Instructions: until symptoms of low blood sugar are controlled sertraline 50 mg tablet 50 mg PO QAM acetaminophen [Tylenol] 325 mg capsule 650 mg PO QHS losartan 50 mg tablet 50 mg PO DAILY mirtazapine [Remeron] 15 mg tablet 15 mg PO QHS Qty: 1 0RF linezolid 600 mg Tablet 600 mg PO BID Qty: 10 0RF cephalexin 500 mg tablet 500 mg PO BID Qty: 10 0RF atorvastatin 10 mg tablet 10 mg PO DAILY Qty: 30 0RF losartan [Cozaar] 50 mg tablet 50 mg PO DAILY Qty: 30 0RF sertraline [Zoloft] 50 mg tablet 50 mg PO DAILY Qty: 30 0RF insulin glargine [Lantus Solostar U-100 Insulin] 100 unit/mL (3 mL) insulin pen 10 unit subcut BID Qty: 15 0RF insulin lispro [Humalog KwikPen Insulin] 100 unit/mL insulin pen See Protocol subcut .COMPLEX Qty: 15 0RF Protocol: 4. Sliding Scale Insulin High-Med Dosing Condition: 150-199 mg/dl = 2 units Condition: 200-259 mg/dl = 4 units Condition: 260-324 mg/dl = 6 units Condition: 325-374 mg/dl = 8 units Condition: 375-409 mg/dl = 10 units Condition: 410-449 mg/dl = 11 units Condition: Greater than 449 call physician Protocol Text: - Use for Total Daily Dose of Insulin 56-80 units - Patient who are insulin resistant or septic HIGH MEDIUM DOSING ALGORITHM Rx Instructions: subcutaneously With meals and @HS; 150-199 2 units 200-259 4 units 260-324 6 units 325-374 8 units 375-409 10 units 410-449 11 units >449 notify (DME) pen needle, diabetic [BD Ultra-Fine Abbie Pen Needle] 32 gauge x 5/32 needle See Rx Instructions .ROUTE .MEDSUPPLY Qty: 150 0RF Rx Instructions: As directed Referrals / Follow Up: Sherrie Baez MD [Primary Care Provider] - (3) DKA (diabetic ketoacidosis) Qualifiers: Diabetes mellitus type: type 2 Diabetes mellitus complication detail: without coma Qualified Code(s): E11.10 - Type 2 diabetes mellitus with ketoacidosis without coma
[2024-10-12 11:38] LABS: Anion Gap 14 (5-15); BUN 24 mg/dL (4-19); BUN/Creat Ratio 15.4 RATIO (10-20); Calcium 8.1 mg/dL (7.6-11.0); Carbon Dioxide 22.8 mmol/L (22.0-29.0); Chloride 97 mmol/L (96-108); Creatinine, Serum 1.57 mg/dL (0.70-1.20); EST Glomerular Filtration Rate 38 (>60); Estimated Creatinine Clearance 26.62 ml/min; Glucose 430 mg/dL (70-99); Potassium 3.9 mmol/L (3.3-5.1); Sodium Level 134 mmol/L (133-145)
[2024-10-12 12:26] LABS: Bedside Glucose 216 mg/dL (74-106)
[2024-10-12] MEDS: Cephalexin 250 MG Capsule PO (13:59)
--- NOTE | 2024-10-12 14:32 | CASEMGMT ---
[facility] has obtained auth to admit. SW updated. Shabana Noriega DC Planning Asst.
--- NOTE | 2024-10-12 14:44 | PCM.DC.SUM ---
Providers Date of Admission: 10/08/24 Date of Discharge: 10/12/24 Primary Care Physician: Dr. Sherrie Baez MD Consultations 10/08/24 23:33 Consult: Gastroenterology Routine Consulting Provider: [facility] Reason for Consult: Hematamesis with suspected UGIB. EMERGENT Consult: No MD Notified: No Date Notified: 10/08/24 Time Notified: 22:39 10/09/24 17:40 Consult: Urology Routine Consulting Provider: Celia Rodriguez Reason for Consult: pt seen in c/s in may, CT w/ bladder debris vs neoplasm EMERGENT Consult: No MD Notified: Yes Date Notified: 10/09/24 Time Notified: 17:41 Method of Notification: Text Reason For Visit: DKA, HYPERKALEMIA, GARRET, SUSPECTED UGIB WITH DARK Diagnosis Discharge Diagnosis (1) Acute cystitis without hematuria: Status: Acute Code(s): N30.00 - Acute cystitis without hematuria (2) Medical non-compliance: Status: Acute Code(s): Z91.199 - Patient's noncompliance with other medical treatment and regimen due to unspecified reason (3) DKA (diabetic ketoacidosis): Status: Acute Code(s): E11.10 - Type 2 diabetes mellitus with ketoacidosis without coma Qualifiers: Diabetes mellitus complication detail: without coma Diabetes mellitus type: type 2 Qualified Code(s): E11.10 - Type 2 diabetes mellitus with ketoacidosis without coma (4) GARRET (acute kidney injury): Status: Acute Code(s): N17.9 - Acute kidney failure, unspecified (5) Coffee ground emesis: Status: Acute Code(s): K92.0 - Hematemesis (6) Metabolic acidosis: Status: Acute Code(s): E87.20 - Acidosis, unspecified (7) Hyperkalemia: Status: Acute Code(s): E87.5 - Hyperkalemia Plan DKA -Resolved -Had acidosis with anion gap of 28 and serum bicarb of 14 on presentation -Blood glucose was over 1000 -VBG showed a pH of 7.26 -Insulin drip discontinued [id number] -A1c on admission is pending however previous A1c's have not been well-controlled -Patient with known noncompliance -Fasting sugars are better so we will decrease to 15 units twice daily and reassess fasting blood glucose tomorrow as well as trends -Continue SSI -Continue carb controlled diet E. coli/coag negative staph UTI/bladder mass -Continue Zosyn for another 24 hours and if remains stable will transition to oral medication for coverage to complete course for complicated UTI -Sandy catheter discontinued and postvoid residual ordered -Per urology as long as postvoid residuals less than 250 okay to leave without a catheter -Urology has seen the patient and recommended outpatient cystoscopy after discharge as there is concern for possible bladder cancer -Discussed for outpatient cystoscopy with patient after discharge and will make referral to see Dr. Rodriguez Coffee ground emesis with grade D esophagitis -Discontinue IV Protonix and transition to 40 mg p.o. twice daily -EGD done on 10/09/2024 and showed significant esophagitis -Biopsy results obtained and shows ulceration and acute inflammation -Hemoglobin relatively stable -Repeat CBC in a.m. Leukocytosis -Resolved Chronic anemia -Hemoglobin is stable -Repeat CBC in a.m. GARRET on CKD stage IIIb -Baseline serum creatinine appears to run between 1.8 and 2.0 -Peak creatinine on presentation was 3.54 -Current serum creatinine 1.6 -Resolved with IV fluids -Avoid nephrotoxins Essential hypertension/hyperlipidemia -Add lisinopril and monitor renal function closely -May consider transition to [facility]B if medications can be verified -Restart home medications once verified Depression/anxiety -Will restart home antihypertensives as verified -Have asked nursing to try and verify her medications COPD -As needed nebulizers History of tobacco abuse -Remote -Encouraged ongoing cessation DVT prophylaxis -Cont 5000 u BID CODE STATUS -full code verified on admission Medications at Discharge Home Medications mirtazapine 15 mg tablet (Remeron) 15 mg PO QHS #1 TAB 05/04/23 acetaminophen 325 mg capsule (Tylenol) 650 mg PO QHS pain 09/12/23 atorvastatin 10 mg tablet 10 mg PO QHS 09/12/23 dextrose 40 % oral gel (Glucose Gel) 10 g PO Q15M PRN hypoglycemia 09/12/23 glucagon HCl 1 mg solution for injection (Glucagon (HCl) Emergency Kit) 1 mg subcut Q20M PRN hypoglycemia 09/12/23 pen needle, diabetic 32 gauge x 5/32 (BD Ultra-Fine Abbie Pen Needle) #150 ea 04/12/24 losartan 50 mg tablet (Cozaar) 50 mg PO DAILY #30 tabs 06/14/24 sertraline 50 mg tablet (Zoloft) 50 mg PO DAILY #30 tabs 06/14/24 cephalexin 250 mg capsule 250 mg PO Q8 #18 caps 10/12/24 insulin glargine-yfgn 100 unit/mL (3 mL) subcutaneous pen 25 unit (0.25 mL) subcut BID #15 mL 10/12/24 insulin lispro 100 unit/mL subcutaneous pen (Humalog KwikPen (U-100) Insulin) 10 unit (0.1 mL) subcut TIDAC #15 mL 10/12/24 insulin lispro 100 unit/mL subcutaneous pen (Humalog KwikPen (U-100) Insulin) See Protocol subcut ACHS #15 mL 10/12/24 nicotine 14 mg/24 hr daily transdermal patch 14 mg transdermal DAILY #0 ea 10/12/24 nutrition tx glu intol,lac-free,soy-fiber 0.06 gram-1.2 kcal/mL liquid (Glucerna 1.2 Arturo) 120 ml PO TIDCM #0 mL 10/12/24 pantoprazole 40 mg tablet,delayed release 40 mg PO BID #0 tabs 10/12/24 Hospital Course Operations None Procedures EGD, EKG and - (CT abdomen pelvis/chest x-ray) Summary of Care Provided Minutes Spent on Discharge: 39 Hospital Course: Patient is a 59-year-old white female who came to the emergency department at [facility] on 10/08/2024 with chief complaint of nausea, vomiting, malaise, and insulin noncompliance. Patient is a known diabetic and has not been taking her home insulin. She also has a known history of emphysematous cystitis with right-sided pyelonephritis and sepsis in May 2024. Patient reported on presentation that her symptoms began about 10 days prior to presentation with a gradual onset of nausea and vomiting. She reported bilious emesis that had progressively worsened. She indicated that her vomitus was black in appearance and had not had a bowel movement in a few days. She also complained of chills and bodyaches as well as generalized abdominal pain. She denied fever or headache, shortness of breath, dysuria, tingling numbness or weakness. Vital signs on presentation showed temperature of 98.7, heart rate 77, respiratory rate is 18, blood pressure was 190/170 with a repeat of 120/45 and pulse ox was 97% on room air. CBC on presentation showed a markedly elevated white count at 20,000 with a left shift having an 89.4% neutrophilia and normal hemoglobin however she was dehydrated. Coags were normal. Chemistry panel showed a sodium of 121, potassium of 6.6, serum bicarb of 14, anion gap of 28, BUN of 99 and a serum creatinine of 3.54 with a baseline of 1.7-1.8. Glucose was 1300 and serum osmolality was 390. Her lactic acid was normal at 1.9. Liver functions were unremarkable. Troponin was normal at 28. Lipase was 23. VBG was performed and showed a pH of 2.26. Acetone level was moderate. CT of the abdomen pelvis showed no alarming acute findings in the abdomen/pelvis but did show tiny nonobstructing bilateral renal calculi and a 2.3 area of asymmetric wall thickening in the posterior urinary bladder of unclear significance. She admitted to the intensive care unit based on her diagnosis of diabetic ketoacidosis. An insulin drip and IV fluids were utilized. Slowly with time her renal function improved to the point where she was at her baseline at the time of discharge with a serum creatinine of 1.57. Her UA was suspicious for infection on presentation so she was placed on antibiotics. Culture grew out E. coli. Blood cultures were unremarkable. She was maintained on antibiotics and at the time of discharge was placed on Keflex to complete a course of 10 days for complicated UTI. Given her concern for coffee-ground emesis on presentation GI was consulted and EGD was performed on 10/09/2024 and demonstrated severe esophagitis with no active bleeding biopsies were taken and resulted prior to discharge and showed inflammation and ulceration. She was maintained on IV Protonix drip for 48 hours after the procedure and then transition to Protonix 40 mg p.o. twice daily at the time of discharge. With regards to the abnormality in her bladder she was evaluated by urology. Outpatient cystoscopy was recommended and referral was made for after discharge 1 week. She was seen in by physical and Occupational Therapy during her hospitalization and they recommended ongoing therapy services at discharge. Patient was agreeable and was accepted for [facility] facility and discharged to [facility] facility on 10/12/2024. She is to follow-up with her PCP in 1 week after discharge from from [facility] facility. She is to follow-up with Dr. Sullivan in 1 week for cystoscopy. Discharge diagnoses: DKA-resolved [id number] E. coli UTI Bladder mass Grade D esophagitis Leukocytosis-resolved Chronic anemia GARRET-resolved CKD stage IIIb Essential hypertension Hyperlipidemia Severe malnutrition Anxiety Depression COPD History of tobacco abuse Physical Exam Const alert, oriented x3, no apparent distress and no limitations; Negative for average body habitus, healthy appearing or well nourished Constitutional Narrative: Thin, middle-aged, white female, sitting up in chair at the bedside watching television, appears comfortable, appears older than stated age, does not appear toxic General Appearance: cooperative, comfortable, well kempt and well developed Exam Limitations: no limitations Nutritional Appearance: cachectic HEENT normocephalic, head/scalp atraumatic and moist oral mucous membranes HEENT Narrative: Mallampati 1, no thrush, temporal wasting Eyes EOMs intact bilaterally and conjunctivae normal Eyes Narrative: No scleral icterus Neck supple Neck Narrative: Trachea midline neck veins are flat Resp normal respiratory effort, no retractions, no use of accessory muscles and clear to auscultation bilaterally Resp Narrative: Diminished but clear Auscultation: Negative for rales, rhonchi or wheezes Cardio regular rate, regular rhythm, S1 normal heart sound, S2 normal heart sound, no murmurs, no rub, no gallops and no clicks GI normal to inspection, nondistended, normoactive bowel sounds, soft to palpation and non-tender GI Narrative: Abdomen is scaphoid Extremity no clubbing, cyanosis or edema Extremity Narrative: Pedal pulses are 2+, decreased lean muscle mass Skin skin turgor normal and no jaundice Neuro oriented x3, moves all extremities and no focal motor deficits Speech: speech normal Psych Psych Narrative: Affect remains flat and mood slightly depressed however eye contact is good and patient interacts appropriately Weight / BMI Weight Weight: 43.7 kg Body Mass Index (BMI) 17.7 ABG / Lab / Microbiology Data 10/12/24 07:04 10/12/24 07:04 Laboratory: Laboratory Results - last 24 hr 10/12/24 07:04: WBC 9.2, RBC 3.71 L, Hgb 11.0 L, Hct 34.1 L, MCV 91.9, MCH 29.6, MCHC 32.3, RDW Std Deviation 43.5, RDW Coeff of Danie 12.8, Plt Count 268, MPV 11.1, Sodium Cancelled 10/12/24 07:04: Sodium 134, Potassium Cancelled 10/12/24 07:04: Potassium 3.9, Chloride Cancelled, Chloride Direct 97, Carbon Dioxide Cancelled 10/12/24 07:04: Carbon Dioxide 22.8, Anion Gap Cancelled 10/12/24 07:04: Anion Gap 14, BUN Cancelled 10/12/24 07:04: BUN 24 H, Creatinine Cancelled 10/12/24 07:04: Creatinine 1.57 H, Estim Creat Clear Calc Cancelled 10/12/24 07:04: Estim Creat Clear Calc 26.62, Est GFR (MDRD) Af Amer Cancelled, Est GFR (MDRD) Non-Af Cancelled 10/12/24 07:04: Est GFR (MDRD) Non-Af 38 L, BUN/Creatinine Ratio Cancelled 10/12/24 07:04: BUN/Creatinine Ratio 15.4, Glucose Cancelled 10/12/24 07:04: Glucose 430 H, Calcium Cancelled 10/12/24 07:04: Calcium 8.1 10/12/24 07:58: POC Glucose 350 H 10/12/24 12:05: POC Glucose 216 H 10/12/24 16:40: POC Glucose 335 H Microbiology: Microbiology 10/08/24 19:30 Urine Catheter - Catheter Urine Culture - Final Escherichia coli Staphylococcus epidermidis 10/08/24 20:30 Blood Culture (Wb) - Anticubital Left Blood Culture - Preliminary No growth in 48 hours. 10/08/24 19:28 Blood Culture (Wb) - Anticubital Right Blood Culture - Preliminary No growth in 48 hours. 10/08/24 23:45 Nasal Secretion MRSA (PCR) - Final 10/08/24 19:27 Mucosa - Nose SARS-CoV-2, Influenza & RSV (PCR) - Final D/C Instructions DC O2, CPAP, BIPAP Needs Home O2 Discharge instructions: No Meaningful Use Info Meaningful Use Meaningful Use Diagnoses (Choose all that apply): None applicable Ischemic Stroke Statin Dosing Therapy Reference: STATIN DOSE THERAPY REFERENCE: * Patients > 75 years receive moderate or high dose statin therapy. * Patients 75 years or YOUNGER should receive HIGH intensity statin dose unless contraindicated. You will be required to document reason for non-treatment if statin daily dose does not meet guidelines. HIGH DOSE STATIN THERAPY DAILY Atorvastatin > than or = to 40 mg Rosuvastatin > than or = to 20 mg Amlodipine + Atorvastatin > than or = to 2.5/40 mg Ezetimibe + Simvastatin 10/80 mg Simvastatin 80mg Discharge Plan Admission Admit Date/Time: 10/08/24 22:36 Primary Reason for Your Visit: Nausea/vomiting Attending Provider: Mayuri García Primary Care Provider: Sherrie Baez Consulting Providers: Ld Chris; Celia Rodriguez; Vera Rincon Discharge Orders/Prescriptions Prescriptions: New cephalexin 250 mg Capsule 250 mg PO Q8 Qty: 18 0RF nicotine 14 mg/24 hr Patch 24 Hour 14 mg transdermal DAILY Qty: 0 0RF pantoprazole 40 mg Tablet,Delayed Release (Dr/Ec) 40 mg PO BID Qty: 0 0RF insulin lispro [Humalog KwikPen Insulin] 100 unit/mL Insulin Pen 10 unit subcut TIDAC Qty: 15 0RF insulin lispro [Humalog KwikPen Insulin] 100 unit/mL Insulin Pen See Protocol subcut ACHS Qty: 15 0RF Protocol: 3. Sliding Scale Insulin Med Dosing Condition: 150-189 mg/dl = 1 unit Condition: 190-229 mg/dl = 2 units Condition: 230-269 mg/dl = 3 units Condition: 270-309 mg/dl = 4 units Condition: 310-349 mg/dl = 5 units Condition: 350-399 mg/dl = 6 units Condition: 400-449 mg/dl = 7 units Condition: Greater than 449 call physician Protocol Text: Suggested for: - Patients on Total Daily Insulin Dose of 37-55 units - Obese, infected, or steroid patients MEDIUM DOSING ALGORITHIM Glucerna 1.2 Arturo 0.06-1.2 gram-kcal/mL Liquid 120 ml PO TIDCM Qty: 0 0RF insulin glargine-yfgn 100 unit/mL (3 mL) Insulin Pen 25 unit subcut BID Qty: 15 0RF Continued atorvastatin 10 mg tablet 10 mg PO QHS glucagon HCl [Glucagon (HCl) Emergency Kit] 1 mg recon soln 1 mg subcut Q20M PRN (Reason: hypoglycemia) Rx Instructions: until target blood sugar attained dextrose [Glucose Gel] 40 % gel 10 g PO Q15M PRN (Reason: hypoglycemia) Rx Instructions: until symptoms of low blood sugar are controlled acetaminophen [Tylenol] 325 mg capsule 650 mg PO QHS mirtazapine [Remeron] 15 mg tablet 15 mg PO QHS Qty: 1 0RF losartan [Cozaar] 50 mg tablet 50 mg PO DAILY Qty: 30 0RF sertraline [Zoloft] 50 mg tablet 50 mg PO DAILY Qty: 30 0RF (DME) pen needle, diabetic [BD Ultra-Fine Abbie Pen Needle] 32 gauge x 5/32 needle See Rx Instructions .ROUTE .MEDSUPPLY Qty: 150 0RF Rx Instructions: As directed Discontinued sertraline 50 mg tablet 50 mg PO QAM losartan 50 mg tablet 50 mg PO DAILY linezolid 600 mg Tablet 600 mg PO BID Qty: 10 0RF cephalexin 500 mg tablet 500 mg PO BID Qty: 10 0RF atorvastatin 10 mg tablet 10 mg PO DAILY Qty: 30 0RF insulin glargine [Lantus Solostar U-100 Insulin] 100 unit/mL (3 mL) insulin pen 10 unit subcut BID Qty: 15 0RF insulin lispro [Humalog KwikPen Insulin] 100 unit/mL insulin pen See Protocol subcut .COMPLEX Qty: 15 0RF Protocol: 4. Sliding Scale Insulin High-Med Dosing Condition: 150-199 mg/dl = 2 units Condition: 200-259 mg/dl = 4 units Condition: 260-324 mg/dl = 6 units Condition: 325-374 mg/dl = 8 units Condition: 375-409 mg/dl = 10 units Condition: 410-449 mg/dl = 11 units Condition: Greater than 449 call physician Protocol Text: - Use for Total Daily Dose of Insulin 56-80 units - Patient who are insulin resistant or septic HIGH MEDIUM DOSING ALGORITHM Rx Instructions: subcutaneously With meals and @HS; 150-199 2 units 200-259 4 units 260-324 6 units 325-374 8 units 375-409 10 units 410-449 11 units >449 notify Referrals / Follow Up: Sherrie Baez MD [Primary Care Provider] - Celia Rodriguez MD [Med Staff - Active Staff] - In 1 Week (In 1 week for cystoscopy as an outpatient) Disposition Disposition (needs filled in before D/C Order can be placed): [facility] Charges/Coding Visit Charges Inpatient E&M: 63831 SNF Disch >30 Min
--- NOTE | 2024-10-12 15:13 | CASEMGMT ---
Social Work- Precert has been obtained.? Physician updated and pt is ready for discharge today.? 7000 convalescent form completed in [facility]. DCA and bedside nurse notified of discharge. Final discharge arrangements and notification to patient/family as per discharge capacity planning manager.? Disposition:[facility], skilled level of care under convalescent stay. EMILIE Faulkner
--- NOTE | 2024-10-12 16:18 | CASEMGMT ---
Discharge Planning Discharge orders, signed med list, and transport time sent to [facility]. Physicians will transport pt by wheelchair at 5:30. Nursing, SW, and pt updated. left for pts son (Jhonatan). Shabana Noriega. DC Planning Asst.
[2024-10-12] MEDS: Insulin Lispro 100 UNIT/ML INSULN.PEN 10 UNIT SC (16:43)
[2024-10-12 17:05] LABS: Bedside Glucose 335 mg/dL (74-106)
== END 2024-10-12 19:30 | disposition skilled nursing facility (03) | DRG 420 ==
LOC: ED 20:01 → ICU 22:19
PROVIDERS: Internal Medicine; Internal Medicine Gastroenterology; Admitting Provider Internal Medicine; Emergency Provider Emergency Medicine; PCP Student in an Organized Health Care Education/Training Program; Referring Provider Internal Medicine; Visit Provider Internal Medicine
PROC: 0DJ08ZZ Inspection of Upper Intestinal Tract, Via Natural or Artificial Opening Endoscopic (ICD-10-PCS; CPT 43235; principal; 2024-10-09 16:40)
DX: E11.10 Type 2 diabetes mellitus with ketoacidosis without coma (principal); E43 Unspecified severe protein-calorie malnutrition; K92.0 Hematemesis; D63.1 Anemia in chronic kidney disease; K22.10 Ulcer of esophagus without bleeding; B95.7 Other staphylococcus as the cause of diseases classified elsewhere; N18.32 Chronic kidney disease, stage 3b; J44.9 Chronic obstructive pulmonary disease, unspecified; E11.22 Type 2 diabetes mellitus with diabetic chronic kidney disease; I12.9 Hypertensive chronic kidney disease with stage 1 through stage 4 chronic kidney disease, or unspecified chronic kidney disease; F32.A Depression, unspecified; E11.65 Type 2 diabetes mellitus with hyperglycemia; N17.9 Acute kidney failure, unspecified; E87.5 Hyperkalemia; Z79.4 Long term (current) use of insulin; E78.5 Hyperlipidemia, unspecified; F41.9 Anxiety disorder, unspecified; F17.210 Nicotine dependence, cigarettes, uncomplicated; F17.290 Nicotine dependence, other tobacco product, uncomplicated; B96.20 Unspecified Escherichia coli [E. coli] as the cause of diseases classified elsewhere; N30.00 Acute cystitis without hematuria; N32.89 Other specified disorders of bladder; Z68.1 Body mass index [BMI] 19.9 or less, adult; Z91.148 Patient's other noncompliance with medication regimen for other reason; Z79.899 Other long term (current) drug therapy
CPT/HCPCS: 36415; 71046; 74176; 80048; 80053; 80061; 80307; 81001; 81025; 82009; 82803; 82947; 82962; 83036; 83605; 83690; 83735; 83930; 84443; 84484; 85025; 85027; 85610; 85730; 86850; 86900; 86901; 87040; 87077; 87086; 87088; 87186; 87631; 87641; 88305; 88312; 93005; 94668; 97116; 97161; 97166; 97530; 97535; 97802; 99285; J2020; A4216; J0612; J2405